=== PATIENT | female | born 1995 | race Native Hawaiian/Other Pacific Islander ===

== ENCOUNTER 2017-07-29 22:17 | Emergency (ER) | payer OTHER ==
[~2017-07-29] VITALS: Ht 157.5 cm; Wt 48.0 kg
[2017-07-29 22:18] VITALS: BP 142/86; PULSE 74; RESP 16; TEMP 98.6; O2SAT 100
--- NOTE | 2017-07-29 22:57 | PD ---
HPI Chief Complaint: Neuro Symptoms/ Deficits Time Seen by Provider: 22:32 Travel History International Travel<30 days: No Contact w/Intl Traveler<30days: No Traveled to known affect area: No History of Present Illness HPI The patient is a 22 year old female who presents to the [facility] emergency department with a history of headache on the left side of her head that reportedly began last weekend. The patient reports that the pain is an aching sensation. The patient reports that the pain waxes and wanes in severity. The pain comes and goes. The pain is improved with taking Tylenol or ibuprofen. She denies any thunderclap quality to the headache. She reports that she has over the last week had difficulty focusing and has also noticed that she's had difficulty finding words and spelling words that she normally can. The patient denies having any numbness or tingling to her extremities. She denies having any one-sided weakness, facial droop, slurred speech, dizziness. The patient's mother accompanies her to this emergency department visit. The patient's mother reports that she has been under increased stress. 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 Mom reports that she additionally a month ago broke up with her boyfriend of 2 years. She reports that she has been tearful frequently over the last month. The patient has had several episodes of passing out over the last week. She reports that she does have a history of syncope with her menstrual cycles. Mom reports that she had 2 episodes of syncope today prompted the visit to the emergency department. Each episode lasts for approximately 2 minutes. She has not hurt herself with either of these episodes. She has not bitten her tongue or lost control of her bladder or bowel. Mom denies seeing any tonic-clonic seizure activity. Review of systems otherwise, the patient denies having any known recent fevers, sore throat, cough, congestion, neck pain or stiffness, chest pain, shortness of breath, abdominal pain, diarrhea, or urinary symptoms. The patient reports that she did have one episode of vomiting earlier today. She cannot recall when she last moved her bowels, however she denies having any problems with constipation. LMP: July 20, 2017 [facility] Past Medical History Narrative Medical The patient's past medical history is significant for syncopal events with her menstrual cycle. Past Surgical History Narrative Surgical The patient's past surgical history is significant for wisdom teeth extraction Social History Alcohol Use: Yes (occasional) Tobacco Use: No Substance Use: No Allergies-Medications (Allergen,Severity, Reaction): Coded Allergies: oxycodone (Verified Adverse Reaction, Intermediate, Dizziness, 07/29/17) Reported Meds & Prescriptions Reported Meds & Active Scripts Active No Active Prescriptions or Reported Medications Narrative Medication Tylenol or ibuprofen as needed for headache. Review of Systems Except as stated in HPI: all other systems reviewed are Neg General / Constitutional: No: Fever Eyes: No: Visual changes HENT: Positive: Headaches, No: Rhinorrhea, Congestion, Neck Stiffness, Neck Pain Cardiovascular: Positive: Syncope, No: Chest Pain or Discomfort Respiratory: No: Cough, Shortness of Breath Gastrointestinal: Positive: Nausea, Vomiting, No: Diarrhea, Abdominal Pain Genitourinary: No: Dysuria Musculoskeletal: No: Pain Skin: No Rash Neurologic: Positive: Change in Mentation, No: Weakness, Focal Abnormalities, Slurred Speech, Sensory Disturbance Psychiatric: No: Depression Endocrine: No: Polydipsia Hematologic/Lymphatic: No: Easy Bruising Physical Exam Narrative General: The patient is a well-developed well-nourished female in no acute distress. Head and Neck exam: Head is normocephalic atraumatic. Eyes: EOMI, pupils are equal round and reactive to light. Nose: Midline septum with pink mucous membranes Mouth: Dentition unremarkable. Moist mucus membranes. Posterior oropharynx is not erythematous. No tonsillar hypertrophy. Uvula midline. Airway patent. Neck: No palpable lymphadenopathy. No nuchal rigidity. No thyromegaly. Negative Brudzinski, negative Kernig sign. Cardiovascular: Regular rate and rhythm without murmurs, gallops, or rubs. Lungs: Clear to auscultation bilaterally. No wheezes, rhonchi, or rales. Abdomen: Soft, without tenderness to palpation in all 4 quadrants of the abdomen. No guarding, rebound, or rigidity. Normal bowel sounds are audible. No tenderness on palpation of McBurney's point. Extremities: No clubbing, cyanosis, or edema. 2+ pulses in all 4 extremities. No calf tenderness on palpation. Back: No spinous process tenderness to palpation. No costovertebral angle tenderness to palpation. Neurologic Exam: Cranial nerves 2-12 were intact on exam. Strength is 5/5 in all 4 extremities. No sensory deficits noted. Skin Exam: No rash noted. Intact skin that is warm and dry. Data Data Last Documented VS Vital Signs Date Time Temp Pulse Resp B/P (MAP) Pulse Ox O2 Delivery O2 Flow Rate FiO2 07/29/17 23:00 94 18 97 Room Air 07/29/17 22:18 98.6 142/86 (104) Orders Orders Electrocardiogram (07/29/17 22:33) Complete Blood Count With Diff (07/29/17 22:33) Comprehensive Metabolic Panel (07/29/17 22:33) Prothrombin Time / Inr (Pt) (07/29/17:33) Act Partial Throm Time (Ptt) (07/29/17:) Lipase (07/29/17:33) Urinalysis - C+S If Indicated (07/29/17 22:33) Westergren Sedimentation Rate (07/29/17 22:33) Magnesium (Mg) (07/29/17 22:33) Thyroid Stimulating Hormone (07/29/17 22:33) Chest, Single Ap (07/29/17 22:33) Ct Brain W/O Iv Contrast(Rout) (07/29/17 22:33) Iv Access Insert/Monitor (07/29/17 22:33) Ecg Monitoring (07/29/17 22:33) Oximetry (07/29/17 22:33) Ed Urine Pregnancytest Poc (07/29/17 22:33) Drug Screen, Random Urine (07/29/17 22:33) Alcohol (Ethanol) (07/29/17 22:33) Orthostatic Vital Signs (07/29/17 23:12) Blood Glucose (07/29/17 23:12) Ondansetron Inj (Zofran Inj) (07/29/17 23:30) Ketorolac Inj (Toradol Inj) (07/29/17 23:45) Prochlorperazine Inj (Compazine Inj) (07/29/17 23:45) Sodium Chlor 0.9% 1000 Ml Inj (Ns 1000 M (07/29/17 23:45) Sodium Chlorid 0.9% 500 Ml Inj (Ns 500 M (07/30/17 00:30) Labs Laboratory Tests Test 07/29/17 22:50 07/30/17 00:45 White Blood Count 7.4 TH/MM3 Red Blood Count 4.54 MIL/MM3 Hemoglobin 13.5 GM/DL Hematocrit 40.5 % Mean Corpuscular Volume 89.2 FL Mean Corpuscular Hemoglobin 29.7 PG Mean Corpuscular Hemoglobin Concent 33.3 % Red Cell Distribution Width 13.0 % Platelet Count 331 TH/MM3 Mean Platelet Volume 9.3 FL Neutrophils (%) (Auto) 54.0 % Lymphocytes (%) (Auto) 34.9 % Monocytes (%) (Auto) 6.3 % Eosinophils (%) (Auto) 3.6 % Basophils (%) (Auto) 1.2 % Neutrophils # (Auto) 4.0 TH/MM3 Lymphocytes # (Auto) 2.6 TH/MM3 Monocytes # (Auto) 0.5 TH/MM3 Eosinophils # (Auto) 0.3 TH/MM3 Basophils # (Auto) 0.1 TH/MM3 CBC Comment DIFF FINAL Differential Comment Erythrocyte Sedimentation Rate 6 mm/hr Prothrombin Time 11.1 SEC Prothromb Time International Ratio 1.0 RATIO Activated Partial Thromboplast Time 27.7 SEC Blood Urea Nitrogen 14 MG/DL Creatinine 0.96 MG/DL Random Glucose 108 MG/DL Total Protein 7.7 GM/DL Albumin 4.1 GM/DL Calcium Level 8.7 MG/DL Magnesium Level 2.2 MG/DL Alkaline Phosphatase 70 U/L Aspartate Amino Transf (AST/SGOT) 16 U/L Alanine Aminotransferase (ALT/SGPT) 18 U/L Total Bilirubin 0.7 MG/DL Sodium Level 140 MEQ/L Potassium Level 3.8 MEQ/L Chloride Level 103 MEQ/L Carbon Dioxide Level 30.0 MEQ/L Anion Gap 7 MEQ/L Estimat Glomerular Filtration Rate 74 ML/MIN Lipase 415 U/L Thyroid Stimulating Hormone 3rd Gen 1.020 uIU/ML Ethyl Alcohol Level LESS THAN 3 MG/DL Urine Color LIGHT-YELLOW Urine Turbidity CLEAR Urine pH 6.5 Urine Specific [place] 1.009 Urine Protein NEG mg/dL Urine Glucose (UA) NEG mg/dL Urine Ketones NEG mg/dL Urine Occult Blood NEG Urine Nitrite NEG Urine Bilirubin NEG Urine Urobilinogen LESS THAN 2.0 MG/DL Urine Leukocyte Esterase NEG Urine RBC 0-3 /hpf Urine WBC 0-2 /hpf Urine Squamous Epithelial Cells 6-8 /hpf Urine Bacteria RARE /hpf Microscopic Urinalysis Comment CULT NOT INDICATED Urine Opiates Screen NEG Urine Barbiturates Screen NEG Urine Amphetamines Screen NEG Urine Benzodiazepines Screen NEG Urine Cocaine Screen NEG Urine Cannabinoids Screen NEG MDM Medical Decision Making Medical Screen Exam Complete: Yes Emergency Medical Condition: Yes Medical Record Reviewed: Yes Interpretation(s) Last Impressions Head CT 07/29/172232 Signed Impressions: Service Date/Time: Saturday, July 29, 2017 23:18 - CONCLUSION: Negative noncontrast head CT. Devin Franklin MD Chest X-Ray 07/29/172232 Signed Impressions: Service Date/Time: Saturday, July 29, 2017 22:48 - CONCLUSION: No acute cardiopulmonary disease identified. Milton Fiore MD Differential Diagnosis Tension headache, versus migraine headache, versus symptomatic anemia, versus adjustment disorder with depressed mood, versus ischemic stroke, versus intracranial hemorrhage, versus intracranial mass Narrative Course During the course of the patients emergency department visit, the patients history, examination, and differential diagnosis were reviewed with the patient. The patient was placed on a excellence coach with oximetry and frequent blood pressure monitoring. The patient had IV access obtained and blood work sent for analysis. A CT scan of the brain was ordered. The patient had an ECG done. The patient's ECG shows a sinus rhythm heart rate of 63, no acute ST segment elevation or depression, T waves are inverted in V1, QRS duration is 84 ms, QTC 398 ms. A bedside test is negative. The patient was initially provided normal saline IV fluid. After her CT scan of the brain came back showing no acute abnormality, the patient was given Toradol for headache, in combination with Compazine 5 mg IV. The patients laboratory studies were reviewed and remarkable for CBC is within normal limits, sedimentation rate is normal at 6, CMP is remarkable for glucose of 108, lipase is slightly elevated at 415 however her abdominal exam is not consistent with pancreatitis, TSH is 1.02, PT 11.1, PTT 27.7, alcohol level is less than 3, urinalysis is unremarkable. Urine drug screen is negative. Radiology studies were reviewed and remarkable for a chest x-ray that shows no acute cardiopulmonary disease, CT scan of the brain shows no acute abnormality. The patient on reexamination was reportedly feeling improved. The patient has a follow-up appointment already scheduled with her primary care physician, for tomorrow. The patient was instructed to continue to push fluids and get plenty of rest. The patient was given a school excuse for the next week. The patient is resting comfortably and feels better, is alert and in no distress. The patients results and examination findings were discussed with the patient. The repeat examination is unremarkable and benign. The history, exam, diagnostic testing, and current condition do not suggest any significant pathology to warrant further testing, continued ED treatment, admission, or surgical evaluation at this point. The vital signs have been stable. The patient does not have uncontrollable pain, intractable vomiting, or other significant symptoms. The patient's condition is stable and appropriate for discharge. The patient will pursue further outpatient evaluation with a primary care physician or other designated or consulting physician as indicated in the discharge instructions. The patient expressed understanding and was agreeable with this plan. Diagnosis Primary Impression: Headache Qualified Codes: R51 - Headache Additional Impressions: Syncopal episodes Qualified Codes: R55 - Syncope and collapse Mild dehydration Referrals: Primary Care Physician 1 day Patient Instructions: Dehydration (ED), General Headache (ED), General Instructions, Syncope (ED) Departure Forms: School Release, Return to School Date: Aug 06, 2017 Tests/Procedures, Work Release Enter return to work date: Aug 06, 2017 Med/Other Pt SpecificInfo: No Change to Meds Scripts No Active Prescriptions or Reported Meds Disposition: 01 DISCHARGE HOME Condition: Stable Abiola Salmon MD Jul 29, 2017 22:57
--- NOTE | 2017-07-29 22:57 | RADRPT ---
EXAM DATE/TIME: 07/29/2017 22:48 [facility] COMPARISON: No previous studies available for comparison. INDICATIONS : Cough. MEDICAL HISTORY : None. SURGICAL HISTORY : None. ENCOUNTER: Initial ACUITY: 1 day PAIN SCORE: 0/10 LOCATION: Bilateral chest FINDINGS: Single AP view of the chest. The lungs are clear. Cardiomediastinal silhouette within normal limits. No evidence of pleural effusion or pneumothorax. CONCLUSION: No acute cardiopulmonary disease identified. Milton Fiore MD on July 29, 2017 at 22:55 Board Certified Radiologist. This report was verified electronically.
[2017-07-29 23:01] LABS: BASOPHIL # 0.1 TH/MM3 (0-0.2); BASOPHIL % 1.2 % (0.0-2.0); EOSINOPHIL # 0.3 TH/MM3 (0-0.4); EOSINOPHIL % 3.6 % (0.0-4.0); HEMATOCRIT 40.5 % (35.0-46.0); HEMO FLAGS DIFF FINAL; LYMPH % 34.9 % (9.0-44.0); LYMPHOCYTE # 2.6 TH/MM3 (1.0-4.8); MEAN CELL VOLUME 89.2 FL (80.0-100.0); MEAN CORPUSCULAR HEMOGLOBIN 29.7 PG (27.0-34.0); MEAN CORPUSCULAR HGB CONC 33.3 % (32.0-36.0); MONO % 6.3 % (0.0-8.0); PLATELET COUNT 331 TH/MM3 (150-450); RED BLOOD COUNT 4.54 MIL/MM3 (4.00-5.30); WHITE BLOOD COUNT 7.4 TH/MM3 (4.0-11.0)
[2017-07-29 23:14] LABS: APTT (PATIENT) 27.7 SEC (24.3-30.1); PROTHROMBIN TIME - PATIENT 11.1 SEC (9.8-11.6)
[2017-07-29 23:16] LABS: ALT (GPT) 18 U/L (9-42); ANION GAP 7 MEQ/L (5-15); AST (GOT) 16 U/L (16-38); BLOOD UREA NITROGEN 14 MG/DL (7-18); CHLORIDE 103 MEQ/L (98-107); GLOMERULAR FILTRATION RATE 74 ML/MIN (>89); MAGNESIUM 2.2 MG/DL (1.5-2.5); POTASSIUM 3.8 MEQ/L (3.5-5.1); SODIUM (NA) 140 MEQ/L (136-145)
[2017-07-29 23:23] LABS: ALCOHOL LESS THAN 3 MG/DL (0-5)
[2017-07-29 23:27] LABS: ALKALINE PHOSPHATASE 70 U/L (45-117); TOTAL BILIRUBIN ADULT 0.7 MG/DL (0.2-1.0)
--- NOTE | 2017-07-29 23:29 | RADRPT ---
EXAM DATE/TIME: 07/29/2017 23:18 [facility] COMPARISON: No previous studies available for comparison. INDICATIONS : Cephalgia x1 week; vomiting and syncope today RADIATION DOSE: 31.99 CTDIvol (mGy) MEDICAL HISTORY : None SURGICAL HISTORY : None. ENCOUNTER: Initial ACUITY: 1 week PAIN SCALE: 5/10 LOCATION: cranial TECHNIQUE: Multiple contiguous axial images were obtained of the head. Using automated exposure control and adj ustment of the mA and/or kV according to patient size, radiation dose was kept as low as reasonably a chievable to obtain optimal diagnostic quality images. DICOM format image data is available electro nically for review and comparison. FINDINGS: CEREBRUM: The ventricles are normal for age. No evidence of midline shift, mass lesion, hemorrhage or acute in farction. No extra-axial fluid collections are seen. POSTERIOR FOSSA: The cerebellum and brainstem are intact. The 4th ventricle is midline. The cerebellopontine angle i s unremarkable. EXTRACRANIAL: The visualized portion of the orbits is intact. SKULL: The calvaria is intact. No evidence of skull fracture. CONCLUSION: Negative noncontrast head CT. Devin Franklin MD on July 29, 2017 at 23:27 Board Certified Radiologist. This report was verified electronically.
[2017-07-29] MEDS ORDERED: ONDANSETRON HCL 4 MG/2 ML VIAL IV ONE (23:30)
[2017-07-29] MEDS ORDERED: SODIUM CHLOR 0.9% 1000 ML INJ 1,000 ML IV ONE (23:45)
[2017-07-29] MEDS ORDERED: KETOROLAC TROMETHAMINE 30 MG/ML (IVP) VIAL IV PUSH ONE (23:45)
[2017-07-29] MEDS ORDERED: PROCHLORPERAZINE INJ 10 MG/2 ML VIAL IV PUSH ONE (23:45)
[2017-07-30] MEDS ORDERED: SODIUM CHLORID 0.9% 500 ML INJ 500 ML IV ONE (00:30)
[2017-07-30 00:57] LABS: BLOOD, URINE NEG (NEG); GLUCOSE,URINE NEG (NEG); KETONE, URINE NEG (NEG); NITRITE,URINE NEG (NEG); PH, URINE 6.5 (5.0-8.5); URINE COLOR LIGHT-YELLOW (YELLW/STRAW)
[2017-07-30 01:05] LABS: BACTERIA, URINE RARE /hpf; COMMENT (UR) CULT NOT INDICATED; CULTURE IF INDICATED CULT NOT INDICATED; RBC, URINE 0-3 /hpf (0-3); WBC, URINE 0-2 /hpf (0-5)
[2017-07-30 02:12] VITALS: BP_SYST 103; BP_SYST 109; BP_SYST 113; BP_DIAS 66; BP_DIAS 68; BP_DIAS 74; RESP 18
--- NOTE | 2017-07-30 15:18 | EKG ---
Date Performed: 07/29/2017 Time Performed: 23:54:57 PTAGE: 22 years EKG: Sinus rhythm NORMAL ECG NO PREVIOUS TRACING DOCTOR: Kirby Childs Interpretating Date/Time 07/30/2017 15:16:54
== END 2017-07-30 02:14 | disposition home or self-care (01) ==
LOC: NEPE 22:17
DX: R51 Headache (principal); R55 Syncope and collapse; E86.0 Dehydration; R11.2 Nausea with vomiting, unspecified; Z88.5 Allergy status to narcotic agent
CPT/HCPCS: 70450; 71010; 80053; 80307; 81001; 83690; 83735; 84443; 84703; 85025; 85610; 85652; 85730; 93005; 96361; 96374; 96375; 99285; J0780; J1885; J2405; J7030; J7040

== ENCOUNTER 2017-07-31 13:35 | Inpatient (IN) | payer OTHER ==
[~2017-07-31] VITALS: Ht 157.5 cm; Wt 48.3 kg
[2017-07-31 13:36] VITALS: BP 111/71; PULSE 88; RESP 18; TEMP 99.3; O2SAT 98
--- NOTE | 2017-07-31 14:09 | PD ---
Data Data Last Documented VS Vital Signs Date Time Temp Pulse Resp B/P (MAP) Pulse Ox O2 Delivery O2 Flow Rate FiO2 07/31/17 13:36 99.3 88 18 111/71 (84) 98 Room Air [facility] Supervised Visit with SATHISH: Yes Narrative Course Patient with intermittent syncopal episodes, seconds to minutes at a time, with confusion and headache. Recent workup negative labs and EKG and CT. Worsening persistent episodes. Multiple social stressors. Patient a medical Park for further evaluation. Syncope versus seizures versus stress reaction. Scripts No Active Prescriptions or Reported Meds Kenneth Amaya MD Jul 31, 2017 14:09
[2017-07-31 14:23] VITALS: BP 115/72; PULSE 84; RESP 16; O2SAT 99
[2017-07-31] MEDS ORDERED: SODIUM CHLOR 0.9% 1000 ML INJ 1,000 ML IV ONE (15:45)
--- NOTE | 2017-07-31 15:45 | PD ---
HPI Chief Complaint: Headache Time Seen by Provider: 15:21 Travel History International Travel<30 days: No Contact w/Intl Traveler<30days: No Traveled to known affect area: No History of Present Illness HPI 22-year-old female presents to the emergency department for evaluation of headache and multiple possible syncopal episodes. The patient was seen here 2 days ago in the emergency department. She had workup at that time. Patient states she has a left temporal headache. It apparently started last weekend. She states the pain is aching, currently rates at 6/10 without radiation. The pain comes and goes. She is here with her mother and father at bedside. They state that multiple times throughout the day she will have these episodes where they believe she has a syncopal episode. However, she will repeat words during the episode and then be confused after the episode. They state that she has not had any tonic-clonic seizure activity. She has not had any injuries during the episodes. These episodes will last from seconds to a minute at a time. Her father states she has had 3 episodes today with multiple episodes yesterday. The patient has no history of this in the past. 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 The patient states she has a headache. She denies any fevers or chills. She reports some difficulty with her left peripheral vision. She denies any neck pain or back pain. No chest pain or abdominal pain. No nausea, vomiting, diarrhea. She denies . Her primary care physician, Dr. Suresh, as scheduled for her to have an EEG tomorrow morning. Her parents are requesting this to be done now. She denies any chance of . She states she drinks occasionally. She denies any tobacco or illicit drug use. Severity is moderate. No exacerbating or alleviating factors. [facility] Past Medical History Medical History: Denies Significant Hx Diminished Hearing: No Tetanus Vaccination: < 5 Years ?: Not Past Surgical History Surgical History: No Previous Surgery Other Surgery: Yes (wisdom teeth removed) Social History Alcohol Use: Yes (occasional) Tobacco Use: No Substance Use: No Allergies-Medications (Allergen,Severity, Reaction): Coded Allergies: oxycodone (Verified Adverse Reaction, Intermediate, Dizziness, 11/21/17) Reported Meds & Prescriptions Reported Meds & Active Scripts Active No Active Prescriptions or Reported Medications Review of Systems Except as stated in HPI: all other systems reviewed are Neg Physical Exam Narrative GENERAL: Well-nourished, well-developed female patient, ambulatory. Afebrile. SKIN: Focused skin assessment warm/dry. HEAD: Normocephalic. Atraumatic. ENT: Mucosa pink and moist. No erythema or exudates. No uvular edema. No uvular , palatal, or tonsillar deviation. Airway patent. Nasal turbinates appear normal without nasal blood, purulent drainage or septal hematoma. Bilateral tympanic membranes are clear without erythema or perforation. EYES: No scleral icterus. No injection or drainage. PERRLA. EOM intact. NECK: Supple, trachea midline. No JVD or lymphadenopathy. CARDIOVASCULAR: Regular rate and rhythm without murmurs, gallops, or rubs. Bilateral radial and pedal pulses are 2+ RESPIRATORY: Breath sounds equal bilaterally. No accessory muscle use. Lungs sounds are clear to auscultation. GASTROINTESTINAL: Abdomen soft, non-tender, nondistended. MUSCULOSKELETAL: No cyanosis, or edema. Bilateral upper and lower extremity strength 5/5. All extremities are neurovascularly intact. BACK: Nontender without obvious deformity. No CVA tenderness. NEUROLOGICAL: Awake and alert. Cranial nerves II through XII intact. Motor and sensory grossly within normal limits. Five out of 5 muscle strength in all muscle groups. Normal speech. Finger to nose is normal bilaterally. Heel-to- hart is normal bilaterally. Data Data Last Documented VS Vital Signs Date Time Temp Pulse Resp B/P (MAP) Pulse Ox O2 Delivery O2 Flow Rate FiO2 07/31/17 16:28 71 16 117/74 (88) 100 Room Air 07/31/17 13:36 99.3 Orders Orders Magnesium (Mg) (07/31/17 15:13) Phosphorus (Po4) (07/31/17 15:13) Complete Blood Count With Diff (07/31/17 15:13) Basic Metabolic Panel (Bmp) (07/31/17 15:13) Electrocardiogram (07/31/17 ) Iv Access Insert/Monitor (07/31/17 15:13) Ecg Monitoring (07/31/17 15:13) Oximetry (07/31/17 15:13) Ed Urine Pregnancytest Poc (07/31/17 15:13) Sodium Chlor 0.9% 1000 Ml Inj (Ns 1000 M (07/31/17 15:45) Place In Observation (07/31/17 ) Code Status (07/31/17 17:18) Vital Signs (Adult) Q4H (07/31/17 17:18) Neuro Checks Q4H (07/31/17 17:18) Activity Oob With Assistance (07/31/17 17:18) Wood Room Hand / Telemetry .CONTINUOUS (07/31/17 17:18) Diet Regular Basic (07/31/17 Dinner) Sodium Chloride 0.9% Flush (Ns Flush) (07/31/17 17:30) Sodium Chloride 0.9% Flush (Ns Flush) (07/31/17 21:00) Acetaminophen (Tylenol) (07/31/17 17:30) Ondansetron Inj (Zofran Inj) (07/31/17 17:30) Temazepam (Restoril) (07/31/17 17:30) Basic Metabolic Panel (Bmp) (08/01/17 06:00) Complete Blood Count With Diff (08/01/17 06:00) Electrocardiogram (07/31/17 17:18) Pt Request For Service (07/31/17 17:18) Scd Bilateral/Knee High SHARRON.BID (07/31/17 17:18) Naloxone Inj (Narcan Inj) (07/31/17 17:30) Magnesium Hydroxide Liq (Milk Of Magnesi (07/31/17 17:30) Beta Hcg (Quant/Titer) (07/31/17 17:18) Holter Monitor Recording (07/31/17 ) Echo 2d Comp With Doppler (07/31/17 ) Thyroid Stimulating Hormone (07/31/17 17:20) Free Thyroxine (T4) (07/31/17 17:20) Rapid Plasma Regin (Rpr) W Ttr (07/31/17 17:20) Vitamin B12 (07/31/17 17:20) Folate, Serum (07/31/17 17:20) Ammonia (07/31/17 17:20) Ns + Kcl 20 Meq Inj (Ns + Kcl 20 Meq Inj (07/31/17 17:30) Consult Neurology (07/31/17 ) Eeg Study (07/31/17 ) Mri Abdomen W&W/O Contrast (07/31/17 ) Admit Order (Ed Use Only) (07/31/17 17:27) Labs Laboratory Tests Test 07/31/17 15:40 White Blood Count 8.7 TH/MM3 Red Blood Count 4.55 MIL/MM3 Hemoglobin 13.5 GM/DL Hematocrit 40.7 % Mean Corpuscular Volume 89.5 FL Mean Corpuscular Hemoglobin 29.6 PG Mean Corpuscular Hemoglobin Concent 33.1 % Red Cell Distribution Width 13.1 % Platelet Count 303 TH/MM3 Mean Platelet Volume 9.4 FL Neutrophils (%) (Auto) 77.4 % Lymphocytes (%) (Auto) 14.9 % Monocytes (%) (Auto) 6.0 % Eosinophils (%) (Auto) 1.1 % Basophils (%) (Auto) 0.6 % Neutrophils # (Auto) 6.7 TH/MM3 Lymphocytes # (Auto) 1.3 TH/MM3 Monocytes # (Auto) 0.5 TH/MM3 Eosinophils # (Auto) 0.1 TH/MM3 Basophils # (Auto) 0.1 TH/MM3 CBC Comment DIFF FINAL Differential Comment Blood Urea Nitrogen 9 MG/DL Creatinine 0.78 MG/DL Random Glucose 90 MG/DL Calcium Level 9.3 MG/DL Phosphorus Level 3.7 MG/DL Magnesium Level 2.2 MG/DL Sodium Level 137 MEQ/L Potassium Level 4.1 MEQ/L Chloride Level 102 MEQ/L Carbon Dioxide Level 29.0 MEQ/L Anion Gap 6 MEQ/L Estimat Glomerular Filtration Rate 94 ML/MIN MDM Medical Decision Making Medical Screen Exam Complete: Yes Emergency Medical Condition: Yes Medical Record Reviewed: Yes Differential Diagnosis Syncope versus seizures versus stress reaction. Narrative Course 22-year-old female presents to the emergency department for evaluation of headache with multiple episodes of syncope versus seizure. I reviewed lab work from visit 2 days ago. CBC was unremarkable. ESR was 6. CMP showed no acute abnormality. Lipase was slightly elevated at 415. TSH is 1.020. Coags are unremarkable. Urine drug screen was negative. Alcohol level is less than 3. UA showed no acute infection. EKG, CBC, BMP, magnesium, phosphorus, urine test are ordered and pending. Patient is given normal saline 1 L IV bolus. EKG shows sinus rhythm, heart rate 74, no acute ST changes. CBC shows no acute abnormality. BMP is unremarkable. Magnesium is 2.2. Phosphorus is 3.7. UPT is negative. I spoke to neurologist on-call, Dr. Real, who recommends observation admission and consult to neurology. He recommended EEG tomorrow. [facility] is paged for admission. Dr. Bronson accepted admission. Diagnosis Primary Impression: Syncopal episodes Qualified Codes: R55 - Syncope and collapse Additional Impression: Intractable headache Qualified Codes: R51 - Headache Admitting Information Admitting Physician Requests: Observation Scripts No Active Prescriptions or Reported Meds Carmen Rodriguez Jul 31, 2017 15:45
[2017-07-31 16:20] LABS: AUTOMATED NEUTROPHIL # 6.7 TH/MM3 (1.8-7.7); BASOPHIL # 0.1 TH/MM3 (0-0.2); BASOPHIL % 0.6 % (0.0-2.0); EOSINOPHIL # 0.1 TH/MM3 (0-0.4); EOSINOPHIL % 1.1 % (0.0-4.0); HEMATOCRIT 40.7 % (35.0-46.0); HEMO FLAGS DIFF FINAL; LYMPH % 14.9 % (9.0-44.0); LYMPHOCYTE # 1.3 TH/MM3 (1.0-4.8); MEAN CELL VOLUME 89.5 FL (80.0-100.0); MEAN CORPUSCULAR HEMOGLOBIN 29.6 PG (27.0-34.0); MEAN CORPUSCULAR HGB CONC 33.1 % (32.0-36.0); NEUT % 77.4 % (16.0-70.0); PLATELET COUNT 303 TH/MM3 (150-450); RED BLOOD COUNT 4.55 MIL/MM3 (4.00-5.30); RED CELL DISTRIBUTION WIDTH 13.1 % (11.6-17.2); WHITE BLOOD COUNT 8.7 TH/MM3 (4.0-11.0)
[2017-07-31 16:28] VITALS: BP 117/74; PULSE 71; RESP 16; O2SAT 100
[2017-07-31 16:34] LABS: MAGNESIUM 2.2 MG/DL (1.5-2.5); POTASSIUM 4.1 MEQ/L (3.5-5.1)
[2017-07-31] MEDS ORDERED: NALOXONE HCL 0.4 MG/ML AMP IV PUSH PRN (17:30)
[2017-07-31] MEDS ORDERED: TEMAZEPAM 15 MG CAP PO PRN (17:30)
[2017-07-31] MEDS ORDERED: MAGNESIUM HYDROXIDE SUSP 30 ML CUP PO PRN (17:30)
[2017-07-31] MEDS ORDERED: IOHEXOL 350 MG/ML 10 ML VIAL (for RAD DIAG) IVCONTRAST ONE (17:31)
[2017-07-31] MEDS: NS + KCL 20 MEQ INJ 1,000 ML IV SCH (17:56)
--- NOTE | 2017-07-31 18:08 | HHI.HP ---
HPI Service [facility] Hospitalists Primary Care Physician Oswaldo Suresh MD Admission Diagnosis intractable headache, possible neurological episodes Chief Complaint: Possible neurologic epidoses Travel History International Travel<30 Days: No Contact w/Intl Traveler <30 Da: No Traveled to Known Affected Are: No History of Present Illness Pt is a pleasant 22 y/o Female who attends [employer] where she is engaged in pre- medical studies. Pt was in her usual state of good health prior to last few weeks. Pt is accompanied to the ER by her mother and father. Most of the pt's history is given by the patient's mother. 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 Pt's mother volunteers that Ms. Rosado completed the IB program at [employer] was accepted at [employer], but decided to attend [employer] as a more economic alternative. 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 Per pt's mother, Ms. Rosado recently, approximately 1 month ago, broke up with her boyfriend of 2 years. Mother feels that Ms. Rosado puts herself under a lot of stress due to her competitive nature. Pt was seen in the ER 07/29/17 with c/o BRAND. Pt had extensive evaluation including CT brain without any acute findings. Pt was discharge to home and followed up with her Reliability Specialist Dr. St. Reliability Specialist recommended EEG which was scheduled for tomorrow. Today's visit to the ER centers on possible neurologic spells. Pt's mother explains that Ms. Rosado has been having increasingly frequent episodes since Sunday where here eyes appear glazed and she becomes unresponsive. Mother does NOT relate that the pt falls to the floor or has tonic-clonic activity. The mother rubs Ms. Rosado's face and the episodes appear to resolve after about one minute and pt is again able to answer questions appropriately. Pt will mumble a few words during these events. Afterwards she does NOT recall the episodes. Pt had one of these episodes during my visit. Pt's eyes rolled laterally to the right and pt's eyelids fluttered. Pt was unable to verbally respond during this episode. Pt's episode lasted approximately one minute. There was no tonic -clonic activity. There was NO loss of bowel or bladder control. Pt was able to answer questions soon afterwards. Mother denies any recent trauma. Pt has NO history of seizure disorder. There is NO family history of seizure disorder. Review of Systems Constitutional: DENIES: Diaphoretic episodes, Fatigue, Fever, Weight gain, Weight loss, Chills, Dizziness, Change in appetite, Night Sweats Endocrine: COMPLAINS OF: Abnorml menstrual pattern, DENIES: Heat/cold intolerance, Polydipsia, Polyuria, Polyphagia Eyes: DENIES: Blurred vision, Diplopia, Eye inflammation, Eye pain, Vision loss , Photosensitivity, Double Vision Ears, nose, mouth, throat: DENIES: Tinnitus, Hearing loss, Vertigo, Nasal discharge, Oral lesions, Throat pain, Hoarseness, Ear Pain, Running Nose, Epistaxis, Sinus Pain, Toothache, Odynophagia Respiratory: DENIES: Apneas, Cough, Snoring, Wheezing, Hemoptysis, Sputum production, Shortness of breath Cardiovascular: DENIES: Chest pain, Palpitations, Syncope, Dyspnea on Exertion , PND, Lower Extremity Edema, Orthopnea, Claudication Gastrointestinal: DENIES: Abdominal pain, Black stools, Bloody stools, BRB per rectum, Constipation, Diarrhea, GERD, Nausea, Reflux, Vomiting, Difficulty Swallowing, Anorexia Genitourinary: COMPLAINS OF: Dysmenorrhea, Dyspareunia, Sexual dysfunction, Vaginal discharge, DENIES: Urinary frequency, Urinary incontinence, Urgency, Hematuria, Dysuria, Nocturia Musculoskeletal: DENIES: Joint pain, Muscle aches, Stiffness, Joint Swelling, Back pain, Neck pain Integumentary: DENIES: Abnormal pigmentation, Pruritus, Rash, Nail changes, Breast masses, Breast skin changes, Nipple discharge Hematologic/lymphatic: DENIES: Bruising, Lymphadenopathy Immunologic/allergic: DENIES: Eczema, Urticaria Neurologic: DENIES: Abnormal gait, Headache, Localized weakness, Paresthesias, Seizures, Speech Problems, Tremor, Poor Balance Psychiatric: DENIES: Anxiety, Confusion, Mood changes, Depression, Hallucinations, Agitation, Suicidal Ideation, Homicidal Ideation, Delusions, History of Bipolar, History of Schizophrenia Past Family Social History Past Medical History - per ER history 07/29. Pt has had syncope associated with her menstrual cycle. There was NO mention of this today, but I did NOT specifically ask. 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 SKIN: No rashes, ecchymoses or lesions. Cool and dry. HEAD: Atraumatic. Normocephalic. No temporal or scalp tenderness. EYES: Pupils equal round and reactive. Extraocular motions intact. No scleral icterus. No injection or drainage. ENT: Nose without bleeding, purulent drainage or septal hematoma. Throat without erythema, tonsillar hypertrophy or exudate. Uvula midline. Airway patent. NECK: Trachea midline. No JVD or lymphadenopathy. Supple, nontender, no meningeal signs. CARDIOVASCULAR: Regular rate and rhythm without murmurs, gallops, or rubs. RESPIRATORY: Clear to auscultation. Breath sounds equal bilaterally. No wheezes , rales, or rhonchi. GASTROINTESTINAL: Abdomen soft, non-tender, nondistended. No hepato-splenomegaly , or palpable masses. No guarding. MUSCULOSKELETAL: Extremities without clubbing, cyanosis, or edema. No joint tenderness, effusion, or edema noted. No calf tenderness. Negative Homans sign bilaterally. NEUROLOGICAL: Awake and alert. Cranial nerves II through XII intact. Motor and sensory grossly within normal limits. Five out of 5 muscle strength in all muscle groups. Normal speech. Laboratory Laboratory Tests Test 07/31/17 15:40 White Blood Count 8.7 Red Blood Count 4.55 Hemoglobin 13.5 Hematocrit 40.7 Mean Corpuscular Volume 89.5 Mean Corpuscular Hemoglobin 29.6 Mean Corpuscular Hemoglobin Concent 33.1 Red Cell Distribution Width 13.1 Platelet Count 303 Mean Platelet Volume 9.4 Neutrophils (%) (Auto) 77.4 Lymphocytes (%) (Auto) 14.9 Monocytes (%) (Auto) 6.0 Eosinophils (%) (Auto) 1.1 Basophils (%) (Auto) 0.6 Neutrophils # (Auto) 6.7 Lymphocytes # (Auto) 1.3 Monocytes # (Auto) 0.5 Eosinophils # (Auto) 0.1 Basophils # (Auto) 0.1 CBC Comment DIFF FINAL Differential Comment Blood Urea Nitrogen 9 Creatinine 0.78 Random Glucose 90 Calcium Level 9.3 Phosphorus Level 3.7 Magnesium Level 2.2 Sodium Level 137 Potassium Level 4.1 Chloride Level 102 Carbon Dioxide Level 29.0 Anion Gap 6 Estimat Glomerular Filtration Rate 94 Result Diagram: 07/31/17 1540 07/31/17 1540 Imaging Last Impressions Brain MRI 07/31/17 0000 Signed Impressions: Service Date/Time: Monday, July 31, 2017 18:21 - CONCLUSION: No concerning findings on the limited quality MRI of the brain with and without contrast. Misael Samuels MD Septic Shock Reassessment Heart: Regular rate and rhythm Lungs: Clear Skin: Warm Peripheral Pulses: Bounding Right Radial Bounding Left Radial Bounding Right Popliteal Bounding Left Popliteal Bounding Right Dorsalis Pedis Bounding Left Dorsalis Pedis Bounding Right Posterior Tibial Bounding Left Posterior Tibial Capillary Refill: Brisk Caprini VTE Risk Assessment Caprini VTE Risk Assessment: No/Low Risk (score <= 1) Caprini Risk Assessment Model Point Value = 1 Point Value = 2 Point Value = 3 Point Value = 5 Age 41-60 Minor surgery BMI > 25 kg/m2 Swollen legs Varicose veins or History of unexplained or recurrent spontaneous Oral contraceptives or hormone replacement Sepsis (< 1 month) Serious lung disease, including pneumonia (< 1 month) Abnormal pulmonary function Acute myocardial infarction Congestive heart failure (< 1 month) History of inflammatory bowel disease Medical patient at bed rest Age 61-74 Arthroscopic surgery Major open surgery (> 45 min) Laparoscopic surgery (> 45 min) Malignancy Confined to bed (> 72 hours) Immobilizing plaster cast Central venous access Age >= 75 History of VTE Family history of VTE Factor V Leiden Prothrombin [id number] Lupus anticoagulant Anticardiolipin antibodies Elevated serum homocysteine Heparin-induced thrombocytopenia Other congenital or acquired thrombophilia Stroke (< 1 month) Elective arthroplasty Hip, pelvis, or leg fracture Acute spinal cord injury (< 1 month) Prophylaxis Regimen Total Risk Factor Score Risk Level Prophylaxis Regimen 0-1 Low Early ambulation 2 Moderate Order ONE of the following: *Sequential Compression Device (SCD) *Heparin 5000 units SQ BID 3-4 Higher Order ONE of the following medications: *Heparin 5000 units SQ TID *Enoxaparin/Lovenox 40 mg SQ daily (WT < 150 kg, CrCl > 30 mL/min) *Enoxaparin/Lovenox 30 mg SQ daily (WT < 150 kg, CrCl > 10-29 mL/min) *Enoxaparin/Lovenox 30 mg SQ BID (WT < 150 kg, CrCl > 30 mL/min) AND/OR *Sequential Compression Device (SCD) 5 or more Highest Order ONE of the following medications: *Heparin 5000 units SQ TID (Preferred with Epidurals) *Enoxaparin/Lovenox 40 mg SQ daily (WT < 150 kg, CrCl > 30 mL/min) *Enoxaparin/Lovenox 30 mg SQ daily (WT < 150 kg, CrCl > 10-29 mL/min) *Enoxaparin/Lovenox 30 mg SQ BID (WT < 150 kg, CrCl > 30 mL/min) AND *Sequential Compression Device (SCD) Assessment and Plan Problem List: (1) Episode of transient neurologic symptoms ICD Codes: R29.90 - Unspecified symptoms and signs involving the nervous system Status: Acute Plan: - Pt is a 22 y/o F who is highly driven and studying pre-med curriculum at [employer] - Most of history is obtain from pt's mother - pt has been under substantial social stress with school and recent break up - Pt was in the ER 07/29 with c/o severe BRAND - CT brain (07/29) --> NO acute findings - MRI brain (07/31) --> limited study d/t braces, but NO acute findings - Case d/w Neurology (07/31), Dr. Real. He will consult - Will try to avoid benzodiazepines at this time. - Will NOT start AEDs at this time. Await EEG and Neurology consultation - obtain EEG - observe on telemetry - CBC & BMP essentially WNL - await TSH, free T4, B12, folate, RPR, ammonia - toxicology panel 07/30/17 was negative - pt's lipase was minimally elevated. Probably insignificant but I will repeat her lipase level. - symptoms/presentation seem somewhat atypical for seizure disorder, but will need EEG study - Pt might have Conversion Disorder - Will request Psychiatry evaluation - DVT prophylaxis with SCDs - supportive care - anticipate discharge to home in 1-2 days. Diony Bronson DO Jul 31, 2017 18:08
[2017-07-31] MEDS ORDERED: GADODIAMIDE PF 287 MG/ML 10 ML VIAL (for RAD MRI) IV PUSH ONE (19:10)
--- NOTE | 2017-07-31 19:33 | RADRPT ---
EXAM DATE/TIME: 07/31/2017 18:21 [facility] COMPARISON: No previous studies available for comparison. INDICATIONS : Cephalgia. Possible seizure. CONTRAST: 9 cc Omniscan (gadodiamide) IV MEDICAL HISTORY : None. SURGICAL HISTORY : None. ENCOUNTER: Subsequent ACUITY: 3 day PAIN SCORE: 6/10 LOCATION: cranial TECHNIQUE: Multiplanar, multisequence MRI of the brain was performed both prior to and following the administrat ion of paramagnetic contrast. FINDINGS: Metallic braces cause field distortion artifacts and rendering the diffusion, susceptibility weighted , and echo planar sequences nondiagnostic. The other sequences are diagnostic except for the frontal orbital region. The brain is well formed. Ventricles are normal in size. There is good aldana-white matter differentiation. Posterior fossa structures are grossly unremarkable. The pituitary is norm al in appearance. On the postcontrast images, no abnormal areas of enhancement or blood brain vernon r breakdown seen. No extra-axial fluid or blood. CONCLUSION: No concerning findings on the limited quality MRI of the brain with and without contrast. Misael Samuels MD on July 31, 2017 at 19:29 Board Certified Radiologist. This report was verified electronically.
[2017-07-31 20:00] VITALS: BP 111/72; PULSE 63; RESP 18; TEMP 99.4; O2SAT 99
[2017-07-31] MEDS: ACETAMINOPHEN 325 MG TAB PO PRN (20:54)
[2017-07-31] MEDS: SODIUM CHLORIDE 0.9% FLUSH 10 ML FLUSH IV FLUSH SCH (21:00)
[2017-07-31 21:25] LABS: BETA HCG QUANT LESS THAN 1 MIU/ML (0-5); FREE T4 1.38 NG/DL (0.76-1.46)
[2017-08-01] VITALS (9 sets, daily range): BP systolic 85–151; BP diastolic 50–74; PULSE 62–99; RESP 12–22; TEMP 97.5–98.9; O2SAT 95–99
[2017-08-01] MEDS: NS + KCL 20 MEQ INJ 1,000 ML IV SCH ×2 (05:16→08:32)
[2017-08-01 07:53] LABS: BASOPHIL # 0.1 TH/MM3 (0-0.2); BASOPHIL % 0.7 % (0.0-2.0); EOSINOPHIL # 0.1 TH/MM3 (0-0.4); EOSINOPHIL % 1.3 % (0.0-4.0); HEMATOCRIT 36.6 % (35.0-46.0); HEMO FLAGS DIFF FINAL; LYMPH % 22.3 % (9.0-44.0); LYMPHOCYTE # 1.6 TH/MM3 (1.0-4.8); MEAN CELL VOLUME 90.1 FL (80.0-100.0); MEAN CORPUSCULAR HEMOGLOBIN 30.1 PG (27.0-34.0); MEAN CORPUSCULAR HGB CONC 33.4 % (32.0-36.0); MONO % 5.2 % (0.0-8.0); NEUT % 70.5 % (16.0-70.0); PLATELET COUNT 259 TH/MM3 (150-450); RED BLOOD COUNT 4.06 MIL/MM3 (4.00-5.30); WHITE BLOOD COUNT 7.1 TH/MM3 (4.0-11.0)
[2017-08-01 08:27] LABS: BICARBONATE 27.2 MEQ/L (21.0-32.0); POTASSIUM 3.8 MEQ/L (3.5-5.1)
[2017-08-01] MEDS: SODIUM CHLORIDE 0.9% FLUSH 10 ML FLUSH IV FLUSH SCH ×2 (08:32→20:01)
--- NOTE | 2017-08-01 08:32 | PD.CONS ---
History of Present Illness Service Neurology Consult Requested By medical Reason for Consult headache Primary Care Physician Oswaldo Suresh MD History of Present Illness 22 y/o Female admitted for headache and recurrent syncope. over past weekend has had sudden episodes of confusion, left sided headache. repetitive speech, lasting seconds to minutes. no limb jerking. no incontinence. pt unable to give any hx at present. parents at bedside. had mri brain which was nml. pt apparently has been under alot of stress lately but has good parental support. hx of childhood febrile seizure. no other family hx of sz. brother with hx of psychosis in early college years, and is now stabilized. Review of Systems as above and admit hp Past Family Social History Past Medical History as above Past Surgical History wisdom teeth extraction Reported Medications Reported Meds & Active Scripts Active No Active Prescriptions or Reported Medications Allergies: Coded Allergies: oxycodone (Verified Adverse Reaction, Intermediate, Dizziness, 07/31/17) Family History no h/o seizure disorder/tia/lupus/blood clots Social History no tob use. rare etoh. no illicit drugs Review of Systems All other ROS: ROS reviewed as documented in chart Past Family Social History Allergies: Coded Allergies: oxycodone (Verified Adverse Reaction, Intermediate, Dizziness, 07/31/17) Active Ordered Medications Current Medications Medications (Trade) Dose Ordered Sig/Nigel Route Start Time Stop Time Status Last Admin (NS Flush) 2 ml UNSCH PRN IV FLUSH 07/31/17 17:30 (NS Flush) 2 ml BID IV FLUSH 07/31/17 21:00 (Tylenol) 650 mg Q4H PRN PO 07/31/17 17:30 (Zofran Inj) 4 mg Q6H PRN IVP 07/31/17 17:30 (Narcan Inj) 0.4 mg UNSCH PRN IV PUSH 07/31/17 17:30 (Milk Of Magnesia Liq) 30 ml Q12H PRN PO 07/31/17 17:30 Potassium Chloride/Sodium Chloride 1,000 ml @ 85 mls/hr [id number] IV 07/31/17 17:30 07/31/17 17:56 (Tylenol) 650 mg Q6H PRN PO 07/31/17 20:45 07/31/17 20:54 Exam I&O / VS Vital Signs Date Time Temp Pulse Resp B/P (MAP) Pulse Ox O2 Delivery O2 Flow Rate FiO2 08/01/17 04:00 98.0 62 18 120/71 (87) 95 08/01/17 00:00 97.5 82 18 118/74 (89) 97 08/01/17 00:00 98.5 67 18 100/54 (69) 98 07/31/17 20:00 99.4 63 18 111/72 (85) 99 07/31/17 19:34 07/31/17 16:28 71 16 117/74 (88) 100 Room Air 07/31/17 14:23 84 16 115/72 (86) 99 Room Air 07/31/17 13:36 99.3 88 18 111/71 (84) 98 Room Air General: No acute distress Eye: EOMI Respiratory: Non-labored respirations Cardiology: Normal rate Neurologic: Alert, No focal defects Psychiatric: Non-suicidal Exam Comments sitting up in bed, parents at beside. mumbled speech poor eye contact; confused appearing, rare left gaze deviation. difficulty for her to follow. did volitionally prevent pupillary exam, but then examined on reattempt ou 4.5-4mm, valenzuela to gravity, no clonus, planterflexor Review/Management Diagnosis/Plan: (1) Seizure disorder, complex partial ICD Codes: G40.209 - Localization-related (focal) (partial) symptomatic epilepsy and epileptic syndromes with complex partial seizures, not intractable , without status epilepticus Status: Acute Plan: possible left temporal sz vs non-epileptic component hx of febrile childhood sz recs eeg tele cerebrovascular imaging no driving/swimming alone/operating any dangerous machinery (2) Tension headache ICD Codes: G44.209 - Tension-type headache, unspecified, not intractable Status: Acute (3) Vasovagal episode ICD Codes: R55 - Syncope and collapse Status: Acute Plan: tele Duong Gomez MD Aug 01, 2017 08:32
--- NOTE | 2017-08-01 09:50 | EKG ---
Date Performed: 07/31/2017 Time Performed: 16:23:00 PTAGE: 22 years EKG: Sinus rhythm WITH SINUS ARRHYTHMIA POSSIBLE RIGHT VENTRICULAR CONDUCTION DELAY BORDERLINE ECG NO PREVIOUS TRACING DOCTOR: Kenneth Scott Interpretating Date/Time 08/01/2017 09:48:33
--- NOTE | 2017-08-01 11:24 | RADRPT ---
EXAM DATE/TIME: 08/01/2017 10:03 [facility] COMPARISON: CTA CAROTID ARTERIES W 3D RECON, August 01, 2017, 10:03. INDICATIONS : Intractable headache. IV CONTRAST: 65 cc Omnipaque 350 (iohexol) IV ; Cumulative dose for multiple exams. RADIATION DOSE: 12.96 CTDIvol (mGy) ; Combined studies MEDICAL HISTORY : None SURGICAL HISTORY : None. ENCOUNTER: Initial ACUITY: 4 - 6 days PAIN SCALE: 4/10 LOCATION: Bilateral cranial TECHNIQUE: Volumetric scanning was performed using a multi-row detector CT scanner. The data was post processed with a variety of visualization algorithms including full volume maximum intensity projection, multi -planar sliding thin slab reformation, curved planar reformation, and surface rendering techniques. Using automated exposure control and adjustment of the mA and/or kV according to patient size, radiat ion dose was kept as low as reasonably achievable to obtain optimal diagnostic quality images. DICO M format image data is available electronically for review and comparison. FINDINGS: Examination of the anterior circulation demonstrates no evidence of aneurysm or vascular information. No intracranial stenosis is identified. The distal cerebral vessels fill normally. Examination of the posterior fossa demonstrates an amylase carotid vertebral anastomosis with the rig ht for cubital artery arising from the cervical internal carotid artery forming the basilar segment. The left vertebral artery is hypoplastic. No intracranial stenosis is identified. CONCLUSION: 1. No acute findings or aneurysm identified. 2. 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 This report was verified electronically.
--- NOTE | 2017-08-01 11:28 | RADRPT ---
EXAM DATE/TIME: 08/01/2017 10:03 [facility] COMPARISON: No previous studies available for comparison. INDICATIONS : Intractable headache. IV CONTRAST: 65 cc Omnipaque 350 (iohexol) IV ; Cumulative dose for multiple exams. RADIATION DOSE: 12.96 CTDIvol (mGy) ; Combined studies MEDICAL HISTORY : Non-responsive. SURGICAL HISTORY : None. ENCOUNTER: Initial ACUITY: 4 - 6 days PAIN SCALE: 0/10 LOCATION: neck Elevated flow velocities and ICA/CCA ratios have been found to correlate with increased degrees of vessel stenosis, calculated as percentage of diameter relative to a normal segment of distal ICA/CCA. TECHNIQUE: Volumetric scanning was performed using a multirow detector CT scanner. The data was post processed with a variety of visualization algorithms including full-volume maximum intensity projection, multip lanar sliding thin-slab reformation, curved-planar reformation, and surface-rendering techniques. Us ing automated exposure control and adjustment of the mA and/or kV according to patient size, radiatio n dose was kept as low as reasonably achievable to obtain optimal diagnostic quality images. DICOM f ormat image data is available electronically for review and comparison. FINDINGS: No abnormality is identified within the lung apices. There is normal origin of vessels from the arch without evidence of proximal stenosis. 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 The right vertebral artery arises from the cervical portion of the nutrition internship al carotid artery. This is a persistent probatlantal artery type one. There is a hypoplastic left mark tebral artery arising directly from the arch Examination of the right common carotid artery demonstrates the vessel to be widely patent. There is 0-10% stenosis More distally the cervical internal carotid artery is intact. Examination of the left common carotid artery demonstrates the vessel to be widely patent. There is 0 -10% stenosis More distally the cervical internal carotid artery is intact. Percent stenosis is calculated using the diameter of the stenotic region over the diameter of the nor mal distal internal carotid artery. CONCLUSION: 1. No evidence of carotid stenosis 2. 3. 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 22 Board Certified Radiologist. This report was verified electronically.
[2017-08-01] MEDS ORDERED: LORazepam 2 MG/ML VIAL IV PUSH ONE ×2 (11:30→21:30)
[2017-08-01] MEDS: ONDANSETRON HCL 4 MG/2 ML VIAL IVP PRN (11:38)
[2017-08-01] MEDS: FOSPHENYTOIN SODIUM 100 MG PE/2 ML VIAL IV SCH ×2 (11:43→19:59)
[2017-08-01] MEDS ORDERED: FOSPHENYTOIN INJ 1,000 MGPE in SODIUM CHLORIDE 0.9% INJ 50 ML IV ONE (12:00)
--- NOTE | 2017-08-01 13:12 | HHI.PR ---
Subjective Remarks Patient having recurrent seizure activity during EEG relieved with Ativan Objective Vitals Vital Signs Date Time Temp Pulse Resp B/P (MAP) Pulse Ox O2 Delivery O2 Flow Rate FiO2 08/01/17 11:21 98.3 69 17 100/68 (79) 99 08/01/17 04:00 98.0 62 18 120/71 (87) 95 08/01/17 00:00 97.5 82 18 118/74 (89) 97 08/01/17 00:00 98.5 67 18 100/54 (69) 98 07/31/17 20:00 99.4 63 18 111/72 (85) 99 07/31/17 19:34 07/31/17 16:28 71 16 117/74 (88) 100 Room Air 07/31/17 14:23 84 16 115/72 (86) 99 Room Air 07/31/17 13:36 99.3 88 18 111/71 (84) 98 Room Air Result Diagram: 08/01/17 0638 08/01/17 0638 Other Results Laboratory Tests Test 07/31/17 15:40 07/31/17 20:08 08/01/17 06:38 08/01/17 10:32 White Blood Count 8.7 TH/MM3 7.1 TH/MM3 Red Blood Count 4.55 MIL/MM3 4.06 MIL/MM3 Hemoglobin 13.5 GM/DL 12.2 GM/DL Hematocrit 40.7 % 36.6 % Mean Corpuscular Volume 89.5 FL 90.1 FL Mean Corpuscular Hemoglobin 29.6 PG 30.1 PG Mean Corpuscular Hemoglobin Concent 33.1 % 33.4 % Red Cell Distribution Width 13.1 % 13.0 % Platelet Count 303 TH/MM3 259 TH/MM3 Mean Platelet Volume 9.4 FL 11.1 FL Neutrophils (%) (Auto) 77.4 % 70.5 % Lymphocytes (%) (Auto) 14.9 % 22.3 % Monocytes (%) (Auto) 6.0 % 5.2 % Eosinophils (%) (Auto) 1.1 % 1.3 % Basophils (%) (Auto) 0.6 % 0.7 % Neutrophils # (Auto) 6.7 TH/MM3 5.0 TH/MM3 Lymphocytes # (Auto) 1.3 TH/MM3 1.6 TH/MM3 Monocytes # (Auto) 0.5 TH/MM3 0.4 TH/MM3 Eosinophils # (Auto) 0.1 TH/MM3 0.1 TH/MM3 Basophils # (Auto) 0.1 TH/MM3 0.1 TH/MM3 CBC Comment DIFF FINAL DIFF FINAL Differential Comment Blood Urea Nitrogen 9 MG/DL 11 MG/DL Creatinine 0.78 MG/DL 0.85 MG/DL Random Glucose 90 MG/DL 172 MG/DL Calcium Level 9.3 MG/DL 8.4 MG/DL Phosphorus Level 3.7 MG/DL Magnesium Level 2.2 MG/DL Sodium Level 137 MEQ/L 138 MEQ/L Potassium Level 4.1 MEQ/L 3.8 MEQ/L Chloride Level 102 MEQ/L 104 MEQ/L Carbon Dioxide Level 29.0 MEQ/L 27.2 MEQ/L Anion Gap 6 MEQ/L 7 MEQ/L Estimat Glomerular Filtration Rate 94 ML/MIN 85 ML/MIN Ammonia LESS THAN 10 MCMOL/L Vitamin B12 Level 537 PG/ML Folate 19.2 NG/ML Free Thyroxine 1.38 NG/DL Thyroid Stimulating Hormone 3rd Gen 0.674 uIU/ML Human Chorionic Gonadotropin, Quant LESS THAN 1 MIU/ML Lipase 298 U/L Imaging Last Impressions Brain MRI 07/31/17 0000 Signed Impressions: Service Date/Time: Monday, July 31, 2017 18:21 - CONCLUSION: No concerning findings on the limited quality MRI of the brain with and without contrast. Misael Samuels MD Objective Remarks GENERAL: This is a well-nourished, well-developed patient, in no apparent distress. CARDIOVASCULAR: Regular rate and rhythm RESPIRATORY: Clear to auscultation. Breath sounds equal bilaterally. GASTROINTESTINAL: Abdomen soft, non-tender, nondistended. No hepato-splenomegaly , or palpable masses. No guarding. MUSCULOSKELETAL: Extremities without clubbing, cyanosis, or edema. No joint tenderness, effusion, or edema noted. No calf tenderness. Negative Homans sign bilaterally. 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 Real. He will consult - Will try to avoid benzodiazepines at this time. - Will NOT start AEDs at this time. Await EEG and Neurology consultation - obtain EEG, during EEG study patient having recurrent seizure activity - discussed with Dr. Gomez, who ordered Ativan and Cerebyx loading - transfer patient to ICU for closer monitoring - change to inpatient status - observe on telemetry - CBC & BMP essentially WNL - await TSH 0.674, free T4 1.38, B12 537, folate 19.2, RPR pending, ammonia < 10 - toxicology panel 07/30/17 was negative - pt's lipase was minimally elevated. Probably insignificant repeat lipase level 298. - DVT prophylaxis with SCDs - supportive care (2) Episode of transient neurologic symptoms ICD Codes: R29.90 - Unspecified symptoms and signs involving the nervous system Status: Acute Assessment and Plan Patient examined. Assessment and plan formulated with Nichole Topete PA-C. I agree with the above on arrival pt getting eeg...continuous sz activity left hemisphere with only about 10sec breaks. Dr Gomez notified. ativan iv and cerebyx given. zofran as pt vomiting. moved to ICU for close monitoring. MRI brain negative and CTA brain pending. I updated mother at bedside Nichole Topete Aug 01, 2017 13:12 Omi Ventura MD Aug 01, 2017 13:33
--- NOTE | 2017-08-01 13:54 | PD.PSY.CON ---
Provisional Diagnosis Admission Date Aug 01, 2017 at 13:03 [place] I. Delirium due to an underlying medical condition, r/o Post ictal psychosis [place] II. Deferred, [place] III. History of childhood febrile seizures [place] IV. Recent breakup with boyfriend [place] V. 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 Patient was brought to the hospital due to altered mental status. Pt is accompanied to the ER by her mother and father. Most of the pt's history is given by the patient's mother. 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 Pt's mother volunteers that Ms. Rosado completed the IB program at [employer] accepted at [employer], but decided to attend [employer] as a more economic alternative. 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 Per pt's mother, Ms. Rosado recently, approximately 1 month ago, broke up with her boyfriend of 2 years. Mother feels that Ms. Rosado puts herself under a lot of stress due to her competitive nature. Pt was seen in the ER 07/29/17 with c/o BRAND. Pt had extensive evaluation including CT brain without any acute findings. Pt was discharge to home and followed up with her Gas Transfer [employer] Dr. St. EEG was performed by neurology and epileptogenic activity was found. Patient was consulted to psychiatry due to concerns of conversion disorder. On psychiatric evaluation today the patient is uncooperative, she doesn't answer any of my questions. She continues to stare to the roof. She seems to be internally preoccupied, confused. The few times that she opens her mouth to speak nonsense and illogical statements. She is able to follow one-step and two steps command, has had marked blocking thought and speech poverty. Her mother, who was present during most part of the evaluation, explains that the patient has been having increasingly frequent episodes confusion and visual hallucinations since Sunday where here eyes appear glazed and she becomes unresponsive. She has found the patient talking with people to are not present in the room. At some point she was telling her mother "these kids are friends and are very good". Her mother says that the patient has a brother who became psychotic at the age of 21, 1 hospitalization, and got better with medication, and at this moment he is at baseline continuing his studies. She also says that at the same age of the patient she had an episode of depression with psychosis, Review of Systems Psychiatric: COMPLAINS OF: Confusion Except as stated in HPI: all other systems reviewed are Neg Past Family Social History Coded Allergies: oxycodone (Verified Adverse Reaction, Intermediate, Dizziness, 07/31/17) No Active Prescriptions or Reported Meds Current Medications Medications (Trade) Dose Ordered Sig/Nigel Route Start Time Stop Time Status Last Admin (NS Flush) 2 ml UNSCH PRN IV FLUSH 07/31/17 17:30 (NS Flush) 2 ml BID IV FLUSH 07/31/17 21:00 08/01/17 08:32 (Tylenol) 650 mg Q4H PRN PO 07/31/17 17:30 (Zofran Inj) 4 mg Q6H PRN IVP 07/31/17 17:30 08/01/17 11:38 (Narcan Inj) 0.4 mg UNSCH PRN IV PUSH 07/31/17 17:30 (Milk Of Magnesia Liq) 30 ml Q12H PRN PO 07/31/17 17:30 Potassium Chloride/Sodium Chloride 1,000 ml @ 85 mls/hr [id number] IV 07/31/17 17:30 08/01/17 08:32 (Tylenol) 650 mg Q6H PRN PO 07/31/17 20:45 07/31/17 20:54 (Cerebyx Inj) 200 mgpe Q12HR IV 08/01/17 12:00 08/01/17 11:43 Family Psych History She has a brother who became psychotic at the age of 21, her mother her history of depression with psychosis Social History Patient was born and raised in [place], 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 2) Family support, good level of education Physical Exam Vital Signs Vital Signs Date Time Temp Pulse Resp B/P (MAP) Pulse Ox O2 Delivery O2 Flow Rate FiO2 08/01/17 13:00 98.5 70 12 85/50 (62) 96 07/31/17 16:28 Room Air Lab Results Test 07/31/17 15:40 07/31/17 20:08 08/01/17 06:38 08/01/17 10:32 White Blood Count 8.7 TH/MM3 7.1 TH/MM3 Red Blood Count 4.55 MIL/MM3 4.06 MIL/MM3 Hemoglobin 13.5 GM/DL 12.2 GM/DL Hematocrit 40.7 % 36.6 % Mean Corpuscular Volume 89.5 FL 90.1 FL Mean Corpuscular Hemoglobin 29.6 PG 30.1 PG Mean Corpuscular Hemoglobin Concent 33.1 % 33.4 % Red Cell Distribution Width 13.1 % 13.0 % Platelet Count 303 TH/MM3 259 TH/MM3 Mean Platelet Volume 9.4 FL 11.1 FL Neutrophils (%) (Auto) 77.4 % 70.5 % Lymphocytes (%) (Auto) 14.9 % 22.3 % Monocytes (%) (Auto) 6.0 % 5.2 % Eosinophils (%) (Auto) 1.1 % 1.3 % Basophils (%) (Auto) 0.6 % 0.7 % Neutrophils # (Auto) 6.7 TH/MM3 5.0 TH/MM3 Lymphocytes # (Auto) 1.3 TH/MM3 1.6 TH/MM3 Monocytes # (Auto) 0.5 TH/MM3 0.4 TH/MM3 Eosinophils # (Auto) 0.1 TH/MM3 0.1 TH/MM3 Basophils # (Auto) 0.1 TH/MM3 0.1 TH/MM3 CBC Comment DIFF FINAL DIFF FINAL Differential Comment Blood Urea Nitrogen 9 MG/DL 11 MG/DL Creatinine 0.78 MG/DL 0.85 MG/DL Random Glucose 90 MG/DL 172 MG/DL Calcium Level 9.3 MG/DL 8.4 MG/DL Phosphorus Level 3.7 MG/DL Magnesium Level 2.2 MG/DL Sodium Level 137 MEQ/L 138 MEQ/L Potassium Level 4.1 MEQ/L 3.8 MEQ/L Chloride Level 102 MEQ/L 104 MEQ/L Carbon Dioxide Level 29.0 MEQ/L 27.2 MEQ/L Anion Gap 6 MEQ/L 7 MEQ/L Estimat Glomerular Filtration Rate 94 ML/MIN 85 ML/MIN Ammonia LESS THAN 10 MCMOL/L Vitamin B12 Level 537 PG/ML Folate 19.2 NG/ML Free Thyroxine 1.38 NG/DL Thyroid Stimulating Hormone 3rd Gen 0.674 uIU/ML Human Chorionic Gonadotropin, Quant LESS THAN 1 MIU/ML Lipase 298 U/L Mental Status Examination Appearance: Appropriate Consciousness: Clouded Orientation: Person Motor Activity: Abnormal gait Language: Other (mostly mute) Mental Status Exam Remarks Unresponsive, non-cooperative Assessment & Plan Problem List: (1) Post-ictal confusion ICD Codes: F05 - Delirium due to known physiological condition Assessment & Plan: On psychiatric evaluation patient presents poorly cooperative, with severe poverty of speech, marked blocking thought, confusion, disorientation, making illogical statements. As per mother patient has been also having episodes of visual hallucinations. Presentation was was sudden and progressive since Sunday. As per mother patient has been under stress and kind of depressed after breaking up with her boyfriend about month ago, also with her studies, but until Sunday patient was at baseline. Even though the patient has was seen to be an strong genetic component of early psychosis, her brother became psychotic at the age of 21, her mother became psychotic in her adolescence, this current episode does not seem to appear a psychotic episode related with a major psychiatric condition. This level of confusion, cognitive impairment and visual hallucination are no usually related with major psychiatric conditions, rather they're usually secondary to neurological illnesses. Follow-up EEG, consider LP if EEG is normal. No psychotropics recommended at this moment. We'll follow-up. Assessment & Plan Estimated LOS: Raoul Sheth MD Aug 01, 2017 13:54
[2017-08-01] MEDS ORDERED: SODIUM CHLOR 0.9% 1000 ML INJ 1,000 ML IV ONE (14:15)
[2017-08-01] MEDS: ACETAMINOPHEN 325 MG TAB PO PRN (20:40)
[2017-08-01] MEDS ORDERED: NS + KCL 20 MEQ INJ 1,000 ML IV SCH (21:30)
[2017-08-01] MEDS ORDERED: LACOSAMIDE INJ 100 MG in SODIUM CHLORIDE 0.9% INJ 100 ML IV SCH (22:00)
[2017-08-01 22:29] LABS: HEMOGLOBIN A1a 1.2 %; HEMOGLOBIN A1b 1.6 %; HEMOGLOBIN Ao 85.8 %; HEMOGLOBIN P3 3.5 %
[2017-08-01] MEDS: NS IV SCH ×2 (22:29)
[2017-08-01] MEDS: VALPROATE IV SCH ×2 (22:29)
--- NOTE | 2017-08-01 23:22 | MG ---
cc: SUKHI TRAN MD Lab No: [id number] Date: 08/01/17 Age: 22 Sex: F Race: DATE OF 1995 HISTORY A 22-year-old female with history of recurrent syncopal episodes. DESCRIPTION Sharp waves focal left temporal slowing, rhythmic activity occurring, 3-4 Hz the right frontotemporal region, epoch 30, epoch 32. Sharp activity epoch 60, temporal episode occurring. High amplitude theta left frontotemporal region with radiation to right side with blink artifact occurring at that time as well. Phase reversal discharges seen on epoch 92 in that area. limited driving with photic stimulation. Single lead EKG shows sinus rhythm. INTERPRETATION Recurrent focal epileptic seizure activity left frontotemporal region. Clinical correlation. Sukhi Tran MD MG/EO /9:45 PM /11:16 PM MTD
[2017-08-02] VITALS (17 sets, daily range): BP systolic 92–117; BP diastolic 61–78; PULSE 74–99; RESP 14–23; TEMP 96.9–98.3; O2SAT 100
[2017-08-02] MEDS: ACYCLOVIR IV SCH ×4 (01:14→23:00)
[2017-08-02] MEDS: SODIUM CHLORIDE 0.9% IV SCH ×4 (01:14→23:00)
[2017-08-02 04:35] LABS: BACTERIA, URINE RARE /hpf; BLOOD, URINE NEG (NEG); COMMENT (UR) CULT NOT INDICATED; CULTURE IF INDICATED CULT NOT INDICATED; GLUCOSE,URINE NEG (NEG); KETONE, URINE NEG (NEG); MUCUS URINE FEW /lpf (OCC); NITRITE,URINE NEG (NEG); PH, URINE 6.5 (5.0-8.5); SQUAMOUS EPITHELIAL CELL URINE 1 /hpf (0-5); URINE COLOR LIGHT-YELLOW (YELLW/STRAW)
[2017-08-02 05:27] LABS: PROTHROMBIN TIME - PATIENT 11.6 SEC (9.8-11.6)
[2017-08-02 05:47] LABS: ANION GAP 8 MEQ/L (5-15); BICARBONATE 26.2 MEQ/L (21.0-32.0); BLOOD UREA NITROGEN 6 MG/DL (7-18); CHLORIDE 107 MEQ/L (98-107); GLOMERULAR FILTRATION RATE 93 ML/MIN (>89); POTASSIUM 3.8 MEQ/L (3.5-5.1); SODIUM (NA) 141 MEQ/L (136-145)
[2017-08-02 05:58] LABS: MAGNESIUM 1.9 MG/DL (1.5-2.5)
[2017-08-02] MEDS: VALPROATE IV SCH ×2 (06:19)
[2017-08-02] MEDS: NS IV SCH ×2 (06:19)
[2017-08-02] MEDS: LORazepam 2 MG/ML VIAL IV PUSH PRN ×3 (07:41→22:18)
[2017-08-02] MEDS ORDERED: ETOMIDATE 40 MG/20 ML VIAL ONE (08:24)
[2017-08-02] MEDS ORDERED: MIDAZOLAM HCL 5 MG/ML VIAL (1 ML) ONE (08:25)
[2017-08-02] MEDS ORDERED: MAGNESIUM SULFATE INJ 4 GM in SODIUM CHLORIDE 0.9% INJ 92 ML IV PRN (09:00)
[2017-08-02] MEDS ORDERED: GLUCAGON 1 MG/ML VIAL OTHER PRN (09:00)
[2017-08-02] MEDS ORDERED: SODIUM PHOSPHATE INJ 30 MMOL in SODIUM CHLOR 0.9% 250 ML INJ 240 ML IV PRN (09:00)
[2017-08-02] MEDS: INSULIN NovoLIN REGULAR SUPPLEMENTAL SCALE SQ SCH ×3 (09:00→17:57)
[2017-08-02] MEDS ORDERED: POTASSIUM CHLOR 40 MEQ PREMIX 100 ML IV PRN ×2 (09:00)
[2017-08-02] MEDS ORDERED: POTASSIUM CHLOR 20 MEQ PREMIX 100 ML IV PRN ×2 (09:00)
[2017-08-02] MEDS ORDERED: DEXTROSE 50% IN WATER 50 ML VIAL(D50) IV PUSH PRN (09:00)
[2017-08-02] MEDS ORDERED: POTASSIUM PHOSPHATE INJ 30 MMOL in SODIUM CHLOR 0.9% 250 ML INJ 250 ML IV PRN (09:00)
[2017-08-02] MEDS ORDERED: MAGNESIUM SULFATE INJ 2 GM in SODIUM CHLORIDE 0.9% INJ 96 ML IV PRN (09:00)
[2017-08-02] MEDS ORDERED: MAGNESIUM OXIDE 400 MG TAB PO PRN (09:00)
[2017-08-02] MEDS ORDERED: POTASSIUM PHOSPHATE MONOBASIC 500 MG TAB PO PRN (09:00)
[2017-08-02] MEDS ORDERED: POTASSIUM PHOSPHATE MONOBASIC 500 MG TAB PO/TUBE PRN (09:00)
--- NOTE | 2017-08-02 09:13 | HHI.PR ---
Review/Management Diagnosis/Plan: (1) Seizure disorder, complex partial ICD Codes: G40.209 - Localization-related (focal) (partial) symptomatic epilepsy and epileptic syndromes with complex partial seizures, not intractable , without status epilepticus Status: Acute Plan: intractable left temporal lobe seizures etiology; ? idiopathic vs inflammatory/infectious vs autoimmune (nmda, lg1 abs ) eeg with frequent left f-t sz activity recs will increase dose of depakote, vimpat f/u dilantin levels as she is refractory to 3 sz meds and multiple doses of ativan I think it would be prudent to intubate and start versed/propofol gtt's to achieve seizure suppression for 24-48 hrs will check csf when feasible. iv acyclovir for now will order additional labs and consider course of iv steroids if persisent sz activity despite anesthetic gtt's d/w ccm, medical, rn, pt's father Subjective Subjective Comments repeated sz; stared on vimpat, depakote, given repeated doses of ativan yesterday and this am father at bedside states she is having less rapid blinking but still periods of confusion and versive head movement to the rt Active Medications Current Medications Medications (Trade) Dose Ordered Sig/Nigel Route Start Time Stop Time Status Last Admin (NS Flush) 2 ml UNSCH PRN IV FLUSH 07/31/17 17:30 (NS Flush) 2 ml BID IV FLUSH 07/31/17 21:00 08/01/17 20:01 (Tylenol) 650 mg Q4H PRN PO 07/31/17 17:30 (Zofran Inj) 4 mg Q6H PRN IVP 07/31/17 17:30 08/01/17 11:38 (Narcan Inj) 0.4 mg UNSCH PRN IV PUSH 07/31/17 17:30 (Milk Of Magnesia Liq) 30 ml Q12H PRN PO 07/31/17 17:30 (Tylenol) 650 mg Q6H PRN PO 07/31/17 20:45 08/01/17 20:40 (Cerebyx Inj) 200 mgpe Q12HR IV 08/01/17 12:00 08/01/17 19:59 (Ativan Inj) 1 mg Q2H PRN IV PUSH 08/01/17 21:30 08/02/17 07:41 Potassium Chloride/Sodium Chloride 1,000 ml @ 100 mls/hr Q10H IV 08/01/17 21:30 08/01/17 21:49 Valproate Sodium 500 mg/Sodium Chloride 105 ml @ 105 mls/hr Q8H IV 08/01/17 22:00 08/02/17 06:19 Lacosamide 100 mg/ Sodium Chloride 110 ml @ 110 mls/hr Q12HR IV 08/01/17 22:00 08/01/17 23:58 Acyclovir Sodium 470 mg/Sodium Chloride 100 ml @ 100 mls/hr Q8H IV 08/01/17 23:00 08/02/17 07:41 (Duoneb Neb) 1 ampule Q6HR NEB NEB 08/02/17 10:00 UNV Midazolam HCl 100 ml @ 2 mls/hr TITRATE PRN IV 08/02/17 09:00 UNV Propofol 100 ml @ 1.419 mls/ hr TITRATE PRN IV 08/02/17 09:00 UNV (D50w (Vial) Inj) 50 ml UNSCH PRN IV PUSH 08/02/17 09:00 UNV (Glucagon Inj) 1 mg UNSCH PRN OTHER 08/02/17 09:00 UNV (NovoLIN R SUPPLEMENTAL SCALE) 1 Q6H SQ 08/02/17 09:00 UNV Dextrose/Sodium Chloride 1,000 ml @ 75 mls/hr [id number] IV 08/02/17 09:00 Potassium Chloride 100 ml @ 50 mls/hr Q2H PRN IV 08/02/17 09:00 Potassium Chloride 100 ml @ 50 mls/hr Q2H PRN IV 08/02/17 09:00 (K-Lyte Cl Eff) 50 meq UNSCH PRN PO 08/02/17 09:00 Potassium Chloride 100 ml @ 25 mls/hr UNSCH PRN IV 08/02/17 09:00 Potassium Chloride 100 ml @ 50 mls/hr Q2H PRN IV 08/02/17 09:00 Magnesium Sulfate 4 gm/Sodium Chloride 100 ml @ 50 mls/hr UNSCH PRN IV 08/02/17 09:00 (Mag-Ox) 800 mg UNSCH PRN PO 08/02/17 09:00 Magnesium Sulfate 2 gm/Sodium Chloride 100 ml @ 50 mls/hr UNSCH PRN IV 08/02/17 09:00 (K-Phos) 2,000 mg Q4H PRN PO 08/02/17 09:00 Sodium Phosphate 30 mmol/Sodium Chloride 250 ml @ 42 mls/hr UNSCH PRN IV 08/02/17 09:00 (K-Phos) 2,000 mg UNSCH PRN PO/TUBE 08/02/17 09:00 Potassium Phosphate 30 mmol/ Sodium Chloride 260 ml @ 42 mls/hr UNSCH PRN IV 08/02/17 09:00 Allergies Allergies Coded Allergies oxycodone (Verified Adverse Reaction, Intermediate, Dizziness, 07/31/17) Review of Systems All other ROS: ROS reviewed as documented in chart Exam I&O / VS 08/02/17 08/02/17 08/03/17 15:00 23:00 07:00 Intake Total 105 ml Balance 105 ml Intake IV Total 105 ml Vital Signs Date Time Temp Pulse Resp B/P (MAP) Pulse Ox O2 Delivery O2 Flow Rate FiO2 08/02/17 06:00 80 08/02/17 04:00 98.3 89 17 114/77 (89) 100 08/02/17 04:00 89 08/02/17 02:00 76 08/02/17 00:00 80 08/02/17 00:00 98.2 80 19 106/77 (87) 100 08/01/17 22:00 80 08/01/17 21:40 20 08/01/17 20:00 99 08/01/17 20:00 98.9 99 22 151/66 (94) 98 08/01/17 18:00 87 08/01/17 16:00 98.9 69 15 91/53 (66) 99 08/01/17 16:00 69 08/01/17 14:00 71 08/01/17 13:00 69 08/01/17 13:00 98.5 70 12 85/50 (62) 96 08/01/17 11:21 98.3 69 17 100/68 (79) 99 General: No acute distress Eye: EOMI Respiratory: Non-labored respirations Cardiology: Normal rate Neurologic: Alert, No focal defects Psychiatric: Non-suicidal Exam Comments lying in bed, confused, slightly lethargic, able to state her name and followed briefly, then had 2 episode of versive head movement to the rt with rt gaze deviation lasting 10-20 secs, then confused. eeg showing rapid left temporal activity. no limb jerking. eeg shown to father and rn Objective Micro and Labs Laboratory Tests Test 08/01/17 10:32 08/01/17 21:04 08/02/17 03:56 08/02/17 04:06 Prolactin 8.8 Hemoglobin A1c 5.2 Urine Color LIGHT-YELLOW Urine Turbidity CLEAR Urine pH 6.5 Urine Specific [place] 1.010 Urine Protein NEG Urine Glucose (UA) NEG Urine Ketones NEG Urine Occult Blood NEG Urine Nitrite NEG Urine Bilirubin NEG Urine Urobilinogen LESS THAN 2.0 Urine Leukocyte Esterase NEG Urine RBC LESS THAN 1 Urine WBC LESS THAN 1 Urine Squamous Epithelial Cells 1 Urine Bacteria RARE Urine Mucus FEW Microscopic Urinalysis Comment CULT NOT INDICATED Urine Opiates Screen NEG Urine Barbiturates Screen NEG Urine Amphetamines Screen NEG Urine Benzodiazepines Screen NEG Urine Cocaine Screen NEG Urine Cannabinoids Screen NEG Erythrocyte Sedimentation Rate 5 Prothrombin Time 11.6 Prothromb Time International Ratio 1.0 Blood Urea Nitrogen 6 Creatinine 0.79 Random Glucose 80 Calcium Level 8.7 Phosphorus Level 3.8 Magnesium Level 1.9 Sodium Level 141 Potassium Level 3.8 Chloride Level 107 Carbon Dioxide Level 26.2 Anion Gap 8 Estimat Glomerular Filtration Rate 93 C-Reactive Protein LESS THAN 0.29 Valproic Acid (Depakene) Level 54 Problem Qualifiers (1) Seizure disorder, complex partial: Duong Gomez MD Aug 02, 2017 09:13
[2017-08-02] MEDS: PROPOFOL 1000 MG/100 ML INJ 100 ML IV PRN ×2 (09:15→16:23)
[2017-08-02] MEDS: DEXT 5%-NACL 0.9% 1000 ML INJ 1,000 ML IV SCH (09:31)
[2017-08-02] MEDS: SODIUM CHLORIDE 0.9% FLUSH 10 ML FLUSH IV FLUSH SCH ×2 (09:31→22:17)
[2017-08-02] MEDS: MIDAZOLAM 100 MG/100 ML INJ 100 ML IV PRN ×2 (09:33→17:57)
--- NOTE | 2017-08-02 09:40 | MB ---
cc: SUSAN GARDINER M.D. DATE OF CONSULTATION 08/02/2017 DATE OF 1995 REASON FOR CONSULTATION The patient is a 22-year-old female who attends [employer] [facility] [employer] and presented to [facility] ED with her parents noted to have altered mental status. According to the records, the patient was under a lot of stress and she had a recent breakup with her boyfriend one month ago. The patient was admitted under Dr. Ventura's service. She had an EEG done which showed seizure activity. The patient was subsequently placed on Depakote, Vimpat, and Ativan. In addition, she received a loading dose of Cerebyx yesterday. Despite being on multiple antiseizure meds, continuous EEG showed a seizure pattern. After discussion with Dr. Gomez from neurology, he recommended to intubate the patient and place her on Versed drip to control her seizures. After discussion with the patient's father, the patient was intubated and placed on full mechanical ventilation. She had an MRI of the brain the night of July 31 which showed no acute findings. A CTA of the head and neck were unremarkable as well. Urine drug screen was negative for opiates, amphetamines, benzodiazepines. There is no evidence of any fever or leukocytosis. PAST MEDICAL HISTORY She had a childhood febrile seizure, history of syncope associated with her menstrual cycle. PAST SURGICAL HISTORY Previous wisdom teeth extraction. ALLERGIES OXYCODONE REPORTED MEDICATIONS None FAMILY HISTORY Noncontributory. The patient's brother was treated for psychosis at one point per her father. SOCIAL HISTORY Nonsmoker, occasional drinker. No illicit drug use. REVIEW OF SYSTEMS As per HPI. REVIEW OF SYSTEMS Unremarkable. PHYSICAL EXAM This is a 22-year-old female intubated for airway protection and seizure control. VITAL SIGNS: Temperature 98.3, pulse of 80, respiratory rate of 17, blood pressure 114/77, saturation 100%, vent setting assist control, rate of 14, tidal volume 350, PEEP of 5, FIO2 50%. HEENT: Atraumatic, normocephalic. Pupil equal, round and reactive to light and accommodation. Extraocular muscles intact. Conjunctivae pink. Nonicteric sclerae. Oral mucosa within normal. NECK: Supple. No JVD, adenopathy, or thyromegaly. Trachea midline. Orally intubated. CARDIOVASCULAR: Regular rate and rhythm. Normal S1-S2. No murmurs, rubs or gallop. PULMONARY: Bilateral equal entry. No rales or wheezing. ABDOMEN: Soft, nontender, no distention. Positive bowel sounds. EXTREMITIES: No cyanosis, clubbing or edema. NEUROLOGIC: Intubated. LABORATORY DATA Sodium 141, potassium 3.8, chloride 107, CO2 26, BUN of 6, creatinine 0.79, glucose 80. WBCs from yesterday is 7.1, hemoglobin 12.2, hematocrit 36, platelet count 259, INR 1.0, PT 11.6. Urine drug screen is negative. WARREN is pending. Urinalysis, rare bacteria, less than 1 WBC, negative leukocyte esterase, negative nitrite. RADIOGRAPHIC STUDIES MRI of the brain, CTA of the head and neck unremarkable. EEG showed ongoing seizure pattern. IMPRESSION 1. Complex partial seizure 2. Altered mental status 3. Vent dependent respiratory failure. 4. History of the childhood febrile seizure. RECOMMENDATIONS We will place the patient on Versed drip per neurology's recommendations and we will add a Diprivan infusion for sedation if needed. Monitor neuro status closely. Continue with antiseizure meds per neurology. She is currently on Depakote, Cerebyx 250 mg IV q12, Vimpat and Ativan 1 mg IV q2 as needed for seizures. The patient was also placed on Acyclovir. LP was ordered by neurology. Continue with vent support. A neuro workup which includes MRI of the brain, CTA of the head and neck unremarkable. Pulmonary: Continue vent support and maintain sats above 92%. Bronchodilators in the form of DuoNeb q6. We will initiate ICU vent bundle. Check chest x-ray and ABG post-intubation. Monitor heart rate and blood pressure closely and maintain MAP greater than 65 mmHg. Monitor renal function I's and O's, and electrolyte replacement per protocol. We will place on IV fluids D5 NS at [address] on Pepcid 10 mg IV q. 12 for GI prophylaxis and will start tube feeds with Glucerna 1.5 with a goal rate of 45 mL an hour. Monitor for signs of infections which include fever and WBC. Panculture if spikes a fever. Place on sliding scale insulin with Accu-Chek q.6 h to maintain euglycemia. Monitor CBC. GI prophylaxis with Protonix 40 mg daily and DVT prophylaxis with SCD's. The case discussed with Dr. Gomez from neurology and ICU nursing staff. Further recommendations will be based on hospital course. MD LANDON Sandhu/FARZAD /9:08 AM /9:29 AM
[2017-08-02] MEDS: FOSPHENYTOIN SODIUM 500 MG PE/10 ML VIAL IV SCH ×2 (09:42→22:17)
[2017-08-02] MEDS: FAMOTIDINE 20 MG/2 ML VIAL IV PUSH SCH ×2 (09:43→22:17)
--- NOTE | 2017-08-02 09:45 | RADRPT ---
EXAM DATE/TIME: 08/02/2017 09:10 [facility] COMPARISON: CHEST SINGLE AP, July 29, 2017, 22:48. INDICATIONS : Intubation. MEDICAL HISTORY : None. SURGICAL HISTORY : None. ENCOUNTER: Subsequent ACUITY: 4 - 6 days PAIN SCORE: Non-responsive. LOCATION: Bilateral chest FINDINGS: Endotracheal tube tip 2.5 cm above the rolf. Multiple cardiac leads and wires are superimposed upo n the chest. The lungs are clear. The heart is normal size. Both hemidiaphragms locally. CONCLUSION: No focal infiltrates seen. ET tube in good position. Misael Samuels MD on August 02, 2017 at 9:42 Board Certified Radiologist. This report was verified electronically.
[2017-08-02 10:38] LABS: BASOPHIL # 0.1 TH/MM3 (0-0.2); EOSINOPHIL # 0.1 TH/MM3 (0-0.4); EOSINOPHIL % 2.1 % (0.0-4.0); HEMATOCRIT 35.4 % (35.0-46.0); HEMO FLAGS DIFF FINAL; LYMPH % 20.2 % (9.0-44.0); LYMPHOCYTE # 1.4 TH/MM3 (1.0-4.8); MEAN CELL VOLUME 88.9 FL (80.0-100.0); MEAN CORPUSCULAR HEMOGLOBIN 29.4 PG (27.0-34.0); MEAN CORPUSCULAR HGB CONC 33.1 % (32.0-36.0); MONO % 5.5 % (0.0-8.0); NEUT % 71.2 % (16.0-70.0); PLATELET COUNT 276 TH/MM3 (150-450); RED BLOOD COUNT 3.98 MIL/MM3 (4.00-5.30)
[2017-08-02 10:45] LABS: BLOOD GAS BASE EXCESS 2.3 mmol/L (-2-2); BLOOD GAS CARBOXYHEMOGLOBIN 0.6 % (0-4); BLOOD GAS HCO3 27 mmol/L (22-26); BLOOD GAS METHEMOGLOBIN 1.1 % (0-2); BLOOD GAS O2 HGB SATURATION 98 % (90-100); BLOOD GAS OXYGEN CONTENT 16.7 Vol % (12.0-20.0); BLOOD GAS PCO2 44 mmHg (38-42); BLOOD GAS PO2 281 mmHg (61-120); BLOOD GAS TOTAL HGB 11.7 G/DL (12.0-16.0); TEMP CORR TO 98.6
[2017-08-02 10:46] LABS: CRITICAL VALUE NO; OXYGEN DEVICE VENTILATOR
[2017-08-02 10:47] LABS: DRAW SITE RT RADIAL; FIO2 50 %; NUMBER OF ARTERIAL PUNCTURES 1; STAT NO; ULNAR PULSE PRESENT
[2017-08-02 11:00] LABS: ANION GAP 8 MEQ/L (5-15); AST (GOT) 11 U/L (16-38); BICARBONATE 23.9 MEQ/L (21.0-32.0); BLOOD UREA NITROGEN 6 MG/DL (7-18); CHLORIDE 107 MEQ/L (98-107); GLOMERULAR FILTRATION RATE 89 ML/MIN (>89); MAGNESIUM 1.7 MG/DL (1.5-2.5); POTASSIUM 3.6 MEQ/L (3.5-5.1); SODIUM (NA) 139 MEQ/L (136-145)
[2017-08-02 11:01] LABS: ALT (GPT) 14 U/L (9-42)
[2017-08-02 11:03] LABS: ALKALINE PHOSPHATASE 55 U/L (45-117)
[2017-08-02] MEDS: LACOSAMIDE INJ 150 MG in SODIUM CHLORIDE 0.9% INJ 100 ML IV SCH ×2 (11:43→22:17)
[2017-08-02] MEDS: VALPROATE INJ 750 MG in SODIUM CHLORIDE 0.9% INJ 100 ML IV SCH ×2 (14:23→22:17)
[2017-08-02] MEDS: RESP: ALBUTEROL 2.5 MG/IPRATROPIUM 0.5 MG NEB (SCH) NEB ×2 (16:49→21:46)
[2017-08-03] VITALS (20 sets, daily range): BP systolic 88–109; BP diastolic 49–69; PULSE 84–113; RESP 14–29; TEMP 97.4–101.1; O2SAT 98–100
[2017-08-03] MEDS: DEXT 5%-NACL 0.9% 1000 ML INJ 1,000 ML IV SCH ×2 (03:01→23:07)
[2017-08-03] MEDS: PROPOFOL 1000 MG/100 ML INJ 100 ML IV PRN ×3 (03:01→23:08)
[2017-08-03] MEDS: RESP: ALBUTEROL 2.5 MG/IPRATROPIUM 0.5 MG NEB (SCH) NEB ×4 (03:27→20:45)
--- NOTE | 2017-08-03 04:50 | RADRPT ---
EXAM DATE/TIME: 08/03/2017 03:52 [facility] COMPARISON: CHEST SINGLE AP, August 02, 2017, 9:10. INDICATIONS : Evaluate OG placement MEDICAL HISTORY : None. SURGICAL HISTORY : None. ENCOUNTER: Subsequent ACUITY: 1 week PAIN SCORE: Non-responsive. LOCATION: Bilateral chest FINDINGS: A single view of the chest demonstrates the lungs to be symmetrically aerated without evidence of mas s, infiltrate or effusion. The cardiomediastinal contours are unremarkable. Osseous structures are intact. There is been interval placement of nasogastric tube with the tip in the proximal stomach. Th e side-port is projected over the distal esophagus and the tube could be advanced approximately 5 cm. The endotracheal tube remains in place with the tip 1 cm above the rolf. CONCLUSION: 1. Interval placement of nasogastric tube which could be advanced 5 cm further. The distal side port is projected over the distal esophagus. 2. The patient remains intubated. Orion Gaitan MD on August 03, 2017 at 4:48 Board Certified Radiologist. This report was verified electronically.
[2017-08-03] MEDS: VALPROATE INJ 750 MG in SODIUM CHLORIDE 0.9% INJ 100 ML IV SCH ×3 (05:51→22:01)
[2017-08-03] MEDS: INSULIN NovoLIN REGULAR SUPPLEMENTAL SCALE SQ SCH ×4 (05:51→18:00)
[2017-08-03] MEDS: ACYCLOVIR IV SCH ×2 (05:51→23:00)
[2017-08-03] MEDS: SODIUM CHLORIDE 0.9% IV SCH ×2 (05:51→23:00)
--- NOTE | 2017-08-03 07:06 | HHI.CCPN ---
Subjective Remarks/Hospital Course The patient is a 22-year-old female who attends [employer] [facility] [employer] and presented to [facility] ED with her parents noted to have altered mental status. According to the records, the patient was under a lot of stress and she had a recent breakup with her boyfriend one month ago. The patient was admitted under Dr. Ventura's service. She had an EEG done which showed seizure activity. The patient was subsequently placed on Depakote, Vimpat, and Ativan. In addition, she received a loading dose of Cerebyx yesterday. Despite being on multiple antiseizure meds, continuous EEG showed a seizure pattern. After discussion with Dr. Gomez from neurology, he recommended to intubate the patient and place her on Versed drip to control her seizures. After discussion with the patient's father, the patient was intubated and placed on full mechanical ventilation. She had an MRI of the brain the night of July 31 which showed no acute findings. A CTA of the head and neck were unremarkable as well. Urine drug screen was negative for opiates, amphetamines, benzodiazepines. There is no evidence of any fever or leukocytosis. 08/03 No events overnight. Sedated with Versed, Diprivan and intubated. Afebrile. Objective Vital Signs Date Time Temp Pulse Resp B/P (MAP) Pulse Ox O2 Delivery O2 Flow Rate FiO2 08/03/17 04:02 100 35 08/03/17 02:00 85 08/03/17 00:00 98.3 14 95/65 (75) 08/02/17 08:45 Ventilator Result Diagram: 08/02/17 1015 08/02/17 1015 Other Results Laboratory Tests Test 08/02/17 10:15 08/02/17 10:36 08/02/17 15:04 White Blood Count 7.0 TH/MM3 Red Blood Count 3.98 MIL/MM3 Hemoglobin 11.7 GM/DL Hematocrit 35.4 % Mean Corpuscular Volume 88.9 FL Mean Corpuscular Hemoglobin 29.4 PG Mean Corpuscular Hemoglobin Concent 33.1 % Red Cell Distribution Width 13.0 % Platelet Count 276 TH/MM3 Mean Platelet Volume 9.9 FL Neutrophils (%) (Auto) 71.2 % Lymphocytes (%) (Auto) 20.2 % Monocytes (%) (Auto) 5.5 % Eosinophils (%) (Auto) 2.1 % Basophils (%) (Auto) 1.0 % Neutrophils # (Auto) 5.0 TH/MM3 Lymphocytes # (Auto) 1.4 TH/MM3 Monocytes # (Auto) 0.4 TH/MM3 Eosinophils # (Auto) 0.1 TH/MM3 Basophils # (Auto) 0.1 TH/MM3 CBC Comment DIFF FINAL Differential Comment Blood Urea Nitrogen 6 MG/DL Creatinine 0.82 MG/DL Random Glucose 100 MG/DL Total Protein 6.4 GM/DL Albumin 3.3 GM/DL Calcium Level 8.2 MG/DL Phosphorus Level 2.8 MG/DL Magnesium Level 1.7 MG/DL Alkaline Phosphatase 55 U/L Aspartate Amino Transf (AST/SGOT) 11 U/L Alanine Aminotransferase (ALT/SGPT) 14 U/L Total Bilirubin 1.0 MG/DL Sodium Level 139 MEQ/L Potassium Level 3.6 MEQ/L Chloride Level 107 MEQ/L Carbon Dioxide Level 23.9 MEQ/L Anion Gap 8 MEQ/L Estimat Glomerular Filtration Rate 89 ML/MIN Blood Gas Puncture Site RT RADIAL Blood Gas Patient Temperature 98.6 Blood Gas HCO3 27 mmol/L Blood Gas Base Excess 2.3 mmol/L Blood Gas Oxygen Saturation 98 % Arterial Blood pH 7.40 Arterial Blood Partial Pressure CO2 44 mmHg Arterial Blood Partial Pressure O2 281 mmHg Arterial Blood Oxygen Content 16.7 Vol % Arterial Blood Carboxyhemoglobin 0.6 % Arterial Blood Methemoglobin 1.1 % Blood Gas Hemoglobin 11.7 G/DL Oxygen Delivery Device VENTILATOR Blood Gas Ventilator Setting Blood Gas Inspired Oxygen 50 % Imaging Last Impressions Chest X-Ray 08/03/17 0000 Signed Impressions: Service Date/Time: Thursday, August 03, 2017 03:52 - CONCLUSION: 1. Interval placement of nasogastric tube which could be advanced 5 cm further. The distal side port is projected over the distal esophagus. 2. The patient remains intubated. Orion Gaitan MD Neck CTA 08/01/17 0000 Signed Impressions: Service Date/Time: Tuesday, August 01, 2017 10:03 - CONCLUSION: 1. No evidence of carotid stenosis 2. 3. 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 No acute findings or aneurysm identified. 2. 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 Misael Samuels MD Objective Remarks GENERAL: Patient is 22 yo intubated and sedated SKIN: Warm and dry. HEAD: Normocephalic. EYES: No scleral icterus. No injection or drainage. NECK: Supple, trachea midline. No JVD or lymphadenopathy. CARDIOVASCULAR: Regular rate and rhythm without murmurs, gallops, or rubs. RESPIRATORY: Breath sounds equal bilaterally. No accessory muscle use. GASTROINTESTINAL: Abdomen soft, non-tender, nondistended. MUSCULOSKELETAL: No cyanosis, or edema. Neuro: Sedated A/P Assessment and Plan IMPRESSION 1. Complex partial seizure 2. Altered mental status 3. Vent dependent respiratory failure. 4. History of the childhood febrile seizure. Plan Neuro: Continue with Versed and Diprivan drips for sedation and seizure control Monitor neuro status. Neuro Dr. Gomez. A neuro workup which includes MRI of the brain, CTA of the head and neck are unremarkable. On Continuous EEG monitoring. Continue with antiseizure meds per neuro. On Depakote, Cerebyx 250 mg IV q12, Vimpat, Phenobarb 30mg Q8 and Ativan 1 mg IV q2 PRN seizures. On Empiric Acyclovir, for LP today. Pulm: Continue with vent support. and maintain sats above 92%. Bronchodilators, ICU vent bundle. Not a candidate for SBP trials yet CV: Monitor HR and BP and maintain MAP>65 mmHg. : Monitor renal function I's and O's, and electrolyte replacement per protocol. On D5 NS at 75 mL an hour. GI: Pepcid 10 mg IV q. 12 for GI prophylaxis Tube feeds with Glucerna 1.5 with a goal rate of 45 mL an hour. ID: Monitor for signs of infections which include fever and WBC. Panculture if spikes a fever. Endo: SSI with Accu-Chek q.6 h to maintain euglycemia. Heme: Monitor CBC. GI prophylaxis with Protonix 40 mg daily and DVT prophylaxis with SCD's. Level 3 Jaja Resendiz MD Aug 03, 2017 07:06
[2017-08-03 08:12] LABS: POTASSIUM 4.3 MEQ/L (3.5-5.1)
[2017-08-03 08:26] LABS: AUTOMATED NEUTROPHIL # 8.8 TH/MM3 (1.8-7.7); BASOPHIL # 0.1 TH/MM3 (0-0.2); BASOPHIL % 0.4 % (0.0-2.0); EOSINOPHIL # 0.2 TH/MM3 (0-0.4); EOSINOPHIL % 2.1 % (0.0-4.0); HEMATOCRIT 39.1 % (35.0-46.0); HEMO FLAGS DIFF FINAL; LYMPH % 11.7 % (9.0-44.0); LYMPHOCYTE # 1.3 TH/MM3 (1.0-4.8); MEAN CORPUSCULAR HEMOGLOBIN 29.6 PG (27.0-34.0); MEAN CORPUSCULAR HGB CONC 32.8 % (32.0-36.0); MONO % 7.7 % (0.0-8.0); NEUT % 78.1 % (16.0-70.0); PLATELET COUNT 210 TH/MM3 (150-450); RED BLOOD COUNT 4.34 MIL/MM3 (4.00-5.30); RED CELL DISTRIBUTION WIDTH 13.2 % (11.6-17.2); WHITE BLOOD COUNT 11.2 TH/MM3 (4.0-11.0)
--- NOTE | 2017-08-03 08:45 | MG ---
cc: WHITNEY ABRAHAM M.D. Lab No: [id number] Date: 08/02/2017 Age: ___ Sex: F Race: __ TECHNIQUE 17 channel EEG. DESCRIPTION The background rhythm reveals a theta rhythm with a frequency of about 5-6 Hz. There is sharp activity identified over the left parietotemporal area which occurs at times continuously throughout the tracing mainly in the left temporal area with phase reversal. Later in the tracing this does subside and becomes a generalized theta rhythm with no epileptiform discharges. However, towards the end of the EEG, there is recurrence of continuous sharp activity over the left hemisphere. INTERPRETATION Abnormal study consistent with nearly continuous epileptiform discharges over the left parietotemporal area, primarily over the temporal area. MD MARII Cleaning/FARZAD /7:38 AM /8:39 AM
[2017-08-03] MEDS: FAMOTIDINE 20 MG/2 ML VIAL IV PUSH SCH ×2 (09:09→20:23)
[2017-08-03] MEDS: FOSPHENYTOIN SODIUM 500 MG PE/10 ML VIAL IV SCH ×2 (09:10→20:20)
[2017-08-03] MEDS: SODIUM CHLORIDE 0.9% FLUSH 10 ML FLUSH IV FLUSH SCH ×2 (09:11→20:23)
--- NOTE | 2017-08-03 11:58 | PD.RAD ---
Post Procedure Progress Note Pre Procedure Diagnosis: (1) Episode of transient neurologic symptoms (2) Seizure disorder, complex partial Post Procedure Diagnosis: (1) Episode of transient neurologic symptoms (2) Seizure disorder, complex partial Procedure Date: Aug 03, 2017 Supervising Radiologist: Misael Batres JR Proceduralist/Assist: Sarthak Chappell, RT(R), Stuart Croft RT(R) Anesthesia: Local Plan of Activity Patient to Unit: Critical Care Patient Condition: Fair See PACS Report for procedural detail/treatment Spinal Procedure Lumbar Puncture L4-L5 Fluid Removal (CCs): 13 Fluid Description: Clear Puncture Time: 11:50 Findings: Clear CSF. Samples to lab as requested. Jr. Medardo,Misael Vaughn MD Aug 03, 2017 11:58
--- NOTE | 2017-08-03 12:46 | RADRPT ---
EXAM DATE/TIME: 08/03/2017 12:44 [facility] COMPARISON: No previous studies available for comparison. INDICATIONS : Patient presents with altered mental status in need of lumbar puncture for further evaluation. MEDICAL HISTORY : Pt has had syncope associated with her menstrual cycle. SURGICAL HISTORY : [place] teeth extraction ENCOUNTER: Initial ACUITY: 2 days PAIN SCORE: Nonresponsive. LOCATION: 0 LUMBAR PUNCTURE TIME: 11:50 hours FLUORO TIME: 0.9 minutes IMAGE SERIES: 0 ACCESS LEVEL: L4-5 FLUID: 13 cc of clear CSF was collected and sent to the laboratory for analysis. PROCEDURE : 1. Fluoroscopic guided lumbar puncture. The risks, benefits and alternatives to the procedure were explained and verbal and written consent w as obtained. The site was prepped in sterile fashion. Full sterile technique was used, including ca p, mask, sterile gloves and gown and a large sterile sheet. Hand hygiene and 2% chlorhexidine and/or betadine/alcohol prep was utilized per protocol for cutaneous antisepsis. The skin and subcutaneous tissues were infiltrated with local anesthetic solution. With fluoroscopic guidance the lumbar thecal sac was punctured at the level above. The fluid describ ed above was removed without difficulty. The patient tolerated the procedure well and there were no complications. CONCLUSION: Uncomplicated fluoroscopically guided lumbar puncture. Misael Batres Jr., MD on August 03, 2017 at 12:43 Board Certified Radiologist. This report was verified electronically.
[2017-08-03] MEDS: LACOSAMIDE INJ 150 MG in SODIUM CHLORIDE 0.9% INJ 100 ML IV SCH ×2 (13:03→23:07)
--- NOTE | 2017-08-03 13:17 | HHI.PR ---
Review/Management Diagnosis status complex partial sz with left temporal lobe focus--resolved on this am eeg Plan repeat EEG later today and in am increase valproic acid continue other anticonvulsants follow up CSF results Diagnosis/Plan: (1) Seizure disorder, complex partial ICD Codes: G40.209 - Localization-related (focal) (partial) symptomatic epilepsy and epileptic syndromes with complex partial seizures, not intractable , without status epilepticus Status: Acute Plan: intractable left temporal lobe seizures etiology; ? idiopathic vs inflammatory/infectious vs autoimmune (nmda, lg1 abs ) eeg with frequent left f-t sz activity recs will increase dose of depakote, vimpat f/u dilantin levels as she is refractory to 3 sz meds and multiple doses of ativan I think it would be prudent to intubate and start versed/propofol gtt's to achieve seizure suppression for 24-48 hrs will check csf when feasible. iv acyclovir for now will order additional labs and consider course of iv steroids if persisent sz activity despite anesthetic gtt's d/w ccm, medical, rn, pt's father Subjective Subjective Comments No acute events reported No clinical Sz--on valproic acid, vimpat, phenobarbital, cerebyx, versed gtt Active Medications Current Medications Medications (Trade) Dose Ordered Sig/Nigel Route Start Time Stop Time Status Last Admin (NS Flush) 2 ml UNSCH PRN IV FLUSH 07/31/17 17:30 (NS Flush) 2 ml BID IV FLUSH 07/31/17 21:00 08/03/17 09:11 (Tylenol) 650 mg Q4H PRN PO 07/31/17 17:30 (Zofran Inj) 4 mg Q6H PRN IVP 07/31/17 17:30 08/01/17 11:38 (Narcan Inj) 0.4 mg UNSCH PRN IV PUSH 07/31/17 17:30 (Milk Of Magnesia Liq) 30 ml Q12H PRN PO 07/31/17 17:30 (Tylenol) 650 mg Q6H PRN PO 07/31/17 20:45 08/01/17 20:40 (Ativan Inj) 1 mg Q2H PRN IV PUSH 08/01/17 21:30 08/02/17 22:18 Acyclovir Sodium 470 mg/Sodium Chloride 100 ml @ 100 mls/hr Q8H IV 08/01/17 23:00 08/03/17 05:51 (Duoneb Neb) 1 ampule Q6HR NEB NEB 08/02/17 10:00 08/03/17 09:26 Midazolam HCl 100 ml @ 2 mls/hr TITRATE PRN IV 08/02/17 09:00 08/02/17 17:57 Propofol 100 ml @ 1.419 mls/ hr TITRATE PRN IV 08/02/17 09:00 08/03/17 13:07 (D50w (Vial) Inj) 50 ml UNSCH PRN IV PUSH 08/02/17 09:00 (Glucagon Inj) 1 mg UNSCH PRN OTHER 08/02/17 09:00 (NovoLIN R SUPPLEMENTAL SCALE) 1 Q6HR SQ 08/02/17 09:00 Dextrose/Sodium Chloride 1,000 ml @ 75 mls/hr [id number] IV 08/02/17 09:00 08/03/17 03:01 Potassium Chloride 100 ml @ 50 mls/hr Q2H PRN IV 08/02/17 09:00 Potassium Chloride 100 ml @ 50 mls/hr Q2H PRN IV 08/02/17 09:00 (K-Lyte Cl Eff) 50 meq UNSCH PRN PO 08/02/17 09:00 Potassium Chloride 100 ml @ 25 mls/hr UNSCH PRN IV 08/02/17 09:00 Potassium Chloride 100 ml @ 50 mls/hr Q2H PRN IV 08/02/17 09:00 Magnesium Sulfate 4 gm/Sodium Chloride 100 ml @ 50 mls/hr UNSCH PRN IV 08/02/17 09:00 (Mag-Ox) 800 mg UNSCH PRN PO 08/02/17 09:00 Magnesium Sulfate 2 gm/Sodium Chloride 100 ml @ 50 mls/hr UNSCH PRN IV 08/02/17 09:00 (K-Phos) 2,000 mg Q4H PRN PO 08/02/17 09:00 Sodium Phosphate 30 mmol/Sodium Chloride 250 ml @ 42 mls/hr UNSCH PRN IV 08/02/17 09:00 (K-Phos) 2,000 mg UNSCH PRN PO/TUBE 08/02/17 09:00 Potassium Phosphate 30 mmol/ Sodium Chloride 260 ml @ 42 mls/hr UNSCH PRN IV 08/02/17 09:00 Lacosamide 150 mg/ Sodium Chloride 115 ml @ 110 mls/hr Q12H IV 08/02/17 11:00 08/03/17 13:03 Valproate Sodium 750 mg/Sodium Chloride 107.5 ml @ 105 mls/hr Q8H IV 08/02/17 14:00 08/03/17 05:51 (Cerebyx Inj) 250 mgpe Q12HR IV 08/02/17 09:00 08/03/17 09:10 (Pepcid Inj) 10 mg Q12HR IV PUSH 08/02/17 09:15 08/03/17 09:09 (Luminal Inj) 30 mg Q8H IV 08/03/17 02:00 08/03/17 09:07 Allergies Allergies Coded Allergies oxycodone (Verified Adverse Reaction, Intermediate, Dizziness, 07/31/17) Review of Systems All other ROS: ROS reviewed as documented in chart Exam I&O / VS 08/03/17 08/03/17 08/04/17 14:59 22:59 06:59 Intake Total 100 ml Balance 100 ml Intake IV Total 100 ml Vital Signs Date Time Temp Pulse Resp B/P (MAP) Pulse Ox O2 Delivery O2 Flow Rate FiO2 08/03/17 11:20 100 100 08/03/17 09:30 100 35 08/03/17 08:00 35 08/03/17 08:00 97.7 103 23 103/66 (78) 100 08/03/17 06:00 95 08/03/17 04:02 100 35 08/03/17 04:00 35 08/03/17 04:00 97.4 96 14 90/57 (68) 100 08/03/17 04:00 96 08/03/17 02:00 85 08/03/17 01:04 100 35 08/03/17 00:00 98.3 84 14 95/65 (75) 100 08/03/17 00:00 84 08/03/17 00:00 35 08/02/17 22:00 89 08/02/17 21:45 100 35 08/02/17 20:01 100 35 08/02/17 20:00 96.9 74 14 92/61 (71) 100 08/02/17 20:00 35 08/02/17 20:00 74 08/02/17 18:00 75 08/02/17 16:49 100 35 08/02/17 16:00 35 08/02/17 16:00 84 08/02/17 16:00 97.8 84 14 98/65 (76) 100 08/02/17 14:00 85 General: No acute distress Eye: EOMI Respiratory: Non-labored respirations Cardiology: Normal rate Neurologic: Alert, No focal defects Psychiatric: Non-suicidal Exam Comments sedated, nonresponsive.PERRL. NO spontaneous limb movement No tonic clonic activity Objective Micro and Labs Laboratory Tests Test 08/02/17 15:04 08/03/17 05:56 08/03/17 11:50 White Blood Count 11.2 Red Blood Count 4.34 Hemoglobin 12.8 Hematocrit 39.1 Mean Corpuscular Volume 90.0 Mean Corpuscular Hemoglobin 29.6 Mean Corpuscular Hemoglobin Concent 32.8 Red Cell Distribution Width 13.2 Platelet Count 210 Mean Platelet Volume 12.6 Neutrophils (%) (Auto) 78.1 Lymphocytes (%) (Auto) 11.7 Monocytes (%) (Auto) 7.7 Eosinophils (%) (Auto) 2.1 Basophils (%) (Auto) 0.4 Neutrophils # (Auto) 8.8 Lymphocytes # (Auto) 1.3 Monocytes # (Auto) 0.9 Eosinophils # (Auto) 0.2 Basophils # (Auto) 0.1 CBC Comment DIFF FINAL Differential Comment Hematology Comments Blood Urea Nitrogen 7 Creatinine 0.67 Random Glucose 81 Calcium Level 8.3 Sodium Level 143 Potassium Level 4.3 Chloride Level 107 Carbon Dioxide Level 26.0 Anion Gap 10 Estimat Glomerular Filtration Rate 112 Phenytoin (Dilantin) Level 16.8 CSF Glucose 62 CSF Total Protein 56.2 Date/Time Source Procedure Growth Status 08/03/17 11:50 Cerebral Spinal Fluid Lumbar Puncture Gram Stain Pending Received 08/03/17 11:50 Cerebral Spinal Fluid Lumbar Puncture CSF Culture Pending Received Problem Qualifiers (1) Seizure disorder, complex partial: Azar Partida PhD Aug 03, 2017 13:17
[2017-08-03 13:27] LABS: CSF EOSINOPHILS 1 %; CSF LYMPHOCYTES 96 %; CSF MONOCYTES 2 %; CSF NEUTROPHILS 1 %
[2017-08-03] MEDS: ACETAMINOPHEN 325 MG TAB PO PRN (13:28)
[2017-08-03 13:31] LABS: CSF EOSINOPHILS 1 %; CSF LYMPHOCYTES 96 %; CSF MONOCYTES 2 %; CSF NEUTROPHILS 1 %
[2017-08-03 13:32] LABS: GROSS BLOOD TUBE #1 0 (0); SUPERNATE COLOR TUBE #1 CLEAR (CLEAR); VOLUME TUBE # 1 2.9 ML; VOLUME TUBE # 2 2.8 ML; WBC TUBE #1 77 /MM3 (0-10)
[2017-08-03 13:33] LABS: GROSS BLOOD TUBE #2 0 (0); GROSS BLOOD TUBE #3 0 (0); GROSS BLOOD TUBE #4 0 (0); SUPERNATE COLOR TUBE #2 CLEAR (CLEAR); SUPERNATE COLOR TUBE #3 CLEAR (CLEAR); SUPERNATE COLOR TUBE #4 CLEAR (CLEAR); VOLUME TUBE # 3 2.4 ML; VOLUME TUBE # 4 4.1 ML
[2017-08-03 13:34] LABS: GROSS BLOOD TUBE #4 0 (0); WBC TUBE #4 57 /MM3 (0-10)
[2017-08-03] MEDS ORDERED: VANCOMYCIN INJ 1,000 MG in SODIUM CHLOR 0.9% 250 ML INJ 250 ML IV ONE ×2 (13:45→18:00)
[2017-08-03] MEDS ORDERED: PIPERACIL-TAZO 3.375 GM PREMIX 50 ML IV SCH (14:00)
[2017-08-03] MEDS: MIDAZOLAM 100 MG/100 ML INJ 100 ML IV PRN (14:39)
--- NOTE | 2017-08-03 14:45 | MG ---
cc: WHITNEY ABRAHAM Lab No: [id number] Date: 08/03/2017 Age: Sex: F Race: TECHNIQUE 17 channel EEG. DESCRIPTION Background rhythm reveals generalized slowing in the delta frequency at 3-4 Hz amplitude is on the range of 20-30 microvolts. He has a no epileptiform discharges are seen. Previously noted continuous epileptiform discharges are dissipated. There are no current epileptiform discharges. No lateralizing features identified. INTERPRETATION Abnormal study consistent with a significant encephalopathy. However, there is no evidence for any ongoing seizure activity. MD MARII Cleaning/brenna /1:36 PM /2:36 PM
--- NOTE | 2017-08-03 17:08 | PD.ID.CON ---
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 She was intubated yday and placed on mech vent for airway protection CSF was obtained and showed moderate lymphocytic pleocytosis, Gstain neg for org 's SHe developped fever of 101 first time today Pt's mother denies any other prior pt's c/o except for feeling "stressed out " from her college responsibilities Review of Systems ROS Limitations: Clinical Condition, Intubated, Altered Mental Status, Unresponsive Past Family Social History Allergies: Coded Allergies: oxycodone (Verified Adverse Reaction, Intermediate, Dizziness, 07/31/17) Past Medical History none Past Surgical History none Active Ordered Medications Medications where reviewed in EMR Antibiotics Include: acyclovir isabelle lewis Family History reviewed non contributory Social History She is a student in [employer] and is in a very demanding programme, and 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 No travel No reported animal bites No ETOH/tobacco/substance Physical Exam Vital Signs Vital Signs Date Time Temp Pulse Resp B/P (MAP) Pulse Ox O2 Delivery O2 Flow Rate FiO2 08/03/17 15:33 98 35 08/03/17 13:11 100 35 08/03/17 11:20 100 100 08/03/17 09:30 100 35 08/03/17 08:00 35 08/03/17 08:00 97.7 103 23 103/66 (78) 100 08/03/17 06:00 95 08/03/17 04:02 100 35 08/03/17 04:00 35 08/03/17 04:00 97.4 96 14 90/57 (68) 100 08/03/17 04:00 96 08/03/17 02:00 85 08/03/17 01:04 100 35 08/03/17 00:00 98.3 84 14 95/65 (75) 100 08/03/17 00:00 84 08/03/17 00:00 35 08/02/17 22:00 89 08/02/17 21:45 100 35 08/02/17 20:01 100 35 08/02/17 20:00 96.9 74 14 92/61 (71) 100 08/02/17 20:00 35 08/02/17 20:00 74 08/02/17 18:00 75 08/02/17 16:49 100 35 Physical Exam CONSTITUTIONAL/GENERAL: This is an adequately nourished patient, in no apparent distress. Sedated heavily sedated Sedated int'd on mech vent'n TUBES/LINES/DRAINS: SKIN: No jaundice, rashes, or lesions. Skin temperature appropriate. Not diaphoretic. HEAD: Atraumatic. Normocephalic. EYES: Pupils are small equal and round and reactive. Extraocular motions intact. No scleral icterus. No injection or drainage. Fundi not examined. ENT: Hearing note tested Nose without bleeding or purulent drainage. Visualised mucosae without visible erythema, exudates, masses, or lesions. NECK: Trachea midline. Supple, nontender. CARDIOVASCULAR: Regular rate and rhythm without murmurs, gallops, or rubs. No JVD. Peripheral pulses symmetric. RESPIRATORY/CHEST: Symmetric, unlabored respirations. Clear to auscultation. Breath sounds equal bilaterally. No wheezes, rales, or rhonchi. GASTROINTESTINAL: Abdomen soft, non-tender, nondistended. No hepato-splenomegaly , or palpable masses. No guarding. Bowel sounds present. GENITOURINARY: bladder with marked palpable distension. B/s scan 900 cc of urine MUSCULOSKELETAL: Extremities without clubbing, cyanosis, or edema. No joint tenderness or effusion noted. No calf tenderness. No mottling or clubbing. LYMPHATICS: No palpable cervical or supraclavicular adenopathy. NEUROLOGICAL: Heavily sedated. Unresponsive PSYCHIATRIC: unable rtom assess Laboratory Laboratory Tests Test 08/03/17 05:56 08/03/17 11:50 08/03/17 14:29 White Blood Count 11.2 Red Blood Count 4.34 Hemoglobin 12.8 Hematocrit 39.1 Mean Corpuscular Volume 90.0 Mean Corpuscular Hemoglobin 29.6 Mean Corpuscular Hemoglobin Concent 32.8 Red Cell Distribution Width 13.2 Platelet Count 210 Mean Platelet Volume 12.6 Neutrophils (%) (Auto) 78.1 Lymphocytes (%) (Auto) 11.7 Monocytes (%) (Auto) 7.7 Eosinophils (%) (Auto) 2.1 Basophils (%) (Auto) 0.4 Neutrophils # (Auto) 8.8 Lymphocytes # (Auto) 1.3 Monocytes # (Auto) 0.9 Eosinophils # (Auto) 0.2 Basophils # (Auto) 0.1 CBC Comment DIFF FINAL Differential Comment Hematology Comments Blood Urea Nitrogen 7 Creatinine 0.67 Random Glucose 81 Calcium Level 8.3 Sodium Level 143 Potassium Level 4.3 Chloride Level 107 Carbon Dioxide Level 26.0 Anion Gap 10 Estimat Glomerular Filtration Rate 112 Phenytoin (Dilantin) Level 16.8 CSF Volume (Tube 1) 2.9 CSF Supernatant Color (tube 1) CLEAR CSF Gross Blood (Tube 1) 0 CSF WBC (Tube 1) 77 CSF RBC (Tube 1) 35 CSF Volume (Tube 2) 2.8 CSF Supernatant Color (tube 2) CLEAR CSF Gross Blood (Tube 2) 0 CSF Volume (Tube 3) 2.4 CSF Supernatant Color (tube 3) CLEAR CSF Gross Blood (Tube 3) 0 CSF Volume (Tube 4) 4.1 CSF Supernatant Color (tube 4) CLEAR CSF Gross Blood (Tube 4) 0 CSF WBC (Tube 4) 57 CSF RBC (Tube 4) 2 CSF Neutrophils 1 CSF Lymphocytes 96 CSF Monocytes 2 CSF Eosinophils 1 CSF Glucose 62 CSF Total Protein 56.2 Date/Time Source Procedure Growth Status 08/03/17 14:29 Blood Peripheral Aerobic Blood Culture Pending Received 08/03/17 14:29 Blood Peripheral Anaerobic Blood Culture Pending Received 08/03/17 11:50 Cerebral Spinal Fluid Lumbar Puncture Gram Stain - Final Resulted 08/03/17 11:50 Cerebral Spinal Fluid Lumbar Puncture CSF Culture Pending Resulted Result Diagram: 08/03/17 0556 08/03/17 0556 Imaging Last Impressions Lumbar Puncture Fluoroscopy 08/03/17 0000 Signed Impressions: Service Date/Time: Thursday, August 03, 2017 12:44 - CONCLUSION: Uncomplicated fluoroscopically guided lumbar puncture. Misael Batres Jr., MD Chest X-Ray 08/03/17 0000 Signed Impressions: Service Date/Time: Thursday, August 03, 2017 03:52 - CONCLUSION: 1. Interval placement of nasogastric tube which could be advanced 5 cm further. The distal side port is projected over the distal esophagus. 2. The patient remains intubated. Orion Gaitan MD Neck CTA 08/01/17 0000 Signed Impressions: Service Date/Time: Tuesday, August 01, 2017 10:03 - CONCLUSION: 1. No evidence of carotid stenosis 2. 3. 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 No acute findings or aneurysm identified. 2. 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
[2017-08-03] MEDS: AMPICILLIN INJ 2,000 MG in SODIUM CHLORIDE 0.9% INJ 100 ML IV SCH ×2 (17:34→20:17)
[2017-08-03] MEDS: cefTRIAXone INJ 2,000 MG in SODIUM CHLORIDE 0.9% INJ 100 ML IV SCH (17:34)
[2017-08-04] VITALS (23 sets, daily range): BP systolic 87–109; BP diastolic 47–68; PULSE 100–117; RESP 14–24; TEMP 98.1–101.4; O2SAT 98–100
[2017-08-04] MEDS: SODIUM CHLORIDE 0.9% IV SCH ×3 (00:22→14:48)
[2017-08-04] MEDS: ACYCLOVIR IV SCH ×3 (00:22→14:48)
[2017-08-04] MEDS: MIDAZOLAM 100 MG/100 ML INJ 100 ML IV PRN ×3 (00:41→22:17)
[2017-08-04] MEDS: DEXT 5%-NACL 0.9% 1000 ML INJ 1,000 ML IV SCH ×2 (01:00→13:28)
[2017-08-04] MEDS: AMPICILLIN INJ 2,000 MG in SODIUM CHLORIDE 0.9% INJ 100 ML IV SCH ×6 (01:40→20:29)
[2017-08-04] MEDS: VALPROATE INJ 750 MG in SODIUM CHLORIDE 0.9% INJ 100 ML IV SCH ×4 (03:03→22:27)
[2017-08-04] MEDS: ACETAMINOPHEN 325 MG TAB PO PRN (03:47)
[2017-08-04] MEDS: cefTRIAXone INJ 2,000 MG in SODIUM CHLORIDE 0.9% INJ 100 ML IV SCH ×2 (03:48→18:13)
[2017-08-04] MEDS: RESP: ALBUTEROL 2.5 MG/IPRATROPIUM 0.5 MG NEB (SCH) NEB ×4 (04:11→21:27)
[2017-08-04] MEDS: INSULIN NovoLIN REGULAR SUPPLEMENTAL SCALE SQ SCH ×4 (06:00→18:00)
[2017-08-04 06:46] LABS: AUTOMATED NEUTROPHIL # 9.4 TH/MM3 (1.8-7.7); BASOPHIL % 0.2 % (0.0-2.0); EOSINOPHIL # 0.3 TH/MM3 (0-0.4); EOSINOPHIL % 2.6 % (0.0-4.0); HEMO FLAGS DIFF FINAL; LYMPH % 4.1 % (9.0-44.0); LYMPHOCYTE # 0.4 TH/MM3 (1.0-4.8); MEAN CELL VOLUME 90.7 FL (80.0-100.0); MEAN CORPUSCULAR HEMOGLOBIN 30.2 PG (27.0-34.0); MEAN CORPUSCULAR HGB CONC 33.3 % (32.0-36.0); MONO % 3.6 % (0.0-8.0); NEUT % 89.5 % (16.0-70.0); PLATELET COUNT 232 TH/MM3 (150-450); RED BLOOD COUNT 3.75 MIL/MM3 (4.00-5.30); RED CELL DISTRIBUTION WIDTH 13.3 % (11.6-17.2); WHITE BLOOD COUNT 10.6 TH/MM3 (4.0-11.0)
[2017-08-04 07:39] LABS: BICARBONATE 28.9 MEQ/L (21.0-32.0); PHENOBARBITAL 6.2 MCG/ML (15.0-40.0); POTASSIUM 3.3 MEQ/L (3.5-5.1)
[2017-08-04] MEDS: SODIUM CHLORIDE 0.9% FLUSH 10 ML FLUSH IV FLUSH SCH ×2 (08:31→20:31)
[2017-08-04] MEDS: POTASSIUM CHLORIDE 25 MEQ EFFERVESCENT TAB PO PRN (08:31)
[2017-08-04] MEDS: FAMOTIDINE 20 MG/2 ML VIAL IV PUSH SCH ×2 (08:35→20:30)
[2017-08-04] MEDS: FOSPHENYTOIN SODIUM 500 MG PE/10 ML VIAL IV SCH (09:00)
--- NOTE | 2017-08-04 10:18 | HHI.IDPN ---
Subjective Subjective Remarks pt is having fever up to 101.4 ax + ETT secretions clx + for Staph, coag + CSF neg Antibiotics acyclovir amp vanco CFTX Allergies: Coded Allergies: oxycodone (Verified Adverse Reaction, Intermediate, Dizziness, 07/31/17) Objective . Vital Signs Date Time Temp Pulse Resp B/P (MAP) Pulse Ox O2 Delivery O2 Flow Rate FiO2 08/04/17 09:00 108 08/04/17 08:20 100 35 08/04/17 08:00 105 08/04/17 06:00 107 08/04/17 04:12 98 35 08/04/17 04:00 101.4 109 14 97/59 (72) 100 08/04/17 04:00 35 08/04/17 04:00 109 08/04/17 02:00 111 08/04/17 01:45 100 35 08/04/17 00:00 35 08/04/17 00:00 99.6 104 14 91/54 (66) 99 08/04/17 00:00 104 08/03/17 23:00 100 35 08/03/17 22:00 102 08/03/17 20:45 100 35 08/03/17 20:00 99.0 98 20 101/60 (74) 100 08/03/17 20:00 98 08/03/17 20:00 35 08/03/17 18:00 99 08/03/17 16:00 35 08/03/17 16:00 99.3 101 14 88/49 (62) 98 08/03/17 16:00 101 08/03/17 15:33 98 35 08/03/17 14:00 107 08/03/17 13:11 100 35 08/03/17 12:00 35 08/03/17 12:00 101.1 107 29 109/69 (82) 100 08/03/17 12:00 107 08/03/17 11:20 100 100 08/04/17 08/04/17 08/05/17 15:00 23:00 07:00 Intake Total 95 ml Balance 95 ml Intake IV Total 95 ml . Laboratory Tests Test 08/02/17 10:15 08/03/17 05:56 08/04/17 04:25 White Blood Count 7.0 TH/MM3 11.2 TH/MM3 10.6 TH/MM3 Red Blood Count 3.98 MIL/MM3 4.34 MIL/MM3 3.75 MIL/MM3 Hemoglobin 11.7 GM/DL 12.8 GM/DL 11.3 GM/DL Hematocrit 35.4 % 39.1 % 34.0 % Mean Corpuscular Volume 88.9 FL 90.0 FL 90.7 FL Mean Corpuscular Hemoglobin 29.4 PG 29.6 PG 30.2 PG Mean Corpuscular Hemoglobin Concent 33.1 % 32.8 % 33.3 % Red Cell Distribution Width 13.0 % 13.2 % 13.3 % Platelet Count 276 TH/MM3 210 TH/MM3 232 TH/MM3 Mean Platelet Volume 9.9 FL 12.6 FL 11.9 FL Neutrophils (%) (Auto) 71.2 % 78.1 % 89.5 % Lymphocytes (%) (Auto) 20.2 % 11.7 % 4.1 % Monocytes (%) (Auto) 5.5 % 7.7 % 3.6 % Eosinophils (%) (Auto) 2.1 % 2.1 % 2.6 % Basophils (%) (Auto) 1.0 % 0.4 % 0.2 % Neutrophils # (Auto) 5.0 TH/MM3 8.8 TH/MM3 9.4 TH/MM3 Lymphocytes # (Auto) 1.4 TH/MM3 1.3 TH/MM3 0.4 TH/MM3 Monocytes # (Auto) 0.4 TH/MM3 0.9 TH/MM3 0.4 TH/MM3 Eosinophils # (Auto) 0.1 TH/MM3 0.2 TH/MM3 0.3 TH/MM3 Basophils # (Auto) 0.1 TH/MM3 0.1 TH/MM3 0.0 TH/MM3 CBC Comment DIFF FINAL DIFF FINAL DIFF FINAL Differential Comment Hematology Comments Laboratory Tests Test 08/02/17 10:15 08/02/17 15:04 08/03/17 05:56 08/03/17 14:29 Blood Urea Nitrogen 6 MG/DL 7 MG/DL Creatinine 0.82 MG/DL 0.67 MG/DL Random Glucose 100 MG/DL 81 MG/DL Total Protein 6.4 GM/DL Albumin 3.3 GM/DL Calcium Level 8.2 MG/DL 8.3 MG/DL Phosphorus Level 2.8 MG/DL Magnesium Level 1.7 MG/DL Alkaline Phosphatase 55 U/L Aspartate Amino Transf (AST/SGOT) 11 U/L Alanine Aminotransferase (ALT/SGPT) 14 U/L Total Bilirubin 1.0 MG/DL Sodium Level 139 MEQ/L 143 MEQ/L Potassium Level 3.6 MEQ/L 4.3 MEQ/L Chloride Level 107 MEQ/L 107 MEQ/L Carbon Dioxide Level 23.9 MEQ/L 26.0 MEQ/L Anion Gap 8 MEQ/L 10 MEQ/L Estimat Glomerular Filtration Rate 89 ML/MIN 112 ML/MIN Prolactin 39 ng/mL 14.5 ng/mL Test 08/04/17 04:25 Blood Urea Nitrogen 9 MG/DL Creatinine 0.78 MG/DL Random Glucose 123 MG/DL Calcium Level 7.7 MG/DL Sodium Level 145 MEQ/L Potassium Level 3.3 MEQ/L Chloride Level 109 MEQ/L Carbon Dioxide Level 28.9 MEQ/L Anion Gap 7 MEQ/L Estimat Glomerular Filtration Rate 94 ML/MIN Microbiology Date/Time Source Procedure Growth Status 08/03/17 14:29 Blood Peripheral Aerobic Blood Culture Pending Received 08/03/17 14:29 Blood Peripheral Anaerobic Blood Culture Pending Received 08/03/17 14:24 Blood Peripheral Aerobic Blood Culture Pending Received 08/03/17 14:24 Blood Peripheral Anaerobic Blood Culture Pending Received 08/03/17 11:50 Cerebral Spinal Fluid Lumbar Puncture Gram Stain - Final Resulted 08/03/17 11:50 Cerebral Spinal Fluid Lumbar Puncture CSF Culture - Preliminary NO GROWTH IN 24 HOURS. Resulted 08/03/17 16:00 Sputum Endotracheal Gram Stain - Final Resulted 08/03/17 16:00 Sputum Endotracheal Sputum Culture Pending Resulted Imaging Last Impressions Lumbar Puncture Fluoroscopy 08/03/17 0000 Signed Impressions: Service Date/Time: Thursday, August 03, 2017 12:44 - CONCLUSION: Uncomplicated fluoroscopically guided lumbar puncture. Misael Batres Jr., MD Chest X-Ray 08/03/17 0000 Signed Impressions: Service Date/Time: Thursday, August 03, 2017 03:52 - CONCLUSION: 1. Interval placement of nasogastric tube which could be advanced 5 cm further. The distal side port is projected over the distal esophagus. 2. The patient remains intubated. Orion Gaitan MD Neck CTA 08/01/17 0000 Signed Impressions: Service Date/Time: Tuesday, August 01, 2017 10:03 - CONCLUSION: 1. No evidence of carotid stenosis 2. 3. 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 No acute findings or aneurysm identified. 2. 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 Misael Samuels MD Physical Exam CONSTITUTIONAL/GENERAL: This is an adequately nourished patient, in no apparent distress. Sedated heavily sedated Sedated int'd on mech vent'n TUBES/LINES/DRAINS: SKIN: No jaundice, rashes, or lesions. Skin temperature appropriate. Not diaphoretic. HEAD: Atraumatic. Normocephalic. EYES: Pupils are small equal and round and reactive. Extraocular motions intact. No scleral icterus. No injection or drainage. Fundi not examined. ENT: Hearing note tested Nose without bleeding or purulent drainage. Visualised mucosae without visible erythema, exudates, masses, or lesions. NECK: Trachea midline. Supple, nontender. CARDIOVASCULAR: Regular rate and rhythm without murmurs, gallops, or rubs. No JVD. Peripheral pulses symmetric. RESPIRATORY/CHEST: Symmetric, unlabored respirations. Clear to auscultation. Breath sounds equal bilaterally. No wheezes, rales, or rhonchi. GASTROINTESTINAL: Abdomen soft, non-tender, nondistended. No hepato-splenomegaly , or palpable masses. No guarding. Bowel sounds present. GENITOURINARY: bladder with no palpable distension. fay in w clear yellow urine MUSCULOSKELETAL: Extremities without clubbing, cyanosis, or edema. No joint tenderness or effusion noted. No calf tenderness. No mottling or clubbing. LYMPHATICS: No palpable cervical or supraclavicular adenopathy. NEUROLOGICAL: Heavily sedated. 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 Bacterial meningitis less likely Other considerations non infectious causes Acute urinary retention - relieved with fay 2000 cc of urine - most likely med induced - not reported back pain or LE weakness Pt is critically ill , stable Fever Staph in sputum, MSSA repeat blood clx fu sputum fu CSF studies including HSV, ashley clx cont vancomycin repeat MRI today cont acyclovir 10 mg/kg q 8 hrs untill HSV CSF studies back change abx for meningitis coverage (ampicillin, CFTX, vanco) P further studies - dc ampicillin, CFTX, vanco once CSF clx finalized negative dw Loiusa Bryson RN, MD Aug 04, 2017 10:18
[2017-08-04] MEDS ORDERED: Vancomycin Consult Pharmacy 1 EA OTHER SCH (10:45)
[2017-08-04 10:52] LABS: HSV 1,PCR Negative (Negative)
--- NOTE | 2017-08-04 11:39 | HHI.PR ---
Review/Management Diagnosis status complex partial sz with left temporal lobe focus--resolved on EEG. Episode last PM was probably a short left hemisphere SZ CSF pleocytosis--possible encephalitis. Pleocytosis from SZ possible as well but would not expect it to be this pronounced and predominately lymphocytic Plan follow up CSF. Will add fungal stain and culture and afb. follow up lyme serology repeat brain MRI to see if any changes have occurred that would indicate an encephalitis MRI spine due to urinary retention to r/o spinal cord etiology. If this is negative, urinary retention probably secondary to sz. or medications. After MRI , will start continuous EEG monitoring. Once on continuous monitoring will attempt to wean diprivan and versed as tolerated as long as no increase in SZ activity demonstrated. Diagnosis/Plan: (1) Seizure disorder, complex partial ICD Codes: G40.209 - Localization-related (focal) (partial) symptomatic epilepsy and epileptic syndromes with complex partial seizures, not intractable , without status epilepticus Status: Acute Plan: intractable left temporal lobe seizures etiology; ? idiopathic vs inflammatory/infectious vs autoimmune (nmda, lg1 abs ) eeg with frequent left f-t sz activity recs will increase dose of depakote, vimpat f/u dilantin levels as she is refractory to 3 sz meds and multiple doses of ativan I think it would be prudent to intubate and start versed/propofol gtt's to achieve seizure suppression for 24-48 hrs will check csf when feasible. iv acyclovir for now will order additional labs and consider course of iv steroids if persisent sz activity despite anesthetic gtt's d/w ccm, medical, rn, pt's father Subjective Subjective Comments Patient had one episode of head and eye deviation to the right last night. I ordered extra phenobarbital 30 mg iv. She had had no recurrent posturing or head /eye deviation. Noted to have urinary retention >1000cc and now with fay. Active Medications Current Medications Medications (Trade) Dose Ordered Sig/Nigel Route Start Time Stop Time Status Last Admin (NS Flush) 2 ml UNSCH PRN IV FLUSH 07/31/17 17:30 (NS Flush) 2 ml BID IV FLUSH 07/31/17 21:00 08/04/17 08:31 (Tylenol) 650 mg Q4H PRN PO 07/31/17 17:30 08/04/17 03:47 (Zofran Inj) 4 mg Q6H PRN IVP 07/31/17 17:30 08/01/17 11:38 (Narcan Inj) 0.4 mg UNSCH PRN IV PUSH 07/31/17 17:30 (Milk Of Magnesia Liq) 30 ml Q12H PRN PO 07/31/17 17:30 (Tylenol) 650 mg Q6H PRN PO 07/31/17 20:45 08/01/17 20:40 (Ativan Inj) 1 mg Q2H PRN IV PUSH 08/01/17 21:30 08/02/17 22:18 (Duoneb Neb) 1 ampule Q6HR NEB NEB 08/02/17 10:00 08/04/17 08:19 Midazolam HCl 100 ml @ 2 mls/hr TITRATE PRN IV 08/02/17 09:00 08/04/17 00:41 Propofol 100 ml @ 1.419 mls/ hr TITRATE PRN IV 08/02/17 09:00 08/03/17 23:08 (D50w (Vial) Inj) 50 ml UNSCH PRN IV PUSH 08/02/17 09:00 (Glucagon Inj) 1 mg UNSCH PRN OTHER 08/02/17 09:00 (NovoLIN R SUPPLEMENTAL SCALE) 1 Q6HR SQ 08/02/17 09:00 Dextrose/Sodium Chloride 1,000 ml @ 75 mls/hr [id number] IV 08/02/17 09:00 08/03/17 23:07 Potassium Chloride 100 ml @ 50 mls/hr Q2H PRN IV 08/02/17 09:00 Potassium Chloride 100 ml @ 50 mls/hr Q2H PRN IV 08/02/17 09:00 (K-Lyte Cl Eff) 50 meq UNSCH PRN PO 08/02/17 09:00 08/04/17 08:31 Potassium Chloride 100 ml @ 25 mls/hr UNSCH PRN IV 08/02/17 09:00 Potassium Chloride 100 ml @ 50 mls/hr Q2H PRN IV 08/02/17 09:00 Magnesium Sulfate 4 gm/Sodium Chloride 100 ml @ 50 mls/hr UNSCH PRN IV 08/02/17 09:00 (Mag-Ox) 800 mg UNSCH PRN PO 08/02/17 09:00 Magnesium Sulfate 2 gm/Sodium Chloride 100 ml @ 50 mls/hr UNSCH PRN IV 08/02/17 09:00 (K-Phos) 2,000 mg Q4H PRN PO 08/02/17 09:00 Sodium Phosphate 30 mmol/Sodium Chloride 250 ml @ 42 mls/hr UNSCH PRN IV 08/02/17 09:00 (K-Phos) 2,000 mg UNSCH PRN PO/TUBE 08/02/17 09:00 Potassium Phosphate 30 mmol/ Sodium Chloride 260 ml @ 42 mls/hr UNSCH PRN IV 08/02/17 09:00 Lacosamide 150 mg/ Sodium Chloride 115 ml @ 110 mls/hr Q12H IV 08/02/17 11:00 08/03/17 23:07 (Cerebyx Inj) 250 mgpe Q12HR IV 08/02/17 09:00 08/04/17 09:00 (Pepcid Inj) 10 mg Q12HR IV PUSH 08/02/17 09:15 08/04/17 08:35 (Luminal Inj) 30 mg Q8H IV 08/03/17 02:00 08/04/17 09:16 Valproate Sodium 750 mg/Sodium Chloride 107.5 ml @ 105 mls/hr Q6H IV 08/03/17 16:00 08/04/17 09:18 Acyclovir Sodium 530 mg/Sodium Chloride 100 ml @ 100 mls/hr Q8H IV 08/03/17 23:00 08/04/17 06:02 Ceftriaxone Sodium 2000 mg/ Sodium Chloride 100 ml @ 200 mls/hr Q12H IV 08/03/17 17:00 08/04/17 03:48 Ampicillin Sodium 2000 mg/Sodium Chloride 100 ml @ 400 mls/hr Q4H IV 08/03/17 17:00 08/04/17 08:33 Pharmacy Profile Note 0 ml @ 0 mls/hr UNSCH OTHER 08/04/17 10:45 Miscellaneous Information SPECIFIC LAB TO BE DRAWN:VANCO DATE TO... ONCE ONCE .XX 08/05/17 12:45 08/05/17 12:46 Vancomycin HCl 750 mg/Sodium Chloride 257.5 ml @ 250 mls/hr Q12H IV 08/04/17 13:00 Allergies Allergies Coded Allergies oxycodone (Verified Adverse Reaction, Intermediate, Dizziness, 07/31/17) Review of Systems All other ROS: ROS reviewed as documented in chart Exam I&O / VS 08/04/17 08/04/17 08/05/17 15:00 23:00 07:00 Intake Total 305 ml Balance 305 ml Intake IV Total 305 ml Vital Signs Date Time Temp Pulse Resp B/P (MAP) Pulse Ox O2 Delivery O2 Flow Rate FiO2 08/04/17 10:00 104 17 100/62 (75) 99 08/04/17 10:00 104 08/04/17 09:00 108 19 109/68 (82) 100 08/04/17 09:00 108 08/04/17 08:20 100 35 08/04/17 08:00 99.4 105 18 87/47 (60) 99 08/04/17 08:00 105 08/04/17 08:00 35 08/04/17 06:00 107 08/04/17 04:12 98 35 08/04/17 04:00 101.4 109 14 97/59 (72) 100 08/04/17 04:00 35 08/04/17 04:00 109 08/04/17 02:00 111 08/04/17 01:45 100 35 08/04/17 00:00 35 08/04/17 00:00 99.6 104 14 91/54 (66) 99 08/04/17 00:00 104 08/03/17 23:00 100 35 08/03/17 22:00 102 08/03/17 20:45 100 35 08/03/17 20:00 99.0 98 20 101/60 (74) 100 08/03/17 20:00 98 08/03/17 20:00 35 08/03/17 18:00 99 08/03/17 16:00 35 08/03/17 16:00 99.3 101 14 88/49 (62) 98 08/03/17 16:00 101 08/03/17 15:33 98 35 08/03/17 14:00 107 08/03/17 13:11 100 35 08/03/17 12:00 35 08/03/17 12:00 101.1 107 29 109/69 (82) 100 08/03/17 12:00 107 General: No acute distress Eye: EOMI Respiratory: Non-labored respirations Cardiology: Normal rate Neurologic: Alert, No focal defects Psychiatric: Non-suicidal Exam Comments sedated, nonresponsive.PERRL. . No head or eye deviation NO spontaneous limb movement No tonic clonic activity Objective Micro and Labs Laboratory Tests Test 08/03/17 11:50 08/03/17 14:29 08/03/17 16:45 08/03/17 22:43 CSF Volume (Tube 1) 2.9 CSF Supernatant Color (tube 1) CLEAR CSF Gross Blood (Tube 1) 0 CSF WBC (Tube 1) 77 CSF RBC (Tube 1) 35 CSF Volume (Tube 2) 2.8 CSF Supernatant Color (tube 2) CLEAR CSF Gross Blood (Tube 2) 0 CSF Volume (Tube 3) 2.4 CSF Supernatant Color (tube 3) CLEAR CSF Gross Blood (Tube 3) 0 CSF Volume (Tube 4) 4.1 CSF Supernatant Color (tube 4) CLEAR CSF Gross Blood (Tube 4) 0 CSF WBC (Tube 4) 57 CSF RBC (Tube 4) 2 CSF Neutrophils 1 CSF Lymphocytes 96 CSF Monocytes 2 CSF Eosinophils 1 CSF Glucose 62 CSF Total Protein 56.2 Herpes Simplex Virus I DNA (PCR) Negative Herpes Simplex Virus II DNA (PCR) Negative Prolactin 14.5 Urine Occult Blood SMALL Valproic Acid (Depakene) Level 118 Test 08/04/17 04:25 White Blood Count 10.6 Red Blood Count 3.75 Hemoglobin 11.3 Hematocrit 34.0 Mean Corpuscular Volume 90.7 Mean Corpuscular Hemoglobin 30.2 Mean Corpuscular Hemoglobin Concent 33.3 Red Cell Distribution Width 13.3 Platelet Count 232 Mean Platelet Volume 11.9 Neutrophils (%) (Auto) 89.5 Lymphocytes (%) (Auto) 4.1 Monocytes (%) (Auto) 3.6 Eosinophils (%) (Auto) 2.6 Basophils (%) (Auto) 0.2 Neutrophils # (Auto) 9.4 Lymphocytes # (Auto) 0.4 Monocytes # (Auto) 0.4 Eosinophils # (Auto) 0.3 Basophils # (Auto) 0.0 CBC Comment DIFF FINAL Differential Comment Blood Urea Nitrogen 9 Creatinine 0.78 Random Glucose 123 Calcium Level 7.7 Sodium Level 145 Potassium Level 3.3 Chloride Level 109 Carbon Dioxide Level 28.9 Anion Gap 7 Estimat Glomerular Filtration Rate 94 Phenytoin (Dilantin) Level 14.1 Valproic Acid (Depakene) Level 105 Phenobarbital Level 6.2 Date/Time Source Procedure Growth Status 08/03/17 14:29 Blood Peripheral Aerobic Blood Culture - Preliminary NO GROWTH IN 1 DAY Resulted 08/03/17 14:29 Blood Peripheral Anaerobic Blood Culture - Preliminary NO GROWTH IN 1 DAY Resulted 08/03/17 11:50 Cerebral Spinal Fluid Lumbar Puncture Gram Stain - Final Resulted 08/03/17 11:50 Cerebral Spinal Fluid Lumbar Puncture CSF Culture - Preliminary NO GROWTH IN 24 HOURS. Resulted 08/03/17 16:00 Sputum Endotracheal Gram Stain - Final Resulted 08/03/17 16:00 Sputum Endotracheal Sputum Culture Pending Resulted Diagnostic Tests EEG this am shows generalized delta slowing with rare small sharp transients left parieto-temporal but improved form prior EEG with no continuous epileptiform activity. Problem Qualifiers (1) Seizure disorder, complex partial: Azar Partida PhD Aug 04, 2017 11:39
--- NOTE | 2017-08-04 11:43 | MG ---
cc: WHITNEY ABRAHAM M.D. Lab No: [id number] Date: 08/04/17 Age: Sex: F Race: TECHNIQUE 17-channel EEG. DESCRIPTION The patient's Diprivan was held during the EEG recording. The background rhythm reveals generalized slowing in the delta frequency at 3-4 Hz, amplitude about 20-30 microvolts. There is rare very low amplitude sharp activity identified over the left parietal area and temporal area with phase reversal but it is very rare and intermittent. Certainly much improved from previous studies. There is no evidence for frequent epileptiform discharges. INTERPRETATION Abnormal study consistent with a diffuse encephalopathy. Occasional sharp activity is identified over the left hemisphere suggesting an ictal focus in that area, however, there is no sign of subclinical status seizures. Tracing overall is improved from previous tracings. MD MARII Cleaning/EMI /11:15 AM /11:44 AM
[2017-08-04] MEDS: LACOSAMIDE INJ 150 MG in SODIUM CHLORIDE 0.9% INJ 100 ML IV SCH ×2 (11:54→23:09)
[2017-08-04] MEDS: VANCOMYCIN INJ 750 MG in SODIUM CHLOR 0.9% 250 ML INJ 250 ML IV SCH (13:27)
--- NOTE | 2017-08-04 13:43 | HHI.CCPN ---
Subjective Remarks/Hospital Course The patient is a 22-year-old female who attends [employer] and presented to [facility] ED with her parents noted to have altered mental status. According to the records, the patient was under a lot of stress and she had a recent breakup with her boyfriend one month ago. The patient was admitted under Dr. Ventura's service. She had an EEG done which showed seizure activity. The patient was subsequently placed on Depakote, Vimpat, and Ativan. In addition, she received a loading dose of Cerebyx yesterday. Despite being on multiple antiseizure meds, continuous EEG showed a seizure pattern. After discussion with Dr. Gomez from neurology, he recommended to intubate the patient and place her on Versed drip to control her seizures. After discussion with the patient's father, the patient was intubated and placed on full mechanical ventilation. She had an MRI of the brain the night of July 31 which showed no acute findings. A CTA of the head and neck were unremarkable as well. Urine drug screen was negative for opiates, amphetamines, benzodiazepines. There is no evidence of any fever or leukocytosis. 08/03 No events overnight. Sedated with Versed, Diprivan and intubated. Afebrile. 08/04 No events overnight. Sedated with Diprivan and Versed. s/p LP yesterday showed clear CSF, elevated protein 56, WBC: 57 (Lymphocytic predominant). For repeat MRI brain today. Spoked fever with T: 101.4 at 4am. Objective Vital Signs Date Time Temp Pulse Resp B/P (MAP) Pulse Ox O2 Delivery O2 Flow Rate FiO2 08/04/17 13:00 100 20 102/64 (77) 100 08/04/17 12:48 35 08/04/17 12:00 98.4 08/02/17 08:45 Ventilator Intake and Output 08/04/17 08/04/17 08/05/17 08:00 16:00 00:00 Intake Total 959 ml 1693 ml Output Total 1200 ml Balance -241 ml 1693 ml Result Diagram: 08/04/17 0425 08/04/17 0425 Imaging Last Impressions Chest X-Ray 08/03/17 0000 Signed Impressions: Service Date/Time: Thursday, August 03, 2017 03:52 - CONCLUSION: 1. Interval placement of nasogastric tube which could be advanced 5 cm further. The distal side port is projected over the distal esophagus. 2. The patient remains intubated. Orion Gaitan MD Neck CTA 08/01/17 0000 Signed Impressions: Service Date/Time: Tuesday, August 01, 2017 10:03 - CONCLUSION: 1. No evidence of carotid stenosis 2. 3. 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 No acute findings or aneurysm identified. 2. 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 Misael Samuels MD Objective Remarks GENERAL: Patient is 22 yo intubated and sedated SKIN: Warm and dry. HEAD: Normocephalic. EYES: No scleral icterus. No injection or drainage. NECK: Supple, trachea midline. No JVD or lymphadenopathy. CARDIOVASCULAR: Regular rate and rhythm without murmurs, gallops, or rubs. RESPIRATORY: Breath sounds equal bilaterally. No accessory muscle use. GASTROINTESTINAL: Abdomen soft, non-tender, nondistended. MUSCULOSKELETAL: No cyanosis, or edema. Neuro: Sedated A/P Assessment and Plan IMPRESSION 1. Complex partial seizure 2. Altered mental status 3. Vent dependent respiratory failure. 4. History of the childhood febrile seizure. Plan Neuro: Continue with Versed and Diprivan drips for sedation and seizure control Monitor neuro status. Neuro Dr. Gomez. A neuro workup which includes MRI of the brain, CTA of the head and neck are unremarkable. EEG this morning: diffuse encephalopathy. Occasional sharp activity is identified over the left hemisphere suggesting an ictal focus in that area For repeat MRI brain abnd MRI spine today per neuro. Continue with antiseizure meds per neuro. On Depakote held monitor level (105 today from 118 last night), on Cerebyx 250 mg IV q12, Vimpat, Phenobarb 30mg Q8 and Ativan 1 mg IV q2 PRN seizures. On Empiric Acyclovir, s/p LP 08/03: Clear CSF, elevated protein 56, WBC 57 ( Lymphocytic predominant), glc 62 Pulm: Continue with vent support. and maintain sats above 92%. Bronchodilators, ICU vent bundle. Not a candidate for SBP trials yet CV: Monitor HR and BP and maintain MAP>65 mmHg. : Monitor renal function I's and O's, and electrolyte replacement per protocol. d/c IVF, Will need K replacement today GI: Pepcid 10 mg IV q. 12 for GI prophylaxis Tube feeds with Glucerna 1.5 with a goal rate of 45 mL an hour. ID: Continue with abx per ID ( Ampicillin, Rocephin, Vanco) On Acyclovir as well. Monitor for signs of infections( fever and WBC). Follow up on cxs, HSV DNA PCR negative. Endo: SSI with Accu-Chek q.6 h to maintain euglycemia. Heme: Monitor CBC. GI prophylaxis with Protonix 40 mg daily and DVT prophylaxis with SCD's. Level 3 Jaja Resendiz MD Aug 04, 2017 13:43
[2017-08-04] MEDS ORDERED: GADODIAMIDE PF 287 MG/ML 10 ML VIAL (for RAD MRI) IVCONTRAST ONE (17:18)
[2017-08-04] MEDS: PROPOFOL 1000 MG/100 ML INJ 100 ML IV PRN (17:54)
--- NOTE | 2017-08-04 19:44 | RADRPT ---
EXAM DATE/TIME: 08/04/2017 16:14 [facility] COMPARISON: CT BRAIN W/O CONTRAST, July 29, 2017, 23:18. MRI BRAIN W & W/O CONTRAST, July 31, 2017, 18: 21. INDICATIONS : Seizures/cephalgia. CONTRAST: 9 cc Omniscan (gadodiamide) IV MEDICAL HISTORY : None. SURGICAL HISTORY : None. ENCOUNTER: Initial ACUITY: 4-6 days PAIN SCORE: 5/10 LOCATION: cranial TECHNIQUE: Multiplanar, multisequence MRI of the brain was performed both prior to and following the administrat ion of paramagnetic contrast. FINDINGS: Metallic braces cause field distortion artifacts and rendering the diffusion, susceptibility weighted , and echo planar sequences nondiagnostic. The other sequences are diagnostic except for the frontal orbital region. The brain is well formed. Ventricles are normal in size. There is good aldana-white matter differentiation. Posterior fossa structures are grossly unremarkable. The pituitary is norm al in appearance. Low lying cerebellar tonsils. On the postcontrast images, no abnormal areas of en hancement or blood brain barrier breakdown seen. No extra-axial fluid or blood. The overall appeara nce of the brain is very similar to prior MRI on 07/31/17. CONCLUSION: 1. No abnormal areas of enhancement or cerebral edema seen. 2. Field distortion artifact from patient's braces limits evaluation of inferior frontal lobes and pr ecludes obtaining diffusion weighted images. Misael Samuels MD on August 04, 2017 at 19:37 Board Certified Radiologist. This report was verified electronically.
--- NOTE | 2017-08-04 19:49 | RADRPT ---
EXAM DATE/TIME: 08/04/2017 16:14 [facility] COMPARISON: No previous studies available for comparison. INDICATIONS : Seizures/cephalgia. CONTRAST: 9 cc Omniscan (gadodiamide) IV MEDICAL HISTORY : None. SURGICAL HISTORY : None. ENCOUNTER: Initial ACUITY: 4-6 days PAIN SCORE: 0/10 LOCATION: Paraspinal TECHNIQUE: Multiplanar, multisequence MRI examination of the cervical spine was performed. FINDINGS: There is significant field distortion artifact from patient's braces which completely obscures the C2 -C4 vertebral bodies despite using metal suppression acquisition sequences. The cervical cord has normal signal characteristics and normal size. No signal abnormality seen with in the substance of the cervical cord. The visualized posterior fossa structures are grossly unremar kable with low-lying cerebellar tonsils. There is a focal round enhancing lesion in the superior right T1 vertebral body which measures 7 mm. This lesion also demonstrates T2 prolongation. Margins are smooth and the enhancement pattern is ho mogeneous. No expansion of the vertebral bodies. No evidence of disc bulge or protrusion from C5-T1. CONCLUSION: 1. Round enhancing lesion in the superior right T1 vertebral body. 2. Nondiagnostic evaluation from C1-C4 due to metallic field distortion artifact (braces). Misael Samuels MD on August 04, 2017 at 19:43 Board Certified Radiologist. This report was verified electronically.
--- NOTE | 2017-08-04 19:50 | RADRPT ---
EXAM DATE/TIME: 08/04/2017 16:14 [facility] COMPARISON: No previous studies available for comparison. INDICATIONS : Seizures/cephalgia. CONTRAST: 9 cc Omniscan (gadodiamide) IV MEDICAL HISTORY : None. SURGICAL HISTORY : None. ENCOUNTER: Initial ACUITY: 4-6 days PAIN SCORE: 0/10 LOCATION: Paraspinal TECHNIQUE: Multiplanar multisequence MRI of the lumbar spine was performed with and without contrast. FINDINGS: The most caudal appearing lumbar vertebra is numbered as L5. VERTEBRAE: Homogeneous signal. Normal alignment. Normal hydration and height of the intervertebral discs. CONUS: Located at L1. Normal configuration. POST CONTRAST: No abnormal areas of contrast enhancement are seen. T12-L1: The thecal sac has a normal diameter. No evidence of disc bulge or protrusion. The neural foramina are patent bilaterally. L1-L2: The thecal sac has a normal diameter. No evidence of disc bulge or protrusion. The neural foramina are patent bilaterally. L2-L3: The thecal sac has a normal diameter. No evidence of disc bulge or protrusion. The neural foramina are patent bilaterally. L3-L4: The thecal sac has a normal diameter. No evidence of disc bulge or protrusion. The neural foramina are patent bilaterally. L4-L5: The thecal sac has a normal diameter. No evidence of disc bulge or protrusion. The neural foramina are patent bilaterally. L5-S1: The thecal sac has a normal diameter. No evidence of disc bulge or protrusion. The neural foramina are patent bilaterally. CONCLUSION: Normal MRI of the lumbar spine with and without contrast. Misael Samuels MD on August 04, 2017 at 19:47 Board Certified Radiologist. This report was verified electronically.
--- NOTE | 2017-08-04 19:56 | RADRPT ---
EXAM DATE/TIME: 08/04/2017 16:14 [facility] COMPARISON: No previous studies available for comparison. INDICATIONS : Seizures/cephalgia. CONTRAST: 9 cc Omniscan (gadodiamide) IV MEDICAL HISTORY : None. SURGICAL HISTORY : None. ENCOUNTER: Initial ACUITY: 4-6 days PAIN SCORE: 0/10 LOCATION: Paraspinal TECHNIQUE: Multiplanar multisequence MRI of the thoracic spine was performed. FINDINGS: There is normal alignment of the vertebral bodies of the thoracic spine and preservation of vertebral body height. There is a focal area of signal abnormality in the right T1 vertebral body characteriz ed by T1 and T2 prolongation and homogeneous enhancement. No signal abnormality seen in the remainde r of the thoracic vertebral bodies. There is normal hydration and height of the intrathoracic discs. The thoracic cord has a normal configuration and signal characteristics. No abnormal areas of enha ncement seen within the cord or dural space. There is an abnormal appearance to the posterior right mid and lower lung with multifocal areas of si gnal abnormality near the posterior pleural surface which demonstrate contrast enhancement. At least 3 focal areas are seen and they measure up to 9 mm in size. There is also evidence of a small right pleural effusion. T1-T2: Normal. T2-T3: The thecal sac has a normal diameter. No evidence of disc bulge or protrusion. T3-T4: The thecal sac has a normal diameter. No evidence of disc bulge or protrusion. T4-T5: The thecal sac has a normal diameter. No evidence of disc bulge or protrusion. T5-T6: The thecal sac has a normal diameter. No evidence of disc bulge or protrusion. T6-T7: The thecal sac has a normal diameter. No evidence of disc bulge or protrusion. T7-T8: The thecal sac has a normal diameter. No evidence of disc bulge or protrusion. T8-T9: The thecal sac has a normal diameter. No evidence of disc bulge or protrusion. T9-T10: The thecal sac has a normal diameter. No evidence of disc bulge or protrusion. T10-T11: The thecal sac has a normal diameter. No evidence of disc bulge or protrusion. T11-T12: The thecal sac has a normal diameter. No evidence of disc bulge or protrusion. T12-L1: The thecal sac has a normal diameter. No evidence of disc bulge or protrusion. CONCLUSION: 1. Focal signal abnormality in the right T1 vertebral body demonstrating uniform contrast-enhancement . Consider performing thin section CT to evaluate integrity or abnormalities within the trabecular p attern and cortex. 2. Multifocal areas of enhancement in the posterior right lung. Recommend further characterization w ith CT thorax. Misael Samuels MD on August 04, 2017 at 19:49 Board Certified Radiologist. This report was verified electronically.
[2017-08-04] MEDS: FOSPHENYTOIN SODIUM 100 MG PE/2 ML VIAL IV SCH (21:21)
[2017-08-04 21:30] LABS: ENTEROVIRUS PCR RESULT Negative (Negative); ENTEROVIRUS PCR SPEC SOURCE CSF
[2017-08-05] VITALS (22 sets, daily range): BP systolic 87–105; BP diastolic 51–62; PULSE 101–107; RESP 16–21; TEMP 98.1–101.5; O2SAT 96–100
[2017-08-05] MEDS: ACYCLOVIR IV SCH ×4 (00:04→22:55)
[2017-08-05] MEDS: SODIUM CHLORIDE 0.9% IV SCH ×4 (00:04→22:55)
[2017-08-05] MEDS: AMPICILLIN INJ 2,000 MG in SODIUM CHLORIDE 0.9% INJ 100 ML IV SCH ×2 (00:42→04:13)
[2017-08-05] MEDS: VANCOMYCIN INJ 750 MG in SODIUM CHLOR 0.9% 250 ML INJ 250 ML IV SCH ×3 (01:16→21:06)
[2017-08-05] MEDS: VALPROATE INJ 750 MG in SODIUM CHLORIDE 0.9% INJ 100 ML IV SCH ×2 (03:00→07:32)
[2017-08-05] MEDS: RESP: ALBUTEROL 2.5 MG/IPRATROPIUM 0.5 MG NEB (SCH) NEB ×4 (04:03→21:51)
[2017-08-05] MEDS: cefTRIAXone INJ 2,000 MG in SODIUM CHLORIDE 0.9% INJ 100 ML IV SCH ×2 (05:02→16:19)
[2017-08-05] MEDS: INSULIN NovoLIN REGULAR SUPPLEMENTAL SCALE SQ SCH ×5 (05:42→23:57)
[2017-08-05 06:57] LABS: AUTOMATED NEUTROPHIL # 10.2 TH/MM3 (1.8-7.7); BASOPHIL % 0.3 % (0.0-2.0); EOSINOPHIL # 0.4 TH/MM3 (0-0.4); EOSINOPHIL % 3.6 % (0.0-4.0); HEMATOCRIT 34.6 % (35.0-46.0); HEMO FLAGS DIFF FINAL; LYMPH % 4.7 % (9.0-44.0); LYMPHOCYTE # 0.6 TH/MM3 (1.0-4.8); MEAN CELL VOLUME 90.6 FL (80.0-100.0); MEAN CORPUSCULAR HEMOGLOBIN 29.9 PG (27.0-34.0); MONO % 4.5 % (0.0-8.0); NEUT % 86.9 % (16.0-70.0); PLATELET COUNT 217 TH/MM3 (150-450); RED BLOOD COUNT 3.83 MIL/MM3 (4.00-5.30); RED CELL DISTRIBUTION WIDTH 13.6 % (11.6-17.2); WHITE BLOOD COUNT 11.8 TH/MM3 (4.0-11.0)
[2017-08-05 07:02] LABS: BICARBONATE 24.8 MEQ/L (21.0-32.0); MAGNESIUM 2.3 MG/DL (1.5-2.5); POTASSIUM 3.9 MEQ/L (3.5-5.1)
[2017-08-05 07:05] LABS: PHENOBARBITAL 6.8 MCG/ML (15.0-40.0)
--- NOTE | 2017-08-05 08:32 | HHI.CCPN ---
Subjective Remarks/Hospital Course The patient is a 22-year-old female who attends [employer] [employer] [place] and presented to [facility] ED with her parents noted to have altered mental status. According to the records, the patient was under a lot of stress and she had a recent breakup with her boyfriend one month ago. The patient was admitted under Dr. Ventura's service. She had an EEG done which showed seizure activity. The patient was subsequently placed on Depakote, Vimpat, and Ativan. In addition, she received a loading dose of Cerebyx yesterday. Despite being on multiple antiseizure meds, continuous EEG showed a seizure pattern. After discussion with Dr. Gomez from neurology, he recommended to intubate the patient and place her on Versed drip to control her seizures. After discussion with the patient's father, the patient was intubated and placed on full mechanical ventilation. She had an MRI of the brain the night of July 31 which showed no acute findings. A CTA of the head and neck were unremarkable as well. Urine drug screen was negative for opiates, amphetamines, benzodiazepines. There is no evidence of any fever or leukocytosis. 08/03 No events overnight. Sedated with Versed, Diprivan and intubated. Afebrile. 08/04 No events overnight. Sedated with Diprivan and Versed. s/p LP yesterday showed clear CSF, elevated protein 56, WBC: 57 (Lymphocytic predominant). For repeat MRI brain today. Spoked fever with T: 101.4 at 4am. 08/05 No events overnight. On Continuous EEG monitoring. Afebrile. Sedated with Versed and Diprivan. Objective Vital Signs Date Time Temp Pulse Resp B/P (MAP) Pulse Ox O2 Delivery O2 Flow Rate FiO2 08/05/17 07:29 100 35 08/05/17 06:00 101 08/05/17 04:00 98.6 19 88/53 (65) 08/02/17 08:45 Ventilator Intake and Output 08/05/17 08/05/17 08/05/17 07:59 15:59 23:59 Intake Total 1835.2 ml Output Total 850 ml Balance 985.2 ml Result Diagram: 08/05/17 0446 08/05/17 0446 Other Results Laboratory Tests Test 08/05/17 04:46 White Blood Count 11.8 TH/MM3 Red Blood Count 3.83 MIL/MM3 Hemoglobin 11.4 GM/DL Hematocrit 34.6 % Mean Corpuscular Volume 90.6 FL Mean Corpuscular Hemoglobin 29.9 PG Mean Corpuscular Hemoglobin Concent 33.0 % Red Cell Distribution Width 13.6 % Platelet Count 217 TH/MM3 Mean Platelet Volume 12.0 FL Neutrophils (%) (Auto) 86.9 % Lymphocytes (%) (Auto) 4.7 % Monocytes (%) (Auto) 4.5 % Eosinophils (%) (Auto) 3.6 % Basophils (%) (Auto) 0.3 % Neutrophils # (Auto) 10.2 TH/MM3 Lymphocytes # (Auto) 0.6 TH/MM3 Monocytes # (Auto) 0.5 TH/MM3 Eosinophils # (Auto) 0.4 TH/MM3 Basophils # (Auto) 0.0 TH/MM3 CBC Comment DIFF FINAL Differential Comment Blood Urea Nitrogen 12 MG/DL Creatinine 0.64 MG/DL Random Glucose 100 MG/DL Calcium Level 8.0 MG/DL Phosphorus Level 2.6 MG/DL Magnesium Level 2.3 MG/DL Sodium Level 143 MEQ/L Potassium Level 3.9 MEQ/L Chloride Level 109 MEQ/L Carbon Dioxide Level 24.8 MEQ/L Anion Gap 9 MEQ/L Estimat Glomerular Filtration Rate 118 ML/MIN Phenytoin (Dilantin) Level 14.9 MCG/ML Valproic Acid (Depakene) Level 136 MCG/ML Phenobarbital Level 6.8 MCG/ML Imaging Last Impressions Thoracic Spine MRI 08/04/17 0000 Signed Impressions: Service Date/Time: Friday, August 04, 2017 16:14 - CONCLUSION: 1. Focal signal abnormality in the right T1 vertebral body demonstrating uniform contrast-enhancement. Consider performing thin section CT to evaluate integrity or abnormalities within the trabecular pattern and cortex. 2. Multifocal areas of enhancement in the posterior right lung. Recommend further characterization with CT thorax. Misael Samuels MD Lumbar Spine MRI 08/04/17 0000 Signed Impressions: Service Date/Time: Friday, August 04, 2017 16:14 - CONCLUSION: Normal MRI of the lumbar spine with and without contrast. Misael Samuels MD Cervical Spine MRI 08/04/17 0000 Signed Impressions: Service Date/Time: Friday, August 04, 2017 16:14 - CONCLUSION: 1. Round enhancing lesion in the superior right T1 vertebral body. 2. Nondiagnostic evaluation from C1-C4 due to metallic field distortion artifact (braces). Misael Samuels MD Brain MRI 08/04/17 0000 Signed Impressions: Service Date/Time: Friday, August 04, 2017 16:14 - CONCLUSION: 1. No abnormal areas of enhancement or cerebral edema seen. 2. Field distortion artifact from patient's braces limits evaluation of inferior frontal lobes and precludes obtaining diffusion weighted images. Misael Samuels MD Lumbar Puncture Fluoroscopy 08/03/17 0000 Signed Impressions: Service Date/Time: Thursday, August 03, 2017 12:44 - CONCLUSION: Uncomplicated fluoroscopically guided lumbar puncture. Misael Batres Jr., MD Chest X-Ray 08/03/17 0000 Signed Impressions: Service Date/Time: Thursday, August 03, 2017 03:52 - CONCLUSION: 1. Interval placement of nasogastric tube which could be advanced 5 cm further. The distal side port is projected over the distal esophagus. 2. The patient remains intubated. Orion Gaitan MD Neck CTA 08/01/17 0000 Signed Impressions: Service Date/Time: Tuesday, August 01, 2017 10:03 - CONCLUSION: 1. No evidence of carotid stenosis 2. 3. 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 No acute findings or aneurysm identified. 2. 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 HEAD: Normocephalic. EYES: No scleral icterus. No injection or drainage. NECK: Supple, trachea midline. No JVD or lymphadenopathy. CARDIOVASCULAR: Regular rate and rhythm without murmurs, gallops, or rubs. RESPIRATORY: Breath sounds equal bilaterally. No accessory muscle use. GASTROINTESTINAL: Abdomen soft, non-tender, nondistended. MUSCULOSKELETAL: No cyanosis, or edema. Neuro: Sedated A/P Assessment and Plan IMPRESSION 1. Complex partial seizure 2. Altered mental status 3. Vent dependent respiratory failure. 4. History of the childhood febrile seizure. Plan Neuro: Continue with Versed and Diprivan drips for sedation and seizure control Monitor neuro status. Neuro Dr. Gomez. A neuro workup which includes MRI of the brain, CTA of the head and neck are unremarkable. On continuous EEG monitoring EEG: : diffuse encephalopathy. Occasional sharp activity is identified over the left hemisphere suggesting an ictal focus in that area Repeat MRI brain 08/04 : No acute findings MRI spine: Round enhancing lesion T1 vertebral body. Continue with antiseizure meds per neuro. Depakote held monitor level ( 136 this morning), on Cerebyx 250 mg IV q12, Vimpat, Phenobarb 30mg Q8 and Ativan 1 mg IV q2 PRN seizures. On Empiric Acyclovir, s/p LP 08/03: Clear CSF, elevated protein 56, WBC 57 ( Lymphocytic predominant), glc 62 Pulm: Continue with vent support. and maintain sats above 92%. Bronchodilators, ICU vent bundle. Start SBT trials when cleared by neuro. Will check CT thorax and CT abd/pelvis discussed with Dr. Partida. CV: Monitor HR and BP and maintain MAP>65 mmHg. : Monitor renal function I's and O's, and electrolyte replacement per protocol. GI: Pepcid 10 mg IV q. 12 for GI prophylaxis Tube feeds with Glucerna 1.5 @f 45 mL an hour. ID: Continue with abx per ID ( Ampicillin, Rocephin, Vanco) On Acyclovir as well. Monitor for signs of infections( fever and WBC). Follow up on cxs, HSV DNA PCR negative. 08/03 Sputum: Staph Aureus Endo: SSI with Accu-Chek q.6 h to maintain euglycemia. Heme: Monitor CBC. GI prophylaxis with Protonix 40 mg daily and DVT prophylaxis with SCD's. Level 3 Jaja Resendiz MD Aug 05, 2017 08:32
[2017-08-05] MEDS: SODIUM CHLORIDE 0.9% FLUSH 10 ML FLUSH IV FLUSH SCH ×2 (08:38→20:34)
[2017-08-05] MEDS: FAMOTIDINE 20 MG/2 ML VIAL IV PUSH SCH ×2 (08:38→20:33)
[2017-08-05] MEDS: FOSPHENYTOIN SODIUM 100 MG PE/2 ML VIAL IV SCH ×2 (08:43→20:34)
[2017-08-05] MEDS: MIDAZOLAM 100 MG/100 ML INJ 100 ML IV PRN (09:28)
[2017-08-05] MEDS: LACOSAMIDE INJ 150 MG in SODIUM CHLORIDE 0.9% INJ 100 ML IV SCH ×2 (10:43→22:55)
--- NOTE | 2017-08-05 10:54 | HHI.PR ---
Review/Management Diagnosis status complex partial sz with left temporal lobe focus--resolved on EEG. CSF pleocytosis--possible encephalitis. Pleocytosis from SZ possible as well but would not expect it to be this pronounced and predominately lymphocytic Questional abnormality in T1 vertebral body and right posterior lung on MRI Plan Stop diprivan If EEG stable without epileptiform discharges, start to slowly wean versed by approximately 1 mg/hr each hr as long as EEG is stable I spoke with radiologist regarding MRI T spine findings and he recommends CT thorax with and without contrast which will evaluate both the lung findings and T1 vertebral body. Would also include CT abdomen/Pelvis to r/o remote chance of tumor. Will hold valproic acid today due to high level and recheck level tomorrow-- resume valproic acid if level is therapeutic Increase phenobarbital Diagnosis/Plan: (1) Seizure disorder, complex partial ICD Codes: G40.209 - Localization-related (focal) (partial) symptomatic epilepsy and epileptic syndromes with complex partial seizures, not intractable , without status epilepticus Status: Acute Plan: intractable left temporal lobe seizures etiology; ? idiopathic vs inflammatory/infectious vs autoimmune (nmda, lg1 abs ) eeg with frequent left f-t sz activity recs will increase dose of depakote, vimpat f/u dilantin levels as she is refractory to 3 sz meds and multiple doses of ativan I think it would be prudent to intubate and start versed/propofol gtt's to achieve seizure suppression for 24-48 hrs will check csf when feasible. iv acyclovir for now will order additional labs and consider course of iv steroids if persisent sz activity despite anesthetic gtt's d/w ccm, medical, rn, pt's father Subjective Subjective Comments No acute events reported No clinical sz. She has been on continuous EEG monitoring with no epileptic activity except occasional phase reversing sharp waves over left hemisphere last PM Active Medications Current Medications Medications (Trade) Dose Ordered Sig/Nigel Route Start Time Stop Time Status Last Admin (NS Flush) 2 ml UNSCH PRN IV FLUSH 07/31/17 17:30 (NS Flush) 2 ml BID IV FLUSH 07/31/17 21:00 08/05/17 08:38 (Tylenol) 650 mg Q4H PRN PO 07/31/17 17:30 08/05/17 00:00 (Zofran Inj) 4 mg Q6H PRN IVP 07/31/17 17:30 08/01/17 11:38 (Narcan Inj) 0.4 mg UNSCH PRN IV PUSH 07/31/17 17:30 (Milk Of Magnesia Liq) 30 ml Q12H PRN PO 07/31/17 17:30 (Tylenol) 650 mg Q6H PRN PO 07/31/17 20:45 08/01/17 20:40 (Ativan Inj) 1 mg Q2H PRN IV PUSH 08/01/17 21:30 08/02/17 22:18 (Duoneb Neb) 1 ampule Q6HR NEB NEB 08/02/17 10:00 08/05/17 09:57 Midazolam HCl 100 ml @ 2 mls/hr TITRATE PRN IV 08/02/17 09:00 08/05/17 09:28 Propofol 100 ml @ 1.419 mls/ hr TITRATE PRN IV 08/02/17 09:00 08/04/17 17:54 (D50w (Vial) Inj) 50 ml UNSCH PRN IV PUSH 08/02/17 09:00 (Glucagon Inj) 1 mg UNSCH PRN OTHER 08/02/17 09:00 (NovoLIN R SUPPLEMENTAL SCALE) 1 Q6HR SQ 08/02/17 09:00 08/04/17 12:56 Potassium Chloride 100 ml @ 50 mls/hr Q2H PRN IV 08/02/17 09:00 Potassium Chloride 100 ml @ 50 mls/hr Q2H PRN IV 08/02/17 09:00 (K-Lyte Cl Eff) 50 meq UNSCH PRN PO 08/02/17 09:00 08/04/17 08:31 Potassium Chloride 100 ml @ 25 mls/hr UNSCH PRN IV 08/02/17 09:00 Potassium Chloride 100 ml @ 50 mls/hr Q2H PRN IV 08/02/17 09:00 Magnesium Sulfate 4 gm/Sodium Chloride 100 ml @ 50 mls/hr UNSCH PRN IV 08/02/17 09:00 (Mag-Ox) 800 mg UNSCH PRN PO 08/02/17 09:00 Magnesium Sulfate 2 gm/Sodium Chloride 100 ml @ 50 mls/hr UNSCH PRN IV 08/02/17 09:00 (K-Phos) 2,000 mg Q4H PRN PO 08/02/17 09:00 Sodium Phosphate 30 mmol/Sodium Chloride 250 ml @ 42 mls/hr UNSCH PRN IV 08/02/17 09:00 (K-Phos) 2,000 mg UNSCH PRN PO/TUBE 08/02/17 09:00 Potassium Phosphate 30 mmol/ Sodium Chloride 260 ml @ 42 mls/hr UNSCH PRN IV 08/02/17 09:00 Lacosamide 150 mg/ Sodium Chloride 115 ml @ 110 mls/hr Q12H IV 08/02/17 11:00 08/05/17 10:43 (Pepcid Inj) 10 mg Q12HR IV PUSH 08/02/17 09:15 08/05/17 08:38 (Luminal Inj) 30 mg Q8H IV 08/03/17 02:00 08/05/17 08:42 Acyclovir Sodium 530 mg/Sodium Chloride 100 ml @ 100 mls/hr Q8H IV 08/03/17 23:00 08/05/17 06:06 Ceftriaxone Sodium 2000 mg/ Sodium Chloride 100 ml @ 200 mls/hr Q12H IV 08/03/17 17:00 08/05/17 05:02 Pharmacy Profile Note 0 ml @ 0 mls/hr UNSCH OTHER 08/04/17 10:45 Miscellaneous Information SPECIFIC LAB TO BE DRAWN:VANCO DATE TO... ONCE ONCE .XX 08/05/17 12:45 08/05/17 12:46 Vancomycin HCl 750 mg/Sodium Chloride 257.5 ml @ 250 mls/hr Q12H IV 08/04/17 13:00 08/05/17 01:16 (Cerebyx Inj) 250 mgpe Q12HR IV 08/04/17 21:00 08/05/17 08:43 Allergies Allergies Coded Allergies oxycodone (Verified Adverse Reaction, Intermediate, Dizziness, 07/31/17) Review of Systems All other ROS: ROS reviewed as documented in chart Exam I&O / VS 08/05/17 08/05/17 08/06/17 15:00 23:00 07:00 Intake Total 132 ml Balance 132 ml Intake IV Total 132 ml Vital Signs Date Time Temp Pulse Resp B/P (MAP) Pulse Ox O2 Delivery O2 Flow Rate FiO2 08/05/17 10:00 103 08/05/17 09:30 99.6 104 20 92/54 (67) 99 08/05/17 09:00 99.2 104 19 87/51 (63) 99 08/05/17 08:00 98.1 103 18 100/59 (73) 100 08/05/17 08:00 35 08/05/17 08:00 103 08/05/17 07:29 100 35 08/05/17 06:00 101 08/05/17 04:03 99 35 08/05/17 04:00 35 08/05/17 04:00 98.6 104 19 88/53 (65) 98 08/05/17 04:00 104 08/05/17 02:00 105 08/05/17 01:00 14 08/05/17 00:00 105 08/05/17 00:00 35 08/05/17 00:00 99.4 105 18 104/62 (76) 100 08/05/17 00:00 105 08/04/17 23:48 100 35 08/04/17 22:00 107 08/04/17 20:46 100 35 08/04/17 20:00 109 08/04/17 20:00 99.3 109 24 109/62 (78) 100 08/04/17 20:00 35 08/04/17 20:00 109 08/04/17 18:00 112 08/04/17 17:55 100 60 08/04/17 17:55 99 35 08/04/17 16:00 98.1 117 18 101/58 (72) 100 08/04/17 16:00 35 08/04/17 16:00 117 08/04/17 15:00 107 17 108/65 (79) 100 08/04/17 14:00 104 19 103/62 (76) 100 08/04/17 14:00 104 08/04/17 13:00 100 20 102/64 (77) 100 08/04/17 12:48 100 35 08/04/17 12:00 102 08/04/17 12:00 98.4 102 16 95/54 (68) 100 08/04/17 12:00 35 08/04/17 11:00 100 16 93/58 (70) 99 General: No acute distress Eye: EOMI Respiratory: Non-labored respirations Cardiology: Normal rate Neurologic: Alert, No focal defects Psychiatric: Non-suicidal Exam Comments sedated, nonresponsive.PERRL. . No head or eye deviation NO spontaneous limb movement No tonic clonic activity Objective Radiology Results MRI brain--normal( artifact in frontal lobe due to braces) MRI cervical and thoracic spines show a round enhancing lesion in T1 vertebral body of unkown significance. Some enhancing in posterior right lung near pleura MRI lumbar spine normal Micro and Labs Laboratory Tests Test 08/05/17 04:46 White Blood Count 11.8 Red Blood Count 3.83 Hemoglobin 11.4 Hematocrit 34.6 Mean Corpuscular Volume 90.6 Mean Corpuscular Hemoglobin 29.9 Mean Corpuscular Hemoglobin Concent 33.0 Red Cell Distribution Width 13.6 Platelet Count 217 Mean Platelet Volume 12.0 Neutrophils (%) (Auto) 86.9 Lymphocytes (%) (Auto) 4.7 Monocytes (%) (Auto) 4.5 Eosinophils (%) (Auto) 3.6 Basophils (%) (Auto) 0.3 Neutrophils # (Auto) 10.2 Lymphocytes # (Auto) 0.6 Monocytes # (Auto) 0.5 Eosinophils # (Auto) 0.4 Basophils # (Auto) 0.0 CBC Comment DIFF FINAL Differential Comment Blood Urea Nitrogen 12 Creatinine 0.64 Random Glucose 100 Calcium Level 8.0 Phosphorus Level 2.6 Magnesium Level 2.3 Sodium Level 143 Potassium Level 3.9 Chloride Level 109 Carbon Dioxide Level 24.8 Anion Gap 9 Estimat Glomerular Filtration Rate 118 Phenytoin (Dilantin) Level 14.9 Valproic Acid (Depakene) Level 136 Phenobarbital Level 6.8 Date/Time Source Procedure Growth Status 08/03/17 14:29 Blood Peripheral Aerobic Blood Culture - Preliminary NO GROWTH IN 1 DAY Resulted 08/03/17 14:29 Blood Peripheral Anaerobic Blood Culture - Preliminary NO GROWTH IN 1 DAY Resulted 08/03/17 11:50 Cerebral Spinal Fluid Lumbar Puncture Fungal Smear Pending Received 08/03/17 11:50 Cerebral Spinal Fluid Lumbar Puncture Fungal Culture Pending Received 08/03/17 16:00 Sputum Endotracheal Gram Stain - Final Resulted 08/03/17 16:00 Sputum Culture - Preliminary Staphylococcus Aureus Resulted Diagnostic Tests Continuous EEG monitor this am is showing generalized slowing in delta frequency with no epileptiform discharges. Problem Qualifiers (1) Seizure disorder, complex partial: Azar Partida PhD Aug 05, 2017 10:54
--- NOTE | 2017-08-05 10:57 | HHI.IDPN ---
Note Infectious Disease Note ID COVERAGE. Notes reviewed. Temp lower. EEG monitoring in progress. Not having seizure. + ETT secretion clx + for Staph, coag + CSF neg Antibiotics acyclovir amp vanco CFTX Allergies: Coded Allergies: oxycodone (Verified Adverse Reaction, Intermediate, Dizziness, 07/31/17) Objective . Vital Signs Date Time Temp Pulse Resp B/P (MAP) Pulse Ox O2 Delivery O2 Flow Rate FiO2 08/05/17 10:00 103 08/05/17 09:30 99.6 104 20 92/54 (67) 99 08/05/17 09:00 99.2 104 19 87/51 (63) 99 08/05/17 08:00 98.1 103 18 100/59 (73) 100 08/05/17 08:00 35 08/05/17 08:00 103 08/05/17 07:29 100 35 08/05/17 06:00 101 08/05/17 04:03 99 35 08/05/17 04:00 35 08/05/17 04:00 98.6 104 19 88/53 (65) 98 08/05/17 04:00 104 08/05/17 02:00 105 08/05/17 01:00 14 08/05/17 00:00 105 08/05/17 00:00 35 08/05/17 00:00 99.4 105 18 104/62 (76) 100 08/05/17 00:00 105 08/04/17 23:48 100 35 08/04/17 22:00 107 08/04/17 20:46 100 35 08/04/17 20:00 109 08/04/17 20:00 99.3 109 24 109/62 (78) 100 08/04/17 20:00 35 08/04/17 20:00 109 08/04/17 18:00 112 08/04/17 17:55 100 60 08/04/17 17:55 99 35 08/04/17 16:00 98.1 117 18 101/58 (72) 100 08/04/17 16:00 35 08/04/17 16:00 117 08/04/17 15:00 107 17 108/65 (79) 100 08/04/17 14:00 104 19 103/62 (76) 100 08/04/17 14:00 104 08/04/17 13:00 100 20 102/64 (77) 100 08/04/17 12:48 100 35 08/04/17 12:00 102 08/04/17 12:00 98.4 102 16 95/54 (68) 100 08/04/17 12:00 35 08/04/17 11:00 100 16 93/58 (70) 99 08/05/17 08/05/17 08/06/17 15:00 23:00 07:00 Intake Total 132 ml Balance 132 ml Intake IV Total 132 ml Laboratory Tests Test 08/04/17 04:25 08/05/17 04:46 White Blood Count 10.6 TH/MM3 11.8 TH/MM3 Red Blood Count 3.75 MIL/MM3 3.83 MIL/MM3 Hemoglobin 11.3 GM/DL 11.4 GM/DL Hematocrit 34.0 % 34.6 % Mean Corpuscular Volume 90.7 FL 90.6 FL Mean Corpuscular Hemoglobin 30.2 PG 29.9 PG Mean Corpuscular Hemoglobin Concent 33.3 % 33.0 % Red Cell Distribution Width 13.3 % 13.6 % Platelet Count 232 TH/MM3 217 TH/MM3 Mean Platelet Volume 11.9 FL 12.0 FL Neutrophils (%) (Auto) 89.5 % 86.9 % Lymphocytes (%) (Auto) 4.1 % 4.7 % Monocytes (%) (Auto) 3.6 % 4.5 % Eosinophils (%) (Auto) 2.6 % 3.6 % Basophils (%) (Auto) 0.2 % 0.3 % Neutrophils # (Auto) 9.4 TH/MM3 10.2 TH/MM3 Lymphocytes # (Auto) 0.4 TH/MM3 0.6 TH/MM3 Monocytes # (Auto) 0.4 TH/MM3 0.5 TH/MM3 Eosinophils # (Auto) 0.3 TH/MM3 0.4 TH/MM3 Basophils # (Auto) 0.0 TH/MM3 0.0 TH/MM3 CBC Comment DIFF FINAL DIFF FINAL Differential Comment Laboratory Tests Test 08/03/17 14:29 08/04/17 04:25 08/05/17 04:46 Prolactin 14.5 ng/mL Blood Urea Nitrogen 9 MG/DL 12 MG/DL Creatinine 0.78 MG/DL 0.64 MG/DL Random Glucose 123 MG/DL 100 MG/DL Calcium Level 7.7 MG/DL 8.0 MG/DL Sodium Level 145 MEQ/L 143 MEQ/L Potassium Level 3.3 MEQ/L 3.9 MEQ/L Chloride Level 109 MEQ/L 109 MEQ/L Carbon Dioxide Level 28.9 MEQ/L 24.8 MEQ/L Anion Gap 7 MEQ/L 9 MEQ/L Estimat Glomerular Filtration Rate 94 ML/MIN 118 ML/MIN Phosphorus Level 2.6 MG/DL Magnesium Level 2.3 MG/DL Microbiology Date/Time Source Procedure Growth Status 08/03/17 14:29 Blood Peripheral Aerobic Blood Culture - Preliminary NO GROWTH IN 1 DAY Resulted 08/03/17 14:29 Blood Peripheral Anaerobic Blood Culture - Preliminary NO GROWTH IN 1 DAY Resulted 08/03/17 14:24 Blood Peripheral Aerobic Blood Culture - Preliminary NO GROWTH IN 1 DAY Resulted 08/03/17 14:24 Blood Peripheral Anaerobic Blood Culture - Preliminary NO GROWTH IN 1 DAY Resulted 08/03/17 11:50 Cerebral Spinal Fluid Lumbar Puncture Fungal Smear Pending Received 08/03/17 11:50 Cerebral Spinal Fluid Lumbar Puncture Fungal Culture Pending Received 08/03/17 11:50 Cerebral Spinal Fluid Lumbar Puncture Acid Fast Stain Pending Received 08/03/17 11:50 Cerebral Spinal Fluid Lumbar Puncture Mycobacterial Culture Pending Received 08/03/17 11:50 Cerebral Spinal Fluid Lumbar Puncture Gram Stain - Final Resulted 08/03/17 11:50 Cerebral Spinal Fluid Lumbar Puncture CSF Culture - Preliminary NO GROWTH IN 48 HOURS. Resulted 08/03/17 16:00 Sputum Endotracheal Gram Stain - Final Resulted 08/03/17 16:00 Sputum Culture - Preliminary Staphylococcus Aureus Resulted Imaging Thoracic Spine MRI 08/04/17 0000 Signed Impressions: Service Date/Time: Friday, August 04, 2017 16:14 - CONCLUSION: 1. Focal signal abnormality in the right T1 vertebral body demonstrating uniform contrast-enhancement. Consider performing thin section CT to evaluate integrity or abnormalities within the trabecular pattern and cortex. 2. Multifocal areas of enhancement in the posterior right lung. Recommend further characterization with CT thorax. Misael Samuels MD Lumbar Spine MRI 08/04/17 0000 Signed Impressions: Service Date/Time: Friday, August 04, 2017 16:14 - CONCLUSION: Normal MRI of the lumbar spine with and without contrast. Misael Samuels MD Cervical Spine MRI 08/04/17 0000 Signed Impressions: Service Date/Time: Friday, August 04, 2017 16:14 - CONCLUSION: 1. Round enhancing lesion in the superior right T1 vertebral body. 2. Nondiagnostic evaluation from C1-C4 due to metallic field distortion artifact (braces). Misael Samuels MD Brain MRI 08/04/17 0000 Signed Impressions: Service Date/Time: Friday, August 04, 2017 16:14 - CONCLUSION: 1. No abnormal areas of enhancement or cerebral edema seen. 2. Field distortion artifact from patient's braces limits evaluation of inferior frontal lobes and precludes obtaining diffusion weighted images. Misael Samuels MD Lumbar Puncture Fluoroscopy 08/03/17 0000 Signed Impressions: Service Date/Time: Thursday, August 03, 2017 12:44 - CONCLUSION: Uncomplicated fluoroscopically guided lumbar puncture. Misael Batres Jr., MD Chest X-Ray 08/03/17 0000 Signed Impressions: Service Date/Time: Thursday, August 03, 2017 03:52 - CONCLUSION: 1. Interval placement of nasogastric tube which could be advanced 5 cm further. The distal side port is projected over the distal esophagus. 2. The patient remains intubated. Orion Gaitan MD Neck CTA 08/01/17 0000 Signed Impressions: Service Date/Time: Tuesday, August 01, 2017 10:03 - CONCLUSION: 1. No evidence of carotid stenosis 2. 3. 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 No acute findings or aneurysm identified. 2. 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 Misael Samuels MD Physical Exam GENERAL: Patient is in no acute distress. On the ventilator. HEENT: No icterus. NECK: Supple. LUNGS: Clear breath sounds bilateral. CARDIAC: Regular rate and rhythm. no murmurs rubs or gallops. ABDOMEN: Soft, non tender. EXTREMITIES: No CCE. SKIN: No rash. NEURO: Sedated. 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 cont acyclovir 10 mg/kg q 8 hrs untill HSV CSF studies back change abx for meningitis coverage (ampicillin, CFTX, vanco) P further studies - dc ampicillin, CFTX, vanco once CSF clx finalized negative dw Dr. Resendiz and patient's mom. Vazquez Santacruz MD Aug 05, 2017 10:56
[2017-08-05] MEDS ORDERED: PHARMACY ORDERED LAB ONE (12:45)
--- NOTE | 2017-08-05 15:17 | MG ---
cc: WHITNEY ABRAHAM M.D. Lab No: [id number] Date: 08/03/2017 Age: Sex: F Race: TECHNIQUE: 17 channel EEG. DESCRIPTION: The background activity is generally slow in delta and theta frequencies ranging from 4 Hz to 6 Hz. There appears a more rapid activity at 7 Hz. There are no lateralizing features. There are no epileptiform discharges on today's tracing. INTERPRETATION: Abnormal study consistent with a severe encephalopathy. MD MARII Cleaning/[place] /2:54 PM /3:19 PM
[2017-08-05] MEDS: ACETAMINOPHEN 325 MG TAB PO PRN ×3 (17:09→22:57)
[2017-08-05 17:50] LABS: HAEMOPHILUS FLU AG TYPE B Not Detected (Not Detected); N MENINGITIDIS GRP B/ECOLI K1 Not Detected (Not Detected); N MENINGITIDIS GRP C/W135 Not Detected (Not Detected); N.MENINGITIDIS GRP A/Y Not Detected (Not Detected); STREPTOCOCCUS PNEUMONIAE Not Detected (Not Detected)
[2017-08-05 23:51] LABS: B. BURGDORFERI DNA PCR CSF NOT DETECTED (NOT DETECTE)
[2017-08-06] VITALS (20 sets, daily range): BP systolic 99–128; BP diastolic 58–83; PULSE 90–125; RESP 20; TEMP 98.4–101.5; O2SAT 10–100
[2017-08-06] MEDS: RESP: ALBUTEROL 2.5 MG/IPRATROPIUM 0.5 MG NEB (SCH) NEB ×2 (04:20→08:07)
[2017-08-06] MEDS: cefTRIAXone INJ 2,000 MG in SODIUM CHLORIDE 0.9% INJ 100 ML IV SCH (05:25)
[2017-08-06] MEDS: ACETAMINOPHEN 325 MG TAB PO PRN ×2 (05:25→15:46)
[2017-08-06 05:26] LABS: AUTOMATED NEUTROPHIL # 9.7 TH/MM3 (1.8-7.7); BASOPHIL # 0.1 TH/MM3 (0-0.2); BASOPHIL % 0.4 % (0.0-2.0); EOSINOPHIL # 0.5 TH/MM3 (0-0.4); EOSINOPHIL % 3.9 % (0.0-4.0); HEMATOCRIT 38.4 % (35.0-46.0); LYMPH % 4.6 % (9.0-44.0); LYMPHOCYTE # 0.5 TH/MM3 (1.0-4.8); MEAN CELL VOLUME 90.1 FL (80.0-100.0); MEAN CORPUSCULAR HEMOGLOBIN 29.2 PG (27.0-34.0); MEAN CORPUSCULAR HGB CONC 32.4 % (32.0-36.0); MONO % 8.4 % (0.0-8.0); NEUT % 82.7 % (16.0-70.0); PLATELET COUNT 197 TH/MM3 (150-450); RED BLOOD COUNT 4.26 MIL/MM3 (4.00-5.30); RED CELL DISTRIBUTION WIDTH 13.6 % (11.6-17.2); WHITE BLOOD COUNT 11.8 TH/MM3 (4.0-11.0)
[2017-08-06 05:41] LABS: HEMO FLAGS AUTO DIFF
[2017-08-06 05:44] LABS: BICARBONATE 26.4 MEQ/L (21.0-32.0); POTASSIUM 4.7 MEQ/L (3.5-5.1)
[2017-08-06] MEDS: INSULIN NovoLIN REGULAR SUPPLEMENTAL SCALE SQ SCH ×3 (06:00→18:00)
[2017-08-06] MEDS: ACYCLOVIR IV SCH (06:13)
[2017-08-06] MEDS: SODIUM CHLORIDE 0.9% IV SCH (06:13)
[2017-08-06] MEDS: VANCOMYCIN INJ 750 MG in SODIUM CHLOR 0.9% 250 ML INJ 250 ML IV SCH ×2 (06:13→17:12)
[2017-08-06 06:53] LABS: BANDS 13 % (0-6); EOSINOPHILS 2 % (0-4); NEUTROPHIL # MANUAL DIFF 9.8 TH/MM3 (1.8-7.7); PLATELET ESTIMATE SMEAR NORMAL (NORMAL); POLYS (SEG NEUTROPHILS) 70 % (16-70); SCAN/DIFF FINAL DIFF MANUAL; WBC DIFF SAMPLE 100
[2017-08-06 06:56] LABS: PLATELET MORPHOLOGY HYPOGRAN (NORMAL)
--- NOTE | 2017-08-06 07:59 | HHI.PR ---
Review/Management Diagnosis/Plan: (1) Seizure disorder, complex partial ICD Codes: G40.209 - Localization-related (focal) (partial) symptomatic epilepsy and epileptic syndromes with complex partial seizures, not intractable , without status epilepticus Status: Acute Plan: intractable left temporal lobe seizures etiology; ? 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 Pleocytosis from SZ possible as well but would not expect it to be this pronounced and predominately lymphocytic 08/06 eeg- no sz activity x 24 hrs recs f/u ct chest/abd. ? lesions in lung restart iv depakote stop vimpat reduce dilantin to 200mg bid follow levels and eeg wean off versed d/w pt's father Subjective Subjective Comments No acute events reported Active Medications Current Medications Medications (Trade) Dose Ordered Sig/Nigel Route Start Time Stop Time Status Last Admin (NS Flush) 2 ml UNSCH PRN IV FLUSH 07/31/17 17:30 (NS Flush) 2 ml BID IV FLUSH 07/31/17 21:00 08/05/17 20:34 (Tylenol) 650 mg Q4H PRN PO 07/31/17 17:30 08/06/17 05:25 (Zofran Inj) 4 mg Q6H PRN IVP 07/31/17 17:30 08/01/17 11:38 (Narcan Inj) 0.4 mg UNSCH PRN IV PUSH 07/31/17 17:30 (Milk Of Magnesia Liq) 30 ml Q12H PRN PO 07/31/17 17:30 08/05/17 17:09 (Tylenol) 650 mg Q6H PRN PO 07/31/17 20:45 08/01/17 20:40 (Ativan Inj) 1 mg Q2H PRN IV PUSH 08/01/17 21:30 08/02/17 22:18 (Duoneb Neb) 1 ampule Q6HR NEB NEB 08/02/17 10:00 08/06/17 04:20 Midazolam HCl 100 ml @ 2 mls/hr TITRATE PRN IV 08/02/17 09:00 08/05/17 09:28 Propofol 100 ml @ 1.419 mls/ hr TITRATE PRN IV 08/02/17 09:00 08/04/17 17:54 (D50w (Vial) Inj) 50 ml UNSCH PRN IV PUSH 08/02/17 09:00 (Glucagon Inj) 1 mg UNSCH PRN OTHER 08/02/17 09:00 (NovoLIN R SUPPLEMENTAL SCALE) 1 Q6HR SQ 08/02/17 09:00 08/04/17 12:56 Potassium Chloride 100 ml @ 50 mls/hr Q2H PRN IV 08/02/17 09:00 Potassium Chloride 100 ml @ 50 mls/hr Q2H PRN IV 08/02/17 09:00 (K-Lyte Cl Eff) 50 meq UNSCH PRN PO 08/02/17 09:00 08/04/17 08:31 Potassium Chloride 100 ml @ 25 mls/hr UNSCH PRN IV 08/02/17 09:00 Potassium Chloride 100 ml @ 50 mls/hr Q2H PRN IV 08/02/17 09:00 Magnesium Sulfate 4 gm/Sodium Chloride 100 ml @ 50 mls/hr UNSCH PRN IV 08/02/17 09:00 (Mag-Ox) 800 mg UNSCH PRN PO 08/02/17 09:00 Magnesium Sulfate 2 gm/Sodium Chloride 100 ml @ 50 mls/hr UNSCH PRN IV 08/02/17 09:00 (K-Phos) 2,000 mg Q4H PRN PO 08/02/17 09:00 Sodium Phosphate 30 mmol/Sodium Chloride 250 ml @ 42 mls/hr UNSCH PRN IV 08/02/17 09:00 (K-Phos) 2,000 mg UNSCH PRN PO/TUBE 08/02/17 09:00 Potassium Phosphate 30 mmol/ Sodium Chloride 260 ml @ 42 mls/hr UNSCH PRN IV 08/02/17 09:00 Lacosamide 150 mg/ Sodium Chloride 115 ml @ 110 mls/hr Q12H IV 08/02/17 11:00 08/05/17 22:55 (Pepcid Inj) 10 mg Q12HR IV PUSH 08/02/17 09:15 08/05/17 20:33 Acyclovir Sodium 530 mg/Sodium Chloride 100 ml @ 100 mls/hr Q8H IV 08/03/17 23:00 08/06/17 06:13 Ceftriaxone Sodium 2000 mg/ Sodium Chloride 100 ml @ 200 mls/hr Q12H IV 08/03/17 17:00 08/06/17 05:25 Pharmacy Profile Note 0 ml @ 0 mls/hr UNSCH OTHER 08/04/17 10:45 (Cerebyx Inj) 250 mgpe Q12HR IV 08/04/17 21:00 08/05/17 20:34 (Luminal Inj) 30 mg Q6H IV 08/05/17 16:00 08/06/17 03:21 Vancomycin HCl 750 mg/Sodium Chloride 257.5 ml @ 250 mls/hr Q8H IV 08/05/17 22:00 08/06/17 06:13 Miscellaneous Information SPECIFIC LAB TO BE DRAWN:VANCO DATE TO... ONCE ONCE .XX 08/06/17 13:45 08/06/17 13:46 Allergies Allergies Coded Allergies oxycodone (Verified Adverse Reaction, Intermediate, Dizziness, 07/31/17) Review of Systems All other ROS: Unable to obtain Exam I&O / VS Vital Signs Date Time Temp Pulse Resp B/P (MAP) Pulse Ox O2 Delivery O2 Flow Rate FiO2 08/06/17 06:00 110 08/06/17 04:20 100 35 08/06/17 04:00 35 08/06/17 04:00 100.4 97 20 113/76 (88) 100 08/06/17 04:00 97 08/06/17 02:00 95 08/06/17 00:20 100 35 08/06/17 00:00 100 08/06/17 00:00 35 08/06/17 00:00 101.5 100 20 108/64 (79) 100 08/05/17 22:00 102 08/05/17 21:51 96 35 08/05/17 20:00 105 08/05/17 20:00 35 08/05/17 20:00 101.5 105 21 104/56 (72) 100 08/05/17 18:00 104 08/05/17 18:00 35 08/05/17 16:00 107 08/05/17 16:00 100.0 107 17 100/55 (70) 100 08/05/17 16:00 35 08/05/17 15:56 100 40 08/05/17 15:30 35 08/05/17 15:00 40 08/05/17 15:00 107 21 105/58 (74) 100 08/05/17 14:00 102 08/05/17 14:00 102 20 98/57 (71) 100 08/05/17 13:00 105 19 101/55 (70) 100 08/05/17 12:50 100 35 08/05/17 12:00 35 08/05/17 12:00 99.4 105 21 99/57 (71) 100 08/05/17 12:00 105 08/05/17 11:00 103 16 97/56 (70) 100 08/05/17 10:00 103 17 98/53 (68) 100 08/05/17 10:00 103 08/05/17 09:30 99.6 104 20 92/54 (67) 99 08/05/17 09:00 99.2 104 19 87/51 (63) 99 08/05/17 08:00 98.1 103 18 100/59 (73) 100 08/05/17 08:00 35 08/05/17 08:00 103 General: No acute distress Respiratory: Non-labored respirations Cardiology: Normal rate Exam Comments coma state. intubated, on heavy sedation. no involuntary movements Objective Micro and Labs Laboratory Tests Test 08/05/17 12:45 08/06/17 04:46 Vancomycin Level Trough 5.1 White Blood Count 11.8 Red Blood Count 4.26 Hemoglobin 12.4 Hematocrit 38.4 Mean Corpuscular Volume 90.1 Mean Corpuscular Hemoglobin 29.2 Mean Corpuscular Hemoglobin Concent 32.4 Red Cell Distribution Width 13.6 Platelet Count 197 Mean Platelet Volume 11.8 Neutrophils (%) (Auto) 82.7 Lymphocytes (%) (Auto) 4.6 Monocytes (%) (Auto) 8.4 Eosinophils (%) (Auto) 3.9 Basophils (%) (Auto) 0.4 Neutrophils # (Auto) 9.7 Lymphocytes # (Auto) 0.5 Monocytes # (Auto) 1.0 Eosinophils # (Auto) 0.5 Basophils # (Auto) 0.1 CBC Comment AUTO DIFF Differential Total Cells Counted 100 Neutrophils % (Manual) 70 Band Neutrophils % 13 Lymphocytes % 6 Monocytes % 9 Eosinophils % 2 Neutrophils # (Manual) 9.8 Differential Comment FINAL DIFF MANUAL Platelet Estimate NORMAL Platelet Morphology Comment HYPOGRAN Red Cell Morphology Comment NORMAL Blood Urea Nitrogen 13 Creatinine 0.61 Random Glucose 113 Calcium Level 8.4 Sodium Level 139 Potassium Level 4.7 Chloride Level 104 Carbon Dioxide Level 26.4 Anion Gap 9 Estimat Glomerular Filtration Rate 125 Phenytoin (Dilantin) Level 19.9 Valproic Acid (Depakene) Level 61 Phenobarbital Level 9.0 Date/Time Source Procedure Growth Status 08/03/17 14:29 Blood Peripheral Aerobic Blood Culture - Preliminary NO GROWTH IN 2 DAYS Resulted 08/03/17 14:29 Blood Peripheral Anaerobic Blood Culture - Preliminary NO GROWTH IN 2 DAYS Resulted 08/03/17 11:50 Cerebral Spinal Fluid Lumbar Puncture Fungal Smear - Final NO FUNGAL ELEMENTS SEEN. Resulted 08/03/17 11:50 Cerebral Spinal Fluid Lumbar Puncture Fungal Culture Pending Resulted 08/03/17 16:00 Sputum Endotracheal Gram Stain - Final Complete 08/03/17 16:00 Sputum Culture - Final Staphylococcus Aureus Complete Problem Qualifiers (1) Seizure disorder, complex partial: Duong Gomez MD Aug 06, 2017 07:59
--- NOTE | 2017-08-06 08:14 | HHI.CCPN ---
Subjective Remarks/Hospital Course The patient is a 22-year-old female who attends [employer] [facility] [employer] and presented to [facility] ED with her parents noted to have altered mental status. According to the records, the patient was under a lot of stress and she had a recent breakup with her boyfriend one month ago. The patient was admitted under Dr. Ventura's service. She had an EEG done which showed seizure activity. The patient was subsequently placed on Depakote, Vimpat, and Ativan. In addition, she received a loading dose of Cerebyx yesterday. Despite being on multiple antiseizure meds, continuous EEG showed a seizure pattern. After discussion with Dr. Gomez from neurology, he recommended to intubate the patient and place her on Versed drip to control her seizures. After discussion with the patient's father, the patient was intubated and placed on full mechanical ventilation. She had an MRI of the brain the night of July 31 which showed no acute findings. A CTA of the head and neck were unremarkable as well. Urine drug screen was negative for opiates, amphetamines, benzodiazepines. There is no evidence of any fever or leukocytosis. 08/03 No events overnight. Sedated with Versed, Diprivan and intubated. Afebrile. 08/04 No events overnight. Sedated with Diprivan and Versed. s/p LP yesterday showed clear CSF, elevated protein 56, WBC: 57 (Lymphocytic predominant). For repeat MRI brain today. Spoked fever with T: 101.4 at 4am. 08/05 No events overnight. On Continuous EEG monitoring. Afebrile. Sedated with Versed and Diprivan. 08/06 No events overnight. Versed is down 3mg/hr, off Diprivan. For CT thorax/ abd today. T:101.5 Objective Vital Signs Date Time Temp Pulse Resp B/P (MAP) Pulse Ox O2 Delivery O2 Flow Rate FiO2 08/06/17 06:00 110 08/06/17 04:20 100 35 08/06/17 04:00 100.4 20 113/76 (88) 08/02/17 08:45 Ventilator Intake and Output 08/06/17 08/06/17 08/07/17 08:00 16:00 00:00 Intake Total 981.4 ml Output Total 1325 ml Balance -343.6 ml Result Diagram: 08/06/17 0446 08/06/17 0446 Other Results Laboratory Tests Test 08/05/17 12:45 08/06/17 04:46 Vancomycin Level Trough 5.1 MCG/ML White Blood Count 11.8 TH/MM3 Red Blood Count 4.26 MIL/MM3 Hemoglobin 12.4 GM/DL Hematocrit 38.4 % Mean Corpuscular Volume 90.1 FL Mean Corpuscular Hemoglobin 29.2 PG Mean Corpuscular Hemoglobin Concent 32.4 % Red Cell Distribution Width 13.6 % Platelet Count 197 TH/MM3 Mean Platelet Volume 11.8 FL Neutrophils (%) (Auto) 82.7 % Lymphocytes (%) (Auto) 4.6 % Monocytes (%) (Auto) 8.4 % Eosinophils (%) (Auto) 3.9 % Basophils (%) (Auto) 0.4 % Neutrophils # (Auto) 9.7 TH/MM3 Lymphocytes # (Auto) 0.5 TH/MM3 Monocytes # (Auto) 1.0 TH/MM3 Eosinophils # (Auto) 0.5 TH/MM3 Basophils # (Auto) 0.1 TH/MM3 CBC Comment AUTO DIFF Differential Total Cells Counted 100 Neutrophils % (Manual) 70 % Band Neutrophils % 13 % Lymphocytes % 6 % Monocytes % 9 % Eosinophils % 2 % Neutrophils # (Manual) 9.8 TH/MM3 Differential Comment FINAL DIFF MANUAL Platelet Estimate NORMAL Platelet Morphology Comment HYPOGRAN Red Cell Morphology Comment NORMAL Blood Urea Nitrogen 13 MG/DL Creatinine 0.61 MG/DL Random Glucose 113 MG/DL Calcium Level 8.4 MG/DL Sodium Level 139 MEQ/L Potassium Level 4.7 MEQ/L Chloride Level 104 MEQ/L Carbon Dioxide Level 26.4 MEQ/L Anion Gap 9 MEQ/L Estimat Glomerular Filtration Rate 125 ML/MIN Phenytoin (Dilantin) Level 19.9 MCG/ML Valproic Acid (Depakene) Level 61 MCG/ML Phenobarbital Level 9.0 MCG/ML Imaging Last Impressions Thoracic Spine MRI 08/04/17 0000 Signed Impressions: Service Date/Time: Friday, August 04, 2017 16:14 - CONCLUSION: 1. Focal signal abnormality in the right T1 vertebral body demonstrating uniform contrast-enhancement. Consider performing thin section CT to evaluate integrity or abnormalities within the trabecular pattern and cortex. 2. Multifocal areas of enhancement in the posterior right lung. Recommend further characterization with CT thorax. Misael Samuels MD Lumbar Spine MRI 08/04/17 Signed Impressions: Service Date/Time: Friday, August 04, 2017 16:14 - CONCLUSION: Normal MRI of the lumbar spine with and without contrast. Misael Samuels MD Cervical Spine MRI 08/04/17 Signed Impressions: Service Date/Time: Friday, August 04, 2017 16:14 - CONCLUSION: 1. Round enhancing lesion in the superior right T1 vertebral body. 2. Nondiagnostic evaluation from C1-C4 due to metallic field distortion artifact (braces). Misael Samuels MD Brain MRI 08/04/17 Signed Impressions: Service Date/Time: Friday, August 04, 2017 16:14 - CONCLUSION: 1. No abnormal areas of enhancement or cerebral edema seen. 2. Field distortion artifact from patient's braces limits evaluation of inferior frontal lobes and precludes obtaining diffusion weighted images. Misael Samuels MD Lumbar Puncture Fluoroscopy 08/03/17 Signed Impressions: Service Date/Time: Thursday, August 03, 2017 12:44 - CONCLUSION: Uncomplicated fluoroscopically guided lumbar puncture. Misael Batres Jr., MD Chest X-Ray 08/03/17 Signed Impressions: Service Date/Time: Thursday, August 03, 2017 03:52 - CONCLUSION: 1. Interval placement of nasogastric tube which could be advanced 5 cm further. The distal side port is projected over the distal esophagus. 2. The patient remains intubated. Orion Gaitan MD Neck CTA 08/01/17 Signed Impressions: Service Date/Time: Tuesday, August 01, 2017 10:03 - CONCLUSION: 1. No evidence of carotid stenosis 2. 3. 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 No acute findings or aneurysm identified. 2. 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 HEAD: Normocephalic. EYES: No scleral icterus. No injection or drainage. NECK: Supple, trachea midline. No JVD or lymphadenopathy. CARDIOVASCULAR: Regular rate and rhythm without murmurs, gallops, or rubs. RESPIRATORY: Breath sounds equal bilaterally. No accessory muscle use. GASTROINTESTINAL: Abdomen soft, non-tender, nondistended. MUSCULOSKELETAL: No cyanosis, or edema. Neuro: Sedated A/P Assessment and Plan IMPRESSION 1. Complex partial seizure 2. Altered mental status 3. Vent dependent respiratory failure. 4. History of the childhood febrile seizure. 5. Febrile Illness Plan Neuro: Continue with Versed drip for sedation and seizure control Monitor neuro status. Neuro Dr. Gomez. A neuro workup which includes MRI of the brain, CTA of the head and neck are unremarkable. On continuous EEG monitoring 08/05 EEG: Diffuse encephalopathy EEG: : diffuse encephalopathy. Occasional sharp activity is identified over the left hemisphere suggesting an ictal focus in that area Repeat MRI brain 08/04 : No acute findings MRI spine: Round enhancing lesion T1 vertebral body. Continue with antiseizure meds per neuro. Depakote held monitor level ( 61 this morning), on Cerebyx 250 mg IV q12, Vimpat, Phenobarb 30mg Q6 and Ativan 1 mg IV q2 PRN seizures. On Empiric Acyclovir, s/p LP 08/03: Clear CSF, elevated protein 56, WBC 57 ( Lymphocytic predominant), glc 62 Pulm: Continue with vent support. and maintain sats above 92%. Bronchodilators, ICU vent bundle. Start SBT trials when cleared by neuro. For CT thorax and CT abd/pelvis discussed with Dr. Partida. CV: Monitor HR and BP and maintain MAP>65 mmHg. : Monitor renal function I's and O's, and electrolyte replacement per protocol. GI: Pepcid 10 mg IV q. 12 for GI prophylaxis Tube feeds with Glucerna 1.5 @f 45 mL an hour. For CT abd/pelvis today. ID: Continue with abx per ID ( Ampicillin, Rocephin, Vanco) On Acyclovir as well. Monitor for signs of infections( fever and WBC). Follow up on cxs, HSV DNA PCR negative. 08/03 Sputum: Staph Aureus. Check BC x 2 sets today, repeat sputum cx Endo: SSI with Accu-Chek q.6 h to maintain euglycemia. Heme: Monitor CBC. GI prophylaxis with Protonix 40 mg daily and DVT prophylaxis with SCD's. Level 3 Jaja Resendiz MD Aug 06, 2017 08:14
[2017-08-06] MEDS ORDERED: IOHEXOL 350 MG/ML 10 ML VIAL (for RAD DIAG) IVCONTRAST ONE (09:57)
--- NOTE | 2017-08-06 10:07 | RADRPT ---
EXAM DATE/TIME: 08/06/2017 09:31 [facility] COMPARISON: MRI THORACIC SPINE W & W/O CONTRAST, August 04, 2017, 16:14. INDICATIONS : Abnormal MRI, evaluate for metastatic disease. IV CONTRAST: 85 cc Omnipaque 350 (iohexol) IV ; Cumulative dose for multiple exams. ORAL CONTRAST: No oral contrast ingested. RADIATION DOSE: 5.1 CTDIvol (mGy) ; Combined studies MEDICAL HISTORY : None SURGICAL HISTORY : None. ENCOUNTER: Initial ACUITY: 1 day PAIN SCALE: Non-responsive LOCATION: Bilateral abdomen TECHNIQUE: Volumetric scanning of the abdomen and pelvis was performed. Using automated exposure control and ad justment of the mA and/or kV according to patient size, radiation dose was kept as low as reasonably achievable to obtain optimal diagnostic quality images. DICOM format image data is available electro nically for review and comparison. FINDINGS: Bibasilar consolidation changes are evident worse on the left. The liver, spleen, pancreas, adrenals and kidneys are unremarkable There is no adenopathy. There is no free fluid Mildly prominent uterus, pelvis otherwise unremarkable. CONCLUSION: Bibasilar consolidative changes worse on the left. No other significant is appreciated. I do not see evidence of metastatic disease. Kev Santana MD FACR on August 06, 2017 at 10:02 Board Certified Radiologist. This report was verified electronically.
[2017-08-06] MEDS: FOSPHENYTOIN SODIUM 100 MG PE/2 ML VIAL IV SCH ×2 (10:09→20:52)
[2017-08-06] MEDS: FAMOTIDINE 20 MG/2 ML VIAL IV PUSH SCH ×2 (10:10→22:31)
[2017-08-06] MEDS: SODIUM CHLORIDE 0.9% FLUSH 10 ML FLUSH IV FLUSH SCH ×2 (10:11→20:56)
[2017-08-06] MEDS: VALPROATE INJ 500 MG in SODIUM CHLORIDE 0.9% INJ 100 ML IV SCH ×2 (10:11→20:56)
--- NOTE | 2017-08-06 10:15 | RADRPT ---
EXAM DATE/TIME: 08/06/2017 09:35 [facility] COMPARISON: MRI THORACIC SPINE W & W/O CONTRAST, August 04, 2017, 16:14. INDICATIONS : Abnormal MRI, evaluate for metastatic disease. IV CONTRAST: 85 cc Omnipaque 350 (iohexol) IV ; Cumulative dose for multiple exams. RADIATION DOSE: 5.1 CTDIvol (mGy) ; Combined studies MEDICAL HISTORY : None SURGICAL HISTORY : None. ENCOUNTER: Initial ACUITY: 1 day PAIN SCALE: Non-responsive LOCATION: Bilateral chest TECHNIQUE: Volumetric scanning of the chest was performed. Using automated exposure control and adjustment of t he mA and/or kV according to patient size, radiation dose was kept as low as reasonably achievable to obtain optimal diagnostic quality images. DICOM format image data is available electronically for review and comparison. Follow-up recommendations for detected pulmonary nodules are based at a minimum on nodule size and pa tient risk factors according to Fleischner Society Guidelines. FINDINGS: LUNGS: There is consolidation involving the entire left lower lobe. There is volume loss and air bronchogram s observed. Within the right basilar segments of the lower lobe there are scattered areas of subpleur al consolidation. Both upper lobes are clear. No mass observed. PLEURA: Tiny bilateral pleural effusions. MEDIASTINUM: The heart and great vessels demonstrate no acute abnormality. There is no mediastinal or hilar lymph adenopathy. AXILLAE: Within normal limits. No lymphadenopathy. SKELETAL: Within normal limits for patient age. No discernible lesion seen involving T1. This is better seen on the prior MRI. MISCELLANEOUS: The visualized upper abdominal organs demonstrate no acute abnormality. CONCLUSION: 1. Bilateral basilar consolidation more pronounced on the left. Infectious etiology most likely. 2. Tiny bilateral pleural effusions. 3. No perceivable lesion involving T1 on this standard protocol CT of the thorax. Misael Batres Jr., MD on August 06, 2017 at 9:59 Board Certified Radiologist. This report was verified electronically.
[2017-08-06 12:21] LABS: CSF CRYPTOCOCCUS AG CONF ND (NOT DETECTD)
[2017-08-06] MEDS ORDERED: PHARMACY ORDERED LAB ONE (13:45)
--- NOTE | 2017-08-06 15:40 | HHI.PR ---
Addendum to Inpatient Note Additional Information pt seen around 3p 'dw Dr Ivey full note to follow Louisa Childs MD Aug 06, 2017 15:40
[2017-08-06] MEDS: ONDANSETRON HCL 4 MG/2 ML VIAL IVP PRN (16:04)
[2017-08-06 17:53] LABS: PHENOBARBITAL 8.6 MCG/ML (15.0-40.0); VANCOMYCIN TROUGH 5.1 MCG/ML (5.0-10.0)
[2017-08-06 19:51] LABS: VDRL CSF NON-REACTIVE (NON-REACTVE)
[2017-08-06] MEDS: VANCOMYCIN 1,000 MG/NS 250 ML IV SCH ×2 (20:55)
[2017-08-06] MEDS: LORazepam 2 MG/ML VIAL IV PUSH PRN (21:54)
--- NOTE | 2017-08-06 23:01 | HHI.IDPN ---
Subjective Subjective Remarks pt seen around 3p this is delayed entry pt cont to have fever up to 100.9 HSV, ashley clx - all negative meningitis Rx was stopped EEG neg pt is more responsive Antibiotics CFTX Allergies: Coded Allergies: oxycodone (Verified Adverse Reaction, Intermediate, Dizziness, 07/31/17) Objective . Vital Signs Date Time Temp Pulse Resp B/P (MAP) Pulse Ox O2 Delivery O2 Flow Rate FiO2 08/06/17 21:30 100 35 08/06/17 18:00 106 08/06/17 16:00 35 08/06/17 16:00 100.9 124 20 128/73 (91) 100 08/06/17 16:00 125 08/06/17 15:30 98 35 08/06/17 15:20 100 35 08/06/17 14:00 105 08/06/17 12:45 35 08/06/17 12:39 35 08/06/17 12:37 100 35 08/06/17 12:00 110 20 122/83 (96) 100 08/06/17 12:00 35 08/06/17 12:00 110 08/06/17 11:27 100 35 08/06/17 10:00 122 08/06/17 08:08 100 35 08/06/17 08:00 35 08/06/17 08:00 98.4 90 20 99/58 (72) 100 08/06/17 08:00 90 08/06/17 06:00 110 08/06/17 04:20 100 35 08/06/17 04:00 35 08/06/17 04:00 100.4 97 20 113/76 (88) 100 08/06/17 04:00 97 08/06/17 02:00 95 08/06/17 00:20 100 35 08/06/17 00:00 100 08/06/17 00:00 35 08/06/17 00:00 101.5 100 20 108/64 (79) 100 08/06/17 08/06/17 08/07/17 15:00 23:00 07:00 Intake Total 205 ml 982 ml Output Total 1475 ml Balance 205 ml -493 ml Intake IV Total 205 ml Tube Feeding 782 ml Tube Irrigant 200 ml Output Urine Total 1475 ml # Bowel Movements 0 # Sanitary Pads 0 Pads 0 Pads 0 Pads 0 Pads 0 Pads 0 Pads . Laboratory Tests Test 08/05/17 04:46 08/06/17 04:46 White Blood Count 11.8 TH/MM3 11.8 TH/MM3 Red Blood Count 3.83 MIL/MM3 4.26 MIL/MM3 Hemoglobin 11.4 GM/DL 12.4 GM/DL Hematocrit 34.6 % 38.4 % Mean Corpuscular Volume 90.6 FL 90.1 FL Mean Corpuscular Hemoglobin 29.9 PG 29.2 PG Mean Corpuscular Hemoglobin Concent 33.0 % 32.4 % Red Cell Distribution Width 13.6 % 13.6 % Platelet Count 217 TH/MM3 197 TH/MM3 Mean Platelet Volume 12.0 FL 11.8 FL Neutrophils (%) (Auto) 86.9 % 82.7 % Lymphocytes (%) (Auto) 4.7 % 4.6 % Monocytes (%) (Auto) 4.5 % 8.4 % Eosinophils (%) (Auto) 3.6 % 3.9 % Basophils (%) (Auto) 0.3 % 0.4 % Neutrophils # (Auto) 10.2 TH/MM3 9.7 TH/MM3 Lymphocytes # (Auto) 0.6 TH/MM3 0.5 TH/MM3 Monocytes # (Auto) 0.5 TH/MM3 1.0 TH/MM3 Eosinophils # (Auto) 0.4 TH/MM3 0.5 TH/MM3 Basophils # (Auto) 0.0 TH/MM3 0.1 TH/MM3 CBC Comment DIFF FINAL AUTO DIFF Differential Comment FINAL DIFF MANUAL Differential Total Cells Counted 100 Neutrophils % (Manual) 70 % Band Neutrophils % 13 % Lymphocytes % 6 % Monocytes % 9 % Eosinophils % 2 % Neutrophils # (Manual) 9.8 TH/MM3 Platelet Estimate NORMAL Platelet Morphology Comment HYPOGRAN Red Cell Morphology Comment NORMAL Laboratory Tests Test 08/05/17 04:46 08/06/17 04:46 Blood Urea Nitrogen 12 MG/DL 13 MG/DL Creatinine 0.64 MG/DL 0.61 MG/DL Random Glucose 100 MG/DL 113 MG/DL Calcium Level 8.0 MG/DL 8.4 MG/DL Phosphorus Level 2.6 MG/DL Magnesium Level 2.3 MG/DL Sodium Level 143 MEQ/L 139 MEQ/L Potassium Level 3.9 MEQ/L 4.7 MEQ/L Chloride Level 109 MEQ/L 104 MEQ/L Carbon Dioxide Level 24.8 MEQ/L 26.4 MEQ/L Anion Gap 9 MEQ/L 9 MEQ/L Estimat Glomerular Filtration Rate 118 ML/MIN 125 ML/MIN Microbiology Date/Time Source Procedure Growth Status 08/06/17 10:45 Blood Peripheral Aerobic Blood Culture Pending Received 08/06/17 10:45 Blood Peripheral Anaerobic Blood Culture Pending Received 08/06/17 10:20 Blood Peripheral Aerobic Blood Culture Pending Received 08/06/17 10:20 Blood Peripheral Anaerobic Blood Culture Pending Received Imaging Last Impressions Chest CT 08/06/17 06 Signed Impressions: Service Date/Time: Sunday, August 06, 2017 09:35 - CONCLUSION: 1. Bilateral basilar consolidation more pronounced on the left. Infectious etiology most likely. 2. Tiny bilateral pleural effusions. 3. No perceivable lesion involving T1 on this standard protocol CT of the thorax. Misael Batres Jr., MD Abdomen/Pelvis CT [id number] Signed Impressions: Service Date/Time: Sunday, August 06, 2017 09:31 - CONCLUSION: Bibasilar consolidative changes worse on the left. No other significant is appreciated. I do not see evidence of metastatic disease. Kev Santana MD FACR Thoracic Spine MRI 08/04/17 0000 Signed Impressions: Service Date/Time: Friday, August 04, 2017 16:14 - CONCLUSION: 1. Focal signal abnormality in the right T1 vertebral body demonstrating uniform contrast-enhancement. Consider performing thin section CT to evaluate integrity or abnormalities within the trabecular pattern and cortex. 2. Multifocal areas of enhancement in the posterior right lung. Recommend further characterization with CT thorax. Misael Samuels MD Lumbar Spine MRI 08/04/17 0000 Signed Impressions: Service Date/Time: Friday, August 04, 2017 16:14 - CONCLUSION: Normal MRI of the lumbar spine with and without contrast. Misael Samuels MD Cervical Spine MRI 08/04/17 0000 Signed Impressions: Service Date/Time: Friday, August 04, 2017 16:14 - CONCLUSION: 1. Round enhancing lesion in the superior right T1 vertebral body. 2. Nondiagnostic evaluation from C1-C4 due to metallic field distortion artifact (braces). Misael Samuels MD Brain MRI 08/04/17 0000 Signed Impressions: Service Date/Time: Friday, August 04, 2017 16:14 - CONCLUSION: 1. No abnormal areas of enhancement or cerebral edema seen. 2. Field distortion artifact from patient's braces limits evaluation of inferior frontal lobes and precludes obtaining diffusion weighted images. Misael Samuels MD Lumbar Puncture Fluoroscopy 08/03/17 0000 Signed Impressions: Service Date/Time: Thursday, August 03, 2017 12:44 - CONCLUSION: Uncomplicated fluoroscopically guided lumbar puncture. Misael Batres Jr., MD Chest X-Ray 08/03/17 0000 Signed Impressions: Service Date/Time: Thursday, August 03, 2017 03:52 - CONCLUSION: 1. Interval placement of nasogastric tube which could be advanced 5 cm further. The distal side port is projected over the distal esophagus. 2. The patient remains intubated. Orion Gaitan MD Neck CTA 08/01/17 0000 Signed Impressions: Service Date/Time: Tuesday, August 01, 2017 10:03 - CONCLUSION: 1. No evidence of carotid stenosis 2. 3. 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 No acute findings or aneurysm identified. 2. 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 Sedated heavily sedated Sedated int'd on mech vent'n TUBES/LINES/DRAINS: SKIN: No jaundice, rashes, or lesions. Skin temperature appropriate. Not diaphoretic. EYES: Pupils are small equal and round and reactive. Extraocular motions intact. No scleral icterus. No injection or drainage. Fundi not examined. ENT: Hearing note tested Nose without bleeding or purulent drainage. Visualised mucosae without visible erythema, exudates, masses, or lesions. Orally intubated NECK: Trachea midline. Supple, nontender. CARDIOVASCULAR: Regular rate and rhythm without murmurs, gallops, or rubs. No JVD. Peripheral pulses symmetric. RESPIRATORY/CHEST: Symmetric, unlabored respirations. Clear to auscultation. Breath sounds equal bilaterally. No wheezes, rales, or rhonchi. GASTROINTESTINAL: Abdomen soft, non-tender, nondistended. No hepato-splenomegaly , or palpable masses. No guarding. Bowel sounds present. GENITOURINARY: bladder with no palpable distension. fay in w clear yellow urine MUSCULOSKELETAL: Extremities without clubbing, cyanosis, or edema. No joint tenderness or effusion noted. No calf tenderness. No mottling or clubbing. NEUROLOGICAL: Heavily sedated. 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
--- NOTE | 2017-08-06 23:07 | HHI.FPPN ---
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 cardiac etiologies (echo?) Karli Romero MD R2 Aug 06, 2017 23:07
[2017-08-07] VITALS (22 sets, daily range): BP systolic 93–120; BP diastolic 48–78; PULSE 99–137; RESP 22; TEMP 99.8–103.1; O2SAT 95–100
[2017-08-07] MEDS ORDERED: PROPRANOLOL INJ 1 MG/ML AMP IV PUSH ONE (00:15)
[2017-08-07] MEDS: ACETAMINOPHEN 325 MG TAB PO PRN ×3 (00:21→19:43)
[2017-08-07] MEDS: MIDAZOLAM 100 MG/100 ML INJ 100 ML IV PRN (01:24)
[2017-08-07 04:32] LABS: AUTOMATED NEUTROPHIL # 6.5 TH/MM3 (1.8-7.7); BASOPHIL % 0.5 % (0.0-2.0); EOSINOPHIL # 0.3 TH/MM3 (0-0.4); EOSINOPHIL % 3.8 % (0.0-4.0); HEMO FLAGS DIFF FINAL; LYMPH % 7.3 % (9.0-44.0); LYMPHOCYTE # 0.6 TH/MM3 (1.0-4.8); MEAN CELL VOLUME 89.9 FL (80.0-100.0); MEAN CORPUSCULAR HEMOGLOBIN 29.5 PG (27.0-34.0); MEAN CORPUSCULAR HGB CONC 32.8 % (32.0-36.0); MONO % 12.1 % (0.0-8.0); NEUT % 76.3 % (16.0-70.0); PLATELET COUNT 233 TH/MM3 (150-450); RED BLOOD COUNT 4.12 MIL/MM3 (4.00-5.30); RED CELL DISTRIBUTION WIDTH 13.6 % (11.6-17.2); WHITE BLOOD COUNT 8.5 TH/MM3 (4.0-11.0)
[2017-08-07 04:58] LABS: BICARBONATE 29.2 MEQ/L (21.0-32.0)
[2017-08-07] MEDS ORDERED: cefTRIAXone INJ 2,000 MG in SODIUM CHLORIDE 0.9% INJ 100 ML IV SCH (05:00)
[2017-08-07 05:01] LABS: PHENOBARBITAL 10.5 MCG/ML (15.0-40.0)
[2017-08-07] MEDS: INSULIN NovoLIN REGULAR SUPPLEMENTAL SCALE SQ SCH ×4 (06:00→18:00)
[2017-08-07] MEDS: VANCOMYCIN 1,000 MG/NS 250 ML IV SCH ×4 (06:06→15:43)
--- NOTE | 2017-08-07 06:57 | HHI.PR ---
Review/Management Diagnosis/Plan: (1) Seizure disorder, complex partial ICD Codes: G40.209 - Localization-related (focal) (partial) symptomatic epilepsy and epileptic syndromes with complex partial seizures, not intractable , without status epilepticus Status: Acute Plan: intractable left temporal lobe seizures etiology; ? 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 Pleocytosis from SZ possible as well but would not expect it to be this pronounced and predominately lymphocytic cx ngtd; hsv pcr negative 08/06 eeg- no sz activity x 24 hrs recs eeg- stable >48hrs dil reduce to 150mg bid check [place], paraneoplastic panel wean off versed d/w pt's father/ccm Subjective Subjective Comments No acute events reported Active Medications Current Medications Medications (Trade) Dose Ordered Sig/Nigel Route Start Time Stop Time Status Last Admin (NS Flush) 2 ml UNSCH PRN IV FLUSH 07/31/17 17:30 (NS Flush) 2 ml BID IV FLUSH 07/31/17 21:00 08/06/17 20:56 (Tylenol) 650 mg Q4H PRN PO 07/31/17 17:30 08/07/17 00:21 (Zofran Inj) 4 mg Q6H PRN IVP 07/31/17 17:30 08/06/17 16:04 (Narcan Inj) 0.4 mg UNSCH PRN IV PUSH 07/31/17 17:30 (Milk Of Magnesia Liq) 30 ml Q12H PRN PO 07/31/17 17:30 08/05/17 17:09 (Tylenol) 650 mg Q6H PRN PO 07/31/17 20:45 08/01/17 20:40 (Ativan Inj) 1 mg Q2H PRN IV PUSH 08/01/17 21:30 08/06/17 21:54 Midazolam HCl 100 ml @ 2 mls/hr TITRATE PRN IV 08/02/17 09:00 08/05/17 09:28 Propofol 100 ml @ 1.419 mls/ hr TITRATE PRN IV 08/02/17 09:00 08/04/17 17:54 (D50w (Vial) Inj) 50 ml UNSCH PRN IV PUSH 08/02/17 09:00 (Glucagon Inj) 1 mg UNSCH PRN OTHER 08/02/17 09:00 (NovoLIN R SUPPLEMENTAL SCALE) 1 Q6HR SQ 08/02/17 09:00 08/04/17 12:56 Potassium Chloride 100 ml @ 50 mls/hr Q2H PRN IV 08/02/17 09:00 Potassium Chloride 100 ml @ 50 mls/hr Q2H PRN IV 08/02/17 09:00 (K-Lyte Cl Eff) 50 meq UNSCH PRN PO 08/02/17 09:00 08/04/17 08:31 Potassium Chloride 100 ml @ 25 mls/hr UNSCH PRN IV 08/02/17 09:00 Potassium Chloride 100 ml @ 50 mls/hr Q2H PRN IV 08/02/17 09:00 Magnesium Sulfate 4 gm/Sodium Chloride 100 ml @ 50 mls/hr UNSCH PRN IV 08/02/17 09:00 (Mag-Ox) 800 mg UNSCH PRN PO 08/02/17 09:00 Magnesium Sulfate 2 gm/Sodium Chloride 100 ml @ 50 mls/hr UNSCH PRN IV 08/02/17 09:00 (K-Phos) 2,000 mg Q4H PRN PO 08/02/17 09:00 Sodium Phosphate 30 mmol/Sodium Chloride 250 ml @ 42 mls/hr UNSCH PRN IV 08/02/17 09:00 (K-Phos) 2,000 mg UNSCH PRN PO/TUBE 08/02/17 09:00 Potassium Phosphate 30 mmol/ Sodium Chloride 260 ml @ 42 mls/hr UNSCH PRN IV 08/02/17 09:00 (Pepcid Inj) 10 mg Q12HR IV PUSH 08/02/17 09:15 08/06/17 22:31 Pharmacy Profile Note 0 ml @ 0 mls/hr UNSCH OTHER 08/04/17 10:45 (Luminal Inj) 30 mg Q6H IV 08/05/17 16:00 08/07/17 04:19 (Cerebyx Inj) 200 mgpe Q12HR IV 08/06/17 09:00 08/06/17 20:52 Valproate Sodium 500 mg/Sodium Chloride 105 ml @ 105 mls/hr BID IV 08/06/17 09:00 08/06/17 20:56 Ceftriaxone Sodium 2000 mg/ Sodium Chloride 100 ml @ 200 mls/hr Q24H IV 08/07/17 05:00 08/07/17 04:18 Miscellaneous Information SPECIFIC LAB TO BE DRAWN:[facility]... ONCE ONCE .XX 08/07/17 13:45 08/07/17 13:46 Vancomycin HCl 1000 mg/Sodium Chloride 250 ml @ 250 mls/hr Q8H IV 08/06/17 22:00 08/07/17 06:06 Allergies Allergies Coded Allergies oxycodone (Verified Adverse Reaction, Intermediate, Dizziness, 07/31/17) Review of Systems All other ROS: Unable to obtain Exam I&O / VS Vital Signs Date Time Temp Pulse Resp B/P (MAP) Pulse Ox O2 Delivery O2 Flow Rate FiO2 08/07/17 05:26 100 35 08/07/17 04:55 99 35 08/07/17 02:00 99 08/07/17 00:09 100 35 08/07/17 00:00 101.8 137 120/77 (91) 100 08/07/17 00:00 35 08/07/17 00:00 137 08/06/17 22:00 119 08/06/17 21:30 100 35 08/06/17 20:00 99.4 112 124/83 (97) 100 08/06/17 20:00 35 08/06/17 20:00 112 08/06/17 18:00 106 08/06/17 16:00 35 08/06/17 16:00 100.9 124 20 128/73 (91) 100 08/06/17 16:00 125 08/06/17 15:30 98 35 08/06/17 15:20 100 35 08/06/17 14:00 105 08/06/17 12:45 35 08/06/17 12:39 35 08/06/17 12:37 100 35 08/06/17 12:00 110 20 122/83 (96) 100 08/06/17 12:00 35 08/06/17 12:00 110 08/06/17 11:27 100 35 08/06/17 10:00 122 08/06/17 08:08 100 35 08/06/17 08:00 35 08/06/17 08:00 98.4 90 20 99/58 (72) 100 08/06/17 08:00 90 General: No acute distress Respiratory: Non-labored respirations Cardiology: Normal rate Exam Comments coma state. intubated, on versed gtt, ou 4-3mm, non-verbal not following, no involuntary movements Objective Micro and Labs Laboratory Tests Test 08/06/17 16:11 08/06/17 23:02 08/07/17 03:35 Vancomycin Level Trough 5.1 Phenobarbital Level 8.6 10.5 Valproic Acid (Depakene) Level 78 White Blood Count 8.5 Red Blood Count 4.12 Hemoglobin 12.1 Hematocrit 37.0 Mean Corpuscular Volume 89.9 Mean Corpuscular Hemoglobin 29.5 Mean Corpuscular Hemoglobin Concent 32.8 Red Cell Distribution Width 13.6 Platelet Count 233 Mean Platelet Volume 11.8 Neutrophils (%) (Auto) 76.3 Lymphocytes (%) (Auto) 7.3 Monocytes (%) (Auto) 12.1 Eosinophils (%) (Auto) 3.8 Basophils (%) (Auto) 0.5 Neutrophils # (Auto) 6.5 Lymphocytes # (Auto) 0.6 Monocytes # (Auto) 1.0 Eosinophils # (Auto) 0.3 Basophils # (Auto) 0.0 CBC Comment DIFF FINAL Differential Comment Blood Urea Nitrogen 14 Creatinine 0.55 Random Glucose 92 Calcium Level 9.0 Sodium Level 138 Potassium Level 4.0 Chloride Level 101 Carbon Dioxide Level 29.2 Anion Gap 8 Estimat Glomerular Filtration Rate 141 Phenytoin (Dilantin) Level 23.0 Date/Time Source Procedure Growth Status 08/06/17 10:45 Blood Peripheral Aerobic Blood Culture Pending Received 08/06/17 10:45 Blood Peripheral Anaerobic Blood Culture Pending Received 08/03/17 11:50 Cerebral Spinal Fluid Lumbar Puncture Fungal Smear - Final NO FUNGAL ELEMENTS SEEN. Resulted 08/03/17 11:50 Cerebral Spinal Fluid Lumbar Puncture Fungal Culture Pending Resulted 08/07/17 01:35 Sputum Endotracheal Gram Stain Pending Received 08/07/17 01:35 Sputum Endotracheal Sputum Culture Pending Received 08/07/17 01:35 Urine Catheterized Urine Legionella Antigen Pending Received 08/07/17 01:35 Urine Catheterized Urine Streptococcus pneumoniae Antigen (M Pending Received Problem Qualifiers (1) Seizure disorder, complex partial: Duong Gomez MD Aug 07, 2017 06:57
--- NOTE | 2017-08-07 08:01 | HHI.CCPN ---
Subjective Remarks/Hospital Course The patient is a 22-year-old female who attends [employer] [facility] [employer] and presented to [facility] ED with her parents noted to have altered mental status. According to the records, the patient was under a lot of stress and she had a recent breakup with her boyfriend one month ago. The patient was admitted under Dr. Ventura's service. She had an EEG done which showed seizure activity. The patient was subsequently placed on Depakote, Vimpat, and Ativan. In addition, she received a loading dose of Cerebyx yesterday. Despite being on multiple antiseizure meds, continuous EEG showed a seizure pattern. After discussion with Dr. Gomez from neurology, he recommended to intubate the patient and place her on Versed drip to control her seizures. After discussion with the patient's father, the patient was intubated and placed on full mechanical ventilation. She had an MRI of the brain the night of July 31 which showed no acute findings. A CTA of the head and neck were unremarkable as well. Urine drug screen was negative for opiates, amphetamines, benzodiazepines. There is no evidence of any fever or leukocytosis. 08/03 No events overnight. Sedated with Versed, Diprivan and intubated. Afebrile. 08/04 No events overnight. Sedated with Diprivan and Versed. s/p LP yesterday showed clear CSF, elevated protein 56, WBC: 57 (Lymphocytic predominant). For repeat MRI brain today. Spoked fever with T: 101.4 at 4am. 08/05 No events overnight. On Continuous EEG monitoring. Afebrile. Sedated with Versed and Diprivan. 08/06 No events overnight. Versed is down 3mg/hr, off Diprivan. For CT thorax/ abd today. T:101.5 08/07 No events overnight. On Versed drip 4mg/hr, T:101.8 at midnight. Objective Vital Signs Date Time Temp Pulse Resp B/P (MAP) Pulse Ox O2 Delivery O2 Flow Rate FiO2 08/07/17 06:00 128 08/07/17 05:26 100 35 08/07/17 04:00 99.9 102/60 (74) 08/06/17 16:00 20 Intake and Output 08/07/17 08/07/1708/08/17 08:00 16:00 00:00 Intake Total 1160 ml Output Total 1225 ml Balance -65 ml Result Diagram: 08/07/17 0335 08/07/17 0335 Other Results Laboratory Tests Test 08/06/17 16:11 08/06/17 23:02 08/07/17 03:35 Vancomycin Level Trough 5.1 MCG/ML Phenobarbital Level 8.6 MCG/ML 10.5 MCG/ML Valproic Acid (Depakene) Level 78 MCG/ML White Blood Count 8.5 TH/MM3 Red Blood Count 4.12 MIL/MM3 Hemoglobin 12.1 GM/DL Hematocrit 37.0 % Mean Corpuscular Volume 89.9 FL Mean Corpuscular Hemoglobin 29.5 PG Mean Corpuscular Hemoglobin Concent 32.8 % Red Cell Distribution Width 13.6 % Platelet Count 233 TH/MM3 Mean Platelet Volume 11.8 FL Neutrophils (%) (Auto) 76.3 % Lymphocytes (%) (Auto) 7.3 % Monocytes (%) (Auto) 12.1 % Eosinophils (%) (Auto) 3.8 % Basophils (%) (Auto) 0.5 % Neutrophils # (Auto) 6.5 TH/MM3 Lymphocytes # (Auto) 0.6 TH/MM3 Monocytes # (Auto) 1.0 TH/MM3 Eosinophils # (Auto) 0.3 TH/MM3 Basophils # (Auto) 0.0 TH/MM3 CBC Comment DIFF FINAL Differential Comment Blood Urea Nitrogen 14 MG/DL Creatinine 0.55 MG/DL Random Glucose 92 MG/DL Calcium Level 9.0 MG/DL Sodium Level 138 MEQ/L Potassium Level 4.0 MEQ/L Chloride Level 101 MEQ/L Carbon Dioxide Level 29.2 MEQ/L Anion Gap 8 MEQ/L Estimat Glomerular Filtration Rate 141 ML/MIN Phenytoin (Dilantin) Level 23.0 MCG/ML Imaging Last Impressions Chest CT 08/06/17599 Signed Impressions: Service Date/Time: Sunday, August 06, 2017 09:35 - CONCLUSION: 1. Bilateral basilar consolidation more pronounced on the left. Infectious etiology most likely. 2. Tiny bilateral pleural effusions. 3. No perceivable lesion involving T1 on this standard protocol CT of the thorax. Misael Batres Jr., MD Abdomen/Pelvis CT 08/06/17599 Signed Impressions: Service Date/Time: Sunday, August 06, 2017 09:31 - CONCLUSION: Bibasilar consolidative changes worse on the left. No other significant is appreciated. I do not see evidence of metastatic disease. Kev Santana MD FACR Thoracic Spine MRI 08/04/17 Signed Impressions: Service Date/Time: Friday, August 04, 2017 16:14 - CONCLUSION: 1. Focal signal abnormality in the right T1 vertebral body demonstrating uniform contrast-enhancement. Consider performing thin section CT to evaluate integrity or abnormalities within the trabecular pattern and cortex. 2. Multifocal areas of enhancement in the posterior right lung. Recommend further characterization with CT thorax. Misael Samuels MD Lumbar Spine MRI 08/04/17 Signed Impressions: Service Date/Time: Friday, August 04, 2017 16:14 - CONCLUSION: Normal MRI of the lumbar spine with and without contrast. Misael Samuels MD Cervical Spine MRI 08/04/17 Signed Impressions: Service Date/Time: Friday, August 04, 2017 16:14 - CONCLUSION: 1. Round enhancing lesion in the superior right T1 vertebral body. 2. Nondiagnostic evaluation from C1-C4 due to metallic field distortion artifact (braces). Misael Samuels MD Brain MRI 08/04/17 Signed Impressions: Service Date/Time: Friday, August 04, 2017 16:14 - CONCLUSION: 1. No abnormal areas of enhancement or cerebral edema seen. 2. Field distortion artifact from patient's braces limits evaluation of inferior frontal lobes and precludes obtaining diffusion weighted images. Misael Samuels MD Lumbar Puncture Fluoroscopy 08/03/17 Signed Impressions: Service Date/Time: Thursday, August 03, 2017 12:44 - CONCLUSION: Uncomplicated fluoroscopically guided lumbar puncture. Misael Batres Jr., MD Chest X-Ray 08/03/17 Signed Impressions: Service Date/Time: Thursday, August 03, 2017 03:52 - CONCLUSION: 1. Interval placement of nasogastric tube which could be advanced 5 cm further. The distal side port is projected over the distal esophagus. 2. The patient remains intubated. Orion Gaitan MD Neck CTA 08/01/17 0000 Signed Impressions: Service Date/Time: Tuesday, August 01, 2017 10:03 - CONCLUSION: 1. No evidence of carotid stenosis 2. 3. 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 No acute findings or aneurysm identified. 2. 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 HEAD: Normocephalic. EYES: No scleral icterus. No injection or drainage. NECK: Supple, trachea midline. No JVD or lymphadenopathy. CARDIOVASCULAR: Regular rate and rhythm without murmurs, gallops, or rubs. RESPIRATORY: Breath sounds equal bilaterally. No accessory muscle use. GASTROINTESTINAL: Abdomen soft, non-tender, nondistended. MUSCULOSKELETAL: No cyanosis, or edema. Neuro: Sedated A/P Assessment and Plan IMPRESSION 1. Complex partial seizure 2. Altered mental status 3. Vent dependent respiratory failure. 4. History of the childhood febrile seizure. 5. Febrile Illness 6 MSSA Pneumonia Plan Neuro: Continue with Versed drip for sedation Daily sedation vacation. Will place on Precedex drip fto facilitate with weaning trials. Monitor neuro status. Neuro Dr. Gomez. A neuro workup which includes MRI of the brain, CTA of the head and neck are unremarkable. On continuous EEG monitoring 08/05 EEG: Diffuse encephalopathy EEG: : diffuse encephalopathy. Occasional sharp activity is identified over the left hemisphere suggesting an ictal focus in that area Repeat MRI brain 08/04 : No acute findings MRI spine: Round enhancing lesion T1 vertebral body. Continue with antiseizure meds per neuro. On Depakote( level 78 on ), Cerebyx 250 mg IV q12, Vimpat, Phenobarb 30mg Q6 and Ativan 1 mg IV q2 PRN s/p LP 08/03: Clear CSF, elevated protein 56, WBC 57 ( Lymphocytic predominant), glc 62 Pulm: Continue with vent support. and maintain sats above 92%. Bronchodilators, ICU vent bundle. Precedex drip to facilitate with weaning trials. SBT trials and possible extubation today. Discuused with Neuro- Dr. Dillon CT thorax: Bibasilar consolidation. CV: Monitor HR and BP and maintain MAP>65 mmHg. Check echo( Family hx ? VSD) : Monitor renal function I's and O's, and electrolyte replacement per protocol. GI: Pepcid 10 mg IV q. 12 for GI prophylaxis Tube feeds with Glucerna 1.5 @f [address] abd/pelvis: no acute findings ID: Continue with abx per ID (Rocephin,) Acyclovir, Ampicillin, Vanco d/c by ID Monitor for signs of infections( fever and WBC). HSV DNA PCR negative. 08/03 Sputum: Staph Aureus. Pancultured 08/06 ( Blood, Sputum) NGTD Strep pneumonia, Legionella urinary Ag negative Endo: SSI with Accu-Chek q.6 h to maintain euglycemia. Heme: Monitor CBC. GI prophylaxis with Protonix 40 mg daily and DVT prophylaxis with SCD's. Level 3 Jaja Resendiz MD Aug 07, 2017 08:01
[2017-08-07] MEDS: FOSPHENYTOIN SODIUM 100 MG PE/2 ML VIAL IV SCH ×2 (10:08→21:11)
[2017-08-07] MEDS: FAMOTIDINE 20 MG/2 ML VIAL IV PUSH SCH ×2 (10:09→21:09)
[2017-08-07] MEDS: VALPROATE INJ 500 MG in SODIUM CHLORIDE 0.9% INJ 100 ML IV SCH ×2 (10:09→21:08)
[2017-08-07] MEDS: SODIUM CHLORIDE 0.9% FLUSH 10 ML FLUSH IV FLUSH SCH ×2 (10:12→21:12)
[2017-08-07] MEDS: PIPERACIL-TAZO 3.375 GM PREMIX 50 ML IV SCH ×2 (13:04→18:55)
--- NOTE | 2017-08-07 13:34 | HHI.IDPN ---
Subjective Subjective Remarks pt developped high fevers up to 103 this am pt is on vent of sedation pt moves spontaneously her extremeties but nothing to command Antibiotics CFTX Allergies: Coded Allergies: oxycodone (Verified Adverse Reaction, Intermediate, Dizziness, 07/31/17) Objective . Vital Signs Date Time Temp Pulse Resp B/P (MAP) Pulse Ox O2 Delivery O2 Flow Rate FiO2 08/07/17 12:00 100.5 119 95/52 (66) 99 08/07/17 12:00 104 08/07/17 12:00 35 08/07/17 11:55 100 40 08/07/17 11:42 99 35 08/07/17 11:15 35 08/07/17 10:15 35 08/07/17 10:01 96 35 08/07/17 10:01 35 08/07/17 10:00 124 08/07/17 10:00 35 08/07/17 08:00 122 08/07/17 08:00 103.1 122 93/48 (63) 95 08/07/17 08:00 35 08/07/17 06:00 128 08/07/17 05:26 100 35 08/07/17 04:55 99 35 08/07/17 04:00 35 08/07/17 04:00 104 08/07/17 04:00 99.9 104 102/60 (74) 97 08/07/17 02:00 99 08/07/17 00:09 100 35 08/07/17 00:00 101.8 137 120/77 (91) 100 08/07/17 00:00 35 08/07/17 00:00 137 08/06/17 22:00 119 08/06/17 21:30 100 35 08/06/17 20:00 99.4 112 124/83 (97) 100 08/06/17 20:00 35 08/06/17 20:00 112 08/06/17 18:00 106 08/06/17 16:00 35 08/06/17 16:00 100.9 124 20 128/73 (91) 100 08/06/17 16:00 125 08/06/17 15:30 98 35 08/06/17 15:20 100 35 08/06/17 14:00 105 08/07/17 08/07/17 08/08/17 15:00 23:00 07:00 Intake Total 455 ml Balance 455 ml Intake IV Total 455 ml . Laboratory Tests Test 08/06/17 04:46 08/07/17 03:35 White Blood Count 11.8 TH/MM3 8.5 TH/MM3 Red Blood Count 4.26 MIL/MM3 4.12 MIL/MM3 Hemoglobin 12.4 GM/DL 12.1 GM/DL Hematocrit 38.4 % 37.0 % Mean Corpuscular Volume 90.1 FL 89.9 FL Mean Corpuscular Hemoglobin 29.2 PG 29.5 PG Mean Corpuscular Hemoglobin Concent 32.4 % 32.8 % Red Cell Distribution Width 13.6 % 13.6 % Platelet Count 197 TH/MM3 233 TH/MM3 Mean Platelet Volume 11.8 FL 11.8 FL Neutrophils (%) (Auto) 82.7 % 76.3 % Lymphocytes (%) (Auto) 4.6 % 7.3 % Monocytes (%) (Auto) 8.4 % 12.1 % Eosinophils (%) (Auto) 3.9 % 3.8 % Basophils (%) (Auto) 0.4 % 0.5 % Neutrophils # (Auto) 9.7 TH/MM3 6.5 TH/MM3 Lymphocytes # (Auto) 0.5 TH/MM3 0.6 TH/MM3 Monocytes # (Auto) 1.0 TH/MM3 1.0 TH/MM3 Eosinophils # (Auto) 0.5 TH/MM3 0.3 TH/MM3 Basophils # (Auto) 0.1 TH/MM3 0.0 TH/MM3 CBC Comment AUTO DIFF DIFF FINAL Differential Total Cells Counted 100 Neutrophils % (Manual) 70 % Band Neutrophils % 13 % Lymphocytes % 6 % Monocytes % 9 % Eosinophils % 2 % Neutrophils # (Manual) 9.8 TH/MM3 Differential Comment FINAL DIFF MANUAL Platelet Estimate NORMAL Platelet Morphology Comment HYPOGRAN Red Cell Morphology Comment NORMAL Laboratory Tests Test 08/06/17 04:46 08/07/17 03:35 Blood Urea Nitrogen 13 MG/DL 14 MG/DL Creatinine 0.61 MG/DL 0.55 MG/DL Random Glucose 113 MG/DL 92 MG/DL Calcium Level 8.4 MG/DL 9.0 MG/DL Sodium Level 139 MEQ/L 138 MEQ/L Potassium Level 4.7 MEQ/L 4.0 MEQ/L Chloride Level 104 MEQ/L 101 MEQ/L Carbon Dioxide Level 26.4 MEQ/L 29.2 MEQ/L Anion Gap 9 MEQ/L 8 MEQ/L Estimat Glomerular Filtration Rate 125 ML/MIN 141 ML/MIN Microbiology Date/Time Source Procedure Growth Status 08/06/17 10:45 Blood Peripheral Aerobic Blood Culture - Preliminary NO GROWTH IN 1 DAY Resulted 08/06/17 10:45 Blood Peripheral Anaerobic Blood Culture - Preliminary NO GROWTH IN 1 DAY Resulted 08/06/17 10:20 Blood Peripheral Aerobic Blood Culture - Preliminary NO GROWTH IN 1 DAY Resulted 08/06/17 10:20 Blood Peripheral Anaerobic Blood Culture - Preliminary NO GROWTH IN 1 DAY Resulted 08/07/17 01:35 Sputum Endotracheal Gram Stain - Final Resulted 08/07/17 01:35 Sputum Endotracheal Sputum Culture Pending Resulted 08/07/17 01:35 Urine Catheterized Urine Legionella Antigen - Final PRESUMPTIVE NEGATIVE FOR LEGIONELLA P... Complete 08/07/17 01:35 Urine Catheterized Urine Streptococcus pneumoniae Antigen (M - Final PRESUMPTIVE NEGATIVE FOR STREPTOCOCCU... Complete Imaging Last Impressions Chest CT 08/06/17 06 Signed Impressions: Service Date/Time: Sunday, August 06, 2017 09:35 - CONCLUSION: 1. Bilateral basilar consolidation more pronounced on the left. Infectious etiology most likely. 2. Tiny bilateral pleural effusions. 3. No perceivable lesion involving T1 on this standard protocol CT of the thorax. Misael Batres Jr., MD Abdomen/Pelvis CT 08/06/17 0600 Signed Impressions: Service Date/Time: Sunday, August 06, 2017 09:31 - CONCLUSION: Bibasilar consolidative changes worse on the left. No other significant is appreciated. I do not see evidence of metastatic disease. Kev Santana MD FACR Thoracic Spine MRI 08/04/17 0000 Signed Impressions: Service Date/Time: Friday, August 04, 2017 16:14 - CONCLUSION: 1. Focal signal abnormality in the right T1 vertebral body demonstrating uniform contrast-enhancement. Consider performing thin section CT to evaluate integrity or abnormalities within the trabecular pattern and cortex. 2. Multifocal areas of enhancement in the posterior right lung. Recommend further characterization with CT thorax. Misael Samuels MD Lumbar Spine MRI 08/04/17 0000 Signed Impressions: Service Date/Time: Friday, August 04, 2017 16:14 - CONCLUSION: Normal MRI of the lumbar spine with and without contrast. Misael Samuels MD Cervical Spine MRI 08/04/17 0000 Signed Impressions: Service Date/Time: Friday, August 04, 2017 16:14 - CONCLUSION: 1. Round enhancing lesion in the superior right T1 vertebral body. 2. Nondiagnostic evaluation from C1-C4 due to metallic field distortion artifact (braces). Misael Samuels MD Brain MRI 08/04/17 0000 Signed Impressions: Service Date/Time: Friday, August 04, 2017 16:14 - CONCLUSION: 1. No abnormal areas of enhancement or cerebral edema seen. 2. Field distortion artifact from patient's braces limits evaluation of inferior frontal lobes and precludes obtaining diffusion weighted images. Misael Samuels MD Lumbar Puncture Fluoroscopy 08/03/17 0000 Signed Impressions: Service Date/Time: Thursday, August 03, 2017 12:44 - CONCLUSION: Uncomplicated fluoroscopically guided lumbar puncture. Misael Batres Jr., MD Chest X-Ray 08/03/17 0000 Signed Impressions: Service Date/Time: Thursday, August 03, 2017 03:52 - CONCLUSION: 1. Interval placement of nasogastric tube which could be advanced 5 cm further. The distal side port is projected over the distal esophagus. 2. The patient remains intubated. Orion Gaitan MD Neck CTA 08/01/17 0000 Signed Impressions: Service Date/Time: Tuesday, August 01, 2017 10:03 - CONCLUSION: 1. No evidence of carotid stenosis 2. 3. 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 No acute findings or aneurysm identified. 2. 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 Sedated heavily sedated Sedated int'd on [facility] vent'n TUBES/LINES/DRAINS: SKIN: No jaundice, rashes, or lesions. Skin temperature appropriate. Not diaphoretic. EYES: Pupils are small equal and round and reactive. Extraocular motions intact. No scleral icterus. No injection or drainage. Fundi not examined. ENT: Hearing note tested Nose without bleeding or purulent drainage. Visualised mucosae without visible erythema, exudates, masses, or lesions. Orally intubated NECK: Trachea midline. Supple, nontender. CARDIOVASCULAR: Regular rate and rhythm without murmurs, gallops, or rubs. No JVD. Peripheral pulses symmetric. RESPIRATORY/CHEST: Symmetric, unlabored respirations. Clear to auscultation. Breath sounds equal bilaterally. No wheezes, rales, or rhonchi. GASTROINTESTINAL: Abdomen soft, non-tender, nondistended. No hepato-splenomegaly , or palpable masses. No guarding. Bowel sounds present. GENITOURINARY: bladder with no palpable distension. fay in w clear yellow urine MUSCULOSKELETAL: Extremities without clubbing, cyanosis, or edema. No joint tenderness or effusion noted. No calf tenderness. No mottling or clubbing. NEUROLOGICAL: Sedated. 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
[2017-08-07 13:43] LABS: BACTERIA, URINE RARE /hpf; BLOOD, URINE SMALL (NEG); GLUCOSE,URINE NEG (NEG); KETONE, URINE NEG (NEG); NITRITE,URINE NEG (NEG); PH, URINE 6.5 (5.0-8.5); SQUAMOUS EPITHELIAL CELL URINE <1 /hpf (0-5); TRANSITIONAL EPI CELLS, URINE <1 /hpf; URINE COLOR LIGHT-YELLOW (YELLW/STRAW)
[2017-08-07] MEDS ORDERED: PHARMACY ORDERED LAB ONE (13:45)
[2017-08-07 13:46] LABS: COMMENT (UR) CATH-CULTURE IND; CULTURE IF INDICATED CATH CULTURE IND
[2017-08-07 14:09] LABS: MAGNESIUM 2.3 MG/DL (1.5-2.5)
[2017-08-07] MEDS: MICAFUNGIN INJ 150 MG in SODIUM CHLORIDE 0.9% INJ 100 ML IV SCH (14:48)
[2017-08-07] MEDS: DEXMEDETOMIDINE INJ 200 MCG in SODIUM CHLORIDE 0.9% INJ 50 ML IV PRN (15:03)
[2017-08-07] MEDS: VANCOMYCIN INJ 1,250 MG in SODIUM CHLOR 0.9% 250 ML INJ 250 ML IV SCH (21:08)
[2017-08-08] VITALS (18 sets, daily range): BP systolic 93–125; BP diastolic 61–78; PULSE 81–128; RESP 12–28; TEMP 98.8–100.4; O2SAT 98–100
[2017-08-08] MEDS: PIPERACIL-TAZO 3.375 GM PREMIX 50 ML IV SCH ×4 (00:15→18:18)
[2017-08-08] MEDS: DEXMEDETOMIDINE INJ 200 MCG in SODIUM CHLORIDE 0.9% INJ 50 ML IV PRN ×2 (04:25→13:52)
[2017-08-08] MEDS: VANCOMYCIN INJ 1,250 MG in SODIUM CHLOR 0.9% 250 ML INJ 250 ML IV SCH ×3 (05:14→22:24)
[2017-08-08] MEDS: INSULIN NovoLIN REGULAR SUPPLEMENTAL SCALE SQ SCH ×2 (05:17)
[2017-08-08 06:51] LABS: AUTOMATED NEUTROPHIL # 7.9 TH/MM3 (1.8-7.7); BASOPHIL % 0.4 % (0.0-2.0); EOSINOPHIL # 0.4 TH/MM3 (0-0.4); EOSINOPHIL % 3.5 % (0.0-4.0); HEMATOCRIT 34.7 % (35.0-46.0); LYMPHOCYTE # 1.2 TH/MM3 (1.0-4.8); MEAN CELL VOLUME 89.1 FL (80.0-100.0); MEAN CORPUSCULAR HEMOGLOBIN 30.2 PG (27.0-34.0); MEAN CORPUSCULAR HGB CONC 33.9 % (32.0-36.0); MONO % 13.1 % (0.0-8.0); PLATELET COUNT 253 TH/MM3 (150-450); RED CELL DISTRIBUTION WIDTH 13.4 % (11.6-17.2)
[2017-08-08 06:59] LABS: HEMO FLAGS AUTO DIFF
--- NOTE | 2017-08-08 07:00 | HHI.CCPN ---
Subjective Remarks/Hospital Course The patient is a 22-year-old female who attends [employer] [facility] [place] and presented to [facility] ED with her parents noted to have altered mental status. According to the records, the patient was under a lot of stress and she had a recent breakup with her boyfriend one month ago. The patient was admitted under Dr. Ventura's service. She had an EEG done which showed seizure activity. The patient was subsequently placed on Depakote, Vimpat, and Ativan. In addition, she received a loading dose of Cerebyx yesterday. Despite being on multiple antiseizure meds, continuous EEG showed a seizure pattern. After discussion with Dr. Gomez from neurology, he recommended to intubate the patient and place her on Versed drip to control her seizures. After discussion with the patient's father, the patient was intubated and placed on full mechanical ventilation. She had an MRI of the brain the night of July 31 which showed no acute findings. A CTA of the head and neck were unremarkable as well. Urine drug screen was negative for opiates, amphetamines, benzodiazepines. There is no evidence of any fever or leukocytosis. 08/03 No events overnight. Sedated with Versed, Diprivan and intubated. Afebrile. 08/04 No events overnight. Sedated with Diprivan and Versed. s/p LP yesterday showed clear CSF, elevated protein 56, WBC: 57 (Lymphocytic predominant). For repeat MRI brain today. Spoked fever with T: 101.4 at 4am. 08/05 No events overnight. On Continuous EEG monitoring. Afebrile. Sedated with Versed and Diprivan. 08/06 No events overnight. Versed is down 3mg/hr, off Diprivan. For CT thorax/ abd today. T:101.5 08/07 No events overnight. On Versed drip 4mg/hr, T:101.8 at midnight. 08/08: At 8 pm yesterday had 101.7 fever , now afebrile. Eyes are open, weakly followed commands bilaterally, moved feet to command for RN and her father. CXR pending. Ortiz secretions from ETT. CT chest, Bibasilar infiltrates L>R Objective Vital Signs Date Time Temp Pulse Resp B/P (MAP) Pulse Ox O2 Delivery O2 Flow Rate FiO2 08/08/17 04:00 35 08/08/17 04:00 108 08/08/17 04:00 98.8 20 117/78 (91) 100 Intake and Output 08/08/17 08/08/17 08/09/17 08:00 16:00 00:00 Intake Total 94 ml Balance 94 ml Result Diagram: 08/07/17 0335 08/07/17 0335 Other Results Microbiology Date/Time Source Procedure Growth Status 08/07/17 19:15 Nasal Washing Influenza Types A,B Antigen (ARTHUR) - Final NEGATIVE FOR FLU A AND B ANTIGEN.... Complete 08/07/17 01:35 Urine Catheterized Urine Legionella Antigen - Final PRESUMPTIVE NEGATIVE FOR LEGIONELLA P... Complete 08/07/17 01:35 Urine Catheterized Urine Streptococcus pneumoniae Antigen (M - Final PRESUMPTIVE NEGATIVE FOR STREPTOCOCCU... Complete Imaging Last Impressions Chest CT 08/06/17 0600 Signed Impressions: Service Date/Time: Sunday, August 06, 2017 09:35 - CONCLUSION: 1. Bilateral basilar consolidation more pronounced on the left. Infectious etiology most likely. 2. Tiny bilateral pleural effusions. 3. No perceivable lesion involving T1 on this standard protocol CT of the thorax. Misael Batres Jr., MD Abdomen/Pelvis CT 08/06/17 0600 Signed Impressions: Service Date/Time: Sunday, August 06, 2017 09:31 - CONCLUSION: Bibasilar consolidative changes worse on the left. No other significant is appreciated. I do not see evidence of metastatic disease. Kev Santana MD FACR Thoracic Spine MRI 08/04/17 0000 Signed Impressions: Service Date/Time: Friday, August 04, 2017 16:14 - CONCLUSION: 1. Focal signal abnormality in the right T1 vertebral body demonstrating uniform contrast-enhancement. Consider performing thin section CT to evaluate integrity or abnormalities within the trabecular pattern and cortex. 2. Multifocal areas of enhancement in the posterior right lung. Recommend further characterization with CT thorax. Misael Samuels MD Lumbar Spine MRI 08/04/17 0000 Signed Impressions: Service Date/Time: Friday, August 04, 2017 16:14 - CONCLUSION: Normal MRI of the lumbar spine with and without contrast. Misael Samuels MD Cervical Spine MRI 08/04/17 0000 Signed Impressions: Service Date/Time: Friday, August 04, 2017 16:14 - CONCLUSION: 1. Round enhancing lesion in the superior right T1 vertebral body. 2. Nondiagnostic evaluation from C1-C4 due to metallic field distortion artifact (braces). Misael Samuels MD Brain MRI 08/04/17 0000 Signed Impressions: Service Date/Time: Friday, August 04, 2017 16:14 - CONCLUSION: 1. No abnormal areas of enhancement or cerebral edema seen. 2. Field distortion artifact from patient's braces limits evaluation of inferior frontal lobes and precludes obtaining diffusion weighted images. Misael Samuels MD Lumbar Puncture Fluoroscopy 08/03/17 0000 Signed Impressions: Service Date/Time: Thursday, August 03, 2017 12:44 - CONCLUSION: Uncomplicated fluoroscopically guided lumbar puncture. Misael Batres Jr., MD Chest X-Ray 08/03/17 0000 Signed Impressions: Service Date/Time: Thursday, August 03, 2017 03:52 - CONCLUSION: 1. Interval placement of nasogastric tube which could be advanced 5 cm further. The distal side port is projected over the distal esophagus. 2. The patient remains intubated. Orion Gaitan MD Neck CTA 08/01/17 0000 Signed Impressions: Service Date/Time: Tuesday, August 01, 2017 10:03 - CONCLUSION: 1. No evidence of carotid stenosis 2. 3. 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 No acute findings or aneurysm identified. 2. 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 HEAD: Normocephalic. EYES: No scleral icterus. No injection or drainage. NECK: Supple, trachea midline. No JVD or lymphadenopathy. CARDIOVASCULAR: Regular rate and rhythm without murmurs, gallops, or rubs. RESPIRATORY: Breath sounds equal bilaterally, diminished at bases. No accessory muscle use. GASTROINTESTINAL: Abdomen soft, non-tender, nondistended. MUSCULOSKELETAL: No cyanosis, or edema. Neuro: On Precedex. MARCIA. Eyes are open , weakly followed commands bilaterally, moved feet to command for RN and her father. 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 Febrile Illness MSSA Pneumonia Plan Neuro: Continue with Precedex drip fto facilitate with weaning trials. Monitor neuro status. Neuro Dr. Gomez. A neuro workup which includes MRI of the brain, CTA of the head and neck are unremarkable. 08/05 EEG: Diffuse encephalopathy EEG: : diffuse encephalopathy. Occasional sharp activity is identified over the left hemisphere suggesting an ictal focus in that area Repeat MRI brain 08/04 : No acute findings MRI spine: Round enhancing lesion T1 vertebral body. Continue with antiseizure meds per neuro. On Depakote( level 78 on ), Cerebyx 250 mg IV q12, Vimpat, Phenobarb 30mg Q6 and Ativan 1 mg IV q2 PRN s/p LP 08/03: Clear CSF, elevated protein 56, WBC 57 ( Lymphocytic predominant), glc 62 Most likely viral encephalitis Pulm: Continue with vent support. and maintain sats above 92%. Bronchodilators, ICU vent bundle. Precedex drip to facilitate with weaning trials. SBT trials. Discussed with Neuro- Dr. Dillon CT thorax: Bibasilar consolidation. CV: Monitor HR and BP and maintain MAP>65 mmHg. Echo pending( Family hx ? VSD) : Monitor renal function I's and O's, and electrolyte replacement per protocol. GI: Pepcid 10 mg IV q. 12 for GI prophylaxis Tube feeds with Glucerna 1.5 @f [address] abd/pelvis: no acute findings Bowel regimen added with lactulose, Docusate and senna ID: Continue with abx per ID -vanc Zosyn and Micafungin. Dilantin induced fever also should be considered Prev ABX DCd -(Rocephin, Acyclovir, Ampicillin) Monitor for signs of infections( fever and WBC). HSV DNA PCR negative. 08/03 Sputum: Staph Aureus. Pancultured 08/06 ( Blood, Sputum) NGTD Strep pneumonia, Legionella urinary Ag negative Endo: SSI with Accu-Chek q.6 h to maintain euglycemia. Heme: Monitor CBC. GI prophylaxis with Protonix 40 mg daily and DVT prophylaxis with SCD's. Consider Lovenox if cleared by neurology Level 3 Gianni Beltran MD Aug 08, 2017 07:00
[2017-08-08] MEDS: SODIUM CHLORIDE 0.9% FLUSH 10 ML FLUSH IV FLUSH SCH ×2 (07:43→20:17)
[2017-08-08 07:44] LABS: BICARBONATE 27.4 MEQ/L (21.0-32.0); MAGNESIUM 2.1 MG/DL (1.5-2.5); POTASSIUM 3.4 MEQ/L (3.5-5.1)
[2017-08-08 07:47] LABS: PHENOBARBITAL 13.7 MCG/ML (15.0-40.0)
--- NOTE | 2017-08-08 08:05 | HHI.PR ---
Review/Management Diagnosis/Plan: (1) Seizure disorder, complex partial ICD Codes: G40.209 - Localization-related (focal) (partial) symptomatic epilepsy and epileptic syndromes with complex partial seizures, not intractable , without status epilepticus Status: Acute Plan: intractable left temporal lobe seizures etiology; ? 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 Pleocytosis from SZ possible as well but would not expect it to be this pronounced and predominately lymphocytic cx ngtd; hsv pcr negative 08/06 eeg- no sz activity x 24 hrs recs repeat eeg f/u levels plan for extubation per ccm check [place], paraneoplastic panel d/w pt's father/ccm Subjective Subjective Comments No acute events reported no sz Active Medications Current Medications Medications (Trade) Dose Ordered Sig/Nigel Route Start Time Stop Time Status Last Admin (NS Flush) 2 ml UNSCH PRN IV FLUSH 07/31/17 17:30 (NS Flush) 2 ml BID IV FLUSH 07/31/17 21:00 08/08/17 07:43 (Tylenol) 650 mg Q4H PRN PO 07/31/17 17:30 08/07/17 19:43 (Zofran Inj) 4 mg Q6H PRN IVP 07/31/17 17:30 08/06/17 16:04 (Narcan Inj) 0.4 mg UNSCH PRN IV PUSH 07/31/17 17:30 (Milk Of Magnesia Liq) 30 ml Q12H PRN PO 07/31/17 17:30 08/05/17 17:09 (Tylenol) 650 mg Q6H PRN PO 07/31/17 20:45 08/01/17 20:40 (Ativan Inj) 1 mg Q2H PRN IV PUSH 08/01/17 21:30 08/06/17 21:54 Potassium Chloride 100 ml @ 50 mls/hr Q2H PRN IV 08/02/17 09:00 Potassium Chloride 100 ml @ 50 mls/hr Q2H PRN IV 08/02/17 09:00 (K-Lyte Cl Eff) 50 meq UNSCH PRN PO 08/02/17 09:00 08/04/17 08:31 Potassium Chloride 100 ml @ 25 mls/hr UNSCH PRN IV 08/02/17 09:00 Potassium Chloride 100 ml @ 50 mls/hr Q2H PRN IV 08/02/17 09:00 Magnesium Sulfate 4 gm/Sodium Chloride 100 ml @ 50 mls/hr UNSCH PRN IV 08/02/17 09:00 (Mag-Ox) 800 mg UNSCH PRN PO 08/02/17 09:00 Magnesium Sulfate 2 gm/Sodium Chloride 100 ml @ 50 mls/hr UNSCH PRN IV 08/02/17 09:00 (K-Phos) 2,000 mg Q4H PRN PO 08/02/17 09:00 Sodium Phosphate 30 mmol/Sodium Chloride 250 ml @ 42 mls/hr UNSCH PRN IV 08/02/17 09:00 (K-Phos) 2,000 mg UNSCH PRN PO/TUBE 08/02/17 09:00 Potassium Phosphate 30 mmol/ Sodium Chloride 260 ml @ 42 mls/hr UNSCH PRN IV 08/02/17 09:00 (Pepcid Inj) 10 mg Q12HR IV PUSH 08/02/17 09:15 08/07/17 21:09 Pharmacy Profile Note 0 ml @ 0 mls/hr UNSCH OTHER 08/04/17 10:45 (Luminal Inj) 30 mg Q6H IV 08/05/17 16:00 08/08/17 05:15 Valproate Sodium 500 mg/Sodium Chloride 105 ml @ 105 mls/hr BID IV 08/06/17 09:00 08/07/17 21:08 (Cerebyx Inj) 150 mgpe Q12HR IV 08/07/17 09:00 08/07/17 21:11 Dexmedetomidine HCl 200 mcg/ Sodium Chloride 52 ml @ 2.89 mls/hr TITRATE PRN IV 08/07/17 08:00 08/08/17 04:25 Piperacillin Sod/ Tazobactam Sod 50 ml @ 100 mls/hr Q6H IV 08/07/17 13:00 08/08/17 06:21 Micafungin Sodium 150 mg/Sodium Chloride 100 ml @ 100 mls/hr Q24H IV 08/07/17 14:00 08/07/17 14:48 Vancomycin HCl 1250 mg/Sodium Chloride 262.5 ml @ 250 mls/hr Q8H IV 08/07/17 22:00 08/08/17 05:14 Miscellaneous Information SPECIFIC LAB TO BE DRAWN:VANCOMYCIN TROUGH DATE TO... ONCE ONCE .XX 08/09/17 05:45 08/09/17 05:46 (Lactulose Liq) 30 ml QID PO 08/08/17 09:00 (Lazara-Colace) 1 tab BID PO 08/08/17 09:00 Allergies Allergies Coded Allergies oxycodone (Verified Adverse Reaction, Intermediate, Dizziness, 07/31/17) Review of Systems All other ROS: Unable to obtain Exam I&O / VS Vital Signs Date Time Temp Pulse Resp B/P (MAP) Pulse Ox O2 Delivery O2 Flow Rate FiO2 08/08/17 06:00 128 08/08/17 04:00 35 08/08/17 04:00 108 08/08/17 04:00 98.8 108 20 117/78 (91) 100 08/08/17 03:55 100 35 08/08/17 02:00 123 08/08/17 00:00 99.9 109 115/72 (86) 100 08/08/17 00:00 35 08/08/17 00:00 109 08/07/17 23:51 100 35 08/07/17 22:00 104 08/07/17 20:14 100 35 08/07/17 20:00 119 08/07/17 20:00 35 08/07/17 20:00 101.7 119 119/78 (92) 100 08/07/17 18:00 110 08/07/17 16:00 109 08/07/17 16:00 99.8 109 22 119/74 (89) 98 08/07/17 16:00 35 08/07/17 15:21 100 35 08/07/17 14:07 100 35 08/07/17 14:05 35 08/07/17 14:00 112 08/07/17 12:00 100.5 119 95/52 (66) 99 08/07/17 12:00 104 08/07/17 12:00 35 08/07/17 11:55 100 40 08/07/17 11:42 99 35 08/07/17 11:15 35 08/07/17 10:15 35 08/07/17 10:01 96 35 08/07/17 10:01 35 08/07/17 10:00 124 08/07/17 10:00 35 08/07/17 08:00 122 08/07/17 08:00 103.1 122 93/48 (63) 95 08/07/17 08:00 35 General: No acute distress Respiratory: Non-labored respirations Cardiology: Normal rate Exam Comments more alert, intubated, on precedex gtt, not consistently following, ou 4-3mm, localizing with all 4 ext, Objective Micro and Labs Laboratory Tests Test 08/07/17 11:10 08/07/17 11:21 08/07/17 13:00 08/08/17 04:58 Phosphorus Level 2.8 2.5 Magnesium Level 2.3 2.1 Total Creatine Kinase 1691 Creatine Kinase MB 1.0 Creatine Kinase MB % 0.1 Random Vancomycin Level 13.0 Urine Color LIGHT-YELLOW Urine Turbidity CLEAR Urine pH 6.5 Urine Specific [place] 1.008 Urine Protein NEG Urine Glucose (UA) NEG Urine Ketones NEG Urine Occult Blood SMALL Urine Nitrite NEG Urine Bilirubin NEG Urine Urobilinogen LESS THAN 2.0 Urine Leukocyte Esterase NEG Urine RBC 12 Urine WBC 1 Urine Squamous Epithelial Cells <1 Urine Transitional Epithelial Cells <1 Urine Bacteria RARE Microscopic Urinalysis Comment CATH-CULTURE IND White Blood Count 11.0 Red Blood Count 3.90 Hemoglobin 11.8 Hematocrit 34.7 Mean Corpuscular Volume 89.1 Mean Corpuscular Hemoglobin 30.2 Mean Corpuscular Hemoglobin Concent 33.9 Red Cell Distribution Width 13.4 Platelet Count 253 Mean Platelet Volume 11.8 Neutrophils (%) (Auto) 72.0 Lymphocytes (%) (Auto) 11.0 Monocytes (%) (Auto) 13.1 Eosinophils (%) (Auto) 3.5 Basophils (%) (Auto) 0.4 Neutrophils # (Auto) 7.9 Lymphocytes # (Auto) 1.2 Monocytes # (Auto) 1.4 Eosinophils # (Auto) 0.4 Basophils # (Auto) 0.0 CBC Comment AUTO DIFF Blood Urea Nitrogen 15 Creatinine 0.57 Random Glucose 99 Calcium Level 8.3 Sodium Level 139 Potassium Level 3.4 Chloride Level 102 Carbon Dioxide Level 27.4 Anion Gap 10 Estimat Glomerular Filtration Rate 135 Phenytoin (Dilantin) Level 17.9 Phenobarbital Level 13.7 Date/Time Source Procedure Growth Status 08/07/17 13:21 Blood Peripheral Aerobic Blood Culture Pending Received 08/07/17 13:21 Blood Peripheral Anaerobic Blood Culture Pending Received 08/03/17 11:50 Cerebral Spinal Fluid Lumbar Puncture Fungal Smear - Final NO FUNGAL ELEMENTS SEEN. Resulted 08/03/17 11:50 Cerebral Spinal Fluid Lumbar Puncture Fungal Culture Pending Resulted 08/07/17 19:15 Nasal Washing Influenza Types A,B Antigen (ARTHUR) - Final NEGATIVE FOR FLU A AND B ANTIGEN.... Complete 08/07/17 13:00 Urine Catheterized Urine Urine Culture Pending Received Problem Qualifiers (1) Seizure disorder, complex partial: Duong Gomez MD Aug 08, 2017 08:05
[2017-08-08] MEDS: LACTULOSE SYRUP 20 GM/30 ML CUP PO SCH ×4 (08:14→20:19)
[2017-08-08] MEDS: FOSPHENYTOIN SODIUM 100 MG PE/2 ML VIAL IV SCH ×2 (08:14→20:14)
[2017-08-08] MEDS: VALPROATE INJ 500 MG in SODIUM CHLORIDE 0.9% INJ 100 ML IV SCH ×2 (08:15→20:19)
[2017-08-08] MEDS: DOCUSATE SODIUM 50 MG/SENNA 8.6 MG TAB PO SCH ×2 (08:15→20:19)
[2017-08-08 08:20] LABS: BANDS 22 % (0-6); EOSINOPHILS 5 % (0-4); METAMYELOCYTES 2 % (0-1); MYELOCYTES 1 % (0-0); NEUTROPHIL # MANUAL DIFF 8.5 TH/MM3 (1.8-7.7); PLATELET ESTIMATE SMEAR NORMAL (NORMAL); PLATELET MORPHOLOGY NORMAL (NORMAL); POLYS (SEG NEUTROPHILS) 51 % (16-70); PROMYELOCYTES 1 % (0-0); SCAN/DIFF FINAL DIFF MANUAL; WBC DIFF SAMPLE 100
[2017-08-08] MEDS: FAMOTIDINE 20 MG/2 ML VIAL IV PUSH SCH ×2 (09:10→20:18)
[2017-08-08] MEDS: POTASSIUM CHLORIDE 25 MEQ EFFERVESCENT TAB PO PRN (09:10)
[2017-08-08 09:17] LABS: CKMB 1.4 NG/ML (0.5-3.6)
--- NOTE | 2017-08-08 10:19 | RADRPT ---
EXAM DATE/TIME: 08/08/2017 09:07 [place] COMPARISON: CHEST SINGLE AP, August 03, 2017, 3:52. INDICATIONS : Respiratory disease. MEDICAL HISTORY : None. SURGICAL HISTORY : None. ENCOUNTER: Subsequent ACUITY: 1 week PAIN SCORE: Non-responsive. LOCATION: Bilateral chest FINDINGS: 2 portable frontal views of the chest show an endotracheal tube with the tip 4 cm cephalad to rolf. Tip of the nasogastric tube just proximal to the GE junction. A retrocardiac density is now seen whi ch is a new finding. Right lung is clear. No effusions. Heart is normal in size. CONCLUSION: 1. New left lower lobe infiltrate. 2. Tip of the NG tube proximal to the GE junction. Misael Batres Jr., MD on August 08, 2017 at 10:15 Board Certified Radiologist. This report was verified electronically.
--- NOTE | 2017-08-08 11:27 | HHI.IDPN ---
Subjective Subjective Remarks better more awake, eyes opned no fever Flu test is negative Antibiotics zosyn mercedeso Allergies: Coded Allergies: oxycodone (Verified Adverse Reaction, Intermediate, Dizziness, 07/31/17) Objective . Vital Signs Date Time Temp Pulse Resp B/P (MAP) Pulse Ox O2 Delivery O2 Flow Rate FiO2 08/08/17 08:20 35 08/08/17 08:15 100 35 08/08/17 08:00 106 08/08/17 08:00 99.2 106 12 107/64 (78) 100 08/08/17 07:00 35 08/08/17 07:00 35 08/08/17 06:00 128 08/08/17 04:00 35 08/08/17 04:00 108 08/08/17 04:00 98.8 108 20 117/78 (91) 100 08/08/17 03:55 100 35 08/08/17 02:00 123 08/08/17 00:00 99.9 109 115/72 (86) 100 08/08/17 00:00 35 08/08/17 00:00 109 08/07/17 23:51 100 35 08/07/17 22:00 104 08/07/17 20:14 100 35 08/07/17 20:00 119 08/07/17 20:00 35 08/07/17 20:00 101.7 119 119/78 (92) 100 08/07/17 18:00 110 08/07/17 16:00 109 08/07/17 16:00 99.8 109 22 119/74 (89) 98 08/07/17 16:00 35 08/07/17 15:21 100 35 08/07/17 14:07 100 35 08/07/17 14:05 35 08/07/17 14:00 112 08/07/17 12:00 100.5 119 95/52 (66) 99 08/07/17 12:00 104 08/07/17 12:00 35 08/07/17 11:55 100 40 08/07/17 11:42 99 35 08/08/17 08/08/17 08/09/17 15:00 23:00 07:00 Intake Total 105 ml Balance 105 ml Intake IV Total 105 ml . Laboratory Tests Test 08/07/17 03:35 08/08/17 04:58 White Blood Count 8.5 TH/MM3 11.0 TH/MM3 Red Blood Count 4.12 MIL/MM3 3.90 MIL/MM3 Hemoglobin 12.1 GM/DL 11.8 GM/DL Hematocrit 37.0 % 34.7 % Mean Corpuscular Volume 89.9 FL 89.1 FL Mean Corpuscular Hemoglobin 29.5 PG 30.2 PG Mean Corpuscular Hemoglobin Concent 32.8 % 33.9 % Red Cell Distribution Width 13.6 % 13.4 % Platelet Count 233 TH/MM3 253 TH/MM3 Mean Platelet Volume 11.8 FL 11.8 FL Neutrophils (%) (Auto) 76.3 % 72.0 % Lymphocytes (%) (Auto) 7.3 % 11.0 % Monocytes (%) (Auto) 12.1 % 13.1 % Eosinophils (%) (Auto) 3.8 % 3.5 % Basophils (%) (Auto) 0.5 % 0.4 % Neutrophils # (Auto) 6.5 TH/MM3 7.9 TH/MM3 Lymphocytes # (Auto) 0.6 TH/MM3 1.2 TH/MM3 Monocytes # (Auto) 1.0 TH/MM3 1.4 TH/MM3 Eosinophils # (Auto) 0.3 TH/MM3 0.4 TH/MM3 Basophils # (Auto) 0.0 TH/MM3 0.0 TH/MM3 CBC Comment DIFF FINAL AUTO DIFF Differential Comment FINAL DIFF MANUAL Differential Total Cells Counted 100 Neutrophils % (Manual) 51 % Band Neutrophils % 22 % Lymphocytes % 9 % Monocytes % 9 % Eosinophils % 5 % Neutrophils # (Manual) 8.5 TH/MM3 Metamyelocytes 2 % Myelocytes 1 % Promyelocytes 1 % Platelet Estimate NORMAL Platelet Morphology Comment NORMAL Red Cell Morphology Comment NORMAL Laboratory Tests Test 08/07/17 03:35 08/07/17 11:21 08/08/17 04:58 Blood Urea Nitrogen 14 MG/DL 15 MG/DL Creatinine 0.55 MG/DL 0.57 MG/DL Random Glucose 92 MG/DL 99 MG/DL Calcium Level 9.0 MG/DL 8.3 MG/DL Sodium Level 138 MEQ/L 139 MEQ/L Potassium Level 4.0 MEQ/L 3.4 MEQ/L Chloride Level 101 MEQ/L 102 MEQ/L Carbon Dioxide Level 29.2 MEQ/L 27.4 MEQ/L Anion Gap 8 MEQ/L 10 MEQ/L Estimat Glomerular Filtration Rate 141 ML/MIN 135 ML/MIN Phosphorus Level 2.8 MG/DL 2.5 MG/DL Magnesium Level 2.3 MG/DL 2.1 MG/DL Total Creatine Kinase 1691 U/L 1195 U/L Creatine Kinase MB 1.0 NG/ML 1.4 NG/ML Creatine Kinase MB % 0.1 % 0.1 % Microbiology Date/Time Source Procedure Growth Status 08/07/17 13:21 Blood Peripheral Aerobic Blood Culture - Preliminary NO GROWTH IN 1 DAY Resulted 08/07/17 13:21 Blood Peripheral Anaerobic Blood Culture - Preliminary NO GROWTH IN 1 DAY Resulted 08/07/17 13:15 Blood Peripheral Aerobic Blood Culture - Preliminary NO GROWTH IN 1 DAY Resulted 08/07/17 13:15 Blood Peripheral Anaerobic Blood Culture - Preliminary NO GROWTH IN 1 DAY Resulted 08/06/17 10:45 Blood Peripheral Aerobic Blood Culture - Preliminary NO GROWTH IN 2 DAYS Resulted 08/06/17 10:45 Blood Peripheral Anaerobic Blood Culture - Preliminary NO GROWTH IN 2 DAYS Resulted 08/06/17 10:20 Blood Peripheral Aerobic Blood Culture - Preliminary NO GROWTH IN 2 DAYS Resulted 08/06/17 10:20 Blood Peripheral Anaerobic Blood Culture - Preliminary NO GROWTH IN 2 DAYS Resulted 08/07/17 19:15 Nasal Washing Influenza Types A,B Antigen (ARTHUR) - Final NEGATIVE FOR FLU A AND B ANTIGEN.... Complete 08/07/17 01:35 Sputum Endotracheal Gram Stain - Final Resulted 08/07/17 01:35 Sputum Endotracheal Sputum Culture Pending Resulted 08/07/17 13:00 Urine Catheterized Urine Urine Culture Pending Received 08/07/17 01:35 Urine Catheterized Urine Legionella Antigen - Final PRESUMPTIVE NEGATIVE FOR LEGIONELLA P... Complete 08/07/17 01:35 Urine Catheterized Urine Streptococcus pneumoniae Antigen (M - Final PRESUMPTIVE NEGATIVE FOR STREPTOCOCCU... Complete Imaging Last Impressions Chest X-Ray 08/08/17 0000 Signed Impressions: Service Date/Time: Tuesday, August 08, 2017 09:07 - CONCLUSION: 1. New left lower lobe infiltrate. 2. Tip of the NG tube proximal to the GE junction. Misael Batres Jr., MD Chest CT 08/06/17 0600 Signed Impressions: Service Date/Time: Sunday, August 06, 2017 09:35 - CONCLUSION: 1. Bilateral basilar consolidation more pronounced on the left. Infectious etiology most likely. 2. Tiny bilateral pleural effusions. 3. No perceivable lesion involving T1 on this standard protocol CT of the thorax. Misael Batres Jr., MD Abdomen/Pelvis CT 08/06/17 0600 Signed Impressions: Service Date/Time: Sunday, August 06, 2017 09:31 - CONCLUSION: Bibasilar consolidative changes worse on the left. No other significant is appreciated. I do not see evidence of metastatic disease. Kev Santana MD FACR Thoracic Spine MRI 08/04/17 0000 Signed Impressions: Service Date/Time: Friday, August 04, 2017 16:14 - CONCLUSION: 1. Focal signal abnormality in the right T1 vertebral body demonstrating uniform contrast-enhancement. Consider performing thin section CT to evaluate integrity or abnormalities within the trabecular pattern and cortex. 2. Multifocal areas of enhancement in the posterior right lung. Recommend further characterization with CT thorax. Misael Samuels MD Lumbar Spine MRI 08/04/17 0000 Signed Impressions: Service Date/Time: Friday, August 04, 2017 16:14 - CONCLUSION: Normal MRI of the lumbar spine with and without contrast. Misael Samuels MD Cervical Spine MRI 08/04/17 0000 Signed Impressions: Service Date/Time: Friday, August 04, 2017 16:14 - CONCLUSION: 1. Round enhancing lesion in the superior right T1 vertebral body. 2. Nondiagnostic evaluation from C1-C4 due to metallic field distortion artifact (braces). Misael Samuels MD Brain MRI 08/04/17 0000 Signed Impressions: Service Date/Time: Friday, August 04, 2017 16:14 - CONCLUSION: 1. No abnormal areas of enhancement or cerebral edema seen. 2. Field distortion artifact from patient's braces limits evaluation of inferior frontal lobes and precludes obtaining diffusion weighted images. Misael Samuels MD Lumbar Puncture Fluoroscopy 08/03/17 0000 Signed Impressions: Service Date/Time: Thursday, August 03, 2017 12:44 - CONCLUSION: Uncomplicated fluoroscopically guided lumbar puncture. Misael Batres Jr., MD Neck CTA 08/01/17 0000 Signed Impressions: Service Date/Time: Tuesday, August 01, 2017 10:03 - CONCLUSION: 1. No evidence of carotid stenosis 2. 3. 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 No acute findings or aneurysm identified. 2. 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 Sedated heavily sedated Sedated int'd on mech vent'n TUBES/LINES/DRAINS: SKIN: No jaundice, rashes, or lesions. Skin temperature appropriate. Not diaphoretic. EYES: Pupils are small equal and round and reactive. Extraocular motions intact. No scleral icterus. No injection or drainage. Fundi not examined. ENT: Hearing note tested Nose without bleeding or purulent drainage. Visualised mucosae without visible erythema, exudates, masses, or lesions. Orally intubated NECK: Trachea midline. Supple, nontender. CARDIOVASCULAR: Regular rate and rhythm without murmurs, gallops, or rubs. No JVD. Peripheral pulses symmetric. RESPIRATORY/CHEST: Symmetric, unlabored respirations. Clear to auscultation. Breath sounds equal bilaterally. No wheezes, rales, or rhonchi. GASTROINTESTINAL: Abdomen soft, non-tender, nondistended. No hepato-splenomegaly , or palpable masses. No guarding. Bowel sounds present. GENITOURINARY: bladder with no palpable distension. fay in w clear yellow urine MUSCULOSKELETAL: Extremities without clubbing, cyanosis, or edema. No joint tenderness or effusion noted. No calf tenderness. No mottling or clubbing. 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
[2017-08-08 11:54] LABS: BLOOD GAS BASE EXCESS 1.1 mmol/L (-2-2); BLOOD GAS CARBOXYHEMOGLOBIN 0.8 % (0-4); BLOOD GAS HCO3 25 mmol/L (22-26); BLOOD GAS METHEMOGLOBIN 0.9 % (0-2); BLOOD GAS O2 HGB SATURATION 97 % (90-100); BLOOD GAS OXYGEN CONTENT 14.4 Vol % (12.0-20.0); BLOOD GAS PCO2 39 mmHg (38-42); BLOOD GAS PO2 130 mmHg (61-120); BLOOD GAS TOTAL HGB 10.4 G/DL (12.0-16.0); TEMP CORR TO 98.6
[2017-08-08 11:55] LABS: CRITICAL VALUE NO; DRAW SITE LT BRACHIAL; FIO2 35 %; NUMBER OF ARTERIAL PUNCTURES 1; OXYGEN DEVICE VENTILATOR; STAT NO; ULNAR PULSE Y; VENT SETTINGS CPAP 5 PS 5
[2017-08-08] MEDS ORDERED: MIDAZOLAM HCL 5 MG/ML VIAL (1 ML) ONE (12:45)
[2017-08-08] MEDS: MICAFUNGIN INJ 150 MG in SODIUM CHLORIDE 0.9% INJ 100 ML IV SCH (13:52)
[2017-08-08] MEDS ORDERED: LORazepam 2 MG/ML VIAL IV PUSH ONE (15:45)
[2017-08-08] MEDS ORDERED: MIDAZOLAM HCL 2 MG/2 ML VIAL IV PUSH ONE (15:45)
[2017-08-08] MEDS ORDERED: MIDAZOLAM 100 MG/100 ML INJ 100 ML IV PRN (15:45)
[2017-08-08] MEDS ORDERED: TOPIRAMATE 100 MG TAB OG-TUBE ONE (16:15)
--- NOTE | 2017-08-08 18:14 | MG ---
cc: SUKHI TRAN MD Sex F DATE OF STUDY: 08/08/2017 [id number] DATE OF : 1995 DESCRIPTION: A 22 year-old female with history of seizure activity. Delta activity with occasional spindles, theta frequencies. Limited driving, photic stimulation. Phase reversal T5, epoch 104, good EEG variability reactivity. INTERPRETATION Mild to moderate encephalopathy with sleep state. Clinical correlation. Sukhi Tran MD MG/JORY /4:38 PM /5:59 PM MTDD
--- NOTE | 2017-08-08 19:42 | ECHRPT ---
Indication: LV FXN CONCLUSIONS Normal left ventricular size. Wall thickness is normal. The left ventricular systolic function is normal with an estimated ejection fraction in the range of 55-60%. Trace aortic valve regurgitation. There is a small pericardial effusion present. No hemodynamically significant echocardiographic features were observed (no pre-tamponade physiology). BP: 93 / 48 HR: 124 Rhythm: MEASUREMENTS (Male / Female) Normal Values Technical Quality: 2D ECHO LV Diastolic Diameter PLAX 3.7 cm 4.2 - 5.9 / 3.9 - 5.3 cm LV Systolic Diameter PLAX 2.9 cm IVS Diastolic Thickness 0.9 cm 0.6 - 1.0 / 0.6 - 0.9 cm LVPW Diastolic Thickness 0.6 cm 0.6 - 1.0 / 0.6 - 0.9 cm LV Relative Wall Thickness 0.4 RV Internal Dim ED PLAX 1.9 cm LA Systolic Diameter LX 2.9 cm 3.0 - 4.0 / 2.7 - 3.8 cm DOPPLER Mitral E Point Velocity 94.3 cm/s Mitral A Point Velocity 71.1 cm/s Mitral E to A Ratio 1.3 TR Peak Velocity 214.0 cm/s TR Peak Gradient 18.3 mmHg Right Atrial Pressure 5.0 mmHg Pulmonary Artery Systolic Pressu 23.3 mmHg Right Ventricular Systolic Press 23.3 mmHg FINDINGS LEFT VENTRICLE Normal left ventricular size. Wall thickness is normal. The left ventricular systolic function is normal with an estimated ejection fraction in the range of 55-60%. RIGHT VENTRICLE Normal right ventricular size and systolic function. LEFT ATRIUM The left atrial size is normal. RIGHT ATRIUM The right atrial size is normal. ATRIAL SEPTUM Normal atrial septal thickness without atrial level shunting by limited color doppler interrogation. AORTA The aortic root and proximal ascending aorta are normal in size on limited imaging. MITRAL VALVE Structurally normal mitral valve. No mitral valve stenosis or regurgitation. AORTIC VALVE Trace aortic valve regurgitation. TRICUSPID VALVE Structurally normal tricuspid valve. No tricuspid valve stenosis or regurgitation. PULMONARY VALVE No pulmonary valve regurgitation or stenosis. VESSELS The inferior vena cava is normal in size. PERICARDIUM There is a small pericardial effusion present. No hemodynamically significant echocardiographic features were observed (no pre-tamponade physiology). Kirby Childs MD, FACC, [facility] [place] (Electronically Signed) Final Date:08 August 2017 19:41
[2017-08-08 19:52] LABS: CALIFORNIA ENCEPH AB IGG <1:4 (<1:4); CALIFORNIA ENCEPH AB IGM <1:4 (<1:4); EAST EQUINE ENCEPH AB IGG <1:4 (<1:4); EAST EQUINE ENCEPH AB IGM <1:4 (<1:4); ST LOUIS ENCEPH AB IGG <1:4 (<1:4); ST LOUIS ENCEPH AB IGM <1:4 (<1:4)
[2017-08-08] MEDS: ACETAMINOPHEN 325 MG TAB PO PRN (20:18)
[2017-08-08] MEDS: TOPIRAMATE 25 MG TAB OG-TUBE SCH (20:19)
[2017-08-09] VITALS (24 sets, daily range): BP systolic 80–111; BP diastolic 48–77; PULSE 74–120; RESP 18; TEMP 99–100.7; O2SAT 98–100
[2017-08-09] MEDS: PIPERACIL-TAZO 3.375 GM PREMIX 50 ML IV SCH ×3 (01:12→12:22)
[2017-08-09] MEDS ORDERED: PHARMACY ORDERED LAB ONE (05:45)
[2017-08-09] MEDS: VANCOMYCIN INJ 1,250 MG in SODIUM CHLOR 0.9% 250 ML INJ 250 ML IV SCH ×2 (06:25→13:41)
[2017-08-09 07:11] LABS: PHENOBARBITAL 18.6 MCG/ML (15.0-40.0); VANCOMYCIN TROUGH 17.1 MCG/ML (5.0-10.0)
[2017-08-09] MEDS: FAMOTIDINE 20 MG/2 ML VIAL IV PUSH SCH ×2 (09:00→19:40)
[2017-08-09] MEDS: FOSPHENYTOIN SODIUM 100 MG PE/2 ML VIAL IV SCH ×2 (09:08→19:41)
[2017-08-09] MEDS: TOPIRAMATE 25 MG TAB OG-TUBE SCH ×2 (09:09→19:39)
[2017-08-09] MEDS: VALPROATE INJ 500 MG in SODIUM CHLORIDE 0.9% INJ 100 ML IV SCH ×2 (09:09→21:02)
[2017-08-09] MEDS: DOCUSATE SODIUM 50 MG/SENNA 8.6 MG TAB PO SCH ×2 (09:09→19:42)
[2017-08-09] MEDS: LACTULOSE SYRUP 20 GM/30 ML CUP PO SCH ×4 (09:09→19:42)
[2017-08-09] MEDS: SODIUM CHLORIDE 0.9% FLUSH 10 ML FLUSH IV FLUSH PRN (09:10)
[2017-08-09] MEDS: SODIUM CHLORIDE 0.9% FLUSH 10 ML FLUSH IV FLUSH SCH ×2 (09:10→19:41)
--- NOTE | 2017-08-09 09:11 | HHI.PR ---
Review/Management Diagnosis/Plan: (1) Seizure disorder, complex partial ICD Codes: G40.209 - Localization-related (focal) (partial) symptomatic epilepsy and epileptic syndromes with complex partial seizures, not intractable , without status epilepticus Status: Acute Plan: intractable left temporal lobe seizures etiology; ? 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 Pleocytosis from SZ possible as well but would not expect it to be this pronounced and predominately lymphocytic cx ngtd; hsv pcr negative recs eeg- no sz this am topamax added check [place], paraneoplastic panel-pending d/w pt's father/mother/ccm Subjective Subjective Comments ? sz yesterday; restarted on versed gtt Active Medications Current Medications Medications (Trade) Dose Ordered Sig/Nigel Route Start Time Stop Time Status Last Admin (NS Flush) 2 ml UNSCH PRN IV FLUSH 07/31/17 17:30 (NS Flush) 2 ml BID IV FLUSH 07/31/17 21:00 08/08/17 20:17 (Tylenol) 650 mg Q4H PRN PO 07/31/17 17:30 08/08/17 20:18 (Zofran Inj) 4 mg Q6H PRN IVP 07/31/17 17:30 08/06/17 16:04 (Narcan Inj) 0.4 mg UNSCH PRN IV PUSH 07/31/17 17:30 (Milk Of Magnesia Liq) 30 ml Q12H PRN PO 07/31/17 17:30 08/05/17 17:09 (Tylenol) 650 mg Q6H PRN PO 07/31/17 20:45 08/01/17 20:40 (Ativan Inj) 1 mg Q2H PRN IV PUSH 08/01/17 21:30 08/06/17 21:54 Potassium Chloride 100 ml @ 50 mls/hr Q2H PRN IV 08/02/17 09:00 Potassium Chloride 100 ml @ 50 mls/hr Q2H PRN IV 08/02/17 09:00 (K-Lyte Cl Eff) 50 meq UNSCH PRN PO 08/02/17 09:00 08/08/17 09:10 Potassium Chloride 100 ml @ 25 mls/hr UNSCH PRN IV 08/02/17 09:00 Potassium Chloride 100 ml @ 50 mls/hr Q2H PRN IV 08/02/17 09:00 Magnesium Sulfate 4 gm/Sodium Chloride 100 ml @ 50 mls/hr UNSCH PRN IV 08/02/17 09:00 (Mag-Ox) 800 mg UNSCH PRN PO 08/02/17 09:00 Magnesium Sulfate 2 gm/Sodium Chloride 100 ml @ 50 mls/hr UNSCH PRN IV 08/02/17 09:00 (K-Phos) 2,000 mg Q4H PRN PO 08/02/17 09:00 Sodium Phosphate 30 mmol/Sodium Chloride 250 ml @ 42 mls/hr UNSCH PRN IV 08/02/17 09:00 (K-Phos) 2,000 mg UNSCH PRN PO/TUBE 08/02/17 09:00 Potassium Phosphate 30 mmol/ Sodium Chloride 260 ml @ 42 mls/hr UNSCH PRN IV 08/02/17 09:00 (Pepcid Inj) 10 mg Q12HR IV PUSH 08/02/17 09:15 08/08/17 20:18 Pharmacy Profile Note 0 ml @ 0 mls/hr UNSCH OTHER 08/04/17 10:45 (Luminal Inj) 30 mg Q6H IV 08/05/17 16:00 08/09/17 02:45 Valproate Sodium 500 mg/Sodium Chloride 105 ml @ 105 mls/hr BID IV 08/06/17 09:00 08/08/17 20:19 (Cerebyx Inj) 150 mgpe Q12HR IV 08/07/17 09:00 08/08/17 20:14 Dexmedetomidine HCl 200 mcg/ Sodium Chloride 52 ml @ 2.89 mls/hr TITRATE PRN IV 08/07/17 08:00 08/08/17 13:52 Piperacillin Sod/ Tazobactam Sod 50 ml @ 100 mls/hr Q6H IV 08/07/17 13:00 08/09/17 01:12 Micafungin Sodium 150 mg/Sodium Chloride 100 ml @ 100 mls/hr Q24H IV 08/07/17 14:00 08/08/17 13:52 Vancomycin HCl 1250 mg/Sodium Chloride 262.5 ml @ 250 mls/hr Q8H IV 08/07/17 22:00 08/09/17 06:25 (Lactulose Liq) 30 ml QID PO 08/08/17 09:00 08/08/17 20:19 (Lazara-Colace) 1 tab BID PO 08/08/17 09:00 08/08/17 20:19 (Versed Inj) 2 mg Q2H PRN IV PUSH 08/08/17 13:15 Midazolam HCl 100 ml @ 2 mls/hr TITRATE PRN IV 08/08/17 15:45 08/08/17 16:08 (Topamax) 50 mg BID OG-TUBE 08/08/17 21:00 08/08/17 20:19 Miscellaneous Information SPECIFIC LAB TO BE DRAWN:VANCOMYCIN TROUGH DATE TO... ONCE ONCE .XX 08/11/17 05:45 08/11/17 05:46 Allergies Allergies Coded Allergies oxycodone (Verified Adverse Reaction, Intermediate, Dizziness, 07/31/17) Review of Systems All other ROS: Unable to obtain Exam I&O / VS Vital Signs Date Time Temp Pulse Resp B/P (MAP) Pulse Ox O2 Delivery O2 Flow Rate FiO2 08/09/17 08:15 100 35 08/09/17 08:00 35 08/09/17 06:00 117 08/09/17 04:05 99 35 08/09/17 04:00 35 08/09/17 04:00 103 08/09/17 04:00 99.2 103 97/55 (69) 99 08/09/17 02:00 104 08/09/17 00:00 35 08/09/17 00:00 99.9 96 88/51 (63) 100 08/09/17 00:00 96 08/08/17 23:50 100 35 08/08/17 22:00 93 08/08/17 20:14 98 35 08/08/17 20:00 123 08/08/17 20:00 100.4 123 125/73 (90) 98 08/08/17 20:00 35 08/08/17 18:00 100 08/08/17 16:17 100 35 08/08/17 16:00 35 08/08/17 16:00 99.6 91 20 93/61 (72) 100 08/08/17 16:00 91 08/08/17 14:00 81 08/08/17 12:37 35 08/08/17 12:00 99.9 113 28 112/71 (85) 100 08/08/17 12:00 113 08/08/17 11:40 100 35 08/08/17 10:00 104 General: No acute distress Respiratory: Non-labored respirations Cardiology: Normal rate Exam Comments stuporous state, intubated, on versed gtt, not consistently following, ou 4-3mm , localizing with all 4 ext, Objective Micro and Labs Laboratory Tests Test 08/08/17 11:39 08/08/17 11:55 08/09/17 05:37 Blood Gas Puncture Site LT BRACHIAL Blood Gas Patient Temperature 98.6 Blood Gas HCO3 25 Blood Gas Base Excess 1.1 Blood Gas Oxygen Saturation 97 Arterial Blood pH 7.42 Arterial Blood Partial Pressure CO2 39 Arterial Blood Partial Pressure O2 130 Arterial Blood Oxygen Content 14.4 Arterial Blood Carboxyhemoglobin 0.8 Arterial Blood Methemoglobin 0.9 Blood Gas Hemoglobin 10.4 Oxygen Delivery Device VENTILATOR Blood Gas Ventilator Setting CPAP 5 PS 5 Blood Gas Inspired Oxygen 35 Vancomycin Level Trough 17.1 Phenytoin (Dilantin) Level 14.4 Valproic Acid (Depakene) Level 48 Phenobarbital Level 18.6 Date/Time Source Procedure Growth Status 08/07/17 13:21 Blood Peripheral Aerobic Blood Culture - Preliminary NO GROWTH IN 1 DAY Resulted 08/07/17 13:21 Blood Peripheral Anaerobic Blood Culture - Preliminary NO GROWTH IN 1 DAY Resulted 08/03/17 11:50 Cerebral Spinal Fluid Lumbar Puncture Fungal Smear - Final NO FUNGAL ELEMENTS SEEN. Resulted 08/03/17 11:50 Cerebral Spinal Fluid Lumbar Puncture Fungal Culture Pending Resulted 08/07/17 19:15 Nasal Washing Influenza Types A,B Antigen (ARTHUR) - Final NEGATIVE FOR FLU A AND B ANTIGEN.... Complete 08/07/17 13:00 Urine Catheterized Urine Urine Culture - Final NO GROWTH IN 48 HOURS. Complete Problem Qualifiers (1) Seizure disorder, complex partial: Duong Gomez MD Aug 09, 2017 09:11
[2017-08-09] MEDS: DEXMEDETOMIDINE INJ 200 MCG in SODIUM CHLORIDE 0.9% INJ 50 ML IV PRN ×4 (09:52→23:33)
--- NOTE | 2017-08-09 10:21 | RADRPT ---
EXAM DATE/TIME: 08/09/2017 09:11 [place] COMPARISON: CT THORAX W CONTRAST, August 06, 2017, 9:35. CHEST SINGLE AP, August 08, 2017, 9:07. INDICATIONS : Shortness of breath. Altered mental status MEDICAL HISTORY : None. SURGICAL HISTORY : None. ENCOUNTER: Subsequent ACUITY: 1 day PAIN SCORE: Non-responsive. LOCATION: Bilateral chest FINDINGS: A single AP erect view of the chest was obtained and again demonstrates the endotracheal tube in plac e with the tip approximately 4 cm above the rolf. Right lung is clear there is consolidation in the left lung base with obscuration of left hemidiaphragm. The heart size is at the upper limits of norm al. There is no perihilar edema. The bony thorax is intact with multiple overlying electrocardiogram leads. The previously noted nasogastric tube has been removed. CONCLUSION: 1. Interval removal of nasogastric tube. 2. Consolidation remains in the left lung base. Orion Gaitan MD on August 09, 2017 at 10:15 Board Certified Radiologist. This report was verified electronically.
[2017-08-09 10:34] LABS: AUTOMATED NEUTROPHIL # 9.4 TH/MM3 (1.8-7.7); BASOPHIL % 0.4 % (0.0-2.0); EOSINOPHIL # 0.4 TH/MM3 (0-0.4); EOSINOPHIL % 3.5 % (0.0-4.0); HEMATOCRIT 34.1 % (35.0-46.0); LYMPH % 11.2 % (9.0-44.0); LYMPHOCYTE # 1.4 TH/MM3 (1.0-4.8); MEAN CELL VOLUME 89.1 FL (80.0-100.0); MEAN CORPUSCULAR HEMOGLOBIN 29.5 PG (27.0-34.0); MEAN CORPUSCULAR HGB CONC 33.1 % (32.0-36.0); MONO % 11.7 % (0.0-8.0); NEUT % 73.2 % (16.0-70.0); PLATELET COUNT 265 TH/MM3 (150-450); RED BLOOD COUNT 3.83 MIL/MM3 (4.00-5.30); RED CELL DISTRIBUTION WIDTH 13.6 % (11.6-17.2); WHITE BLOOD COUNT 12.9 TH/MM3 (4.0-11.0)
[2017-08-09 10:41] LABS: HEMO FLAGS AUTO DIFF
--- NOTE | 2017-08-09 10:47 | HHI.CCPN ---
Subjective Remarks/Hospital Course The patient is a 22-year-old female who attends [employer] [facility] and presented to [facility] ED with her parents noted to have altered mental status. According to the records, the patient was under a lot of stress and she had a recent breakup with her boyfriend one month ago. The patient was admitted under Dr. Ventura's service. She had an EEG done which showed seizure activity. The patient was subsequently placed on Depakote, Vimpat, and Ativan. In addition, she received a loading dose of Cerebyx yesterday. Despite being on multiple antiseizure meds, continuous EEG showed a seizure pattern. After discussion with Dr. Gomez from neurology, he recommended to intubate the patient and place her on Versed drip to control her seizures. After discussion with the patient's father, the patient was intubated and placed on full mechanical ventilation. She had an MRI of the brain the night of July 31 which showed no acute findings. A CTA of the head and neck were unremarkable as well. Urine drug screen was negative for opiates, amphetamines, benzodiazepines. There is no evidence of any fever or leukocytosis. 08/03 No events overnight. Sedated with Versed, Diprivan and intubated. Afebrile. 08/04 No events overnight. Sedated with Diprivan and Versed. s/p LP yesterday showed clear CSF, elevated protein 56, WBC: 57 (Lymphocytic predominant). For repeat MRI brain today. Spoked fever with T: 101.4 at 4am. 08/05 No events overnight. On Continuous EEG monitoring. Afebrile. Sedated with Versed and Diprivan. 08/06 No events overnight. Versed is down 3mg/hr, off Diprivan. For CT thorax/ abd today. T:101.5 08/07 No events overnight. On Versed drip 4mg/hr, T:101.8 at midnight. 08/08: At 8 pm yesterday had 101.7 fever , now afebrile. Eyes are open, weakly followed commands bilaterally, moved feet to command for RN and her father. CXR pending. Ortiz secretions from ETT. CT chest, Bibasilar infiltrates L>R 08/09: Patient had one episode of tonic-clonic seizure in the afternoon. Placed back on sedation. Topamax added. Dr. Gomez has ordered West Nile, paraneoplastic panel. Updated parents at bedside Objective Vital Signs Date Time Temp Pulse Resp B/P (MAP) Pulse Ox O2 Delivery O2 Flow Rate FiO2 08/09/17 08:15 100 35 08/09/17 06:00 117 08/09/17 04:00 99.2 97/55 (69) 08/08/17 16:00 20 Intake and Output 08/09/17 08/09/17 08/10/17 08:00 16:00 00:00 Intake Total 710 ml Output Total 1425 ml Balance -715 ml Result Diagram: 08/08/17 0458 08/08/17 0458 Other Results Microbiology Date/Time Source Procedure Growth Status 08/07/17 19:15 Nasal Washing Influenza Types A,B Antigen (ARTHUR) - Final NEGATIVE FOR FLU A AND B ANTIGEN.... Complete 08/07/17 13:00 Urine Catheterized Urine Urine Culture - Final NO GROWTH IN 48 HOURS. Complete 08/07/17 01:35 Urine Catheterized Urine Legionella Antigen - Final PRESUMPTIVE NEGATIVE FOR LEGIONELLA P... Complete 08/07/17 01:35 Urine Catheterized Urine Streptococcus pneumoniae Antigen (M - Final PRESUMPTIVE NEGATIVE FOR STREPTOCOCCU... Complete Laboratory Tests Test 08/08/17 11:39 Blood Gas Puncture Site LT BRACHIAL Blood Gas Patient Temperature 98.6 Blood Gas HCO3 25 mmol/L (22-26) Blood Gas Base Excess 1.1 mmol/L (-2-2) Blood Gas Oxygen Saturation 97 % (90-100) Arterial Blood pH 7.42 (7.380-7.420) Arterial Blood Partial Pressure CO2 39 mmHg (38-42) Arterial Blood Partial Pressure O2 130 mmHg (61-120) Arterial Blood Oxygen Content 14.4 Vol % (12.0-20.0) Arterial Blood Carboxyhemoglobin 0.8 % (0-4) Arterial Blood Methemoglobin 0.9 % (0-2) Blood Gas Hemoglobin 10.4 G/DL (12.0-16.0) Oxygen Delivery Device VENTILATOR Blood Gas Ventilator Setting CPAP 5 PS 5 Blood Gas Inspired Oxygen 35 % Imaging Last Impressions Chest CT 08/06/17 0600 Signed Impressions: Service Date/Time: Sunday, August 06, 2017 09:35 - CONCLUSION: 1. Bilateral basilar consolidation more pronounced on the left. Infectious etiology most likely. 2. Tiny bilateral pleural effusions. 3. No perceivable lesion involving T1 on this standard protocol CT of the thorax. Misael Batres Jr., MD Abdomen/Pelvis CT 08/06/17 0600 Signed Impressions: Service Date/Time: Sunday, August 06, 2017 09:31 - CONCLUSION: Bibasilar consolidative changes worse on the left. No other significant is appreciated. I do not see evidence of metastatic disease. Kev Santana MD FACR Thoracic Spine MRI 08/04/17 0000 Signed Impressions: Service Date/Time: Friday, August 04, 2017 16:14 - CONCLUSION: 1. Focal signal abnormality in the right T1 vertebral body demonstrating uniform contrast-enhancement. Consider performing thin section CT to evaluate integrity or abnormalities within the trabecular pattern and cortex. 2. Multifocal areas of enhancement in the posterior right lung. Recommend further characterization with CT thorax. Misael Samuels MD Lumbar Spine MRI 08/04/17 0000 Signed Impressions: Service Date/Time: Friday, August 04, 2017 16:14 - CONCLUSION: Normal MRI of the lumbar spine with and without contrast. Misael Samuels MD Cervical Spine MRI 08/04/17 0000 Signed Impressions: Service Date/Time: Friday, August 04, 2017 16:14 - CONCLUSION: 1. Round enhancing lesion in the superior right T1 vertebral body. 2. Nondiagnostic evaluation from C1-C4 due to metallic field distortion artifact (braces). Misael Smauels MD Brain MRI 08/04/17 0000 Signed Impressions: Service Date/Time: Friday, August 04, 2017 16:14 - CONCLUSION: 1. No abnormal areas of enhancement or cerebral edema seen. 2. Field distortion artifact from patient's braces limits evaluation of inferior frontal lobes and precludes obtaining diffusion weighted images. Misael Samuels MD Lumbar Puncture Fluoroscopy 08/03/17 0000 Signed Impressions: Service Date/Time: Thursday, August 03, 2017 12:44 - CONCLUSION: Uncomplicated fluoroscopically guided lumbar puncture. Misael Batres Jr., MD Chest X-Ray 08/03/17 0000 Signed Impressions: Service Date/Time: Thursday, August 03, 2017 03:52 - CONCLUSION: 1. Interval placement of nasogastric tube which could be advanced 5 cm further. The distal side port is projected over the distal esophagus. 2. The patient remains intubated. Orion Gaitan MD Neck CTA 08/01/17 0000 Signed Impressions: Service Date/Time: Tuesday, August 01, 2017 10:03 - CONCLUSION: 1. No evidence of carotid stenosis 2. 3. 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 No acute findings or aneurysm identified. 2. 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 SKIN: Warm and dry. HEAD: Normocephalic. EYES: No scleral icterus. No injection or drainage. NECK: Supple, trachea midline. No JVD or lymphadenopathy. CARDIOVASCULAR: Regular rate and rhythm without murmurs, gallops, or rubs. RESPIRATORY: Breath sounds equal bilaterally, diminished at bases. No accessory muscle use. GASTROINTESTINAL: Abdomen soft, non-tender, nondistended. MUSCULOSKELETAL: No cyanosis, or edema. Neuro: On Precedex, Versed. MARCIA. 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 Febrile Illness MSSA Pneumonia Plan Neuro: Topamax added 08/08 for breakthrough seizures. EEG today did not show any seizure activity Continue with antiseizure meds per neuro. On Depakote( level 78 on ), Cerebyx 250 mg IV q12, Vimpat, Phenobarb 30mg Q6 and Ativan 1 mg IV q2 PRN Continue with Precedex, Versed drip. No sedation vacation until seizures are well controlled for 24 hours Monitor neuro status. Neuro Dr. Gomez. A neuro workup which includes MRI of the brain, CTA of the head and neck are unremarkable. 08/05 EEG: Diffuse encephalopathy, 08/09 No seizure EEG: : diffuse encephalopathy. Occasional sharp activity is identified over the left hemisphere suggesting an ictal focus in that area Repeat MRI brain 08/04 : No acute findings MRI spine: Round enhancing lesion T1 vertebral body. ? significance s/p LP 08/03: Clear CSF, elevated protein 56, WBC 57 ( Lymphocytic predominant), glc 62 Most likely viral encephalitis. West Nile and paraneoplastic panel pending at this time Pulm: Continue with vent support. and maintain sats above 92%. Bronchodilators, ICU vent bundle. No vent weaning trials for 24 hour seizure-free Discussed with Neuro- Dr. Dillon CT thorax: Bibasilar consolidation L>R CV: Monitor HR and BP and maintain MAP>65 mmHg. Echo small pericardial effusion ( Family hx ? VSD) : Monitor renal function I's and O's, and electrolyte replacement per protocol. GI: Pepcid 10 mg IV q. 12 for GI prophylaxis Tube feeds with Glucerna 1.5 @f [address] abd/pelvis: no acute findings Bowel regimen added with lactulose, Docusate and senna ID: Continue with abx per ID -vanc Zosyn and Micafungin. Fever downtrending Prev ABX DCd -(Rocephin, Acyclovir, Ampicillin) Monitor for signs of infections( fever and WBC). HSV DNA PCR negative. 08/03 Sputum: Staph Aureus. Pancultured 08/06 ( Blood, Sputum) NGTD Strep pneumonia, Legionella urinary Ag negative Endo: SSI with Accu-Chek q.6 h to maintain euglycemia. Heme: Monitor CBC. GI prophylaxis with Protonix 40 mg daily and DVT prophylaxis with SCD's. Start Lovenox 40 mg sq daily Level 3 Gianni Beltran MD Aug 09, 2017 10:47
[2017-08-09 10:50] LABS: ALT (GPT) 72 U/L (9-42); ANION GAP 7 MEQ/L (5-15); AST (GOT) 45 U/L (16-38); BICARBONATE 26.4 MEQ/L (21.0-32.0); BLOOD UREA NITROGEN 14 MG/DL (7-18); CHLORIDE 104 MEQ/L (98-107); GLOMERULAR FILTRATION RATE 141 ML/MIN (>89); MAGNESIUM 2.2 MG/DL (1.5-2.5); POTASSIUM 3.8 MEQ/L (3.5-5.1); SODIUM (NA) 137 MEQ/L (136-145)
[2017-08-09 10:52] LABS: ALKALINE PHOSPHATASE 69 U/L (45-117); TOTAL BILIRUBIN ADULT 0.3 MG/DL (0.2-1.0)
[2017-08-09] MEDS: ENOXAPARIN SODIUM 40 MG/0.4 ML SYRINGE SQ SCH (10:59)
[2017-08-09 11:13] LABS: CKMB 0.7 NG/ML (0.5-3.6)
[2017-08-09 11:33] LABS: BANDS 6 % (0-6); BASOPHILS 3 % (0-2); EOSINOPHILS 4 % (0-4); METAMYELOCYTES 2 % (0-1); MYELOCYTES 5 % (0-0); NEUTROPHIL # MANUAL DIFF 10.1 TH/MM3 (1.8-7.7); POLYS (SEG NEUTROPHILS) 65 % (16-70); WBC DIFF SAMPLE 100
[2017-08-09 11:34] LABS: PLATELET ESTIMATE SMEAR NORMAL (NORMAL); PLATELET MORPHOLOGY NORMAL (NORMAL); SCAN/DIFF FINAL DIFF MANUAL
[2017-08-09] MEDS: MICAFUNGIN INJ 150 MG in SODIUM CHLORIDE 0.9% INJ 100 ML IV SCH (13:41)
--- NOTE | 2017-08-09 14:39 | HHI.IDPN ---
Subjective Subjective Remarks better more awake, eyes opned no fever Flu test is negative pt apparently has a seizure yday blood clx negative sputum with MSSA CSF virology negative Antibiotics zosyn vanco Allergies: Coded Allergies: oxycodone (Verified Adverse Reaction, Intermediate, Dizziness, 07/31/17) Objective . Vital Signs Date Time Temp Pulse Resp B/P (MAP) Pulse Ox O2 Delivery O2 Flow Rate FiO2 08/09/17 12:00 89 08/09/17 12:00 35 08/09/17 12:00 99.1 89 96/64 (75) 100 08/09/17 11:40 100 35 08/09/17 11:00 74 80/48 (59) 100 08/09/17 11:00 74 08/09/17 10:00 103 102/77 (85) 100 08/09/17 10:00 103 08/09/17 09:00 106 08/09/17 09:00 106 104/67 (79) 100 08/09/17 08:15 100 35 08/09/17 08:00 35 08/09/17 08:00 120 08/09/17 08:00 100.3 120 18 108/75 (86) 100 08/09/17 07:00 104 102/58 (73) 100 08/09/17 07:00 104 08/09/17 06:00 117 08/09/17 04:05 99 35 08/09/17 04:00 35 08/09/17 04:00 103 08/09/17 04:00 99.2 103 97/55 (69) 99 08/09/17 02:00 104 08/09/17 00:00 35 08/09/17 00:00 99.9 96 88/51 (63) 100 08/09/17 00:00 96 08/08/17 23:50 100 35 08/08/17 22:00 93 08/08/17 20:14 98 35 08/08/17 20:00 123 08/08/17 20:00 100.4 123 125/73 (90) 98 08/08/17 20:00 35 08/08/17 18:00 100 08/08/17 16:17 100 35 08/08/17 16:00 35 08/08/17 16:00 99.6 91 20 93/61 (72) 100 08/08/17 16:00 91 . Laboratory Tests Test 08/08/17 04:58 08/09/17 10:10 White Blood Count 11.0 TH/MM3 12.9 TH/MM3 Red Blood Count 3.90 MIL/MM3 3.83 MIL/MM3 Hemoglobin 11.8 GM/DL 11.3 GM/DL Hematocrit 34.7 % 34.1 % Mean Corpuscular Volume 89.1 FL 89.1 FL Mean Corpuscular Hemoglobin 30.2 PG 29.5 PG Mean Corpuscular Hemoglobin Concent 33.9 % 33.1 % Red Cell Distribution Width 13.4 % 13.6 % Platelet Count 253 TH/MM3 265 TH/MM3 Mean Platelet Volume 11.8 FL 9.3 FL Neutrophils (%) (Auto) 72.0 % 73.2 % Lymphocytes (%) (Auto) 11.0 % 11.2 % Monocytes (%) (Auto) 13.1 % 11.7 % Eosinophils (%) (Auto) 3.5 % 3.5 % Basophils (%) (Auto) 0.4 % 0.4 % Neutrophils # (Auto) 7.9 TH/MM3 9.4 TH/MM3 Lymphocytes # (Auto) 1.2 TH/MM3 1.4 TH/MM3 Monocytes # (Auto) 1.4 TH/MM3 1.5 TH/MM3 Eosinophils # (Auto) 0.4 TH/MM3 0.4 TH/MM3 Basophils # (Auto) 0.0 TH/MM3 0.0 TH/MM3 CBC Comment AUTO DIFF AUTO DIFF Differential Total Cells Counted 100 100 Neutrophils % (Manual) 51 % 65 % Band Neutrophils % 22 % 6 % Lymphocytes % 9 % 11 % Monocytes % 9 % 4 % Eosinophils % 5 % 4 % Neutrophils # (Manual) 8.5 TH/MM3 10.1 TH/MM3 Metamyelocytes 2 % 2 % Myelocytes 1 % 5 % Promyelocytes 1 % Differential Comment FINAL DIFF MANUAL FINAL DIFF MANUAL Platelet Estimate NORMAL NORMAL Platelet Morphology Comment NORMAL NORMAL Red Cell Morphology Comment NORMAL NORMAL Basophils % 3 % Laboratory Tests Test 08/08/17 04:58 08/09/17 10:10 Blood Urea Nitrogen 15 MG/DL 14 MG/DL Creatinine 0.57 MG/DL 0.55 MG/DL Random Glucose 99 MG/DL 102 MG/DL Calcium Level 8.3 MG/DL 8.8 MG/DL Phosphorus Level 2.5 MG/DL Magnesium Level 2.1 MG/DL 2.2 MG/DL Sodium Level 139 MEQ/L 137 MEQ/L Potassium Level 3.4 MEQ/L 3.8 MEQ/L Chloride Level 102 MEQ/L 104 MEQ/L Carbon Dioxide Level 27.4 MEQ/L 26.4 MEQ/L Anion Gap 10 MEQ/L 7 MEQ/L Estimat Glomerular Filtration Rate 135 ML/MIN 141 ML/MIN Total Creatine Kinase 1195 U/L 349 U/L Creatine Kinase MB 1.4 NG/ML 0.7 NG/ML Creatine Kinase MB % 0.1 % 0.2 % Total Protein 7.2 GM/DL Albumin 2.5 GM/DL Alkaline Phosphatase 69 U/L Aspartate Amino Transf (AST/SGOT) 45 U/L Alanine Aminotransferase (ALT/SGPT) 72 U/L Total Bilirubin 0.3 MG/DL Microbiology Date/Time Source Procedure Growth Status 08/07/17 13:21 Blood Peripheral Aerobic Blood Culture - Preliminary NO GROWTH IN 2 DAYS Resulted 08/07/17 13:21 Blood Peripheral Anaerobic Blood Culture - Preliminary NO GROWTH IN 2 DAYS Resulted 08/07/17 13:15 Blood Peripheral Aerobic Blood Culture - Preliminary NO GROWTH IN 2 DAYS Resulted 08/07/17 13:15 Blood Peripheral Anaerobic Blood Culture - Preliminary NO GROWTH IN 2 DAYS Resulted 08/07/17 19:15 Nasal Washing Influenza Types A,B Antigen (ARTHUR) - Final NEGATIVE FOR FLU A AND B ANTIGEN.... Complete 08/07/17 01:35 Sputum Endotracheal Gram Stain - Final Complete 08/07/17 01:35 Sputum Culture - Final Staphylococcus Aureus Complete 08/07/17 13:00 Urine Catheterized Urine Urine Culture - Final NO GROWTH IN 48 HOURS. Complete 08/07/17 01:35 Urine Catheterized Urine Legionella Antigen - Final PRESUMPTIVE NEGATIVE FOR LEGIONELLA P... Complete 08/07/17 01:35 Urine Catheterized Urine Streptococcus pneumoniae Antigen (M - Final PRESUMPTIVE NEGATIVE FOR STREPTOCOCCU... Complete Imaging Last Impressions Chest X-Ray 08/09/17 0000 Signed Impressions: Service Date/Time: July 09:11 - CONCLUSION: 1. Interval removal of nasogastric tube. 2. Consolidation remains in the left lung base. Orion Gaitan MD Chest CT 08/06/17 0600 Signed Impressions: Service Date/Time: Sunday, August 06, 2017 09:35 - CONCLUSION: 1. Bilateral basilar consolidation more pronounced on the left. Infectious etiology most likely. 2. Tiny bilateral pleural effusions. 3. No perceivable lesion involving T1 on this standard protocol CT of the thorax. Misael Batres Jr., MD Abdomen/Pelvis CT 08/06/17 0600 Signed Impressions: Service Date/Time: Sunday, August 06, 2017 09:31 - CONCLUSION: Bibasilar consolidative changes worse on the left. No other significant is appreciated. I do not see evidence of metastatic disease. Kev Santana MD FACR Thoracic Spine MRI 08/04/17 0000 Signed Impressions: Service Date/Time: Friday, August 04, 2017 16:14 - CONCLUSION: 1. Focal signal abnormality in the right T1 vertebral body demonstrating uniform contrast-enhancement. Consider performing thin section CT to evaluate integrity or abnormalities within the trabecular pattern and cortex. 2. Multifocal areas of enhancement in the posterior right lung. Recommend further characterization with CT thorax. Misael Samuels MD Lumbar Spine MRI 08/04/17 0000 Signed Impressions: Service Date/Time: Friday, August 04, 2017 16:14 - CONCLUSION: Normal MRI of the lumbar spine with and without contrast. Misael Samuels MD Cervical Spine MRI 08/04/17 0000 Signed Impressions: Service Date/Time: Friday, August 04, 2017 16:14 - CONCLUSION: 1. Round enhancing lesion in the superior right T1 vertebral body. 2. Nondiagnostic evaluation from C1-C4 due to metallic field distortion artifact (braces). Misael Samuels MD Brain MRI 08/04/17 0000 Signed Impressions: Service Date/Time: Friday, August 04, 2017 16:14 - CONCLUSION: 1. No abnormal areas of enhancement or cerebral edema seen. 2. Field distortion artifact from patient's braces limits evaluation of inferior frontal lobes and precludes obtaining diffusion weighted images. Misael Samuels MD Lumbar Puncture Fluoroscopy 08/03/17 0000 Signed Impressions: Service Date/Time: Thursday, August 03, 2017 12:44 - CONCLUSION: Uncomplicated fluoroscopically guided lumbar puncture. Misael Batres Jr., MD Neck CTA 08/01/17 0000 Signed Impressions: Service Date/Time: Tuesday, August 01, 2017 10:03 - CONCLUSION: 1. No evidence of carotid stenosis 2. 3. 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 No acute findings or aneurysm identified. 2. 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 Sedated heavily sedated [facility] TUBES/LINES/DRAINS: SKIN: No jaundice, rashes, or lesions. Skin temperature appropriate. Not diaphoretic. EYES: Pupils are small equal and round and reactive. Extraocular motions intact. No scleral icterus. No injection or drainage. Fundi not examined. ENT: Hearing note tested Nose without bleeding or purulent drainage. Visualised mucosae without visible erythema, exudates, masses, or lesions. Orally intubated NECK: Trachea midline. CARDIOVASCULAR: Regular rate and rhythm without murmurs, gallops, or rubs. No JVD. Peripheral pulses symmetric. RESPIRATORY/CHEST: Symmetric, unlabored respirations. Clear to auscultation. Breath sounds equal bilaterally. No wheezes, rales, or rhonchi. GASTROINTESTINAL: Abdomen soft, non-tender, nondistended. No hepato-splenomegaly , or palpable masses. No guarding. Bowel sounds present. GENITOURINARY: bladder with no palpable distension. fay in w clear yellow urine MUSCULOSKELETAL: Extremities without clubbing, cyanosis, or edema. No joint tenderness or effusion noted. No calf tenderness. No mottling or clubbing. 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
[2017-08-09] MEDS: ceFAZolin 2 GM PREMIX 50 ML IV SCH ×2 (15:06→22:17)
[2017-08-09] MEDS: ACETAMINOPHEN 325 MG TAB PO PRN (19:50)
--- NOTE | 2017-08-09 22:08 | MG ---
cc: SUKHI TRAN MD Lab No: [id number] Date: Age: 12 Sex: F Race: 1995 Seizures. Delta theta frequencies with superimposed beta frequencies occurring, paroxysmal generalized 1-2 Hz delta bursts. Some rhythmic delta activity occurring epoch 102. EEG variability reactivity noted. Again, some mild asymmetric left hemispheric slowing. INTERPRETATION Moderate encephalopathy with slight asymmetric slowing. Clinical correlation. MD KENYA Ceja/ /9:52 PM /10:03 PM MTDD
[2017-08-10] VITALS (22 sets, daily range): BP systolic 84–116; BP diastolic 54–73; PULSE 66–122; TEMP 98.6–103; O2SAT 87–100
[2017-08-10] MEDS: DEXMEDETOMIDINE INJ 200 MCG in SODIUM CHLORIDE 0.9% INJ 50 ML IV PRN ×7 (03:09→22:02)
[2017-08-10] MEDS: ACETAMINOPHEN 325 MG TAB PO PRN (04:35)
[2017-08-10] MEDS: ceFAZolin 2 GM PREMIX 50 ML IV SCH ×3 (06:16→23:52)
--- NOTE | 2017-08-10 08:36 | HHI.PR ---
Review/Management Diagnosis/Plan: (1) Seizure disorder, complex partial ICD Codes: G40.209 - Localization-related (focal) (partial) symptomatic epilepsy and epileptic syndromes with complex partial seizures, not intractable , without status epilepticus Status: Acute Plan: intractable left temporal lobe seizures etiology; ? 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 Pleocytosis from SZ possible as well but would not expect it to be this pronounced and predominately lymphocytic cx ngtd; hsv pcr negative on 4 sz meds; levels in range recs neuro stable; much more alert eeg- no sz this am extubation per ccm this am check [place], paraneoplastic panel-pending d/w pt's father/mother/ccm Subjective Subjective Comments No acute events reported Active Medications Current Medications Medications (Trade) Dose Ordered Sig/Nigel Route Start Time Stop Time Status Last Admin (NS Flush) 2 ml UNSCH PRN IV FLUSH 07/31/17 17:30 08/09/17 09:10 (NS Flush) 2 ml BID IV FLUSH 07/31/17 21:00 08/09/17 19:41 (Tylenol) 650 mg Q4H PRN PO 07/31/17 17:30 08/10/17 04:35 (Zofran Inj) 4 mg Q6H PRN IVP 07/31/17 17:30 08/06/17 16:04 (Narcan Inj) 0.4 mg UNSCH PRN IV PUSH 07/31/17 17:30 (Milk Of Magnesia Liq) 30 ml Q12H PRN PO 07/31/17 17:30 08/05/17 17:09 (Tylenol) 650 mg Q6H PRN PO 07/31/17 20:45 08/01/17 20:40 (Ativan Inj) 1 mg Q2H PRN IV PUSH 08/01/17 21:30 08/06/17 21:54 Potassium Chloride 100 ml @ 50 mls/hr Q2H PRN IV 08/02/17 09:00 Potassium Chloride 100 ml @ 50 mls/hr Q2H PRN IV 08/02/17 09:00 (K-Lyte Cl Eff) 50 meq UNSCH PRN PO 08/02/17 09:00 08/08/17 09:10 Potassium Chloride 100 ml @ 25 mls/hr UNSCH PRN IV 08/02/17 09:00 Potassium Chloride 100 ml @ 50 mls/hr Q2H PRN IV 08/02/17 09:00 Magnesium Sulfate 4 gm/Sodium Chloride 100 ml @ 50 mls/hr UNSCH PRN IV 08/02/17 09:00 (Mag-Ox) 800 mg UNSCH PRN PO 08/02/17 09:00 Magnesium Sulfate 2 gm/Sodium Chloride 100 ml @ 50 mls/hr UNSCH PRN IV 08/02/17 09:00 (K-Phos) 2,000 mg Q4H PRN PO 08/02/17 09:00 Sodium Phosphate 30 mmol/Sodium Chloride 250 ml @ 42 mls/hr UNSCH PRN IV 08/02/17 09:00 (K-Phos) 2,000 mg UNSCH PRN PO/TUBE 08/02/17 09:00 Potassium Phosphate 30 mmol/ Sodium Chloride 260 ml @ 42 mls/hr UNSCH PRN IV 08/02/17 09:00 (Pepcid Inj) 10 mg Q12HR IV PUSH 08/02/17 09:15 08/09/17 19:40 (Luminal Inj) 30 mg Q6H IV 08/05/17 16:00 08/10/17 04:00 Valproate Sodium 500 mg/Sodium Chloride 105 ml @ 105 mls/hr BID IV 08/06/17 09:00 08/09/17 21:02 (Cerebyx Inj) 150 mgpe Q12HR IV 08/07/17 09:00 08/09/17 19:41 Dexmedetomidine HCl 200 mcg/ Sodium Chloride 52 ml @ 2.89 mls/hr TITRATE PRN IV 08/07/17 08:00 08/10/17 06:18 (Lactulose Liq) 30 ml QID PO 08/08/17 09:00 08/09/17 12:22 (Lazara-Colace) 1 tab BID PO 08/08/17 09:00 08/09/17 09:09 (Versed Inj) 2 mg Q2H PRN IV PUSH 08/08/17 13:15 Midazolam HCl 100 ml @ 2 mls/hr TITRATE PRN IV 08/08/17 15:45 08/08/17 16:08 (Topamax) 50 mg BID OG-TUBE 08/08/17 21:00 08/09/17 19:39 (Lovenox Inj) 40 mg Q24H SQ 08/09/17 11:00 08/09/17 10:59 Cefazolin Sodium/ Dextrose 50 ml @ 150 mls/hr Q8H IV 08/09/17 15:00 08/10/17 06:16 Allergies Allergies Coded Allergies oxycodone (Verified Adverse Reaction, Intermediate, Dizziness, 07/31/17) Review of Systems All other ROS: Unable to obtain Exam I&O / VS Vital Signs Date Time Temp Pulse Resp B/P (MAP) Pulse Ox O2 Delivery O2 Flow Rate FiO2 08/10/17 08:12 96 35 08/10/17 08:12 35 08/10/17 08:00 99.8 95 104/63 (77) 96 08/10/17 06:00 79 08/10/17 05:35 24 08/10/17 04:00 103.0 87 99/54 (69) 99 08/10/17 04:00 105 08/10/17 04:00 35 08/10/17 03:55 96 35 08/10/17 02:00 106 08/10/17 01:06 98 35 08/10/17 00:00 85 08/10/17 00:00 35 08/10/17 00:00 98.6 85 105/60 (75) 98 08/09/17 22:10 98 35 08/09/17 22:00 82 08/09/17 20:05 100 35 08/09/17 20:00 35 08/09/17 20:00 95 08/09/17 20:00 100.7 95 111/73 (86) 100 08/09/17 18:00 90 08/09/17 17:00 88 08/09/17 16:00 35 08/09/17 16:00 99.0 91 111/65 (80) 100 08/09/17 16:00 91 08/09/17 15:43 100 35 08/09/17 15:00 81 08/09/17 15:00 81 109/76 (87) 100 08/09/17 14:00 76 08/09/17 14:00 76 89/56 (67) 100 08/09/17 13:00 93 92/63 (73) 100 08/09/17 13:00 93 08/09/17 12:00 89 08/09/17 12:00 35 08/09/17 12:00 99.1 89 96/64 (75) 100 08/09/17 11:40 100 35 08/09/17 11:00 74 80/48 (59) 100 08/09/17 11:00 74 08/09/17 10:00 103 102/77 (85) 100 08/09/17 10:00 103 08/09/17 09:00 106 08/09/17 09:00 106 104/67 (79) 100 General: No acute distress Respiratory: Non-labored respirations Cardiology: Normal rate Exam Comments alert, intubated, on precedex gtt, not consistently following + blink to threat , tracks well, ou 4-3mm, localizing with all 4 ext, Objective Micro and Labs Laboratory Tests Test 08/09/17 10:10 08/10/17 03:15 White Blood Count 12.9 Red Blood Count 3.83 Hemoglobin 11.3 Hematocrit 34.1 Mean Corpuscular Volume 89.1 Mean Corpuscular Hemoglobin 29.5 Mean Corpuscular Hemoglobin Concent 33.1 Red Cell Distribution Width 13.6 Platelet Count 265 Mean Platelet Volume 9.3 Neutrophils (%) (Auto) 73.2 Lymphocytes (%) (Auto) 11.2 Monocytes (%) (Auto) 11.7 Eosinophils (%) (Auto) 3.5 Basophils (%) (Auto) 0.4 Neutrophils # (Auto) 9.4 Lymphocytes # (Auto) 1.4 Monocytes # (Auto) 1.5 Eosinophils # (Auto) 0.4 Basophils # (Auto) 0.0 CBC Comment AUTO DIFF Differential Total Cells Counted 100 Neutrophils % (Manual) 65 Band Neutrophils % 6 Lymphocytes % 11 Monocytes % 4 Eosinophils % 4 Basophils % 3 Neutrophils # (Manual) 10.1 Metamyelocytes 2 Myelocytes 5 Differential Comment FINAL DIFF MANUAL Platelet Estimate NORMAL Platelet Morphology Comment NORMAL Red Cell Morphology Comment NORMAL Blood Urea Nitrogen 14 Creatinine 0.55 Random Glucose 102 Total Protein 7.2 Albumin 2.5 Calcium Level 8.8 Magnesium Level 2.2 Alkaline Phosphatase 69 Aspartate Amino Transf (AST/SGOT) 45 Alanine Aminotransferase (ALT/SGPT) 72 Total Bilirubin 0.3 Sodium Level 137 Potassium Level 3.8 Chloride Level 104 Carbon Dioxide Level 26.4 Anion Gap 7 Estimat Glomerular Filtration Rate 141 Total Creatine Kinase 349 Creatine Kinase MB 0.7 Creatine Kinase MB % 0.2 Phenytoin (Dilantin) Level 12.2 Valproic Acid (Depakene) Level 56 Phenobarbital Level 18.0 Date/Time Source Procedure Growth Status 08/10/17 04:13 Blood Peripheral Aerobic Blood Culture Pending Received 08/10/17 04:13 Blood Peripheral Anaerobic Blood Culture Pending Received 08/03/17 11:50 Cerebral Spinal Fluid Lumbar Puncture Fungal Smear - Final NO FUNGAL ELEMENTS SEEN. Resulted 08/03/17 11:50 Cerebral Spinal Fluid Lumbar Puncture Fungal Culture Pending Resulted 08/10/17 07:45 Sputum Endotracheal Gram Stain Pending Received 08/10/17 07:45 Sputum Endotracheal Sputum Culture Pending Received 08/10/17 06:13 Urine Catheterized Urine Urine Culture Pending Received Problem Qualifiers (1) Seizure disorder, complex partial: Duong Gomez MD Aug 10, 2017 08:36
[2017-08-10] MEDS: LACTULOSE SYRUP 20 GM/30 ML CUP PO SCH ×4 (08:41→16:23)
[2017-08-10] MEDS: DOCUSATE SODIUM 50 MG/SENNA 8.6 MG TAB PO SCH ×2 (08:44→19:26)
[2017-08-10] MEDS: FAMOTIDINE 20 MG/2 ML VIAL IV PUSH SCH ×2 (08:44→19:43)
[2017-08-10] MEDS: TOPIRAMATE 25 MG TAB OG-TUBE SCH ×2 (08:45→19:43)
[2017-08-10] MEDS: VALPROATE INJ 500 MG in SODIUM CHLORIDE 0.9% INJ 100 ML IV SCH ×2 (08:45→22:14)
[2017-08-10] MEDS: SODIUM CHLORIDE 0.9% FLUSH 10 ML FLUSH IV FLUSH SCH ×2 (08:45→19:43)
[2017-08-10] MEDS: FOSPHENYTOIN SODIUM 100 MG PE/2 ML VIAL IV SCH ×2 (08:45→19:42)
[2017-08-10] MEDS: ENOXAPARIN SODIUM 40 MG/0.4 ML SYRINGE SQ SCH (10:00)
--- NOTE | 2017-08-10 14:42 | HHI.IDPN ---
Subjective Subjective Remarks better more awake, eyes opned + fever low grade, but spiked to 103 earlier this am Flu test is negative sputum with MSSA CSF virology negative new blood, urine, sputum clx were obtained Antibiotics pingn joshua Allergies: Coded Allergies: oxycodone (Verified Adverse Reaction, Intermediate, Dizziness, 07/31/17) Objective . Vital Signs Date Time Temp Pulse Resp B/P (MAP) Pulse Ox O2 Delivery O2 Flow Rate FiO2 08/10/17 14:00 70 08/10/17 12:00 98.8 66 93/59 (70) 100 08/10/17 12:00 35 08/10/17 12:00 66 08/10/17 11:20 100 35 08/10/17 11:00 70 96/55 (69) 99 08/10/17 11:00 35 08/10/17 10:00 81 107/69 (82) 100 08/10/17 10:00 81 08/10/17 09:00 121 116/73 (87) 87 08/10/17 08:12 96 35 08/10/17 08:12 35 08/10/17 08:00 99.8 95 104/63 (77) 96 08/10/17 08:00 35 08/10/17 08:00 95 08/10/17 06:00 79 08/10/17 05:35 24 08/10/17 04:00 103.0 87 99/54 (69) 99 08/10/17 04:00 105 08/10/17 04:00 35 08/10/17 03:55 96 35 08/10/17 02:00 106 08/10/17 01:06 98 35 08/10/17 00:00 85 08/10/17 00:00 35 08/10/17 00:00 98.6 85 105/60 (75) 98 08/09/17 22:10 98 35 08/09/17 22:00 82 08/09/17 20:05 100 35 08/09/17 20:00 35 08/09/17 20:00 95 08/09/17 20:00 100.7 95 111/73 (86) 100 08/09/17 18:00 90 08/09/17 17:00 88 08/09/17 16:00 35 08/09/17 16:00 99.0 91 111/65 (80) 100 08/09/17 16:00 91 08/09/17 15:43 100 35 08/09/17 15:00 81 08/09/17 15:00 81 109/76 (87) 100 08/10/17 08/10/17 08/11/17 15:00 23:00 07:00 Intake Total 259 ml Output Total 0 ml Balance 259 ml Intake IV Total 259 ml Tube Feeding Residual Discard 0 ml . Laboratory Tests Test 08/09/17 10:10 White Blood Count 12.9 TH/MM3 Red Blood Count 3.83 MIL/MM3 Hemoglobin 11.3 GM/DL Hematocrit 34.1 % Mean Corpuscular Volume 89.1 FL Mean Corpuscular Hemoglobin 29.5 PG Mean Corpuscular Hemoglobin Concent 33.1 % Red Cell Distribution Width 13.6 % Platelet Count 265 TH/MM3 Mean Platelet Volume 9.3 FL Neutrophils (%) (Auto) 73.2 % Lymphocytes (%) (Auto) 11.2 % Monocytes (%) (Auto) 11.7 % Eosinophils (%) (Auto) 3.5 % Basophils (%) (Auto) 0.4 % Neutrophils # (Auto) 9.4 TH/MM3 Lymphocytes # (Auto) 1.4 TH/MM3 Monocytes # (Auto) 1.5 TH/MM3 Eosinophils # (Auto) 0.4 TH/MM3 Basophils # (Auto) 0.0 TH/MM3 CBC Comment AUTO DIFF Differential Total Cells Counted 100 Neutrophils % (Manual) 65 % Band Neutrophils % 6 % Lymphocytes % 11 % Monocytes % 4 % Eosinophils % 4 % Basophils % 3 % Neutrophils # (Manual) 10.1 TH/MM3 Metamyelocytes 2 % Myelocytes 5 % Differential Comment FINAL DIFF MANUAL Platelet Estimate NORMAL Platelet Morphology Comment NORMAL Red Cell Morphology Comment NORMAL Laboratory Tests Test 08/09/17 10:10 Blood Urea Nitrogen 14 MG/DL Creatinine 0.55 MG/DL Random Glucose 102 MG/DL Total Protein 7.2 GM/DL Albumin 2.5 GM/DL Calcium Level 8.8 MG/DL Magnesium Level 2.2 MG/DL Alkaline Phosphatase 69 U/L Aspartate Amino Transf (AST/SGOT) 45 U/L Alanine Aminotransferase (ALT/SGPT) 72 U/L Total Bilirubin 0.3 MG/DL Sodium Level 137 MEQ/L Potassium Level 3.8 MEQ/L Chloride Level 104 MEQ/L Carbon Dioxide Level 26.4 MEQ/L Anion Gap 7 MEQ/L Estimat Glomerular Filtration Rate 141 ML/MIN Total Creatine Kinase 349 U/L Creatine Kinase MB 0.7 NG/ML Creatine Kinase MB % 0.2 % Microbiology Date/Time Source Procedure Growth Status 08/10/17 04:13 Blood Peripheral Aerobic Blood Culture Pending Received 08/10/17 04:13 Blood Peripheral Anaerobic Blood Culture Pending Received 08/10/17 04:05 Blood Peripheral Aerobic Blood Culture Pending Received 08/10/17 04:05 Blood Peripheral Anaerobic Blood Culture Pending Received 08/10/17 07:45 Sputum Endotracheal Gram Stain Pending Received 08/10/17 07:45 Sputum Endotracheal Sputum Culture Pending Received 08/07/17 19:15 Nasal Washing Influenza Types A,B Antigen (ARTHUR) - Final NEGATIVE FOR FLU A AND B ANTIGEN.... Complete 08/10/17 06:13 Urine Catheterized Urine Urine Culture Pending Received Imaging Last Impressions Chest X-Ray 08/09/17 0000 Signed Impressions: Service Date/Time: July 09:11 - CONCLUSION: 1. Interval removal of nasogastric tube. 2. Consolidation remains in the left lung base. Orion Gaitan MD Chest CT 08/06/17 0600 Signed Impressions: Service Date/Time: Sunday, August 06, 2017 09:35 - CONCLUSION: 1. Bilateral basilar consolidation more pronounced on the left. Infectious etiology most likely. 2. Tiny bilateral pleural effusions. 3. No perceivable lesion involving T1 on this standard protocol CT of the thorax. Misael Batres Jr., MD Abdomen/Pelvis CT 08/06/17 0600 Signed Impressions: Service Date/Time: Sunday, August 06, 2017 09:31 - CONCLUSION: Bibasilar consolidative changes worse on the left. No other significant is appreciated. I do not see evidence of metastatic disease. Kev Santana MD FACR Thoracic Spine MRI 08/04/17 0000 Signed Impressions: Service Date/Time: Friday, August 04, 2017 16:14 - CONCLUSION: 1. Focal signal abnormality in the right T1 vertebral body demonstrating uniform contrast-enhancement. Consider performing thin section CT to evaluate integrity or abnormalities within the trabecular pattern and cortex. 2. Multifocal areas of enhancement in the posterior right lung. Recommend further characterization with CT thorax. Misael Samuels MD Lumbar Spine MRI 08/04/17 0000 Signed Impressions: Service Date/Time: Friday, August 04, 2017 16:14 - CONCLUSION: Normal MRI of the lumbar spine with and without contrast. Misael Samuels MD Cervical Spine MRI 08/04/17 0000 Signed Impressions: Service Date/Time: Friday, August 04, 2017 16:14 - CONCLUSION: 1. Round enhancing lesion in the superior right T1 vertebral body. 2. Nondiagnostic evaluation from C1-C4 due to metallic field distortion artifact (braces). Misael Samuels MD Brain MRI 08/04/17 0000 Signed Impressions: Service Date/Time: Friday, August 04, 2017 16:14 - CONCLUSION: 1. No abnormal areas of enhancement or cerebral edema seen. 2. Field distortion artifact from patient's braces limits evaluation of inferior frontal lobes and precludes obtaining diffusion weighted images. Misael Samuels MD Lumbar Puncture Fluoroscopy 08/03/17 0000 Signed Impressions: Service Date/Time: Thursday, August 03, 2017 12:44 - CONCLUSION: Uncomplicated fluoroscopically guided lumbar puncture. Misael Batres Jr., MD Neck CTA 08/01/17 0000 Signed Impressions: Service Date/Time: Tuesday, August 01, 2017 10:03 - CONCLUSION: 1. No evidence of carotid stenosis 2. 3. 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 No acute findings or aneurysm identified. 2. 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 Sedated heavily sedated Sedated int'd on [facility] TUBES/LINES/DRAINS: SKIN: No jaundice, rashes, or lesions. Skin temperature appropriate. Not diaphoretic. EYES: Pupils are small equal and round and reactive. Extraocular motions intact. No scleral icterus. No injection or drainage. Fundi not examined. ENT: Hearing note tested Nose without bleeding or purulent drainage. Visualised mucosae without visible erythema, exudates, masses, or lesions. Orally intubated CARDIOVASCULAR: Regular rate and rhythm without murmurs, gallops, or rubs. No JVD. Peripheral pulses symmetric. RESPIRATORY/CHEST: Symmetric, unlabored respirations. Clear to auscultation. Breath sounds equal bilaterally. No wheezes, rales, or rhonchi. GASTROINTESTINAL: Abdomen soft, non-tender, nondistended. No hepato-splenomegaly , or palpable masses. No guarding. Bowel sounds present. GENITOURINARY: bladder with no palpable distension. fay in w clear yellow urine MUSCULOSKELETAL: Extremities without clubbing, cyanosis, or edema. 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
--- NOTE | 2017-08-10 17:40 | HHI.CCPN ---
Subjective Remarks/Hospital Course The patient is a 22-year-old female who attends [facility] [place] and presented to [facility] ED with her parents noted to have altered mental status. According to the records, the patient was under a lot of stress and she had a recent breakup with her boyfriend one month ago. The patient was admitted under Dr. Ventura's service. She had an EEG done which showed seizure activity. The patient was subsequently placed on Depakote, Vimpat, and Ativan. In addition, she received a loading dose of Cerebyx yesterday. Despite being on multiple antiseizure meds, continuous EEG showed a seizure pattern. After discussion with Dr. Gomez from neurology, he recommended to intubate the patient and place her on Versed drip to control her seizures. After discussion with the patient's father, the patient was intubated and placed on full mechanical ventilation. She had an MRI of the brain the night of July 31 which showed no acute findings. A CTA of the head and neck were unremarkable as well. Urine drug screen was negative for opiates, amphetamines, benzodiazepines. There is no evidence of any fever or leukocytosis. 08/03 No events overnight. Sedated with Versed, Diprivan and intubated. Afebrile. 08/04 No events overnight. Sedated with Diprivan and Versed. s/p LP yesterday showed clear CSF, elevated protein 56, WBC: 57 (Lymphocytic predominant). For repeat MRI brain today. Spoked fever with T: 101.4 at 4am. 08/05 No events overnight. On Continuous EEG monitoring. Afebrile. Sedated with Versed and Diprivan. 08/06 No events overnight. Versed is down 3mg/hr, off Diprivan. For CT thorax/ abd today. T:101.5 08/07 No events overnight. On Versed drip 4mg/hr, T:101.8 at midnight. 08/08: At 8 pm yesterday had 101.7 fever , now afebrile. Eyes are open, weakly followed commands bilaterally, moved feet to command for RN and her father. CXR pending. Ortiz secretions from ETT. CT chest, Bibasilar infiltrates L>R 08/09: Patient had one episode of tonic-clonic seizure in the afternoon. Placed back on sedation. Topamax added. Dr. Gomez has ordered West Nile, paraneoplastic panel. Updated parents at bedside Subjective 08/10: Overnight fever noted. No new seizures. Attempted breathing trial with minimal cuff leak. We'll start on dexamethasone 4 mg for 4 dosages. Family updated at bedside. Last BM. Objective Vital Signs Date Time Temp Pulse Resp B/P (MAP) Pulse Ox O2 Delivery O2 Flow Rate FiO2 08/10/17 16:47 99 35 08/10/17 16:00 98.7 68 95/58 (70) 08/10/17 05:35 24 Intake and Output 08/10/17 08/10/17 08/11/17 08:00 16:00 00:00 Intake Total 348 ml 360 ml Output Total 1850.0 ml 0 ml Balance -1502.0 ml 360 ml Result Diagram: 08/09/17 1010 08/09/17 1010 Other Results Microbiology Date/Time Source Procedure Growth Status 08/10/17 04:13 Blood Peripheral Aerobic Blood Culture Pending Received 08/10/17 04:13 Blood Peripheral Anaerobic Blood Culture Pending Received 08/03/17 11:50 Cerebral Spinal Fluid Lumbar Puncture Fungal Smear - Final NO FUNGAL ELEMENTS SEEN. Resulted 08/03/17 11:50 Cerebral Spinal Fluid Lumbar Puncture Fungal Culture Pending Resulted 08/10/17 07:45 Sputum Endotracheal Gram Stain - Final Resulted 08/10/17 07:45 Sputum Endotracheal Sputum Culture Pending Resulted 08/10/17 06:13 Urine Catheterized Urine Urine Culture Pending Received Imaging Last Impressions Chest X-Ray 08/09/17 0000 Signed Impressions: Service Date/Time: July 09:11 - CONCLUSION: 1. Interval removal of nasogastric tube. 2. Consolidation remains in the left lung base. Orion Gaitan MD Chest CT 08/06/17 06 Signed Impressions: Service Date/Time: Sunday, August 06, 2017 09:35 - CONCLUSION: 1. Bilateral basilar consolidation more pronounced on the left. Infectious etiology most likely. 2. Tiny bilateral pleural effusions. 3. No perceivable lesion involving T1 on this standard protocol CT of the thorax. Misael Batres Jr., MD Abdomen/Pelvis CT 08/06/17 06 Signed Impressions: Service Date/Time: Sunday, August 06, 2017 09:31 - CONCLUSION: Bibasilar consolidative changes worse on the left. No other significant is appreciated. I do not see evidence of metastatic disease. Kev Santana MD FACR Thoracic Spine MRI 08/04/17 Signed Impressions: Service Date/Time: Friday, August 04, 2017 16:14 - CONCLUSION: 1. Focal signal abnormality in the right T1 vertebral body demonstrating uniform contrast-enhancement. Consider performing thin section CT to evaluate integrity or abnormalities within the trabecular pattern and cortex. 2. Multifocal areas of enhancement in the posterior right lung. Recommend further characterization with CT thorax. Misael Samuels MD Lumbar Spine MRI 08/04/17 Signed Impressions: Service Date/Time: Friday, August 04, 2017 16:14 - CONCLUSION: Normal MRI of the lumbar spine with and without contrast. Misael Samuels MD Cervical Spine MRI 08/04/17 Signed Impressions: Service Date/Time: Friday, August 04, 2017 16:14 - CONCLUSION: 1. Round enhancing lesion in the superior right T1 vertebral body. 2. Nondiagnostic evaluation from C1-C4 due to metallic field distortion artifact (braces). Misael Samuels MD Brain MRI 08/04/17 Signed Impressions: Service Date/Time: Friday, August 04, 2017 16:14 - CONCLUSION: 1. No abnormal areas of enhancement or cerebral edema seen. 2. Field distortion artifact from patient's braces limits evaluation of inferior frontal lobes and precludes obtaining diffusion weighted images. Misael Samuels MD Lumbar Puncture Fluoroscopy 08/03/17 0000 Signed Impressions: Service Date/Time: Thursday, August 03, 2017 12:44 - CONCLUSION: Uncomplicated fluoroscopically guided lumbar puncture. Misael Batres Jr., MD Neck CTA 08/01/17 0000 Signed Impressions: Service Date/Time: Tuesday, August 01, 2017 10:03 - CONCLUSION: 1. No evidence of carotid stenosis 2. 3. 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 No acute findings or aneurysm identified. 2. 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 HEAD: Normocephalic. Multiple EEG in place EYES: No scleral icterus. No injection or drainage. NECK: Supple, trachea midline. No JVD or lymphadenopathy. CARDIOVASCULAR: Regular rate and rhythm without murmurs, gallops, or rubs. RESPIRATORY: Breath sounds equal bilaterally, diminished at bases. No accessory muscle use. GASTROINTESTINAL: Abdomen soft, non-tender, nondistended. MUSCULOSKELETAL: No significant peripheral edema. Neuro: On exit that eating drip at 0.9 mcg/kg per minute. MARCIA. 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 On valproic acid 500 mg IV twice a day ,), fosphenytoin 150 mg IV q12, 2. Topiramate 75 mg twice a day, phenobarbital 30mg Q6 and Ativan 1 mg IV q2 PRN Continue with fexofenadine drip at 0.9 mics grams per kilogram per minute Monitor neuro status. Neuro Dr. Gomez. A neuro workup which includes MRI of the brain, CTA of the head and neck are unremarkable. 08/05 EEG: Diffuse encephalopathy, 08/09 No seizure EEG: : diffuse encephalopathy. Occasional sharp activity is identified over the left hemisphere suggesting an ictal focus in that area Repeat MRI brain 08/04 : No acute findings MRI spine: Round enhancing lesion T1 vertebral body. ? significance s/p LP 08/03: Clear CSF, elevated protein 56, WBC 57 ( Lymphocytic predominant ), glc 62 Most likely viral encephalitis. West Nile and paraneoplastic panel pending at this time Pulm: Acute respiratory failure Continue with vent support. and maintain sats above 92%. As needed albuterol every 2 hours. Dyspnea Continues breathing trial CT thorax: Bibasilar consolidation L>R CV: Monitor HR and BP and maintain MAP>65 mmHg. Echo small pericardial effusion ( Family hx ? VSD) : Monitor renal function I's and O's, and electrolyte replacement per protocol. GI: Famotidine for GI prophylaxis Tube feeds with Glucerna 1.5 @f [address] abd/pelvis: no acute findings Bowel regimen Docusate and senna ID: Febrile Illness MSSA Pneumonia Continue with abx per ID -cefazolin:. Fever downtrending Prev ABX DCd -(ceftriaxone, Acyclovir, Ampicillin vancomycin, piperacillin/ tazobactam and micafungin) Monitor for signs of infections( fever and WBC). HSV DNA PCR negative. 08/03 08/07 Sputum: Staph Aureus. Remainder cultures no growth Strep pneumonia, Legionella urinary Ag negative Endo: SSI with Accu-Chek q.6 h to maintain euglycemia. Heme: Monitor CBC. GI prophylaxis with famotidine 20 mg twice a day and DVT prophylaxis with SCD' s. Continue enoxaparin 40 mg sq daily Level 3 Drake Alexis MD Aug 10, 2017 17:39
[2017-08-10] MEDS ORDERED: DEXTROSE 50% IN WATER 50 ML VIAL(D50) IV PUSH PRN (17:45)
[2017-08-10] MEDS ORDERED: GLUCAGON 1 MG/ML VIAL OTHER PRN (17:45)
[2017-08-10 17:51] LABS: HU (NEURONAL NUCLEAR) WESTBLOT ND (NEGATIVE); NEURONAL NUCLEAR(Ri) AB SCREEN NEGATIVE (NEGATIVE); PURKINJE CELL (YO) AB NEGATIVE (NEGATIVE); PURKINJE CELL(YO)IGG AB TITER ND titer (<1:40); YO WESTBLOT ND (NEGATIVE)
[2017-08-10] MEDS: INSULIN NovoLIN REGULAR SUPPLEMENTAL SCALE SQ SCH (18:00)
[2017-08-10] MEDS: DEXAMETHASONE SOD PHOS 4 MG/ML VIAL IV PUSH SCH ×2 (18:26→23:55)
[2017-08-10] MEDS: ARTIFICIAL TEARS OPTH SOLN 15 ML BTL EACH EYE SCH (22:00)
[2017-08-10] MEDS: MIDAZOLAM HCL 2 MG/2 ML VIAL IV PUSH PRN (22:28)
[2017-08-11] VITALS (16 sets, daily range): BP systolic 104–141; BP diastolic 55–84; PULSE 70–131; RESP 27; TEMP 97.9–101; O2SAT 92–99
[2017-08-11] MEDS: ACETAMINOPHEN 325 MG TAB PO PRN (00:04)
[2017-08-11] MEDS: DEXMEDETOMIDINE INJ 200 MCG in SODIUM CHLORIDE 0.9% INJ 50 ML IV PRN ×4 (00:59→07:52)
[2017-08-11] MEDS: MIDAZOLAM HCL 2 MG/2 ML VIAL IV PUSH PRN ×2 (03:31→07:31)
[2017-08-11 04:19] LABS: C. DIFF EPI 027 PRESUMPTIVE NEGATIVE (NEGATIVE)
[2017-08-11 04:26] LABS: AUTOMATED NEUTROPHIL # 12.3 TH/MM3 (1.8-7.7); BASOPHIL # 0.1 TH/MM3 (0-0.2); BASOPHIL % 0.4 % (0.0-2.0); EOSINOPHIL # 0.1 TH/MM3 (0-0.4); EOSINOPHIL % 0.7 % (0.0-4.0); HEMATOCRIT 31.5 % (35.0-46.0); LYMPH % 8.5 % (9.0-44.0); LYMPHOCYTE # 1.3 TH/MM3 (1.0-4.8); MEAN CELL VOLUME 87.2 FL (80.0-100.0); MEAN CORPUSCULAR HEMOGLOBIN 29.6 PG (27.0-34.0); MONO % 10.3 % (0.0-8.0); NEUT % 80.1 % (16.0-70.0); PLATELET COUNT 319 TH/MM3 (150-450); RED BLOOD COUNT 3.61 MIL/MM3 (4.00-5.30); WHITE BLOOD COUNT 15.3 TH/MM3 (4.0-11.0)
[2017-08-11 04:31] LABS: HEMO FLAGS AUTO DIFF
[2017-08-11 04:51] LABS: ANION GAP 8 MEQ/L (5-15); AST (GOT) 35 U/L (16-38); BICARBONATE 26.2 MEQ/L (21.0-32.0); BLOOD UREA NITROGEN 13 MG/DL (7-18); CHLORIDE 102 MEQ/L (98-107); GLOMERULAR FILTRATION RATE 130 ML/MIN (>89); MAGNESIUM 2.2 MG/DL (1.5-2.5); POTASSIUM 4.2 MEQ/L (3.5-5.1); SODIUM (NA) 136 MEQ/L (136-145)
[2017-08-11 04:55] LABS: ALKALINE PHOSPHATASE 69 U/L (45-117); ALT (GPT) 51 U/L (9-42); BETA HCG QUANT LESS THAN 1 MIU/ML (0-5); PHENOBARBITAL 17.7 MCG/ML (15.0-40.0); TOTAL BILIRUBIN ADULT 0.2 MG/DL (0.2-1.0)
[2017-08-11] MEDS ORDERED: PHARMACY ORDERED LAB ONE (05:45)
[2017-08-11] MEDS: ceFAZolin 2 GM PREMIX 50 ML IV SCH ×3 (05:48→22:33)
[2017-08-11] MEDS: ARTIFICIAL TEARS OPTH SOLN 15 ML BTL EACH EYE SCH (05:48)
[2017-08-11] MEDS: DEXAMETHASONE SOD PHOS 4 MG/ML VIAL IV PUSH SCH ×2 (05:49→10:58)
[2017-08-11] MEDS: INSULIN NovoLIN REGULAR SUPPLEMENTAL SCALE SQ SCH ×4 (06:00→17:24)
--- NOTE | 2017-08-11 06:33 | RADRPT ---
EXAM DATE/TIME: 08/11/2017 03:47 [place] COMPARISON: CHEST SINGLE AP, August 09, 2017, 9:11. INDICATIONS : Shortness of breath, possible pulmonary disease. MEDICAL HISTORY : Seizures SURGICAL HISTORY : None. ENCOUNTER: Subsequent ACUITY: 4 - 6 days PAIN SCORE: Non-responsive. LOCATION: Bilateral chest FINDINGS: Portable AP view of the chest demonstrates a normal-sized cardiac silhouette. ETT remains present wit h distal tip at the aortic knob level. Multiple lines overlie the patient. No effusion, consolidation , or pneumothorax is identified. Bones and soft tissues demonstrate no acute finding. CONCLUSION: No acute cardiopulmonary abnormality is identified. Devin Boggs MD on August 11, 2017 at 6:30 Board Certified Radiologist. This report was verified electronically.
[2017-08-11 08:11] LABS: BANDS 30 % (0-6); METAMYELOCYTES 2 % (0-1); MYELOCYTES 2 % (0-0); NEUTROPHIL # MANUAL DIFF 13.5 TH/MM3 (1.8-7.7); PLASMA CELLS 1 % (0-0); PLATELET ESTIMATE SMEAR NORMAL (NORMAL); PLATELET MORPHOLOGY NORMAL (NORMAL); POLYS (SEG NEUTROPHILS) 54 % (16-70); SCAN/DIFF FINAL DIFF MANUAL; WBC DIFF SAMPLE 100
[2017-08-11] MEDS ORDERED: RESP: RACEPINEPHRINE 2.25% 0.5 ML NEB ONE (08:59)
[2017-08-11] MEDS: TOPIRAMATE 25 MG TAB OG-TUBE SCH ×2 (09:00→21:00)
[2017-08-11] MEDS: DOCUSATE SODIUM 50 MG/SENNA 8.6 MG TAB PO SCH ×2 (09:00→19:48)
--- NOTE | 2017-08-11 10:06 | HHI.CCPN ---
Subjective Remarks/Hospital Course The patient is a 22-year-old female [place] [facility] [place] and [place] [facility] ED with her parents noted to have altered mental status. According to the records, the patient was under a lot of stress and she had a recent breakup with her boyfriend one month ago. The patient was admitted under Dr. Ventura's service. She had an EEG done which showed seizure activity. The patient was subsequently placed on Depakote, Vimpat, and Ativan. In addition, she received a loading dose of Cerebyx yesterday. Despite being on multiple antiseizure meds, continuous EEG showed a seizure pattern. After discussion with Dr. Gomez from neurology, he recommended to intubate the patient and place her on Versed drip to control her seizures. After discussion with the patient's father, the patient was intubated and placed on full mechanical ventilation. She had an MRI of the brain the night of July 31 which showed no acute findings. A CTA of the head and neck were unremarkable as well. Urine drug screen was negative for opiates, amphetamines, benzodiazepines. There is no evidence of any fever or leukocytosis. 08/03 No events overnight. Sedated with Versed, Diprivan and intubated. Afebrile. 08/04 No events overnight. Sedated with Diprivan and Versed. s/p LP yesterday showed clear CSF, elevated protein 56, WBC: 57 (Lymphocytic predominant). For repeat MRI brain today. Spoked fever with T: 101.4 at 4am. 08/05 No events overnight. On Continuous EEG monitoring. Afebrile. Sedated with Versed and Diprivan. 08/06 No events overnight. Versed is down 3mg/hr, off Diprivan. For CT thorax/ abd today. T:101.5 08/07 No events overnight. On Versed drip 4mg/hr, T:101.8 at midnight. 08/08: At 8 pm yesterday had 101.7 fever , now afebrile. Eyes are open, weakly followed commands bilaterally, moved feet to command for RN and her father. CXR pending. Ortiz secretions from ETT. CT chest, Bibasilar infiltrates L>R 08/09: Patient had one episode of tonic-clonic seizure in the afternoon. Placed back on sedation. Topamax added. Dr. Gomez has ordered West Nile, paraneoplastic panel. Updated parents at bedside 08/10: Overnight fever noted. No new seizures. Attempted breathing trial with minimal cuff leak. We'll start on dexamethasone 4 mg for 4 dosages. Family updated at bedside. Last BM today Subjective 12: Overnight. Temp max 101. Currently afebrile. Extubated today without complication. Discontinued dexmedetomidine drip. Positive bowel movement 3 Objective Vital Signs Date Time Temp Pulse Resp B/P (MAP) Pulse Ox O2 Delivery O2 Flow Rate FiO2 08/11/17 08:14 95 35 08/11/17 08:00 98.4 88 104/55 (71) 08/11/17 04:00 27 Intake and Output 08/11/17 08/11/17 08/12/17 08:00 16:00 00:00 Intake Total 777 ml Output Total 1350 ml Balance -573 ml Result Diagram: 08/11/17 0415 08/11/17 0415 Other Results Microbiology Date/Time Source Procedure Growth Status 08/10/17 04:13 Blood Peripheral Aerobic Blood Culture Pending Received 08/10/17 04:13 Blood Peripheral Anaerobic Blood Culture Pending Received 08/03/17 11:50 Cerebral Spinal Fluid Lumbar Puncture Fungal Smear - Final NO FUNGAL ELEMENTS SEEN. Resulted 08/03/17 11:50 Cerebral Spinal Fluid Lumbar Puncture Fungal Culture Pending Resulted 08/10/17 07:45 Sputum Endotracheal Gram Stain - Final Resulted 08/10/17 07:45 Sputum Endotracheal Sputum Culture Pending Resulted 08/10/17 06:13 Urine Catheterized Urine Urine Culture Pending Received Imaging Last Impressions Chest X-Ray [id number]/[id number] Signed Impressions: Service Date/Time: Friday, August 11, 2017 03:47 - CONCLUSION: No acute cardiopulmonary abnormality is identified. Devin Boggs MD Chest CT [id number]/[id number] Signed Impressions: Service Date/Time: Sunday, August 06, 2017 09:35 - CONCLUSION: 1. Bilateral basilar consolidation more pronounced on the left. Infectious etiology most likely. 2. Tiny bilateral pleural effusions. 3. No perceivable lesion involving T1 on this standard protocol CT of the thorax. Misael Batres Jr., MD Abdomen/Pelvis CT [id number] Signed Impressions: Service Date/Time: Sunday, August 06, 2017 09:31 - CONCLUSION: Bibasilar consolidative changes worse on the left. No other significant is appreciated. I do not see evidence of metastatic disease. Kev Santana MD FACR Thoracic Spine MRI 08/04/17 Signed Impressions: Service Date/Time: Friday, August 04, 2017 16:14 - CONCLUSION: 1. Focal signal abnormality in the right T1 vertebral body demonstrating uniform contrast-enhancement. Consider performing thin section CT to evaluate integrity or abnormalities within the trabecular pattern and cortex. 2. Multifocal areas of enhancement in the posterior right lung. Recommend further characterization with CT thorax. Misael Samuels MD Lumbar Spine MRI 08/04/17 Signed Impressions: Service Date/Time: Friday, August 04, 2017 16:14 - CONCLUSION: Normal MRI of the lumbar spine with and without contrast. Misael Samuels MD Cervical Spine MRI 08/04/17 Signed Impressions: Service Date/Time: Friday, August 04, 2017 16:14 - CONCLUSION: 1. Round enhancing lesion in the superior right T1 vertebral body. 2. Nondiagnostic evaluation from C1-C4 due to metallic field distortion artifact (braces). Misael Samuels MD Brain MRI 08/04/17 Signed Impressions: Service Date/Time: Friday, August 04, 2017 16:14 - CONCLUSION: 1. No abnormal areas of enhancement or cerebral edema seen. 2. Field distortion artifact from patient's braces limits evaluation of inferior frontal lobes and precludes obtaining diffusion weighted images. Misael Samuels MD Lumbar Puncture Fluoroscopy 08/03/17 Signed Impressions: Service Date/Time: Thursday, August 03, 2017 12:44 - CONCLUSION: Uncomplicated fluoroscopically guided lumbar puncture. Misael Batres Jr., MD Neck CTA 08/01/17 0000 Signed Impressions: Service Date/Time: Tuesday, August 01, 2017 10:03 - CONCLUSION: 1. No evidence of carotid stenosis 2. 3. 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 No acute findings or aneurysm identified. 2. 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 HEAD: Normocephalic. Multiple EEG probes in place EYES: No scleral icterus. No injection or drainage. NECK: Supple, trachea midline. No JVD or lymphadenopathy. CARDIOVASCULAR: Regular rate and rhythm without murmurs, gallops, or rubs. RESPIRATORY: Breath sounds equal bilaterally, diminished at bases. No accessory muscle use. GASTROINTESTINAL: Abdomen soft, non-tender, nondistended. MUSCULOSKELETAL: No significant peripheral edema. Neuro: Cranial nerves II through XII grossly intact. Moving all 4 extremity spontaneously. Intermittently following commands. 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 On valproic acid 500 mg IV twice a day ,), fosphenytoin 150 mg IV q12, 2. Topiramate 75 mg twice a day, phenobarbital 30mg Q6 and Ativan 1 mg IV q2 PRN follow up on levels daily. The 20 currently 7.6. Will bolus fosphenytoin 500 mg 1 now. Monitor neuro status. Neuro Dr. Gomez. A neuro workup which includes MRI of the brain, CTA of the head and neck are unremarkable. 08/05 EEG: Diffuse encephalopathy, 08/09 No seizure EEG: : diffuse encephalopathy. Occasional sharp activity is identified over the left hemisphere suggesting an ictal focus in that area Repeat MRI brain 08/04 : No acute findings MRI spine: Round enhancing lesion T1 vertebral body. ? significance s/p LP 08/03: Clear CSF, elevated protein 56, WBC 57 ( Lymphocytic predominant ), glc 62 Most likely viral encephalitis. West Nile and paraneoplastic panel to follow Pulm: Acute respiratory failure Nasal cannula to maintain saturations greater than or equal to 92%. As needed albuterol every 2 hours. Dyspnea Incentive spirometry while awake CT thorax: Bibasilar consolidation L>R CV: Monitor HR and BP and maintain MAP>65 mmHg. Echo small pericardial effusion ( Family hx ? VSD) : Monitor renal function I's and O's, and electrolyte replacement per protocol. GI: Elevated ALT Famotidine for GI prophylaxis Speech to evaluate advanced diet CT abd/pelvis: no acute findings Bowel regimen Docusate and senna ID: Febrile Illness MSSA Pneumonia Continue with abx per ID -cefazolin:. Fever downtrending Prev ABX DCd -(ceftriaxone, Acyclovir, Ampicillin vancomycin, piperacillin/ tazobactam and micafungin) Monitor for signs of infections( fever and WBC). HSV DNA PCR negative. 08/03 08/07 Sputum: Staph Aureus. Remainder cultures no growth Strep pneumonia, Legionella urinary Ag negative Endo: SSI with Accu-Chek q.6 h to maintain euglycemia. Heme: Leukocytosis Normocytic anemia Monitor CBC. Follow trends GI prophylaxis with famotidine 20 mg twice a day and DVT prophylaxis with SCD' s. Continue enoxaparin 40 mg sq daily Level 2 Drake Alexis MD Aug 11, 2017 10:06
[2017-08-11] MEDS ORDERED: SODIUM CHLOR 0.9% 1000 ML INJ 1,000 ML IV SCH (10:15)
[2017-08-11] MEDS ORDERED: FOSPHENYTOIN SODIUM 500 MG PE/10 ML VIAL IV ONE (10:15)
[2017-08-11] MEDS ORDERED: RESP: RACEPINEPHRINE 2.25% 0.5 ML NEB NEB PRN (10:15)
[2017-08-11] MEDS: ENOXAPARIN SODIUM 40 MG/0.4 ML SYRINGE SQ SCH (10:57)
[2017-08-11] MEDS: FAMOTIDINE 20 MG/2 ML VIAL IV PUSH SCH ×2 (10:58→19:40)
[2017-08-11] MEDS: SODIUM CHLORIDE 0.9% FLUSH 10 ML FLUSH IV FLUSH SCH ×2 (10:59→19:40)
[2017-08-11] MEDS: VALPROATE INJ 500 MG in SODIUM CHLORIDE 0.9% INJ 100 ML IV SCH ×2 (11:00→19:39)
[2017-08-11] MEDS ORDERED: DEXMEDETOMIDINE INJ 200 MCG in SODIUM CHLORIDE 0.9% INJ 50 ML IV PRN (11:30)
[2017-08-11] MEDS: FOSPHENYTOIN SODIUM 100 MG PE/2 ML VIAL IV SCH (11:31)
--- NOTE | 2017-08-11 12:36 | HHI.PR ---
Review/Management Diagnosis/Plan: (1) Seizure disorder, complex partial ICD Codes: G40.209 - Localization-related (focal) (partial) symptomatic epilepsy and epileptic syndromes with complex partial seizures, not intractable , without status epilepticus Status: Acute Plan: intractable left temporal lobe seizures etiology; ? 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 Pleocytosis from SZ possible as well but would not expect it to be this pronounced and predominately lymphocytic cx ngtd; hsv pcr negative on 4 sz meds; levels in range recs alert but encephalopathic- likely 2/2 med effect increase iv cerebryx 200mg q12hrs add vimpat until tolerating po and then will restart topamax tube feeds per ccm eeg- no sz; continue monitoring check [place], paraneoplastic panel-pending d/w pt's mother/ccm Subjective Subjective Comments No acute events reported no reported sz Active Medications Current Medications Medications (Trade) Dose Ordered Sig/Nigel Route Start Time Stop Time Status Last Admin (NS Flush) 2 ml UNSCH PRN IV FLUSH 07/31/17 17:30 08/09/17 09:10 (NS Flush) 2 ml BID IV FLUSH 07/31/17 21:00 08/11/17 10:59 (Tylenol) 650 mg Q4H PRN PO 07/31/17 17:30 08/11/17 00:04 (Zofran Inj) 4 mg Q6H PRN IVP 07/31/17 17:30 08/06/17 16:04 (Narcan Inj) 0.4 mg UNSCH PRN IV PUSH 07/31/17 17:30 (Milk Of Magnesia Liq) 30 ml Q12H PRN PO 07/31/17 17:30 08/05/17 17:09 (Tylenol) 650 mg Q6H PRN PO 07/31/17 20:45 08/01/17 20:40 (Ativan Inj) 1 mg Q2H PRN IV PUSH 08/01/17 21:30 08/06/17 21:54 Potassium Chloride 100 ml @ 50 mls/hr Q2H PRN IV 08/02/17 09:00 Potassium Chloride 100 ml @ 50 mls/hr Q2H PRN IV 08/02/17 09:00 (K-Lyte Cl Eff) 50 meq UNSCH PRN PO 08/02/17 09:00 08/08/17 09:10 Potassium Chloride 100 ml @ 25 mls/hr UNSCH PRN IV 08/02/17 09:00 Potassium Chloride 100 ml @ 50 mls/hr Q2H PRN IV 08/02/17 09:00 Magnesium Sulfate 4 gm/Sodium Chloride 100 ml @ 50 mls/hr UNSCH PRN IV 08/02/17 09:00 (Mag-Ox) 800 mg UNSCH PRN PO 08/02/17 09:00 Magnesium Sulfate 2 gm/Sodium Chloride 100 ml @ 50 mls/hr UNSCH PRN IV 08/02/17 09:00 (K-Phos) 2,000 mg Q4H PRN PO 08/02/17 09:00 Sodium Phosphate 30 mmol/Sodium Chloride 250 ml @ 42 mls/hr UNSCH PRN IV 08/02/17 09:00 (K-Phos) 2,000 mg UNSCH PRN PO/TUBE 08/02/17 09:00 Potassium Phosphate 30 mmol/ Sodium Chloride 260 ml @ 42 mls/hr UNSCH PRN IV 08/02/17 09:00 (Luminal Inj) 30 mg Q6H IV 08/05/17 16:00 08/11/17 10:58 Valproate Sodium 500 mg/Sodium Chloride 105 ml @ 105 mls/hr BID IV 08/06/17 09:00 08/11/17 11:00 (Cerebyx Inj) 150 mgpe Q12HR IV 08/07/17 09:00 08/11/17 11:31 (Lazara-Colace) 1 tab BID PO 08/08/17 09:00 08/10/17 08:44 Midazolam HCl 100 ml @ 2 mls/hr TITRATE PRN IV 08/08/17 15:45 08/08/17 16:08 (Lovenox Inj) 40 mg Q24H SQ 08/09/17 11:00 08/11/17 10:57 Cefazolin Sodium/ Dextrose 50 ml @ 150 mls/hr Q8H IV 08/09/17 15:00 08/11/17 05:48 (Topamax) 75 mg BID OG-TUBE 08/10/17 09:00 08/10/17 19:43 (Pepcid Inj) 20 mg Q12HR IV PUSH 12/1/17 21:00 08/11/17 10:58 (D50w (Vial) Inj) 50 ml UNSCH PRN IV PUSH 08/10/17 17:45 (Glucagon Inj) 1 mg UNSCH PRN OTHER 08/10/17 17:45 (NovoLIN R SUPPLEMENTAL SCALE) 1 Q6HR SQ 08/10/17 18:00 (Racepinephrine 2.25% Neb) 0.5 ml Q3HR NEB PRN NEB 08/11/17 10:15 Sodium Chloride 1,000 ml @ 42 mls/hr [id number] IV 08/11/17 10:15 08/12/17 10:03 08/11/17 12:21 Dexmedetomidine HCl 200 mcg/ Sodium Chloride 52 ml @ 2.74 mls/hr TITRATE PRN IV 08/11/17 11:30 Allergies Allergies Coded Allergies oxycodone (Verified Adverse Reaction, Intermediate, Dizziness, 07/31/17) Review of Systems All other ROS: Unable to obtain Exam I&O / VS Vital Signs Date Time Temp Pulse Resp B/P (MAP) Pulse Ox O2 Delivery O2 Flow Rate FiO2 08/11/17 08:14 95 35 08/11/17 08:00 98.4 88 104/55 (71) 92 08/11/17 08:00 35 08/11/17 06:00 70 08/11/17 04:08 96 35 08/11/17 04:00 35 08/11/17 04:00 75 08/11/17 04:00 101.0 75 27 106/58 (74) 93 08/11/17 02:00 76 08/11/17 01:06 98 35 08/11/17 01:04 15 08/11/17 00:00 98.7 94 108/56 (73) 97 08/11/17 00:00 35 08/10/17 22:00 122 08/10/17 20:28 99 35 08/10/17 20:00 79 08/10/17 20:00 35 08/10/17 20:00 100.3 79 108/64 (79) 97 08/10/17 18:00 73 08/10/17 16:47 99 35 08/10/17 16:00 98.7 68 95/58 (70) 100 08/10/17 16:00 35 08/10/17 16:00 68 08/10/17 15:00 68 84/54 (64) 99 08/10/17 14:00 70 88/54 (65) 94 08/10/17 14:00 70 08/10/17 13:00 73 95/56 (69) 98 General: No acute distress Respiratory: Non-labored respirations Cardiology: Normal rate Exam Comments alert, extubated, not following + blink to threat, tracks well, ou 3-2mm, turns head side to side- no epileptic co-relation, localizing with all 4 ext, Objective Micro and Labs Laboratory Tests Test 08/10/17 23:50 08/11/17 04:15 Stool C. difficile Toxin (PCR) NEGATIVE Stl C. difficile Toxin Epiderm 027 PRESUMPTIVE NEGATIVE White Blood Count 15.3 Red Blood Count 3.61 Hemoglobin 10.7 Hematocrit 31.5 Mean Corpuscular Volume 87.2 Mean Corpuscular Hemoglobin 29.6 Mean Corpuscular Hemoglobin Concent 34.0 Red Cell Distribution Width 13.0 Platelet Count 319 Mean Platelet Volume 8.2 Neutrophils (%) (Auto) 80.1 Lymphocytes (%) (Auto) 8.5 Monocytes (%) (Auto) 10.3 Eosinophils (%) (Auto) 0.7 Basophils (%) (Auto) 0.4 Neutrophils # (Auto) 12.3 Lymphocytes # (Auto) 1.3 Monocytes # (Auto) 1.6 Eosinophils # (Auto) 0.1 Basophils # (Auto) 0.1 CBC Comment AUTO DIFF Differential Total Cells Counted 100 Neutrophils % (Manual) 54 Band Neutrophils % 30 Lymphocytes % 7 Monocytes % 4 Neutrophils # (Manual) 13.5 Metamyelocytes 2 Myelocytes 2 Differential Comment FINAL DIFF MANUAL Plasma Cells 1 Platelet Estimate NORMAL Platelet Morphology Comment NORMAL Blood Urea Nitrogen 13 Creatinine 0.59 Random Glucose 103 Total Protein 7.9 Albumin 2.6 Calcium Level 8.9 Phosphorus Level 3.4 Magnesium Level 2.2 Alkaline Phosphatase 69 Aspartate Amino Transf (AST/SGOT) 35 Alanine Aminotransferase (ALT/SGPT) 51 Total Bilirubin 0.2 Sodium Level 136 Potassium Level 4.2 Chloride Level 102 Carbon Dioxide Level 26.2 Anion Gap 8 Estimat Glomerular Filtration Rate 130 Human Chorionic Gonadotropin, Quant LESS THAN 1 Phenytoin (Dilantin) Level 7.6 Valproic Acid (Depakene) Level 58 Phenobarbital Level 17.7 Date/Time Source Procedure Growth Status 12/1/17 04:13 Blood Peripheral Aerobic Blood Culture - Preliminary NO GROWTH IN 1 DAY Resulted 08/10/17 04:13 Blood Peripheral Anaerobic Blood Culture - Preliminary NO GROWTH IN 1 DAY Resulted 08/03/17 11:50 Cerebral Spinal Fluid Lumbar Puncture Fungal Smear - Final NO FUNGAL ELEMENTS SEEN. Resulted 08/03/17 11:50 Cerebral Spinal Fluid Lumbar Puncture Fungal Culture Pending Resulted 08/10/17 07:45 Sputum Endotracheal Gram Stain - Final Resulted 08/10/17 07:45 Sputum Endotracheal Sputum Culture Pending Resulted 08/10/17 06:13 Urine Catheterized Urine Urine Culture - Preliminary NO GROWTH IN 24 HOURS. Resulted Problem Qualifiers (1) Seizure disorder, complex partial: Duong Gomez MD Aug 11, 2017 12:36
[2017-08-11] MEDS: LACOSAMIDE INJ 100 MG in SODIUM CHLORIDE 0.9% INJ 100 ML IV SCH (15:35)
[2017-08-11] MEDS: FOSPHENYTOIN INJ 200 MGPE in SODIUM CHLORIDE 0.9% INJ 50 ML IV SCH (15:36)
--- NOTE | 2017-08-11 19:03 | HHI.IDPN ---
Subjective Subjective Remarks pt is extubated today SHe is doing OK , but RN reports of neck twitching periodiacally Prior to extubation pt was following commands on all 4 extremeetis, but she got confused and agitated following extubation Fevers low grade CXR is clear Antibiotics cefazoline Allergies: Coded Allergies: oxycodone (Verified Adverse Reaction, Intermediate, Dizziness, 07/31/17) Objective . Vital Signs Date Time Temp Pulse Resp B/P (MAP) Pulse Ox O2 Delivery O2 Flow Rate FiO2 08/11/17 18:18 96 Nasal Cannula 2.00 08/11/17 18:00 113 08/11/17 16:00 100.4 127 121/78 (92) 96 08/11/17 16:00 127 08/11/17 14:00 131 08/11/17 12:00 97 08/11/17 12:00 97.9 97 115/74 (88) 99 08/11/17 10:00 97 08/11/17 08:14 95 35 08/11/17 08:00 88 08/11/17 08:00 98.4 88 104/55 (71) 92 08/11/17 08:00 35 08/11/17 06:00 70 08/11/17 04:08 96 35 08/11/17 04:00 35 08/11/17 04:00 75 08/11/17 04:00 101.0 75 27 106/58 (74) 93 08/11/17 02:00 76 08/11/17 01:06 98 35 08/11/17 01:04 15 08/11/17 00:00 98.7 94 108/56 (73) 97 08/11/17 00:00 35 08/10/17 22:00 122 08/10/17 20:28 99 35 08/10/17 20:00 79 08/10/17 20:00 35 08/10/17 20:00 100.3 79 108/64 (79) 97 08/11/17 08/11/17 08/12/17 15:00 23:00 07:00 Intake Total 60 ml Output Total 1600 ml Balance -1540 ml Other 60 ml Output Urine Total 1600 ml # Bowel Movements 0 . Laboratory Tests Test 08/11/17 04:15 White Blood Count 15.3 TH/MM3 Red Blood Count 3.61 MIL/MM3 Hemoglobin 10.7 GM/DL Hematocrit 31.5 % Mean Corpuscular Volume 87.2 FL Mean Corpuscular Hemoglobin 29.6 PG Mean Corpuscular Hemoglobin Concent 34.0 % Red Cell Distribution Width 13.0 % Platelet Count 319 TH/MM3 Mean Platelet Volume 8.2 FL Neutrophils (%) (Auto) 80.1 % Lymphocytes (%) (Auto) 8.5 % Monocytes (%) (Auto) 10.3 % Eosinophils (%) (Auto) 0.7 % Basophils (%) (Auto) 0.4 % Neutrophils # (Auto) 12.3 TH/MM3 Lymphocytes # (Auto) 1.3 TH/MM3 Monocytes # (Auto) 1.6 TH/MM3 Eosinophils # (Auto) 0.1 TH/MM3 Basophils # (Auto) 0.1 TH/MM3 CBC Comment AUTO DIFF Differential Total Cells Counted 100 Neutrophils % (Manual) 54 % Band Neutrophils % 30 % Lymphocytes % 7 % Monocytes % 4 % Neutrophils # (Manual) 13.5 TH/MM3 Metamyelocytes 2 % Myelocytes 2 % Differential Comment FINAL DIFF MANUAL Plasma Cells 1 % Platelet Estimate NORMAL Platelet Morphology Comment NORMAL Laboratory Tests Test 08/11/17 04:15 Blood Urea Nitrogen 13 MG/DL Creatinine 0.59 MG/DL Random Glucose 103 MG/DL Total Protein 7.9 GM/DL Albumin 2.6 GM/DL Calcium Level 8.9 MG/DL Phosphorus Level 3.4 MG/DL Magnesium Level 2.2 MG/DL Alkaline Phosphatase 69 U/L Aspartate Amino Transf (AST/SGOT) 35 U/L Alanine Aminotransferase (ALT/SGPT) 51 U/L Total Bilirubin 0.2 MG/DL Sodium Level 136 MEQ/L Potassium Level 4.2 MEQ/L Chloride Level 102 MEQ/L Carbon Dioxide Level 26.2 MEQ/L Anion Gap 8 MEQ/L Estimat Glomerular Filtration Rate 130 ML/MIN Human Chorionic Gonadotropin, Quant LESS THAN 1 MIU/ML Microbiology Date/Time Source Procedure Growth Status 08/10/17 04:13 Blood Peripheral Aerobic Blood Culture - Preliminary NO GROWTH IN 1 DAY Resulted 08/10/17 04:13 Blood Peripheral Anaerobic Blood Culture - Preliminary NO GROWTH IN 1 DAY Resulted 08/10/17 04:05 Blood Peripheral Aerobic Blood Culture - Preliminary NO GROWTH IN 1 DAY Resulted 08/10/17 04:05 Blood Peripheral Anaerobic Blood Culture - Preliminary NO GROWTH IN 1 DAY Resulted 08/10/17 07:45 Sputum Endotracheal Gram Stain - Final Resulted 08/10/17 07:45 Sputum Culture - Preliminary Gram Negative Quintin Staphylococcus Aureus Resulted 08/10/17 06:13 Urine Catheterized Urine Urine Culture - Preliminary NO GROWTH IN 24 HOURS. Resulted Imaging Last Impressions Chest X-Ray 08/11/17599 Signed Impressions: Service Date/Time: Friday, August 11, 2017 03:47 - CONCLUSION: No acute cardiopulmonary abnormality is identified. Devin Boggs MD Chest CT 08/06/17599 Signed Impressions: Service Date/Time: Sunday, August 06, 2017 09:35 - CONCLUSION: 1. Bilateral basilar consolidation more pronounced on the left. Infectious etiology most likely. 2. Tiny bilateral pleural effusions. 3. No perceivable lesion involving T1 on this standard protocol CT of the thorax. Misael Batres Jr., MD Abdomen/Pelvis CT 08/06/17599 Signed Impressions: Service Date/Time: Sunday, August 06, 2017 09:31 - CONCLUSION: Bibasilar consolidative changes worse on the left. No other significant is appreciated. I do not see evidence of metastatic disease. Kev Santana MD FACR Thoracic Spine MRI 08/04/17 Signed Impressions: Service Date/Time: Friday, August 04, 2017 16:14 - CONCLUSION: 1. Focal signal abnormality in the right T1 vertebral body demonstrating uniform contrast-enhancement. Consider performing thin section CT to evaluate integrity or abnormalities within the trabecular pattern and cortex. 2. Multifocal areas of enhancement in the posterior right lung. Recommend further characterization with CT thorax. Misael Samuels MD Lumbar Spine MRI 08/04/17 Signed Impressions: Service Date/Time: Friday, August 04, 2017 16:14 - CONCLUSION: Normal MRI of the lumbar spine with and without contrast. Misael Samuels MD Cervical Spine MRI 08/04/17 Signed Impressions: Service Date/Time: Friday, August 04, 2017 16:14 - CONCLUSION: 1. Round enhancing lesion in the superior right T1 vertebral body. 2. Nondiagnostic evaluation from C1-C4 due to metallic field distortion artifact (braces). Misael Samuels MD Brain MRI 08/04/17 Signed Impressions: Service Date/Time: Friday, August 04, 2017 16:14 - CONCLUSION: 1. No abnormal areas of enhancement or cerebral edema seen. 2. Field distortion artifact from patient's braces limits evaluation of inferior frontal lobes and precludes obtaining diffusion weighted images. Misael Samuels MD Lumbar Puncture Fluoroscopy 08/03/17 0000 Signed Impressions: Service Date/Time: Thursday, August 03, 2017 12:44 - CONCLUSION: Uncomplicated fluoroscopically guided lumbar puncture. Misael Batres Jr., MD Neck CTA 08/01/17 0000 Signed Impressions: Service Date/Time: Tuesday, August 01, 2017 10:03 - CONCLUSION: 1. No evidence of carotid stenosis 2. 3. 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 No acute findings or aneurysm identified. 2. 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 awake alert TUBES/LINES/DRAINS: SKIN: No jaundice, rashes, or lesions. Skin temperature appropriate. Not diaphoretic. EYES: Pupils are small equal and round and reactive. Extraocular motions intact. No scleral icterus. No injection or drainage. Fundi not examined. ENT: Hearing note tested Nose without bleeding or purulent drainage. Visualised mucosae without visible erythema, exudates, masses, or lesions. CARDIOVASCULAR: Regular rate and rhythm without murmurs, gallops, or rubs. No JVD. Peripheral pulses symmetric. RESPIRATORY/CHEST: Symmetric, unlabored respirations. Clear to auscultation. Breath sounds equal bilaterally. No wheezes, rales, or rhonchi. GASTROINTESTINAL: Abdomen soft, non-tender, nondistended. No hepato-splenomegaly , or palpable masses. No guarding. Bowel sounds present. GENITOURINARY: bladder with no palpable distension. fay in w clear yellow urine MUSCULOSKELETAL: Extremities without clubbing, cyanosis, or edema. 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 phenitoin Worsening leukocytosis ? source - prominent L shift fu P blood clx fu sputum cont ancef for now, might dc soon monitor fever, monitor temps monitor neuro status chk procalcitonine alejandra RN dw mom @ b/s Louisa Childs MD Aug 11, 2017 19:03
[2017-08-11] MEDS: LORazepam 2 MG/ML VIAL IV PUSH PRN (20:19)
[2017-08-11] MEDS ORDERED: ZIPRASIDONE MESYLATE 20 MG VIAL IM PRN ×2 (20:45→21:00)
[2017-08-11] MEDS ORDERED: FOSPHENYTOIN SODIUM 100 MG PE/2 ML VIAL IV SCH (21:00)
[2017-08-11] MEDS ORDERED: RESP: ALBUTEROL 2.5 MG/IPRATROPIUM 0.5 MG NEB (PRN) NEB (23:00)
[2017-08-11] MEDS ORDERED: RESP: ALBUTEROL 2.5 MG/IPRATROPIUM 0.5 MG NEB (SCH) NEB ONE (23:00)
[2017-08-12] VITALS (14 sets, daily range): BP systolic 105–131; BP diastolic 59–83; PULSE 93–142; TEMP 98.4–101.2; O2SAT 94–100
[2017-08-12] MEDS ORDERED: ZIPRASIDONE MESYLATE 20 MG VIAL IM PRN ×2 (00:30)
[2017-08-12] MEDS: LORazepam 2 MG/ML VIAL IV PUSH PRN (00:32)
[2017-08-12] MEDS: LACOSAMIDE INJ 100 MG in SODIUM CHLORIDE 0.9% INJ 100 ML IV SCH ×2 (03:45→15:26)
[2017-08-12] MEDS: FOSPHENYTOIN INJ 200 MGPE in SODIUM CHLORIDE 0.9% INJ 50 ML IV SCH ×2 (03:49→17:10)
[2017-08-12] MEDS: INSULIN NovoLIN REGULAR SUPPLEMENTAL SCALE SQ SCH ×4 (06:00→17:50)
--- NOTE | 2017-08-12 06:13 | MG ---
cc: SUKHI TRAN MD Sex: F DATE OF STUDY: 08/11/2017 [id number] DATE OF : 1995 HISTORY: 22-year-old, history recurrent seizures. DESCRIPTION: Generalized, 1-3 Hz delta activity with occasional theta 20 to 50 microvolts with frequent movement, myogenic artifact occurring throughout the recording off and on. Single lead EKG showing sinus rhythm with a lot of artifact. INTERPRETATION: Moderate encephalopathy, a lot of movement, myogenic artifact. Clinical correlation. Sukhi Tran MD MG/JORY /11:37 PM /5:59 AM MTDD
[2017-08-12 06:20] LABS: AUTOMATED NEUTROPHIL # 9.9 TH/MM3 (1.8-7.7); BASOPHIL # 0.1 TH/MM3 (0-0.2); BASOPHIL % 0.4 % (0.0-2.0); EOSINOPHIL # 0.1 TH/MM3 (0-0.4); EOSINOPHIL % 1.1 % (0.0-4.0); HEMATOCRIT 32.5 % (35.0-46.0); LYMPH % 13.3 % (9.0-44.0); LYMPHOCYTE # 1.8 TH/MM3 (1.0-4.8); MEAN CELL VOLUME 87.5 FL (80.0-100.0); MEAN CORPUSCULAR HGB CONC 33.1 % (32.0-36.0); MONO % 12.4 % (0.0-8.0); NEUT % 72.8 % (16.0-70.0); PLATELET COUNT 390 TH/MM3 (150-450); RED BLOOD COUNT 3.71 MIL/MM3 (4.00-5.30); RED CELL DISTRIBUTION WIDTH 13.3 % (11.6-17.2); WHITE BLOOD COUNT 13.7 TH/MM3 (4.0-11.0)
[2017-08-12 06:23] LABS: HEMO FLAGS AUTO DIFF; REVIEW FLAG AUTO DIFF
[2017-08-12] MEDS: ceFAZolin 2 GM PREMIX 50 ML IV SCH (06:29)
[2017-08-12 07:00] LABS: MAGNESIUM 2.3 MG/DL (1.5-2.5)
[2017-08-12 07:02] LABS: PHENOBARBITAL 19.2 MCG/ML (15.0-40.0)
[2017-08-12 07:20] LABS: BANDS 5 % (0-6); BASOPHILS 1 % (0-2); EOSINOPHILS 2 % (0-4); MYELOCYTES 4 % (0-0); NEUTROPHIL # MANUAL DIFF 11.4 TH/MM3 (1.8-7.7); POLYS (SEG NEUTROPHILS) 74 % (16-70); WBC DIFF SAMPLE 100
[2017-08-12 07:21] LABS: PLATELET ESTIMATE SMEAR NORMAL (NORMAL); PLATELET MORPHOLOGY NORMAL (NORMAL); SCAN/DIFF FINAL DIFF MANUAL
[2017-08-12] MEDS: FAMOTIDINE 20 MG/2 ML VIAL IV PUSH SCH ×2 (08:35→20:11)
[2017-08-12] MEDS: SODIUM CHLORIDE 0.9% FLUSH 10 ML FLUSH IV FLUSH SCH ×2 (08:35→20:49)
[2017-08-12] MEDS: DOCUSATE SODIUM 50 MG/SENNA 8.6 MG TAB PO SCH ×2 (08:36→20:11)
[2017-08-12] MEDS: VALPROATE INJ 500 MG in SODIUM CHLORIDE 0.9% INJ 100 ML IV SCH (08:36)
[2017-08-12] MEDS: TOPIRAMATE 25 MG TAB OG-TUBE SCH ×2 (08:36→20:10)
[2017-08-12] MEDS: ENOXAPARIN SODIUM 40 MG/0.4 ML SYRINGE SQ SCH (11:16)
[2017-08-12] MEDS ORDERED: RESP: ALBUTEROL 2.5 MG/IPRATROPIUM 0.5 MG NEB (PRN) NEB (12:30)
[2017-08-12] MEDS ORDERED: METOPROLOL TARTRATE 5 MG/5 ML VIAL IV PUSH PRN (12:30)
--- NOTE | 2017-08-12 12:39 | HHI.IDPN ---
Subjective Subjective Remarks having fever 101.2 F ax Apparently had approprietly answered all questions earlier in converasation with Dr Loyola, but now is sleepy Has episodes of restlestness and agitation during night time + producticve cough sputum with MSSA , PSAE R to imipenem Antibiotics cefazoline Allergies: Coded Allergies: oxycodone (Verified Adverse Reaction, Intermediate, Dizziness, 07/31/17) Objective . Vital Signs Date Time Temp Pulse Resp B/P (MAP) Pulse Ox O2 Delivery O2 Flow Rate FiO2 08/12/17 08:00 101.2 101 107/59 (75) 94 08/12/17 07:43 95 Nasal Cannula 2.00 08/12/17 06:00 107 08/12/17 04:00 93 08/12/17 04:00 99.1 93 105/64 (78) 100 08/12/17 02:00 108 08/12/17 00:00 142 08/12/17 00:00 98.8 142 131/68 (89) 94 08/11/17 22:00 114 08/11/17 20:00 99.6 119 141/84 (103) 98 08/11/17 20:00 119 08/11/17 20:00 94 Nasal Cannula 2.00 08/11/17 18:18 96 Nasal Cannula 2.00 08/11/17 18:00 113 08/11/17 16:00 100.4 127 121/78 (92) 96 08/11/17 16:00 127 08/11/17 14:00 131 . Laboratory Tests Test 08/11/17 04:15 08/12/17 04:46 White Blood Count 15.3 TH/MM3 13.7 TH/MM3 Red Blood Count 3.61 MIL/MM3 3.71 MIL/MM3 Hemoglobin 10.7 GM/DL 10.8 GM/DL Hematocrit 31.5 % 32.5 % Mean Corpuscular Volume 87.2 FL 87.5 FL Mean Corpuscular Hemoglobin 29.6 PG 29.0 PG Mean Corpuscular Hemoglobin Concent 34.0 % 33.1 % Red Cell Distribution Width 13.0 % 13.3 % Platelet Count 319 TH/MM3 390 TH/MM3 Mean Platelet Volume 8.2 FL 9.1 FL Neutrophils (%) (Auto) 80.1 % 72.8 % Lymphocytes (%) (Auto) 8.5 % 13.3 % Monocytes (%) (Auto) 10.3 % 12.4 % Eosinophils (%) (Auto) 0.7 % 1.1 % Basophils (%) (Auto) 0.4 % 0.4 % Neutrophils # (Auto) 12.3 TH/MM3 9.9 TH/MM3 Lymphocytes # (Auto) 1.3 TH/MM3 1.8 TH/MM3 Monocytes # (Auto) 1.6 TH/MM3 1.7 TH/MM3 Eosinophils # (Auto) 0.1 TH/MM3 0.1 TH/MM3 Basophils # (Auto) 0.1 TH/MM3 0.1 TH/MM3 CBC Comment AUTO DIFF AUTO DIFF Differential Total Cells Counted 100 100 Neutrophils % (Manual) 54 % 74 % Band Neutrophils % 30 % 5 % Lymphocytes % 7 % 10 % Monocytes % 4 % 4 % Neutrophils # (Manual) 13.5 TH/MM3 11.4 TH/MM3 Metamyelocytes 2 % Myelocytes 2 % 4 % Differential Comment FINAL DIFF MANUAL FINAL DIFF MANUAL Plasma Cells 1 % Platelet Estimate NORMAL NORMAL Platelet Morphology Comment NORMAL NORMAL Eosinophils % 2 % Basophils % 1 % Red Cell Morphology Comment NORMAL Laboratory Tests Test 08/11/17 04:15 08/11/17 19:13 08/12/17 04:46 Blood Urea Nitrogen 13 MG/DL Creatinine 0.59 MG/DL Random Glucose 103 MG/DL Total Protein 7.9 GM/DL Albumin 2.6 GM/DL Calcium Level 8.9 MG/DL Phosphorus Level 3.4 MG/DL 4.3 MG/DL Magnesium Level 2.2 MG/DL 2.3 MG/DL Alkaline Phosphatase 69 U/L Aspartate Amino Transf (AST/SGOT) 35 U/L Alanine Aminotransferase (ALT/SGPT) 51 U/L Total Bilirubin 0.2 MG/DL Sodium Level 136 MEQ/L Potassium Level 4.2 MEQ/L Chloride Level 102 MEQ/L Carbon Dioxide Level 26.2 MEQ/L Anion Gap 8 MEQ/L Estimat Glomerular Filtration Rate 130 ML/MIN Human Chorionic Gonadotropin, Quant LESS THAN 1 MIU/ML Procalcitonin 0.54 ng/mL Microbiology Date/Time Source Procedure Growth Status 08/10/17 04:13 Blood Peripheral Aerobic Blood Culture - Preliminary NO GROWTH IN 2 DAYS Resulted 08/10/17 04:13 Blood Peripheral Anaerobic Blood Culture - Preliminary NO GROWTH IN 2 DAYS Resulted 08/10/17 04:05 Blood Peripheral Aerobic Blood Culture - Preliminary NO GROWTH IN 2 DAYS Resulted 08/10/17 04:05 Blood Peripheral Anaerobic Blood Culture - Preliminary NO GROWTH IN 2 DAYS Resulted 08/10/17 07:45 Sputum Endotracheal Gram Stain - Final Resulted 08/10/17 07:45 Sputum Culture - Preliminary Gram Negative Quintin Staphylococcus Aureus Resulted 08/10/17 06:13 Urine Catheterized Urine Urine Culture - Final NO GROWTH IN 48 HOURS. Complete Imaging Last Impressions Chest X-Ray 08/11/17599 Signed Impressions: Service Date/Time: Friday, August 11, 2017 03:47 - CONCLUSION: No acute cardiopulmonary abnormality is identified. Devin Boggs MD Chest CT 08/06/17599 Signed Impressions: Service Date/Time: Sunday, August 06, 2017 09:35 - CONCLUSION: 1. Bilateral basilar consolidation more pronounced on the left. Infectious etiology most likely. 2. Tiny bilateral pleural effusions. 3. No perceivable lesion involving T1 on this standard protocol CT of the thorax. Misael Batres Jr., MD Abdomen/Pelvis CT 08/06/17599 Signed Impressions: Service Date/Time: Sunday, August 06, 2017 09:31 - CONCLUSION: Bibasilar consolidative changes worse on the left. No other significant is appreciated. I do not see evidence of metastatic disease. Kev Santana MD FACR Thoracic Spine MRI 08/04/17 Signed Impressions: Service Date/Time: Friday, August 04, 2017 16:14 - CONCLUSION: 1. Focal signal abnormality in the right T1 vertebral body demonstrating uniform contrast-enhancement. Consider performing thin section CT to evaluate integrity or abnormalities within the trabecular pattern and cortex. 2. Multifocal areas of enhancement in the posterior right lung. Recommend further characterization with CT thorax. Misael Samuels MD Lumbar Spine MRI 08/04/17 Signed Impressions: Service Date/Time: Friday, August 04, 2017 16:14 - CONCLUSION: Normal MRI of the lumbar spine with and without contrast. Misael Samuels MD Cervical Spine MRI 08/04/17 Signed Impressions: Service Date/Time: Friday, August 04, 2017 16:14 - CONCLUSION: 1. Round enhancing lesion in the superior right T1 vertebral body. 2. Nondiagnostic evaluation from C1-C4 due to metallic field distortion artifact (braces). Misael Samuels MD Brain MRI 08/04/17 0000 Signed Impressions: Service Date/Time: Friday, August 04, 2017 16:14 - CONCLUSION: 1. No abnormal areas of enhancement or cerebral edema seen. 2. Field distortion artifact from patient's braces limits evaluation of inferior frontal lobes and precludes obtaining diffusion weighted images. Misael Samuels MD Lumbar Puncture Fluoroscopy 08/03/17 0000 Signed Impressions: Service Date/Time: Thursday, August 03, 2017 12:44 - CONCLUSION: Uncomplicated fluoroscopically guided lumbar puncture. Misael Batres Jr., MD Neck CTA 08/01/17 0000 Signed Impressions: Service Date/Time: Tuesday, August 01, 2017 10:03 - CONCLUSION: 1. No evidence of carotid stenosis 2. 3. 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 No acute findings or aneurysm identified. 2. 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 awake alert TUBES/LINES/DRAINS: SKIN: No jaundice, rashes, or lesions. Skin temperature appropriate. Not diaphoretic. EYES: Pupils are small equal and round and reactive. Extraocular motions intact. No scleral icterus. No injection or drainage. Fundi not examined. ENT: Hearing note tested Nose without bleeding or purulent drainage. Visualised mucosae without visible erythema, exudates, masses, or lesions. CARDIOVASCULAR: Regular rate and rhythm without murmurs, gallops, or rubs. No JVD. Peripheral pulses symmetric. RESPIRATORY/CHEST: Symmetric, unlabored respirations. Clear to auscultation. Breath sounds equal bilaterally. No wheezes, rales, or rhonchi. GASTROINTESTINAL: Abdomen soft, non-tender, nondistended. No hepato-splenomegaly , or palpable masses. No guarding. Bowel sounds present. GENITOURINARY: bladder with no palpable distension. fay in w clear yellow urine MUSCULOSKELETAL: Extremities without clubbing, cyanosis, or edema. 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, no e/o HSV by PCR - probably viral, all sepcific studies are negaive Bacterial meningitis less likely Acute urinary retention - relieved with fay 2000 cc of urine - most likely med induced - not reported back pain or LE weakness MRI c T1 lesion - non specific, doubt clin significance Pt is critically ill , stable Fever PNA, b/l , MSSA - repeat sputum clx with PSAE , MSSA - now with clear lungs on CXR PSAE is likley contaminant/coloniser , but giving the situation w persistent feer will change abx to include coverage for PSAE Persistent grade fever - procalcitonine high, more cw infx -resolved ? phenitoin Leukocytosis - better - prominent L shift fu P blood clx fu sputum change ancef to high dose cefepime monitor fever, monitor temps monitor neuro status if new sz/ neuro status deteriaortion consider re-image and re-tap alejandra RN dw father @ b/s dw Satinder Andrew,Louisa Griffith MD Aug 12, 2017 12:39
--- NOTE | 2017-08-12 12:52 | HHI.CCPN ---
Subjective Remarks/Hospital Course The patient is a 22-year-old female who attends [employer] and presented to [facility] ED with her parents noted to have altered mental status. According to the records, the patient was under a lot of stress and she had a recent breakup with her boyfriend one month ago. The patient was admitted under Dr. Ventura's service. She had an EEG done which showed seizure activity. The patient was subsequently placed on Depakote, Vimpat, and Ativan. In addition, she received a loading dose of Cerebyx yesterday. Despite being on multiple antiseizure meds, continuous EEG showed a seizure pattern. After discussion with Dr. Gomez from neurology, he recommended to intubate the patient and place her on Versed drip to control her seizures. After discussion with the patient's father, the patient was intubated and placed on full mechanical ventilation. She had an MRI of the brain the night of July 31 which showed no acute findings. A CTA of the head and neck were unremarkable as well. Urine drug screen was negative for opiates, amphetamines, benzodiazepines. There is no evidence of any fever or leukocytosis. 08/03 No events overnight. Sedated with Versed, Diprivan and intubated. Afebrile. 08/04 No events overnight. Sedated with Diprivan and Versed. s/p LP yesterday showed clear CSF, elevated protein 56, WBC: 57 (Lymphocytic predominant). For repeat MRI brain today. Spoked fever with T: 101.4 at 4am. 08/05 No events overnight. On Continuous EEG monitoring. Afebrile. Sedated with Versed and Diprivan. 08/06 No events overnight. Versed is down 3mg/hr, off Diprivan. For CT thorax/ abd today. T:101.5 08/07 No events overnight. On Versed drip 4mg/hr, T:101.8 at midnight. 08/08: At 8 pm yesterday had 101.7 fever , now afebrile. Eyes are open, weakly followed commands bilaterally, moved feet to command for RN and her father. CXR pending. Ortiz secretions from ETT. CT chest, Bibasilar infiltrates L>R 08/09: Patient had one episode of tonic-clonic seizure in the afternoon. Placed back on sedation. Topamax added. Dr. Gomez has ordered West Nile, paraneoplastic panel. Updated parents at bedside 08/10: Overnight fever noted. No new seizures. Attempted breathing trial with minimal cuff leak. We'll start on dexamethasone 4 mg for 4 dosages. Family updated at bedside. Last BM today Subjective 08/11: Overnight. Temp max 101. Currently afebrile. Extubated today without complication. Discontinued dexmedetomidine drip. Positive bowel movement 3 08/12: TMax 101.0 Sputum positive for Gram negative rods. Pt became agitated last night and received geodon x 2 doses. Pt appears more alert this am. Continuous EEG monitoring in progress. Objective Vital Signs Date Time Temp Pulse Resp B/P (MAP) Pulse Ox O2 Delivery O2 Flow Rate FiO2 08/12/17 08:00 101.2 101 107/59 (75) 94 08/12/17 07:43 Nasal Cannula 2.00 08/11/17 08:14 35 08/11/17 04:00 27 Intake and Output 08/12/17 08/12/17 08/13/17 08:00 16:00 00:00 Intake Total 500 ml Output Total 500 ml Balance 0 ml Result Diagram: 08/12/17 0446 08/11/17 0415 Other Results Microbiology Date/Time Source Procedure Growth Status 08/10/17 06:13 Urine Catheterized Urine Urine Culture - Final NO GROWTH IN 48 HOURS. Complete Imaging Last Impressions Chest X-Ray 08/11/17599 Signed Impressions: Service Date/Time: Friday, August 11, 2017 03:47 - CONCLUSION: No acute cardiopulmonary abnormality is identified. Devin Boggs MD Chest CT 08/06/17599 Signed Impressions: Service Date/Time: Sunday, August 06, 2017 09:35 - CONCLUSION: 1. Bilateral basilar consolidation more pronounced on the left. Infectious etiology most likely. 2. Tiny bilateral pleural effusions. 3. No perceivable lesion involving T1 on this standard protocol CT of the thorax. Misael Batres Jr., MD Abdomen/Pelvis CT 08/06/17599 Signed Impressions: Service Date/Time: Sunday, August 06, 2017 09:31 - CONCLUSION: Bibasilar consolidative changes worse on the left. No other significant is appreciated. I do not see evidence of metastatic disease. Kev Santana MD FACR Thoracic Spine MRI 08/04/17 Signed Impressions: Service Date/Time: Friday, August 04, 2017 16:14 - CONCLUSION: 1. Focal signal abnormality in the right T1 vertebral body demonstrating uniform contrast-enhancement. Consider performing thin section CT to evaluate integrity or abnormalities within the trabecular pattern and cortex. 2. Multifocal areas of enhancement in the posterior right lung. Recommend further characterization with CT thorax. Misael Samuels MD Lumbar Spine MRI 08/04/17 Signed Impressions: Service Date/Time: Friday, August 04, 2017 16:14 - CONCLUSION: Normal MRI of the lumbar spine with and without contrast. Misael Samuels MD Cervical Spine MRI 08/04/17 Signed Impressions: Service Date/Time: Friday, August 04, 2017 16:14 - CONCLUSION: 1. Round enhancing lesion in the superior right T1 vertebral body. 2. Nondiagnostic evaluation from C1-C4 due to metallic field distortion artifact (braces). Misael Samuels MD Brain MRI 08/04/17 Signed Impressions: Service Date/Time: Friday, August 04, 2017 16:14 - CONCLUSION: 1. No abnormal areas of enhancement or cerebral edema seen. 2. Field distortion artifact from patient's braces limits evaluation of inferior frontal lobes and precludes obtaining diffusion weighted images. Misael Samuels MD Lumbar Puncture Fluoroscopy 08/03/17 Signed Impressions: Service Date/Time: Thursday, August 03, 2017 12:44 - CONCLUSION: Uncomplicated fluoroscopically guided lumbar puncture. Misael Batres Jr., MD Neck CTA 08/01/17 Signed Impressions: Service Date/Time: Tuesday, August 01, 2017 10:03 - CONCLUSION: 1. No evidence of carotid stenosis 2. 3. 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 No acute findings or aneurysm identified. 2. 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 HEAD: Normocephalic. Multiple EEG probes in place, continuous EEG in progress EYES: No scleral icterus. No injection or drainage. NECK: Supple, trachea midline. No JVD or lymphadenopathy. CARDIOVASCULAR: Sinus tachycardia and rhythm without murmurs, gallops, or rubs. RESPIRATORY: Breath sounds equal bilaterally, diminished at bases. No accessory muscle use. GASTROINTESTINAL: Abdomen soft, non-tender, nondistended. MUSCULOSKELETAL: No significant peripheral edema. Neuro: Cranial nerves II through XII grossly intact. Moving all 4 extremity spontaneously. Intermittently following commands. 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 On valproic acid 500 mg IV twice a day ,), fosphenytoin 150 mg IV q12, 2. Topiramate 75 mg twice a day, phenobarbital 30mg Q6 and Ativan 1 mg IV q2 PRN follow up on levels daily. The 20 currently 7.6. Will bolus fosphenytoin 500 mg 1 now. Monitor neuro status. Neuro Dr. Gomez. A neuro workup which includes MRI of the brain, CTA of the head and neck are unremarkable. 08/05 EEG: Diffuse encephalopathy, 08/09 No seizure EEG: : diffuse encephalopathy. Occasional sharp activity is identified over the left hemisphere suggesting an ictal focus in that area Repeat MRI brain 08/04 : No acute findings MRI spine: Round enhancing lesion T1 vertebral body. ? significance s/p LP 08/03: Clear CSF, elevated protein 56, WBC 57 ( Lymphocytic predominant ), glc 62 Most likely viral encephalitis. West Nile and paraneoplastic panel to follow 08/12 Phenytoin and Phenobarbital levels -therapuetic, Valproic Acid slightly subtherapuetic at 46 08/12 Will D/C Geodon, begin Haldol for agitation, Utilize Ativan for seizure activity only Pulm: Acute respiratory failure Nasal cannula to maintain saturations greater than or equal to 92%. Extubated 08/11 As needed albuterol every 2 hours. Dyspnea Incentive spirometry while awake CT thorax: Bibasilar consolidation L>R Bronchodilators q 4 hrs PRN CV: Monitor HR and BP and maintain MAP>65 mmHg. Echo small pericardial effusion ( Family hx ? VSD) : Monitor renal function I's and O's, and electrolyte replacement per protocol. GI: Elevated ALT Famotidine for GI prophylaxis Speech to evaluate advanced diet- 08/12 passed bedside swallow, but too lethargic fro formal swallow by Speech Therapy CT abd/pelvis: no acute findings Bowel regimen Docusate and senna 08/12 insert Dobhoff ID: Febrile Illness MSSA Pneumonia Continue with abx per ID -cefazolin:. Fever downtrending Prev ABX DCd -(ceftriaxone, Acyclovir, Ampicillin vancomycin, piperacillin/ tazobactam and micafungin) Monitor for signs of infections( fever and WBC). HSV DNA PCR negative. 08/03 08/07 Sputum: Staph Aureus. 08/10- gram neg rods Remainder cultures no growth Strep pneumonia, Legionella urinary Ag negative Endo: SSI with Accu-Chek q.6 h to maintain euglycemia. Heme: Leukocytosis Normocytic anemia Monitor CBC. Follow trends MSK: PT eval and treat, functional maintenance daily OT evaluate and treat Apply multipolus boots per protocol GI prophylaxis with famotidine 20 mg twice a day and DVT prophylaxis with SCD' s. Continue enoxaparin 40 mg sq daily Level [address] Childs, Dr. Gomez and family at bedside Physician Noemy Parada MD Aug 12, 2017 12:52
--- NOTE | 2017-08-12 13:14 | HHI.PR ---
Review/Management Diagnosis/Plan: (1) Seizure disorder, complex partial ICD Codes: G40.209 - Localization-related (focal) (partial) symptomatic epilepsy and epileptic syndromes with complex partial seizures, not intractable , without status epilepticus Status: Acute Plan: intractable left temporal lobe seizures etiology; ? 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 Pleocytosis from SZ possible as well but would not expect it to be this pronounced and predominately lymphocytic cx ngtd; hsv pcr negative paraneoplastic panel negative. [place] negative on 4 sz meds; levels in range will consider repeat lp/mri brain depending on clinical course recs looks better today haldol prn agitation precedex as needed continue current sz meds tube feeds per ccm eeg- no sz; continue monitoring d/w pt's father/id/rn/ccm Subjective Subjective Comments no sz but agitated overnight given ativan, geodon little relief restarted on precedex gtt Active Medications Current Medications Medications (Trade) Dose Ordered Sig/Nigel Route Start Time Stop Time Status Last Admin (NS Flush) 2 ml UNSCH PRN IV FLUSH 07/31/17 17:30 08/09/17 09:10 (NS Flush) 2 ml BID IV FLUSH 07/31/17 21:00 08/12/17 08:35 (Tylenol) 650 mg Q4H PRN PO 07/31/17 17:30 08/11/17 00:04 (Zofran Inj) 4 mg Q6H PRN IVP 07/31/17 17:30 08/06/17 16:04 (Narcan Inj) 0.4 mg UNSCH PRN IV PUSH 07/31/17 17:30 (Milk Of Magnesia Liq) 30 ml Q12H PRN PO 07/31/17 17:30 08/05/17 17:09 (Tylenol) 650 mg Q6H PRN PO 07/31/17 20:45 08/01/17 20:40 (Ativan Inj) 1 mg Q2H PRN IV PUSH 08/01/17 21:30 08/12/17 00:32 Potassium Chloride 100 ml @ 50 mls/hr Q2H PRN IV 08/02/17 09:00 Potassium Chloride 100 ml @ 50 mls/hr Q2H PRN IV 08/02/17 09:00 (K-Lyte Cl Eff) 50 meq UNSCH PRN PO 08/02/17 09:00 08/08/17 09:10 Potassium Chloride 100 ml @ 25 mls/hr UNSCH PRN IV 08/02/17 09:00 Potassium Chloride 100 ml @ 50 mls/hr Q2H PRN IV 08/02/17 09:00 Magnesium Sulfate 4 gm/Sodium Chloride 100 ml @ 50 mls/hr UNSCH PRN IV 08/02/17 09:00 (Mag-Ox) 800 mg UNSCH PRN PO 08/02/17 09:00 Magnesium Sulfate 2 gm/Sodium Chloride 100 ml @ 50 mls/hr UNSCH PRN IV 08/02/17 09:00 (K-Phos) 2,000 mg Q4H PRN PO 08/02/17 09:00 Sodium Phosphate 30 mmol/Sodium Chloride 250 ml @ 42 mls/hr UNSCH PRN IV 08/02/17 09:00 (K-Phos) 2,000 mg UNSCH PRN PO/TUBE 08/02/17 09:00 Potassium Phosphate 30 mmol/ Sodium Chloride 260 ml @ 42 mls/hr UNSCH PRN IV 08/02/17 09:00 (Luminal Inj) 30 mg Q6H IV 08/05/17 16:00 08/12/17 11:16 Valproate Sodium 500 mg/Sodium Chloride 105 ml @ 105 mls/hr BID IV 08/06/17 09:00 08/12/17 08:36 (Lazara-Colace) 1 tab BID PO 08/08/17 09:00 08/10/17 08:44 (Lovenox Inj) 40 mg Q24H SQ 08/09/17 11:00 08/12/17 11:16 (Topamax) 75 mg BID OG-TUBE 08/10/17 09:00 08/10/17 19:43 (Pepcid Inj) 20 mg Q12HR IV PUSH 08/10/17 21:00 08/12/17 08:35 (D50w (Vial) Inj) 50 ml UNSCH PRN IV PUSH 08/10/17 17:45 (Glucagon Inj) 1 mg UNSCH PRN OTHER 08/10/17 17:45 (NovoLIN R SUPPLEMENTAL SCALE) 1 Q6HR SQ 08/10/17 18:00 (Racepinephrine 2.25% Neb) 0.5 ml Q3HR NEB PRN NEB 08/11/17 10:15 Lacosamide 100 mg/ Sodium Chloride 110 ml @ 110 mls/hr Q12H IV 08/11/17 15:00 08/12/17 03:45 Fosphenytoin Sodium 200 mgpe/ Sodium Chloride 54 ml @ 216 mls/hr Q12H IV 08/11/17 16:00 08/12/17 03:49 Dexmedetomidine HCl 1000 mcg/ Sodium Chloride 250 ml @ 2.63 mls/hr TITRATE PRN IV 08/12/17 08:30 Cefepime HCl 2000 mg/Sodium Chloride 100 ml @ 200 mls/hr Q8H IV 08/12/17 14:00 Acetaminophen 100 ml @ 400 mls/hr Q6H PRN IV 08/12/17 12:15 08/14/17 12:15 (Lopressor Inj) 2.5 mg Q6H PRN IV PUSH 08/12/17 12:30 (Duoneb Neb) 1 ampule Q4HR NEB PRN NEB 08/12/17 12:30 (Haldol Inj) 2 mg Q8H PRN IM 08/12/17 12:45 Allergies Allergies Coded Allergies oxycodone (Verified Adverse Reaction, Intermediate, Dizziness, 07/31/17) Review of Systems All other ROS: Unable to obtain Exam I&O / VS Vital Signs Date Time Temp Pulse Resp B/P (MAP) Pulse Ox O2 Delivery O2 Flow Rate FiO2 08/12/17 08:00 101.2 101 107/59 (75) 94 08/12/17 07:43 95 Nasal Cannula 2.00 08/12/17 06:00 107 08/12/17 04:00 93 08/12/17 04:00 99.1 93 105/64 (78) 100 08/12/17 02:00 108 08/12/17 00:00 142 08/12/17 00:00 98.8 142 131/68 (89) 94 08/11/17 22:00 114 08/11/17 20:00 99.6 119 141/84 (103) 98 08/11/17 20:00 119 08/11/17 20:00 94 Nasal Cannula 2.00 08/11/17 18:18 96 Nasal Cannula 2.00 08/11/17 18:00 113 08/11/17 16:00 100.4 127 121/78 (92) 96 08/11/17 16:00 127 08/11/17 14:00 131 General: No acute distress Respiratory: Non-labored respirations Cardiology: Normal rate Exam Comments alert, extubated, following questionable, + blink to threat, tracks well, ou 3- 2mm, localizing with all 4 ext, Objective Micro and Labs Laboratory Tests Test 08/11/17 19:13 08/12/17 04:46 Procalcitonin 0.54 White Blood Count 13.7 Red Blood Count 3.71 Hemoglobin 10.8 Hematocrit 32.5 Mean Corpuscular Volume 87.5 Mean Corpuscular Hemoglobin 29.0 Mean Corpuscular Hemoglobin Concent 33.1 Red Cell Distribution Width 13.3 Platelet Count 390 Mean Platelet Volume 9.1 Neutrophils (%) (Auto) 72.8 Lymphocytes (%) (Auto) 13.3 Monocytes (%) (Auto) 12.4 Eosinophils (%) (Auto) 1.1 Basophils (%) (Auto) 0.4 Neutrophils # (Auto) 9.9 Lymphocytes # (Auto) 1.8 Monocytes # (Auto) 1.7 Eosinophils # (Auto) 0.1 Basophils # (Auto) 0.1 CBC Comment AUTO DIFF Differential Total Cells Counted 100 Neutrophils % (Manual) 74 Band Neutrophils % 5 Lymphocytes % 10 Monocytes % 4 Eosinophils % 2 Basophils % 1 Neutrophils # (Manual) 11.4 Myelocytes 4 Differential Comment FINAL DIFF MANUAL Platelet Estimate NORMAL Platelet Morphology Comment NORMAL Red Cell Morphology Comment NORMAL Phosphorus Level 4.3 Magnesium Level 2.3 Phenytoin (Dilantin) Level 12.9 Valproic Acid (Depakene) Level 46 Phenobarbital Level 19.2 Date/Time Source Procedure Growth Status 08/10/17 04:13 Blood Peripheral Aerobic Blood Culture - Preliminary NO GROWTH IN 2 DAYS Resulted 08/10/17 04:13 Blood Peripheral Anaerobic Blood Culture - Preliminary NO GROWTH IN 2 DAYS Resulted 08/03/17 11:50 Cerebral Spinal Fluid Lumbar Puncture Fungal Smear - Final NO FUNGAL ELEMENTS SEEN. Resulted 08/03/17 11:50 Cerebral Spinal Fluid Lumbar Puncture Fungal Culture - Preliminary NO GROWTH IN 1 WEEK Resulted 08/10/17 07:45 Sputum Endotracheal Gram Stain - Final Resulted 08/10/17 07:45 Sputum Culture - Preliminary Pseudomonas Aeruginosa Staphylococcus Aureus Resulted 08/10/17 06:13 Urine Catheterized Urine Urine Culture - Final NO GROWTH IN 48 HOURS. Complete Problem Qualifiers (1) Seizure disorder, complex partial: Duong Gomez MD Aug 12, 2017 13:14
[2017-08-12] MEDS ORDERED: ACETAMINOPHEN 1000 MG/100 ML 100 ML IV ONE (13:30)
--- NOTE | 2017-08-12 15:12 | RADRPT ---
EXAM DATE/TIME: 08/12/2017 14:01 [facility] COMPARISON: No previous studies available for comparison. INDICATIONS : NG Tube placement. MEDICAL HISTORY : Seizures SURGICAL HISTORY : None. ENCOUNTER: Initial ACUITY: 4 - 6 days PAIN SCORE: Non-responsive. LOCATION: Abdomen FINDINGS: Feeding type (Dobbhoff) catheter in the proximal stomach. No suction type nasogastric catheter is dem onstrated. Nonobstructive bowel gas pattern. No abnormal calcifications. Osseous structures are intac t. CONCLUSION: 1. Feeding type (Dobbhoff) catheter in the proximal stomach. 2. No suction type nasogastric catheter is demonstrated. If suction type catheter was placed, conside r imaging of the thorax to document position. Rafi Guevara MD on August 12, 2017 at 15:08 Board Certified Radiologist. This report was verified electronically.
[2017-08-12] MEDS: CEFEPIME INJ 2,000 MG in SODIUM CHLORIDE 0.9% INJ 100 ML IV SCH ×2 (15:26→22:57)
[2017-08-12] MEDS ORDERED: VALPROATE INJ 500 MG in SODIUM CHLORIDE 0.9% INJ 100 ML IV SCH (18:00)
[2017-08-12] MEDS: DEXMEDETOMIDINE INJ 1,000 MCG in SODIUM CHLOR 0.9% 250 ML INJ 240 ML IV PRN (20:50)
[2017-08-12] MEDS: HALOPERIDOL LACTATE 5 MG/ML AMP IM PRN (21:44)
[2017-08-12] MEDS: SODIUM CHLORIDE 0.9% FLUSH 10 ML FLUSH IV FLUSH PRN (22:57)
[2017-08-13] VITALS (13 sets, daily range): BP systolic 92–146; BP diastolic 52–78; PULSE 4–124; RESP 18; TEMP 98–103; O2SAT 94–100
[2017-08-13] MEDS: LACOSAMIDE INJ 100 MG in SODIUM CHLORIDE 0.9% INJ 100 ML IV SCH ×2 (03:22→15:42)
[2017-08-13] MEDS: FOSPHENYTOIN INJ 200 MGPE in SODIUM CHLORIDE 0.9% INJ 50 ML IV SCH ×2 (04:00→15:42)
[2017-08-13] MEDS: CEFEPIME INJ 2,000 MG in SODIUM CHLORIDE 0.9% INJ 100 ML IV SCH ×3 (05:49→21:29)
[2017-08-13 05:55] LABS: AUTOMATED NEUTROPHIL # 16.3 TH/MM3 (1.8-7.7); BASOPHIL # 0.1 TH/MM3 (0-0.2); BASOPHIL % 0.5 % (0.0-2.0); EOSINOPHIL # 0.2 TH/MM3 (0-0.4); EOSINOPHIL % 0.8 % (0.0-4.0); HEMO FLAGS DIFF FINAL; LYMPHOCYTE # 1.6 TH/MM3 (1.0-4.8); MEAN CELL VOLUME 88.3 FL (80.0-100.0); MEAN CORPUSCULAR HEMOGLOBIN 29.1 PG (27.0-34.0); MEAN CORPUSCULAR HGB CONC 32.9 % (32.0-36.0); MONO % 9.5 % (0.0-8.0); NEUT % 81.2 % (16.0-70.0); PLATELET COUNT 373 TH/MM3 (150-450); RED BLOOD COUNT 3.51 MIL/MM3 (4.00-5.30); RED CELL DISTRIBUTION WIDTH 13.2 % (11.6-17.2); WHITE BLOOD COUNT 20.1 TH/MM3 (4.0-11.0)
[2017-08-13] MEDS: INSULIN NovoLIN REGULAR SUPPLEMENTAL SCALE SQ SCH ×4 (06:00→18:00)
[2017-08-13 06:07] LABS: BICARBONATE 24.5 MEQ/L (21.0-32.0); POTASSIUM 4.6 MEQ/L (3.5-5.1)
[2017-08-13 06:10] LABS: PHENOBARBITAL 25.2 MCG/ML (15.0-40.0)
[2017-08-13] MEDS: SODIUM CHLORIDE 0.9% FLUSH 10 ML FLUSH IV FLUSH SCH ×2 (09:00→21:36)
--- NOTE | 2017-08-13 09:12 | HHI.PR ---
Review/Management Diagnosis/Plan: (1) Seizure disorder, complex partial ICD Codes: G40.209 - Localization-related (focal) (partial) symptomatic epilepsy and epileptic syndromes with complex partial seizures, not intractable , without status epilepticus Status: Acute Plan: intractable left temporal lobe seizures etiology; ? 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 Pleocytosis from SZ possible as well but would not expect it to be this pronounced and predominately lymphocytic cx ngtd; hsv pcr negative paraneoplastic panel negative. [place] negative on 4 sz meds; levels in range will consider repeat lp/mri brain depending on clinical course recs following a little better iv depakote increased to 750mg tid dil therapeutic 15.97 d/w pt's mother Subjective Subjective Comments No acute events reported agitation off/on Active Medications Current Medications Medications (Trade) Dose Ordered Sig/Nigel Route Start Time Stop Time Status Last Admin (NS Flush) 2 ml UNSCH PRN IV FLUSH 07/31/17 17:30 08/12/17 22:57 (NS Flush) 2 ml BID IV FLUSH 07/31/17 21:00 08/12/17 20:49 (Tylenol) 650 mg Q4H PRN PO 07/31/17 17:30 08/11/17 00:04 (Zofran Inj) 4 mg Q6H PRN IVP 07/31/17 17:30 08/06/17 16:04 (Narcan Inj) 0.4 mg UNSCH PRN IV PUSH 07/31/17 17:30 (Milk Of Magnesia Liq) 30 ml Q12H PRN PO 07/31/17 17:30 08/05/17 17:09 (Tylenol) 650 mg Q6H PRN PO 07/31/17 20:45 08/01/17 20:40 (Ativan Inj) 1 mg Q2H PRN IV PUSH 08/01/17 21:30 08/12/17 00:32 Potassium Chloride 100 ml @ 50 mls/hr Q2H PRN IV 08/02/17 09:00 Potassium Chloride 100 ml @ 50 mls/hr Q2H PRN IV 08/02/17 09:00 (K-Lyte Cl Eff) 50 meq UNSCH PRN PO 08/02/17 09:00 08/08/17 09:10 Potassium Chloride 100 ml @ 25 mls/hr UNSCH PRN IV 08/02/17 09:00 Potassium Chloride 100 ml @ 50 mls/hr Q2H PRN IV 08/02/17 09:00 Magnesium Sulfate 4 gm/Sodium Chloride 100 ml @ 50 mls/hr UNSCH PRN IV 08/02/17 09:00 (Mag-Ox) 800 mg UNSCH PRN PO 08/02/17 09:00 Magnesium Sulfate 2 gm/Sodium Chloride 100 ml @ 50 mls/hr UNSCH PRN IV 08/02/17 09:00 (K-Phos) 2,000 mg Q4H PRN PO 08/02/17 09:00 Sodium Phosphate 30 mmol/Sodium Chloride 250 ml @ 42 mls/hr UNSCH PRN IV 08/02/17 09:00 (K-Phos) 2,000 mg UNSCH PRN PO/TUBE 08/02/17 09:00 Potassium Phosphate 30 mmol/ Sodium Chloride 260 ml @ 42 mls/hr UNSCH PRN IV 08/02/17 09:00 (Luminal Inj) 30 mg Q6H IV 08/05/17 16:00 08/13/17 04:18 (Lazara-Colace) 1 tab BID PO 08/08/17 09:00 08/12/17 20:11 (Lovenox Inj) 40 mg Q24H SQ 08/09/17 11:00 08/12/17 11:16 (Topamax) 75 mg BID OG-TUBE 08/10/17 09:00 08/12/17 20:10 (Pepcid Inj) 20 mg Q12HR IV PUSH 08/10/17 21:00 08/12/17 20:11 (D50w (Vial) Inj) 50 ml UNSCH PRN IV PUSH 08/10/17 17:45 (Glucagon Inj) 1 mg UNSCH PRN OTHER 08/10/17 17:45 (NovoLIN R SUPPLEMENTAL SCALE) 1 Q6HR SQ 08/10/17 18:00 (Racepinephrine 2.25% Neb) 0.5 ml Q3HR NEB PRN NEB 08/11/17 10:15 Lacosamide 100 mg/ Sodium Chloride 110 ml @ 110 mls/hr Q12H IV 08/11/17 15:00 08/13/17 03:22 Fosphenytoin Sodium 200 mgpe/ Sodium Chloride 54 ml @ 216 mls/hr Q12H IV 08/11/17 16:00 08/13/17 04:00 Dexmedetomidine HCl 1000 mcg/ Sodium Chloride 250 ml @ 2.63 mls/hr TITRATE PRN IV 08/12/17 08:30 08/12/17 20:50 Cefepime HCl 2000 mg/Sodium Chloride 100 ml @ 200 mls/hr Q8H IV 08/12/17 14:00 08/13/17 05:49 Acetaminophen 100 ml @ 400 mls/hr Q6H PRN IV 08/12/17 12:15 08/14/17 12:15 (Lopressor Inj) 2.5 mg Q6H PRN IV PUSH 08/12/17 12:30 (Duoneb Neb) 1 ampule Q4HR NEB PRN NEB 08/12/17 12:30 08/12/17 13:27 (Haldol Inj) 2 mg Q8H PRN IM 08/12/17 12:45 08/12/17 21:44 Valproate Sodium 500 mg/Sodium Chloride 105 ml @ 105 mls/hr TID IV 08/12/17 18:00 08/12/17 17:10 Allergies Allergies Coded Allergies oxycodone (Verified Adverse Reaction, Intermediate, Dizziness, 07/31/17) Review of Systems All other ROS: Unable to obtain Exam I&O / VS Vital Signs Date Time Temp Pulse Resp B/P (MAP) Pulse Ox O2 Delivery O2 Flow Rate FiO2 08/13/17 06:00 100 08/13/17 04:00 83 08/13/17 04:00 100.4 83 105/56 (72) 100 08/13/17 02:00 92 08/13/17 00:00 109 08/13/17 00:00 101.2 109 112/69 (83) 98 08/12/17 22:00 115 08/12/17 21:20 95 Nasal Cannula 4.00 08/12/17 20:00 98.4 119 131/83 (99) 100 08/12/17 20:00 119 08/12/17 18:00 121 08/12/17 16:00 113 08/12/17 16:00 98.5 113 117/73 (88) 99 08/12/17 14:00 113 08/12/17 12:00 95 08/12/17 12:00 99.6 95 97 08/12/17 10:00 98 General: No acute distress Respiratory: Non-labored respirations Cardiology: Normal rate Exam Comments alert, has ng tube,following at times, head tremor, + blink to threat, tracks better, ou 3-2mm, localizing with all 4 ext, Objective Micro and Labs Laboratory Tests Test 08/13/17 04:23 08/13/17 04:25 Blood Urea Nitrogen 16 Creatinine 0.58 Random Glucose 89 Calcium Level 8.6 Sodium Level 138 Potassium Level 4.6 Chloride Level 104 Carbon Dioxide Level 24.5 Anion Gap 10 Estimat Glomerular Filtration Rate 133 Phenytoin (Dilantin) Level 9.9 Valproic Acid (Depakene) Level 32 Phenobarbital Level 25.2 White Blood Count 20.1 Red Blood Count 3.51 Hemoglobin 10.2 Hematocrit 31.0 Mean Corpuscular Volume 88.3 Mean Corpuscular Hemoglobin 29.1 Mean Corpuscular Hemoglobin Concent 32.9 Red Cell Distribution Width 13.2 Platelet Count 373 Mean Platelet Volume 8.8 Neutrophils (%) (Auto) 81.2 Lymphocytes (%) (Auto) 8.0 Monocytes (%) (Auto) 9.5 Eosinophils (%) (Auto) 0.8 Basophils (%) (Auto) 0.5 Neutrophils # (Auto) 16.3 Lymphocytes # (Auto) 1.6 Monocytes # (Auto) 1.9 Eosinophils # (Auto) 0.2 Basophils # (Auto) 0.1 CBC Comment DIFF FINAL Differential Comment Date/Time Source Procedure Growth Status 08/12/17 13:22 Blood Peripheral Aerobic Blood Culture Pending Received 08/12/17 13:22 Blood Peripheral Anaerobic Blood Culture Pending Received 08/03/17 11:50 Cerebral Spinal Fluid Lumbar Puncture Fungal Smear - Final NO FUNGAL ELEMENTS SEEN. Resulted 08/03/17 11:50 Cerebral Spinal Fluid Lumbar Puncture Fungal Culture - Preliminary NO GROWTH IN 1 WEEK Resulted 08/10/17 07:45 Sputum Endotracheal Gram Stain - Final Resulted 08/10/17 07:45 Sputum Culture - Preliminary Pseudomonas Aeruginosa Staphylococcus Aureus Resulted 08/10/17 06:13 Urine Catheterized Urine Urine Culture - Final NO GROWTH IN 48 HOURS. Complete Problem Qualifiers (1) Seizure disorder, complex partial: Duong Gomez MD Aug 13, 2017 09:12
--- NOTE | 2017-08-13 09:15 | MG ---
cc: SUKHI TRAN MD Lab No: Date: 08/12/2017 Age: Sex: F Race: ELECTROENCEPHALOGRAM RECORD NUMBER [id number] DATE OF 1995 HISTORY A 22-year-old with history of recurrent seizures, mental status changes. DESCRIPTION 1-3 Hz delta activity. A lot of fast frequency noted, movement muscle tension artifact. Beta intrusion. Posterior sharp transients. Myogenic artifact noted. The patient shaking her head around epoch 90. Out of phase reversals thusly not suggestive of epileptic activity. Single lead EKG showing sinus rhythm. INTERPRETATION Appearance of a lot of myogenic artifact mild to moderate encephalopathy. Clinical correlation. Sukhi Tran MD MG/KK /7:20 PM /9:05 AM MTDD
[2017-08-13] MEDS: HALOPERIDOL LACTATE 5 MG/ML AMP IM PRN (09:23)
[2017-08-13] MEDS: TOPIRAMATE 25 MG TAB OG-TUBE SCH ×2 (09:29→21:25)
[2017-08-13] MEDS: DOCUSATE SODIUM 50 MG/SENNA 8.6 MG TAB PO SCH ×2 (09:29→21:26)
[2017-08-13] MEDS: FAMOTIDINE 20 MG/2 ML VIAL IV PUSH SCH ×2 (09:29→21:25)
[2017-08-13] MEDS: SODIUM CHLORIDE 0.9% FLUSH 10 ML FLUSH IV FLUSH PRN (09:30)
--- NOTE | 2017-08-13 11:03 | HHI.IDPN ---
Subjective Subjective Remarks + fever, low grade agitated, very confused barely recognises her family Speech is incoherent, keeps repeating same words Antibiotics cefepime Allergies: Coded Allergies: oxycodone (Verified Adverse Reaction, Intermediate, Dizziness, 07/31/17) Objective . Vital Signs Date Time Temp Pulse Resp B/P (MAP) Pulse Ox O2 Delivery O2 Flow Rate FiO2 08/13/17 06:00 100 08/13/17 04:00 83 08/13/17 04:00 100.4 83 105/56 (72) 100 08/13/17 02:00 92 08/13/17 00:00 109 08/13/17 00:00 101.2 109 112/69 (83) 98 08/12/17 22:00 115 08/12/17 21:20 95 Nasal Cannula 4.00 08/12/17 20:00 98.4 119 131/83 (99) 100 08/12/17 20:00 119 08/12/17 18:00 121 08/12/17 16:00 113 08/12/17 16:00 98.5 113 117/73 (88) 99 08/12/17 14:00 113 08/12/17 12:00 95 08/12/17 12:00 99.6 95 97 . Laboratory Tests Test 08/12/17 04:46 08/13/17 04:25 White Blood Count 13.7 TH/MM3 20.1 TH/MM3 Red Blood Count 3.71 MIL/MM3 3.51 MIL/MM3 Hemoglobin 10.8 GM/DL 10.2 GM/DL Hematocrit 32.5 % 31.0 % Mean Corpuscular Volume 87.5 FL 88.3 FL Mean Corpuscular Hemoglobin 29.0 PG 29.1 PG Mean Corpuscular Hemoglobin Concent 33.1 % 32.9 % Red Cell Distribution Width 13.3 % 13.2 % Platelet Count 390 TH/MM3 373 TH/MM3 Mean Platelet Volume 9.1 FL 8.8 FL Neutrophils (%) (Auto) 72.8 % 81.2 % Lymphocytes (%) (Auto) 13.3 % 8.0 % Monocytes (%) (Auto) 12.4 % 9.5 % Eosinophils (%) (Auto) 1.1 % 0.8 % Basophils (%) (Auto) 0.4 % 0.5 % Neutrophils # (Auto) 9.9 TH/MM3 16.3 TH/MM3 Lymphocytes # (Auto) 1.8 TH/MM3 1.6 TH/MM3 Monocytes # (Auto) 1.7 TH/MM3 1.9 TH/MM3 Eosinophils # (Auto) 0.1 TH/MM3 0.2 TH/MM3 Basophils # (Auto) 0.1 TH/MM3 0.1 TH/MM3 CBC Comment AUTO DIFF DIFF FINAL Differential Total Cells Counted 100 Neutrophils % (Manual) 74 % Band Neutrophils % 5 % Lymphocytes % 10 % Monocytes % 4 % Eosinophils % 2 % Basophils % 1 % Neutrophils # (Manual) 11.4 TH/MM3 Myelocytes 4 % Differential Comment FINAL DIFF MANUAL Platelet Estimate NORMAL Platelet Morphology Comment NORMAL Red Cell Morphology Comment NORMAL Laboratory Tests Test 08/11/17 19:13 08/12/17 04:46 08/13/17 04:23 Procalcitonin 0.54 ng/mL Phosphorus Level 4.3 MG/DL Magnesium Level 2.3 MG/DL Blood Urea Nitrogen 16 MG/DL Creatinine 0.58 MG/DL Random Glucose 89 MG/DL Calcium Level 8.6 MG/DL Sodium Level 138 MEQ/L Potassium Level 4.6 MEQ/L Chloride Level 104 MEQ/L Carbon Dioxide Level 24.5 MEQ/L Anion Gap 10 MEQ/L Estimat Glomerular Filtration Rate 133 ML/MIN Microbiology Date/Time Source Procedure Growth Status 08/12/17 13:22 Blood Peripheral Aerobic Blood Culture Pending Received 08/12/17 13:22 Blood Peripheral Anaerobic Blood Culture Pending Received 08/12/17 13:17 Blood Peripheral Aerobic Blood Culture Pending Received 08/12/17 13:17 Blood Peripheral Anaerobic Blood Culture Pending Received Imaging Last Impressions Abdomen X-Ray 08/12/17 0000 Signed Impressions: Service Date/Time: Saturday, August 12, 2017 14:01 - CONCLUSION: 1. Feeding type (Dobbhoff) catheter in the proximal stomach. 2. No suction type nasogastric catheter is demonstrated. If suction type catheter was placed, consider imaging of the thorax to document position. Rafi Guevara MD Chest X-Ray 08/11/17 0600 Signed Impressions: Service Date/Time: Friday, August 11, 2017 03:47 - CONCLUSION: No acute cardiopulmonary abnormality is identified. Devin Boggs MD Chest CT 08/06/17 0600 Signed Impressions: Service Date/Time: Sunday, August 06, 2017 09:35 - CONCLUSION: 1. Bilateral basilar consolidation more pronounced on the left. Infectious etiology most likely. 2. Tiny bilateral pleural effusions. 3. No perceivable lesion involving T1 on this standard protocol CT of the thorax. Misael Batres Jr., MD Abdomen/Pelvis CT 08/06/17 0600 Signed Impressions: Service Date/Time: Sunday, August 06, 2017 09:31 - CONCLUSION: Bibasilar consolidative changes worse on the left. No other significant is appreciated. I do not see evidence of metastatic disease. Kev Santana MD FACR Thoracic Spine MRI 08/04/17 0000 Signed Impressions: Service Date/Time: Friday, August 04, 2017 16:14 - CONCLUSION: 1. Focal signal abnormality in the right T1 vertebral body demonstrating uniform contrast-enhancement. Consider performing thin section CT to evaluate integrity or abnormalities within the trabecular pattern and cortex. 2. Multifocal areas of enhancement in the posterior right lung. Recommend further characterization with CT thorax. Misael Samuels MD Lumbar Spine MRI 08/04/17 0000 Signed Impressions: Service Date/Time: Friday, August 04, 2017 16:14 - CONCLUSION: Normal MRI of the lumbar spine with and without contrast. Misael Samuels MD Cervical Spine MRI 08/04/17 0000 Signed Impressions: Service Date/Time: Friday, August 04, 2017 16:14 - CONCLUSION: 1. Round enhancing lesion in the superior right T1 vertebral body. 2. Nondiagnostic evaluation from C1-C4 due to metallic field distortion artifact (braces). Misael Samuels MD Brain MRI 08/04/17 0000 Signed Impressions: Service Date/Time: Friday, August 04, 2017 16:14 - CONCLUSION: 1. No abnormal areas of enhancement or cerebral edema seen. 2. Field distortion artifact from patient's braces limits evaluation of inferior frontal lobes and precludes obtaining diffusion weighted images. Misael Samuels MD Lumbar Puncture Fluoroscopy 08/03/17 0000 Signed Impressions: Service Date/Time: Thursday, August 03, 2017 12:44 - CONCLUSION: Uncomplicated fluoroscopically guided lumbar puncture. Misael Batres Jr., MD Neck CTA 08/01/17 0000 Signed Impressions: Service Date/Time: Tuesday, August 01, 2017 10:03 - CONCLUSION: 1. No evidence of carotid stenosis 2. 3. 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 No acute findings or aneurysm identified. 2. 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 awake alert TUBES/LINES/DRAINS: SKIN: No jaundice, rashes, or lesions. Skin temperature appropriate. Not diaphoretic. EYES: Pupils are small equal and round and reactive. Extraocular motions intact. No scleral icterus. No injection or drainage. Fundi not examined. ENT: Hearing note tested Nose without bleeding or purulent drainage. Visualised mucosae without visible erythema, exudates, masses, or lesions. CARDIOVASCULAR: Regular rate and rhythm without murmurs, gallops, or rubs. No JVD. Peripheral pulses symmetric. RESPIRATORY/CHEST: Symmetric, unlabored respirations. Clear to auscultation. Breath sounds equal bilaterally. No wheezes, rales, or rhonchi. GASTROINTESTINAL: Abdomen soft, non-tender, nondistended. No hepato-splenomegaly , or palpable masses. No guarding. Bowel sounds present. GENITOURINARY: bladder with no palpable distension. fay in w clear yellow urine MUSCULOSKELETAL: Extremities without clubbing, cyanosis, or edema. 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/o HSV by PCR - probably viral, all sepcific studies are negaive Bacterial meningitis less likely Acute urinary retention - relieved with fay 2000 cc of urine - most likely med induced - not reported back pain or LE weakness MRI c T1 lesion - non specific, doubt clin significance Pt is critically ill , stable Fever PNA, b/l , MSSA - repeat sputum clx with PSAE , MSSA - now with clear lungs on CXR PSAE is likley contaminant/coloniser , but giving the situation w persistent feer will change abx to include coverage for PSAE Persistent grade fever - procalcitonine high, more cw infx - still persistent Leukocytosis - worse - prominent L shift fu P blood clx fu sputum cont cefepime monitor fever, monitor temps monitor neuro status If no further neuro improvement /or worsening will re-image and re-tap dw RN dw mother @ b/s Louisa Childs MD Aug 13, 2017 11:03
[2017-08-13] MEDS: ENOXAPARIN SODIUM 40 MG/0.4 ML SYRINGE SQ SCH (12:23)
[2017-08-13] MEDS: VALPROATE INJ 750 MG in SODIUM CHLORIDE 0.9% INJ 100 ML IV SCH ×2 (12:24→18:26)
--- NOTE | 2017-08-13 13:28 | RADRPT ---
EXAM DATE/TIME: 08/13/2017 12:36 [facility] COMPARISON: ABDOMEN KUB ONLY, August 12, 2017, 14:01. INDICATIONS : Feeding tube placement. MEDICAL HISTORY : Seizures SURGICAL HISTORY : None. ENCOUNTER: Subsequent ACUITY: 3 weeks PAIN SCORE: Non-responsive. LOCATION: Bilateral Abdomen FINDINGS: Single supine view of the abdomen demonstrates a feeding tube distal tip in the first portion of the duodenum. No other significant abnormality or interval change is identified. CONCLUSION: Feeding tube distal tip overlying the first portion of the duodenum. Devin Boggs MD on August 13, 2017 at 13:25 Board Certified Radiologist. This report was verified electronically.
[2017-08-13] MEDS: LORazepam 2 MG/ML VIAL IV PUSH PRN ×2 (13:45→20:42)
[2017-08-13] MEDS: ONDANSETRON HCL 4 MG/2 ML VIAL IVP PRN (13:55)
[2017-08-13] MEDS: ACETAMINOPHEN 1000 MG/100 ML 100 ML IV PRN ×2 (15:41→22:15)
--- NOTE | 2017-08-13 16:22 | HHI.CCPN ---
Subjective Remarks/Hospital Course The patient is a 22-year-old female who attends [employer] [facility] [place] and presented to [facility] ED with her parents noted to have altered mental status. According to the records, the patient was under a lot of stress and she had a recent breakup with her boyfriend one month ago. The patient was admitted under Dr. Ventura's service. She had an EEG done which showed seizure activity. The patient was subsequently placed on Depakote, Vimpat, and Ativan. In addition, she received a loading dose of Cerebyx yesterday. Despite being on multiple antiseizure meds, continuous EEG showed a seizure pattern. After discussion with Dr. Gomez from neurology, he recommended to intubate the patient and place her on Versed drip to control her seizures. After discussion with the patient's father, the patient was intubated and placed on full mechanical ventilation. She had an MRI of the brain the night of July 31 which showed no acute findings. A CTA of the head and neck were unremarkable as well. Urine drug screen was negative for opiates, amphetamines, benzodiazepines. There is no evidence of any fever or leukocytosis. 08/03 No events overnight. Sedated with Versed, Diprivan and intubated. Afebrile. 08/04 No events overnight. Sedated with Diprivan and Versed. s/p LP yesterday showed clear CSF, elevated protein 56, WBC: 57 (Lymphocytic predominant). For repeat MRI brain today. Spoked fever with T: 101.4 at 4am. 08/05 No events overnight. On Continuous EEG monitoring. Afebrile. Sedated with Versed and Diprivan. 08/06 No events overnight. Versed is down 3mg/hr, off Diprivan. For CT thorax/ abd today. T:101.5 08/07 No events overnight. On Versed drip 4mg/hr, T:101.8 at midnight. 08/08: At 8 pm yesterday had 101.7 fever , now afebrile. Eyes are open, weakly followed commands bilaterally, moved feet to command for RN and her father. CXR pending. Ortiz secretions from ETT. CT chest, Bibasilar infiltrates L>R 08/09: Patient had one episode of tonic-clonic seizure in the afternoon. Placed back on sedation. Topamax added. Dr. Gomez has ordered West Nile, paraneoplastic panel. Updated parents at bedside 08/10: Overnight fever noted. No new seizures. Attempted breathing trial with minimal cuff leak. We'll start on dexamethasone 4 mg for 4 dosages. Family updated at bedside. Last BM today Subjective 12: Overnight. Temp max 101. Currently afebrile. Extubated today without complication. Discontinued dexmedetomidine drip. Positive bowel movement 3 08/12: TMax 101.0 Sputum positive for Gram negative rods. Pt became agitated last night and received geodon x 2 doses. Pt appears more alert this am. Continuous EEG monitoring in progress. 08/13: Tmax 101.0 sputum Pseudomonas, the patient was started on cefepime yesterday. Patient recultured now pending. Geodon was discontinued yesterday, Ativan only for seizure activity. Discussion with Dr. Ivan webb Haldonicky low dose when necessary for agitation. Patient received 2 doses in the last 24 hours. Patient was noted to have seizure-like activity this afternoon patient received 1 mg of Ativan. Continuous EEG monitoring underway at this time. Objective Vital Signs Date Time Temp Pulse Resp B/P (MAP) Pulse Ox O2 Delivery O2 Flow Rate FiO2 08/13/17 14:00 93 08/13/17 12:00 99.7 121/78 (92) 94 08/13/17 11:45 Nasal Cannula 2.00 08/11/17 08:14 35 08/11/17 04:00 27 Intake and Output 08/13/17 08/13/17 08/14/17 08:00 16:00 00:00 Intake Total 524 ml 107.5 ml Output Total 600 ml Balance -76 ml 107.5 ml Result Diagram: 08/13/17 0425 08/13/17 0423 Imaging Last Impressions Chest X-Ray 08/11/17599 Signed Impressions: Service Date/Time: Friday, August 11, 2017 03:47 - CONCLUSION: No acute cardiopulmonary abnormality is identified. Devin Boggs MD Chest CT 08/06/17 06 Signed Impressions: Service Date/Time: Sunday, August 06, 2017 09:35 - CONCLUSION: 1. Bilateral basilar consolidation more pronounced on the left. Infectious etiology most likely. 2. Tiny bilateral pleural effusions. 3. No perceivable lesion involving T1 on this standard protocol CT of the thorax. Misael Batres Jr., MD Abdomen/Pelvis CT 08/06/17 0600 Signed Impressions: Service Date/Time: Sunday, August 06, 2017 09:31 - CONCLUSION: Bibasilar consolidative changes worse on the left. No other significant is appreciated. I do not see evidence of metastatic disease. Kev Santana MD FACR Thoracic Spine MRI 08/04/17 0000 Signed Impressions: Service Date/Time: Friday, August 04, 2017 16:14 - CONCLUSION: 1. Focal signal abnormality in the right T1 vertebral body demonstrating uniform contrast-enhancement. Consider performing thin section CT to evaluate integrity or abnormalities within the trabecular pattern and cortex. 2. Multifocal areas of enhancement in the posterior right lung. Recommend further characterization with CT thorax. Misael Samuels MD Lumbar Spine MRI 08/04/17 0000 Signed Impressions: Service Date/Time: Friday, August 04, 2017 16:14 - CONCLUSION: Normal MRI of the lumbar spine with and without contrast. Misael Samuels MD Cervical Spine MRI 08/04/17 0000 Signed Impressions: Service Date/Time: Friday, August 04, 2017 16:14 - CONCLUSION: 1. Round enhancing lesion in the superior right T1 vertebral body. 2. Nondiagnostic evaluation from C1-C4 due to metallic field distortion artifact (braces). Misael Samuels MD Brain MRI 08/04/17 0000 Signed Impressions: Service Date/Time: Friday, August 04, 2017 16:14 - CONCLUSION: 1. No abnormal areas of enhancement or cerebral edema seen. 2. Field distortion artifact from patient's braces limits evaluation of inferior frontal lobes and precludes obtaining diffusion weighted images. Misael Samuels MD Lumbar Puncture Fluoroscopy 08/03/17 0000 Signed Impressions: Service Date/Time: Thursday, August 03, 2017 12:44 - CONCLUSION: Uncomplicated fluoroscopically guided lumbar puncture. Misael Batres Jr., MD Neck CTA 08/01/17 0000 Signed Impressions: Service Date/Time: Tuesday, August 01, 2017 10:03 - CONCLUSION: 1. No evidence of carotid stenosis 2. 3. 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 No acute findings or aneurysm identified. 2. 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 HEAD: Normocephalic. Multiple EEG probes in place, continuous EEG in progress EYES: No scleral icterus. No injection or drainage. NECK: Supple, trachea midline. No JVD or lymphadenopathy. CARDIOVASCULAR: Sinus tachycardia and rhythm without murmurs, gallops, or rubs. RESPIRATORY: Breath sounds equal bilaterally, diminished at bases. No accessory muscle use. GASTROINTESTINAL: Abdomen soft, non-tender, nondistended. MUSCULOSKELETAL: No significant peripheral edema. Neuro: Currently seizure-like activity. Cranial nerves II through XII grossly intact. Moving all 4 extremity spontaneously. Not following commands. 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 On valproic acid 500 mg IV twice a day ,), fosphenytoin 150 mg IV q12, 2. Topiramate 75 mg twice a day, phenobarbital 30mg Q6 and Ativan 1 mg IV q2 PRN follow up on levels daily. The 20 currently 7.6. Will bolus fosphenytoin 500 mg 1 now. Monitor neuro status. Neuro Dr. Gomez. A neuro workup which includes MRI of the brain, CTA of the head and neck are unremarkable. 08/05 EEG: Diffuse encephalopathy, 08/09 No seizure EEG: : diffuse encephalopathy. Occasional sharp activity is identified over the left hemisphere suggesting an ictal focus in that area Repeat MRI brain 08/04 : No acute findings MRI spine: Round enhancing lesion T1 vertebral body. ? significance s/p LP 08/03: Clear CSF, elevated protein 56, WBC 57 ( Lymphocytic predominant ), glc 62 Most likely viral encephalitis. West Nile and paraneoplastic panel to follow 08/12 Phenytoin and Phenobarbital levels -therapuetic, Valproic Acid slightly subtherapuetic at 46 08/12 Will D/C Geodon, begin Haldol for agitation, Utilize Ativan for seizure activity only 08/13 plan for possible repeat [id number] with neurology, possible repeat lumbar puncture Pulm: Acute respiratory failure Nasal cannula to maintain saturations greater than or equal to 92%. Extubated 08/11 As needed albuterol every 2 hours. Dyspnea Incentive spirometry while awake CT thorax: Bibasilar consolidation L>R Bronchodilators q 4 hrs PRN CV: Monitor HR and BP and maintain MAP>65 mmHg. Echo small pericardial effusion ( Family hx ? VSD) : Monitor renal function I's and O's, and electrolyte replacement per protocol. GI: Elevated ALT Famotidine for GI prophylaxis Speech to evaluate advanced diet- 08/12 passed bedside swallow, but too lethargic for formal swallow by Speech Therapy CT abd/pelvis: no acute findings Bowel regimen Docusate and senna 08/12 insert Dobhoff ID: Febrile Illness MSSA Pneumonia Continue with abx per ID -cefazolin:. Fever downtrending Prev ABX DCd -(ceftriaxone, Acyclovir, Ampicillin vancomycin, piperacillin/ tazobactam and micafungin) Monitor for signs of infections( fever and WBC). HSV DNA PCR negative. 08/03 08/07 Sputum: Staph Aureus. 08/10- Pseudomonas 08/12_ follow-up repeat blood and sputum cultures Remainder cultures no growth Strep pneumonia, Legionella urinary Ag negative Endo: SSI with Accu-Chek q.6 h to maintain euglycemia. Heme: Leukocytosis Normocytic anemia Monitor CBC. Follow trends MSK: PT eval and treat, functional maintenance daily OT evaluate and treat Apply multipolus boots per protocol GI prophylaxis with famotidine 20 mg twice a day and DVT prophylaxis with SCD' s. Continue enoxaparin 40 mg sq daily Level 2 Discussed with [employer] ARCHITECT at bedside family at bedside Physician Noemy Parada MD Aug 13, 2017 16:22
[2017-08-13] MEDS: DEXMEDETOMIDINE INJ 1,000 MCG in SODIUM CHLOR 0.9% 250 ML INJ 240 ML IV PRN (21:26)
[2017-08-14] VITALS (18 sets, daily range): BP systolic 101–126; BP diastolic 71–81; PULSE 56–179; RESP 18–20; TEMP 98–99.4; O2SAT 93–100
[2017-08-14] MEDS: LACOSAMIDE INJ 100 MG in SODIUM CHLORIDE 0.9% INJ 100 ML IV SCH (02:25)
[2017-08-14] MEDS: FOSPHENYTOIN INJ 200 MGPE in SODIUM CHLORIDE 0.9% INJ 50 ML IV SCH ×2 (03:57→16:00)
[2017-08-14 04:32] LABS: HEMATOCRIT 29.9 % (35.0-46.0); MEAN CELL VOLUME 87.9 FL (80.0-100.0); MEAN CORPUSCULAR HEMOGLOBIN 29.2 PG (27.0-34.0); MEAN CORPUSCULAR HGB CONC 33.3 % (32.0-36.0); PLATELET COUNT 452 TH/MM3 (150-450); RED CELL DISTRIBUTION WIDTH 13.2 % (11.6-17.2)
[2017-08-14 04:38] LABS: HEMO FLAGS AUTO DIFF
[2017-08-14] MEDS: CEFEPIME INJ 2,000 MG in SODIUM CHLORIDE 0.9% INJ 100 ML IV SCH ×3 (05:05→20:17)
[2017-08-14 05:29] LABS: ALKALINE PHOSPHATASE 65 U/L (45-117); ALT (GPT) 48 U/L (9-42); ANION GAP 8 MEQ/L (5-15); AST (GOT) 47 U/L (16-38); BICARBONATE 25.2 MEQ/L (21.0-32.0); BLOOD UREA NITROGEN 15 MG/DL (7-18); CHLORIDE 104 MEQ/L (98-107); GLOMERULAR FILTRATION RATE 138 ML/MIN (>89); PHENOBARBITAL 24.9 MCG/ML (15.0-40.0); POTASSIUM 3.7 MEQ/L (3.5-5.1); SODIUM (NA) 137 MEQ/L (136-145); TOTAL BILIRUBIN ADULT 0.2 MG/DL (0.2-1.0)
[2017-08-14] MEDS: INSULIN NovoLIN REGULAR SUPPLEMENTAL SCALE SQ SCH ×4 (05:54→18:00)
--- NOTE | 2017-08-14 07:29 | MG ---
cc: PAZ REAL Lab No: Date: 08/13/2017 Age: 22 Sex: F Race: DATE OF [address] Gomez MEDICAL HISTORY 1. Intermittent syncopal episodes for seconds to minutes at a time with confusion and headache, worsening. 2. History of febrile seizure as a child. 3. Alcohol and caffeine use. MEDICATIONS 1. Haldol. 2. Precedex. DESCRIPTION The technical quality of the EEG is poor. There is a lot of artifact during the recording. It was described by the senior games technician that the patient is kicking legs and awake. Hyperventilation was omitted. Photic station did not elicit a driving response. 15 minutes into the EEG 2 mg of Haldol was given to help calm the patient. On the readable portion of the EEG there is generalized background slowing. There were no electrographic seizures or epileptiform discharges noted. INTERPRETATION This is an awake, drowsy EEG. In the readable portion of the EEG there is generalized slowing that may be related to metabolic or medication adverse effects. There were no electrographic seizures or epileptiform discharges noted during the recording. Clinical correlation is recommended. Paz Real MD RGO/SSB /8:55 PM /7:17 AM MTDD
[2017-08-14 07:41] LABS: BANDS 10 % (0-6); BASOPHILS 1 % (0-2); METAMYELOCYTES 2 % (0-1); NEUTROPHIL # MANUAL DIFF 12.9 TH/MM3 (1.8-7.7); PLATELET ESTIMATE SMEAR HIGH (NORMAL); PLATELET MORPHOLOGY NORMAL (NORMAL); POLYS (SEG NEUTROPHILS) 74 % (16-70); SCAN/DIFF FINAL DIFF MANUAL; WBC DIFF SAMPLE 100
--- NOTE | 2017-08-14 08:39 | HHI.PR ---
Review/Management Diagnosis/Plan: (1) Seizure disorder, complex partial ICD Codes: G40.209 - Localization-related (focal) (partial) symptomatic epilepsy and epileptic syndromes with complex partial seizures, not intractable , without status epilepticus Status: Acute Plan: intractable left temporal lobe seizures etiology; ? 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 Pleocytosis from SZ possible as well but would not expect it to be this pronounced and predominately lymphocytic cx ngtd; hsv pcr negative paraneoplastic panel negative. west nile negative recs repeat mri brain nmda/lg1/vgkc abs pending d/w pt's mother/father/rn Subjective Subjective Comments No acute events reported Active Medications Current Medications Medications (Trade) Dose Ordered Sig/Nigel Route Start Time Stop Time Status Last Admin (NS Flush) 2 ml UNSCH PRN IV FLUSH 07/31/17 17:30 08/13/17 09:30 (NS Flush) 2 ml BID IV FLUSH 07/31/17 21:00 08/13/17 21:36 (Tylenol) 650 mg Q4H PRN PO 07/31/17 17:30 08/11/17 00:04 (Zofran Inj) 4 mg Q6H PRN IVP 07/31/17 17:30 08/13/17 13:55 (Narcan Inj) 0.4 mg UNSCH PRN IV PUSH 07/31/17 17:30 (Milk Of Magnesia Liq) 30 ml Q12H PRN PO 07/31/17 17:30 08/05/17 17:09 (Tylenol) 650 mg Q6H PRN PO 07/31/17 20:45 08/01/17 20:40 (Ativan Inj) 1 mg Q2H PRN IV PUSH 08/01/17 21:30 08/13/17 20:42 Potassium Chloride 100 ml @ 50 mls/hr Q2H PRN IV 08/02/17 09:00 Potassium Chloride 100 ml @ 50 mls/hr Q2H PRN IV 08/02/17 09:00 (K-Lyte Cl Eff) 50 meq UNSCH PRN PO 08/02/17 09:00 08/08/17 09:10 Potassium Chloride 100 ml @ 25 mls/hr UNSCH PRN IV 08/02/17 09:00 Potassium Chloride 100 ml @ 50 mls/hr Q2H PRN IV 08/02/17 09:00 Magnesium Sulfate 4 gm/Sodium Chloride 100 ml @ 50 mls/hr UNSCH PRN IV 08/02/17 09:00 (Mag-Ox) 800 mg UNSCH PRN PO 08/02/17 09:00 Magnesium Sulfate 2 gm/Sodium Chloride 100 ml @ 50 mls/hr UNSCH PRN IV 08/02/17 09:00 (K-Phos) 2,000 mg Q4H PRN PO 08/02/17 09:00 Sodium Phosphate 30 mmol/Sodium Chloride 250 ml @ 42 mls/hr UNSCH PRN IV 08/02/17 09:00 (K-Phos) 2,000 mg UNSCH PRN PO/TUBE 08/02/17 09:00 Potassium Phosphate 30 mmol/ Sodium Chloride 260 ml @ 42 mls/hr UNSCH PRN IV 08/02/17 09:00 (Luminal Inj) 30 mg Q6H IV 08/05/17 16:00 08/14/17 03:56 (Lazara-Colace) 1 tab BID PO 08/08/17 09:00 08/13/17 21:26 (Lovenox Inj) 40 mg Q24H SQ 08/09/17 11:00 08/13/17 12:23 (Topamax) 75 mg BID OG-TUBE 08/10/17 09:00 08/13/17 21:25 (Pepcid Inj) 20 mg Q12HR IV PUSH 08/10/17 21:00 08/13/17 21:25 (D50w (Vial) Inj) 50 ml UNSCH PRN IV PUSH 08/10/17 17:45 (Glucagon Inj) 1 mg UNSCH PRN OTHER 08/10/17 17:45 (NovoLIN R SUPPLEMENTAL SCALE) 1 Q6HR SQ 08/10/17 18:00 (Racepinephrine 2.25% Neb) 0.5 ml Q3HR NEB PRN NEB 08/11/17 10:15 Lacosamide 100 mg/ Sodium Chloride 110 ml @ 110 mls/hr Q12H IV 08/11/17 15:00 08/14/17 02:25 Fosphenytoin Sodium 200 mgpe/ Sodium Chloride 54 ml @ 216 mls/hr Q12H IV 08/11/17 16:00 12/5/17 03:57 Dexmedetomidine HCl 1000 mcg/ Sodium Chloride 250 ml @ 2.63 mls/hr TITRATE PRN IV 08/12/17 08:30 08/13/17 21:26 Cefepime HCl 2000 mg/Sodium Chloride 100 ml @ 200 mls/hr Q8H IV 08/12/17 14:00 08/14/17 05:05 Acetaminophen 100 ml @ 400 mls/hr Q6H PRN IV 08/12/17 12:15 08/14/17 12:15 08/13/17 22:15 (Lopressor Inj) 2.5 mg Q6H PRN IV PUSH 08/12/17 12:30 08/13/17 13:45 (Duoneb Neb) 1 ampule Q4HR NEB PRN NEB 08/12/17 12:30 08/12/17 13:27 (Haldol Inj) 2 mg Q8H PRN IM 08/12/17 12:45 08/13/17 09:23 Valproate Sodium 750 mg/Sodium Chloride 107.5 ml @ 105 mls/hr TID IV 08/13/17 13:00 08/13/17 18:26 Allergies Allergies Coded Allergies oxycodone (Verified Adverse Reaction, Intermediate, Dizziness, 07/31/17) Review of Systems All other ROS: Unable to obtain Exam I&O / VS Vital Signs Date Time Temp Pulse Resp B/P (MAP) Pulse Ox O2 Delivery O2 Flow Rate FiO2 08/14/17 06:00 79 08/14/17 04:00 69 08/14/17 04:00 99.4 69 18 126/77 (93) 100 08/14/17 02:00 72 08/14/17 00:00 98.9 74 20 118/71 (87) 100 08/14/17 00:00 74 08/13/17 22:00 89 08/13/17 20:00 71 08/13/17 20:00 101.1 71 18 92/52 (65) 100 08/13/17 20:00 99 Nasal Cannula 2.00 08/13/17 18:00 98.0 08/13/17 18:00 4 08/13/17 16:11 18 08/13/17 16:00 100 08/13/17 16:00 103.0 100 118/59 (78) 99 08/13/17 14:00 93 08/13/17 12:00 124 08/13/17 12:00 99.7 124 121/78 (92) 94 08/13/17 11:45 99 Nasal Cannula 2.00 08/13/17 10:00 109 General: No acute distress Respiratory: Non-labored respirations Cardiology: Normal rate Exam Comments drowsy, on precedex gtt, opens eyes, not following, no head tremors, no involuntary movements, ou 3-2mm, localizing with all 4 ext, Objective Micro and Labs Laboratory Tests Test 08/14/17 04:22 White Blood Count 15.0 Red Blood Count 3.40 Hemoglobin 10.0 Hematocrit 29.9 Mean Corpuscular Volume 87.9 Mean Corpuscular Hemoglobin 29.2 Mean Corpuscular Hemoglobin Concent 33.3 Red Cell Distribution Width 13.2 Platelet Count 452 Mean Platelet Volume 7.4 CBC Comment AUTO DIFF Differential Total Cells Counted 100 Neutrophils % (Manual) 74 Band Neutrophils % 10 Lymphocytes % 9 Monocytes % 4 Basophils % 1 Neutrophils # (Manual) 12.9 Metamyelocytes 2 Differential Comment FINAL DIFF MANUAL Platelet Estimate HIGH Platelet Morphology Comment NORMAL Red Cell Morphology Comment NORMAL Blood Urea Nitrogen 15 Creatinine 0.56 Random Glucose 108 Total Protein 7.3 Albumin 2.6 Calcium Level 8.4 Alkaline Phosphatase 65 Aspartate Amino Transf (AST/SGOT) 47 Alanine Aminotransferase (ALT/SGPT) 48 Total Bilirubin 0.2 Sodium Level 137 Potassium Level 3.7 Chloride Level 104 Carbon Dioxide Level 25.2 Anion Gap 8 Estimat Glomerular Filtration Rate 138 Ammonia 53 Phenytoin (Dilantin) Level 12.6 Phenobarbital Level 24.9 Date/Time Source Procedure Growth Status 08/12/17 13:22 Blood Peripheral Aerobic Blood Culture - Preliminary NO GROWTH IN 1 DAY Resulted 08/12/17 13:22 Blood Peripheral Anaerobic Blood Culture - Preliminary NO GROWTH IN 1 DAY Resulted 08/03/17 11:50 Cerebral Spinal Fluid Lumbar Puncture Fungal Smear - Final NO FUNGAL ELEMENTS SEEN. Resulted 08/03/17 11:50 Cerebral Spinal Fluid Lumbar Puncture Fungal Culture - Preliminary NO GROWTH IN 1 WEEK Resulted 08/10/17 07:45 Sputum Endotracheal Gram Stain - Final Complete 08/10/17 07:45 Sputum Culture - Final Pseudomonas Aeruginosa Staphylococcus Aureus Complete 08/10/17 06:13 Urine Catheterized Urine Urine Culture - Final NO GROWTH IN 48 HOURS. Complete Problem Qualifiers (1) Seizure disorder, complex partial: Duong Gomez MD Aug 14, 2017 08:39
[2017-08-14] MEDS: SODIUM CHLORIDE 0.9% FLUSH 10 ML FLUSH IV FLUSH SCH ×2 (09:00→20:17)
[2017-08-14] MEDS: FAMOTIDINE 20 MG/2 ML VIAL IV PUSH SCH ×2 (09:00→20:16)
[2017-08-14] MEDS: TOPIRAMATE 25 MG TAB OG-TUBE SCH ×2 (09:00→20:17)
[2017-08-14] MEDS: DOCUSATE SODIUM 50 MG/SENNA 8.6 MG TAB PO SCH ×2 (09:00→20:16)
[2017-08-14] MEDS: VALPROATE INJ 750 MG in SODIUM CHLORIDE 0.9% INJ 100 ML IV SCH ×3 (09:34→18:00)
[2017-08-14] MEDS: DEXMEDETOMIDINE INJ 1,000 MCG in SODIUM CHLOR 0.9% 250 ML INJ 240 ML IV PRN (09:35)
[2017-08-14] MEDS: ENOXAPARIN SODIUM 40 MG/0.4 ML SYRINGE SQ SCH (11:00)
[2017-08-14] MEDS ORDERED: GADODIAMIDE PF 287 MG/ML 10 ML VIAL (for RAD MRI) IV PUSH ONE (12:11)
--- NOTE | 2017-08-14 12:27 | RADRPT ---
EXAM DATE/TIME: 08/14/2017 11:41 [place] COMPARISON: MRI BRAIN W & W/O CONTRAST, August 04, 2017, 16:14. INDICATIONS : Seizures. CONTRAST: 9 cc Omniscan (gadodiamide) IV MEDICAL HISTORY : None. SURGICAL HISTORY : None. ENCOUNTER: Initial ACUITY: 3 weeks PAIN SCORE: Nonresponsive. LOCATION: head TECHNIQUE: Multiplanar, multisequence MRI of the brain was performed both prior to and following the administrat ion of paramagnetic contrast. FINDINGS: Metallic braces cause field distortion artifacts and rendering the diffusion, susceptibility weighted , and echo planar sequences nondiagnostic. The other sequences are diagnostic except for the frontal orbital region. The brain is well formed. Ventricles are normal in size. There is good aldana-white matter differentiation. Posterior fossa structures are grossly unremarkable. The pituitary is norm al in appearance. Low lying cerebellar tonsils. On the postcontrast images, no abnormal areas of en hancement or blood brain barrier breakdown seen. No extra-axial fluid or blood. The overall appeara nce of the brain is very similar to prior MRI on 07/31/17. CONCLUSION: 1. No acute findings in the brain. 2. Field distortion artifact from patient's braces limits evaluation of portions of the basal brain a nd renders diffusion echoplanar images nondiagnostic. Misael Samuels MD on August 14, 2017 at 12:23 Board Certified Radiologist. This report was verified electronically.
--- NOTE | 2017-08-14 12:39 | HHI.CCPN ---
Subjective Remarks/Hospital Course The patient is a 22-year-old female who attends [employer] [facility] [employer] and presented to [facility] ED with her parents noted to have altered mental status. According to the records, the patient was under a lot of stress and she had a recent breakup with her boyfriend one month ago. The patient was admitted under Dr. Ventura's service. She had an EEG done which showed seizure activity. The patient was subsequently placed on Depakote, Vimpat, and Ativan. In addition, she received a loading dose of Cerebyx yesterday. Despite being on multiple antiseizure meds, continuous EEG showed a seizure pattern. After discussion with Dr. Gomez from neurology, he recommended to intubate the patient and place her on Versed drip to control her seizures. After discussion with the patient's father, the patient was intubated and placed on full mechanical ventilation. She had an MRI of the brain the night of July 31 which showed no acute findings. A CTA of the head and neck were unremarkable as well. Urine drug screen was negative for opiates, amphetamines, benzodiazepines. There is no evidence of any fever or leukocytosis. 08/03 No events overnight. Sedated with Versed, Diprivan and intubated. Afebrile. 08/04 No events overnight. Sedated with Diprivan and Versed. s/p LP yesterday showed clear CSF, elevated protein 56, WBC: 57 (Lymphocytic predominant). For repeat MRI brain today. Spoked fever with T: 101.4 at 4am. 08/05 No events overnight. On Continuous EEG monitoring. Afebrile. Sedated with Versed and Diprivan. 08/06 No events overnight. Versed is down 3mg/hr, off Diprivan. For CT thorax/ abd today. T:101.5 08/07 No events overnight. On Versed drip 4mg/hr, T:101.8 at midnight. 08/08: At 8 pm yesterday had 101.7 fever , now afebrile. Eyes are open, weakly followed commands bilaterally, moved feet to command for RN and her father. CXR pending. Ortiz secretions from ETT. CT chest, Bibasilar infiltrates L>R 08/09: Patient had one episode of tonic-clonic seizure in the afternoon. Placed back on sedation. Topamax added. Dr. Gomez has ordered West Nile, paraneoplastic panel. Updated parents at bedside 08/10: Overnight fever noted. No new seizures. Attempted breathing trial with minimal cuff leak. We'll start on dexamethasone 4 mg for 4 dosages. Family updated at bedside. Last BM today Subjective 08/11: Overnight. Temp max 101. Currently afebrile. Extubated today without complication. Discontinued dexmedetomidine drip. Positive bowel movement 3 08/12: TMax 101.0 Sputum positive for Gram negative rods. Pt became agitated last night and received geodon x 2 doses. Pt appears more alert this am. Continuous EEG monitoring in progress. 08/13: Tmax 101.0 sputum Pseudomonas, the patient was started on cefepime yesterday. Patient recultured now pending. Geodon was discontinued yesterday, Ativan only for seizure activity. Discussion with Dr. Ivan webb Haldonicky low dose when necessary for agitation. Patient received 2 doses in the last 24 hours. Patient was noted to have seizure-like activity this afternoon patient received 1 mg of Ativan. Continuous EEG monitoring underway at this time. 08/14: Tmax 101.1. Patient was noted to have seizure-like activity yesterday afternoon EEG intermittently performed evaluation pending per neurology Dr. Gomez. MRI scheduled for this afternoon. Discussion with Dr. Gomez and the patient's parents regarding the need for continuous EEG monitoring, plan for possible transfer to [facility] or another facility with continuous EEG capability. She continues on Precedex infusion. Ammonia level was noted to be 53 ,lactulose instituted per day. Objective Vital Signs Date Time Temp Pulse Resp B/P (MAP) Pulse Ox O2 Delivery O2 Flow Rate FiO2 08/14/17 11:44 99 Nasal Cannula 2.00 08/14/17 10:00 79 08/14/17 08:00 98.0 18 118/79 (92) 08/11/17 08:14 35 Intake and Output 08/14/17 08/14/17 08/15/17 08:00 16:00 00:00 Intake Total 751 ml Output Total 400 ml Balance 351 ml Result Diagram: 08/14/1742108/14/17421 Imaging Last Impressions Chest X-Ray 08/11/17 0600 Signed Impressions: Service Date/Time: Friday, August 11, 2017 03:47 - CONCLUSION: No acute cardiopulmonary abnormality is identified. Devin Boggs MD Chest CT 08/06/17599 Signed Impressions: Service Date/Time: Sunday, August 06, 2017 09:35 - CONCLUSION: 1. Bilateral basilar consolidation more pronounced on the left. Infectious etiology most likely. 2. Tiny bilateral pleural effusions. 3. No perceivable lesion involving T1 on this standard protocol CT of the thorax. Misael Batres Jr., MD Abdomen/Pelvis CT 08/06/17599 Signed Impressions: Service Date/Time: Sunday, August 06, 2017 09:31 - CONCLUSION: Bibasilar consolidative changes worse on the left. No other significant is appreciated. I do not see evidence of metastatic disease. Kev Santana MD FACR Thoracic Spine MRI 08/04/17 0000 Signed Impressions: Service Date/Time: Friday, August 04, 2017 16:14 - CONCLUSION: 1. Focal signal abnormality in the right T1 vertebral body demonstrating uniform contrast-enhancement. Consider performing thin section CT to evaluate integrity or abnormalities within the trabecular pattern and cortex. 2. Multifocal areas of enhancement in the posterior right lung. Recommend further characterization with CT thorax. Misael Samuels MD Lumbar Spine MRI 08/04/17 0000 Signed Impressions: Service Date/Time: Friday, August 04, 2017 16:14 - CONCLUSION: Normal MRI of the lumbar spine with and without contrast. Misael Samuels MD Cervical Spine MRI 08/04/17 0000 Signed Impressions: Service Date/Time: Friday, August 04, 2017 16:14 - CONCLUSION: 1. Round enhancing lesion in the superior right T1 vertebral body. 2. Nondiagnostic evaluation from C1-C4 due to metallic field distortion artifact (braces). Misael Samuels MD Brain MRI 08/04/17 0000 Signed Impressions: Service Date/Time: Friday, August 04, 2017 16:14 - CONCLUSION: 1. No abnormal areas of enhancement or cerebral edema seen. 2. Field distortion artifact from patient's braces limits evaluation of inferior frontal lobes and precludes obtaining diffusion weighted images. Misael Samuels MD Lumbar Puncture Fluoroscopy 08/03/17 0000 Signed Impressions: Service Date/Time: Thursday, August 03, 2017 12:44 - CONCLUSION: Uncomplicated fluoroscopically guided lumbar puncture. Misael Batres Jr., MD Neck CTA 08/01/17 0000 Signed Impressions: Service Date/Time: Tuesday, August 01, 2017 10:03 - CONCLUSION: 1. No evidence of carotid stenosis 2. 3. 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 No acute findings or aneurysm identified. 2. 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 HEAD: Normocephalic. Multiple EEG probes in place, continuous EEG in progress EYES: No scleral icterus. No injection or drainage. NECK: Supple, trachea midline. No JVD or lymphadenopathy. CARDIOVASCULAR: Sinus tachycardia and rhythm without murmurs, gallops, or rubs. RESPIRATORY: Breath sounds equal bilaterally, diminished at bases. No accessory muscle use. GASTROINTESTINAL: Abdomen soft, non-tender, nondistended. MUSCULOSKELETAL: No significant peripheral edema. Neuro: Currently seizure-like activity. Cranial nerves II through XII grossly intact. Moving all 4 extremity spontaneously. Not following commands. 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 On valproic acid 500 mg IV twice a day ,), fosphenytoin 150 mg IV q12, 2. Topiramate 75 mg twice a day, phenobarbital 30mg Q6 and Ativan 1 mg IV q2 PRN follow up on levels daily. The 20 currently 7.6. Will bolus fosphenytoin 500 mg 1 now. Monitor neuro status. Neuro Dr. Gomez. A neuro workup which includes MRI of the brain, CTA of the head and neck are unremarkable. 08/05 EEG: Diffuse encephalopathy, 08/09 No seizure EEG: : diffuse encephalopathy. Occasional sharp activity is identified over the left hemisphere suggesting an ictal focus in that area Repeat MRI brain 08/04 : No acute findings MRI spine: Round enhancing lesion T1 vertebral body. ? significance s/p LP 08/03: Clear CSF, elevated protein 56, WBC 57 ( Lymphocytic predominant ), glc 62 Most likely viral encephalitis. West Nile and paraneoplastic panel to follow 08/12 Phenytoin and Phenobarbital levels -therapuetic, Valproic Acid slightly subtherapuetic at 46 08/12 Will D/C Geodon, begin Haldol for agitation, Utilize Ativan for seizure activity only 08/13 plan for possible repeat [id number] with neurology, possible repeat lumbar puncture 08/14 ammonia level 53, lactulose 30 ml/ d Pulm: Acute respiratory failure Nasal cannula to maintain saturations greater than or equal to 92%. Extubated 08/11 As needed albuterol every 2 hours. Dyspnea Incentive spirometry while awake CT thorax: Bibasilar consolidation L>R Bronchodilators q 4 hrs PRN CV: Monitor HR and BP and maintain MAP>65 mmHg. Echo small pericardial effusion ( Family hx ? VSD) : Monitor renal function I's and O's, and electrolyte replacement per protocol. GI: Elevated ALT Famotidine for GI prophylaxis Speech to evaluate advanced diet- 08/12 passed bedside swallow, but too lethargic for formal swallow by Speech Therapy CT abd/pelvis: no acute findings Bowel regimen Docusate and senna 08/12 insert Dobhoff Lactulose 30 ml/daily ID: Febrile Illness MSSA Pneumonia Possible/ suspected viral meningoencephalitis Continue with abx per ID -cefazolin:. Fever downtrending Prev ABX DCd -(ceftriaxone, Acyclovir, Ampicillin vancomycin, piperacillin/ tazobactam and micafungin) Monitor for signs of infections( fever and WBC). HSV DNA PCR negative. 08/03 08/07 Sputum: Staph Aureus. 08/10- Pseudomonas 08/12_ follow-up repeat blood and sputum cultures Remainder cultures no growth Strep pneumonia, Legionella urinary Ag negative Endo: SSI with Accu-Chek q.6 h to maintain euglycemia. Heme: Leukocytosis Normocytic anemia Monitor CBC. Follow trends Leukocytosis downtrending wbc 20-> 15 today MSK: PT eval and treat, functional maintenance daily OT evaluate and treat Apply multipolus boots per protocol GI prophylaxis with famotidine 20 mg twice a day and DVT prophylaxis with SCD' s. Continue enoxaparin 40 mg sq daily Dispo: 08/[address] Gomez and patient's parents. Plan for transfer to neuro critical care facility with continuous EEG monitoring, case management has been consulted Level [address] Gomez, [employer] at bedside family at bedside. Discussed transfer with Dr. Rangel neuro accounts payable associate / epileptologist at [facility], he has accepted the patient. Lab , progress notes and imaging studies to be transferred with patient today. Physician Noemy Parada MD Aug 14, 2017 12:39
[2017-08-14] MEDS: LACTULOSE SYRUP 20 GM/30 ML CUP PO SCH (12:45)
[2017-08-14] MEDS: BACITRACIN TOP OINT 15 GM TUBE TOPICAL SCH ×2 (14:00→20:16)
[2017-08-14 15:18] LABS: PHENOBARBITAL 25.7 MCG/ML (15.0-40.0)
--- NOTE | 2017-08-14 17:14 | HHI.IDPN ---
Subjective Subjective Remarks + fever last night up to 103, now remains afebrile agitated, very confused barely recognises her family Speech is incoherent, keeps repeating same words West Nile negative Antibiotics cefepime Allergies: Coded Allergies: oxycodone (Verified Adverse Reaction, Intermediate, Dizziness, 07/31/17) Objective . Vital Signs Date Time Temp Pulse Resp B/P (MAP) Pulse Ox O2 Delivery O2 Flow Rate FiO2 08/14/17 14:00 71 100 08/14/17 14:00 79 08/14/17 13:00 56 100 08/14/17 12:31 179 110/71 (84) 08/14/17 12:00 68 08/14/17 11:44 99 Nasal Cannula 2.00 08/14/17 10:00 79 08/14/17 08:00 68 08/14/17 08:00 98.0 68 18 118/79 (92) 100 08/14/17 06:00 79 08/14/17 04:00 69 08/14/17 04:00 99.4 69 18 126/77 (93) 100 08/14/17 02:00 72 08/14/17 00:00 98.9 74 20 118/71 (87) 100 08/14/17 00:00 74 08/13/17 22:00 89 08/13/17 20:00 71 08/13/17 20:00 101.1 71 18 92/52 (65) 100 08/13/17 20:00 99 Nasal Cannula 2.00 08/13/17 18:00 98.0 08/13/17 18:00 4 . Laboratory Tests Test 08/13/17 04:25 08/14/17 04:22 White Blood Count 20.1 TH/MM3 15.0 TH/MM3 Red Blood Count 3.51 MIL/MM3 3.40 MIL/MM3 Hemoglobin 10.2 GM/DL 10.0 GM/DL Hematocrit 31.0 % 29.9 % Mean Corpuscular Volume 88.3 FL 87.9 FL Mean Corpuscular Hemoglobin 29.1 PG 29.2 PG Mean Corpuscular Hemoglobin Concent 32.9 % 33.3 % Red Cell Distribution Width 13.2 % 13.2 % Platelet Count 373 TH/MM3 452 TH/MM3 Mean Platelet Volume 8.8 FL 7.4 FL Neutrophils (%) (Auto) 81.2 % Lymphocytes (%) (Auto) 8.0 % Monocytes (%) (Auto) 9.5 % Eosinophils (%) (Auto) 0.8 % Basophils (%) (Auto) 0.5 % Neutrophils # (Auto) 16.3 TH/MM3 Lymphocytes # (Auto) 1.6 TH/MM3 Monocytes # (Auto) 1.9 TH/MM3 Eosinophils # (Auto) 0.2 TH/MM3 Basophils # (Auto) 0.1 TH/MM3 CBC Comment DIFF FINAL AUTO DIFF Differential Comment FINAL DIFF MANUAL Differential Total Cells Counted 100 Neutrophils % (Manual) 74 % Band Neutrophils % 10 % Lymphocytes % 9 % Monocytes % 4 % Basophils % 1 % Neutrophils # (Manual) 12.9 TH/MM3 Metamyelocytes 2 % Platelet Estimate HIGH Platelet Morphology Comment NORMAL Red Cell Morphology Comment NORMAL Laboratory Tests Test 08/13/17 04:23 08/14/17 04:22 Blood Urea Nitrogen 16 MG/DL 15 MG/DL Creatinine 0.58 MG/DL 0.56 MG/DL Random Glucose 89 MG/DL 108 MG/DL Calcium Level 8.6 MG/DL 8.4 MG/DL Sodium Level 138 MEQ/L 137 MEQ/L Potassium Level 4.6 MEQ/L 3.7 MEQ/L Chloride Level 104 MEQ/L 104 MEQ/L Carbon Dioxide Level 24.5 MEQ/L 25.2 MEQ/L Anion Gap 10 MEQ/L 8 MEQ/L Estimat Glomerular Filtration Rate 133 ML/MIN 138 ML/MIN Total Protein 7.3 GM/DL Albumin 2.6 GM/DL Alkaline Phosphatase 65 U/L Aspartate Amino Transf (AST/SGOT) 47 U/L Alanine Aminotransferase (ALT/SGPT) 48 U/L Total Bilirubin 0.2 MG/DL Ammonia 53 MCMOL/L Microbiology Date/Time Source Procedure Growth Status 08/12/17 13:22 Blood Peripheral Aerobic Blood Culture - Preliminary NO GROWTH IN 2 DAYS Resulted 08/12/17 13:22 Blood Peripheral Anaerobic Blood Culture - Preliminary NO GROWTH IN 2 DAYS Resulted 08/12/17 13:17 Blood Peripheral Aerobic Blood Culture - Preliminary NO GROWTH IN 2 DAYS Resulted 08/12/17 13:17 Blood Peripheral Anaerobic Blood Culture - Preliminary NO GROWTH IN 2 DAYS Resulted Imaging Last Impressions Brain MRI 08/14/17 0000 Signed Impressions: Service Date/Time: Monday, August 14, 2017 11:41 - CONCLUSION: 1. No acute findings in the brain. 2. Field distortion artifact from patient's braces limits evaluation of portions of the basal brain and renders diffusion echoplanar images nondiagnostic. Misael Samuels MD Abdomen X-Ray 08/13/17 Signed Impressions: Service Date/Time: Sunday, August 13, 2017 12:36 - CONCLUSION: Feeding tube distal tip overlying the first portion of the duodenum. Devin Boggs MD Chest X-Ray 08/11/17599 Signed Impressions: Service Date/Time: Friday, August 11, 2017 03:47 - CONCLUSION: No acute cardiopulmonary abnormality is identified. Devin Boggs MD Chest CT 08/06/17599 Signed Impressions: Service Date/Time: Sunday, August 06, 2017 09:35 - CONCLUSION: 1. Bilateral basilar consolidation more pronounced on the left. Infectious etiology most likely. 2. Tiny bilateral pleural effusions. 3. No perceivable lesion involving T1 on this standard protocol CT of the thorax. Misael Batres Jr., MD Abdomen/Pelvis CT 08/06/17599 Signed Impressions: Service Date/Time: Sunday, August 06, 2017 09:31 - CONCLUSION: Bibasilar consolidative changes worse on the left. No other significant is appreciated. I do not see evidence of metastatic disease. Kev Santana MD FACR Thoracic Spine MRI 08/04/17 Signed Impressions: Service Date/Time: Friday, August 04, 2017 16:14 - CONCLUSION: 1. Focal signal abnormality in the right T1 vertebral body demonstrating uniform contrast-enhancement. Consider performing thin section CT to evaluate integrity or abnormalities within the trabecular pattern and cortex. 2. Multifocal areas of enhancement in the posterior right lung. Recommend further characterization with CT thorax. Misael Samuels MD Lumbar Spine MRI 08/04/17 Signed Impressions: Service Date/Time: Friday, August 04, 2017 16:14 - CONCLUSION: Normal MRI of the lumbar spine with and without contrast. Misael Samuels MD Cervical Spine MRI 08/04/17 Signed Impressions: Service Date/Time: Friday, August 04, 2017 16:14 - CONCLUSION: 1. Round enhancing lesion in the superior right T1 vertebral body. 2. Nondiagnostic evaluation from C1-C4 due to metallic field distortion artifact (braces). Misael Samuels MD Lumbar Puncture Fluoroscopy 08/03/17 0000 Signed Impressions: Service Date/Time: Thursday, August 03, 2017 12:44 - CONCLUSION: Uncomplicated fluoroscopically guided lumbar puncture. Misael Batres Jr., MD Neck CTA 08/01/17 0000 Signed Impressions: Service Date/Time: Tuesday, August 01, 2017 10:03 - CONCLUSION: 1. No evidence of carotid stenosis 2. 3. 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 No acute findings or aneurysm identified. 2. 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 awake alert TUBES/LINES/DRAINS: SKIN: No jaundice, rashes, or lesions. Skin temperature appropriate. Not diaphoretic. EYES: Pupils are small equal and round and reactive. Extraocular motions intact. No scleral icterus. No injection or drainage. Fundi not examined. ENT: Hearing note tested Nose without bleeding or purulent drainage. Visualised mucosae without visible erythema, exudates, masses, or lesions. CARDIOVASCULAR: Regular rate and rhythm without murmurs, gallops, or rubs. No JVD. Peripheral pulses symmetric. RESPIRATORY/CHEST: Symmetric, unlabored respirations. Clear to auscultation. Breath sounds equal bilaterally. No wheezes, rales, or rhonchi. GASTROINTESTINAL: Abdomen soft, non-tender, nondistended. No hepato-splenomegaly , or palpable masses. No guarding. Bowel sounds present. GENITOURINARY: bladder with no palpable distension. fay in w clear yellow urine MUSCULOSKELETAL: Extremities without clubbing, cyanosis, or edema. 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, no e/o HSV by PCR - probably viral, all sepcific studies are negaive Bacterial meningitis less likely Acute urinary retention - relieved with fay 2000 cc of urine - most likely med induced - not reported back pain or LE weakness MRI c T1 lesion - non specific, doubt clin significance Pt is critically ill , stable Fever PNA, b/l , MSSA - repeat sputum clx with PSAE , MSSA - now with clear lungs on CXR PSAE is likley contaminant/coloniser , but giving the situation w persistent feer will change abx to include coverage for PSAE Persistent grade fever - procalcitonine high, more cw infx - still persistent Leukocytosis - worse - prominent L shift fu P blood clx fu sputum cont cefepime monitor fever, monitor temps monitor neuro status If no further neuro improvement /or worsening will re-image and re-tap chk Q fever, Bartonella serologies dw RN dw mother @ b/s Louisa Childs MD Aug 14, 2017 17:14
[2017-08-15] VITALS (23 sets, daily range): BP systolic 105–143; BP diastolic 64–92; PULSE 58–128; RESP 18–22; TEMP 97.6–100.2; O2SAT 97–100
[2017-08-15] MEDS: ACETAMINOPHEN 325 MG TAB PO PRN (00:26)
[2017-08-15] MEDS: FOSPHENYTOIN INJ 200 MGPE in SODIUM CHLORIDE 0.9% INJ 50 ML IV SCH ×3 (03:23→21:06)
[2017-08-15 03:56] LABS: AUTOMATED NEUTROPHIL # 14.1 TH/MM3 (1.8-7.7); BASOPHIL # 0.1 TH/MM3 (0-0.2); BASOPHIL % 0.5 % (0.0-2.0); EOSINOPHIL # 0.3 TH/MM3 (0-0.4); EOSINOPHIL % 1.7 % (0.0-4.0); HEMATOCRIT 29.9 % (35.0-46.0); HEMO FLAGS DIFF FINAL; LYMPH % 8.3 % (9.0-44.0); LYMPHOCYTE # 1.5 TH/MM3 (1.0-4.8); MEAN CELL VOLUME 86.5 FL (80.0-100.0); MEAN CORPUSCULAR HEMOGLOBIN 29.4 PG (27.0-34.0); MONO % 8.7 % (0.0-8.0); NEUT % 80.8 % (16.0-70.0); PLATELET COUNT 487 TH/MM3 (150-450); RED BLOOD COUNT 3.46 MIL/MM3 (4.00-5.30); RED CELL DISTRIBUTION WIDTH 12.8 % (11.6-17.2); WHITE BLOOD COUNT 17.5 TH/MM3 (4.0-11.0)
[2017-08-15 04:33] LABS: PHENOBARBITAL 27.4 MCG/ML (15.0-40.0)
[2017-08-15] MEDS: INSULIN NovoLIN REGULAR SUPPLEMENTAL SCALE SQ SCH ×4 (06:00→18:00)
[2017-08-15] MEDS: CEFEPIME INJ 2,000 MG in SODIUM CHLORIDE 0.9% INJ 100 ML IV SCH ×3 (06:00→21:05)
[2017-08-15] MEDS: BACITRACIN TOP OINT 15 GM TUBE TOPICAL SCH ×3 (06:19→21:06)
[2017-08-15] MEDS: SODIUM CHLORIDE 0.9% FLUSH 10 ML FLUSH IV FLUSH SCH ×2 (08:22→21:00)
[2017-08-15] MEDS: VALPROATE INJ 750 MG in SODIUM CHLORIDE 0.9% INJ 100 ML IV SCH ×3 (08:22→19:17)
[2017-08-15] MEDS: TOPIRAMATE 25 MG TAB OG-TUBE SCH ×2 (08:23→21:05)
[2017-08-15] MEDS: DOCUSATE SODIUM 50 MG/SENNA 8.6 MG TAB PO SCH ×2 (08:23→21:00)
[2017-08-15] MEDS: LACTULOSE SYRUP 20 GM/30 ML CUP PO SCH (08:23)
[2017-08-15] MEDS: FAMOTIDINE 20 MG/2 ML VIAL IV PUSH SCH ×2 (09:00→21:05)
--- NOTE | 2017-08-15 09:07 | HHI.PR ---
Review/Management Diagnosis/Plan: (1) Seizure disorder, complex partial ICD Codes: G40.209 - Localization-related (focal) (partial) symptomatic epilepsy and epileptic syndromes with complex partial seizures, not intractable , without status epilepticus Status: Acute Plan: intractable left temporal lobe seizures etiology; ? 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 Pleocytosis from SZ possible as well but would not expect it to be this pronounced and predominately lymphocytic cx ngtd; hsv pcr negative paraneoplastic panel negative. [place] negative recs repeat mri brain-stable. limited dwi 2/2 braces. adjust dose of sz meds on lactulose for mild hyperammonemia nmda/lg1/vgkc autoantibodies pending plan for tx to hospital with continuous veeg d/w pt's father/rn Subjective Subjective Comments No acute events reported restless Active Medications Current Medications Medications (Trade) Dose Ordered Sig/Nigel Route Start Time Stop Time Status Last Admin (NS Flush) 2 ml UNSCH PRN IV FLUSH 07/31/17 17:30 08/13/17 09:30 (NS Flush) 2 ml BID IV FLUSH 07/31/17 21:00 08/15/17 08:22 (Tylenol) 650 mg Q4H PRN PO 07/31/17 17:30 08/15/17 00:26 (Zofran Inj) 4 mg Q6H PRN IVP 07/31/17 17:30 08/13/17 13:55 (Narcan Inj) 0.4 mg UNSCH PRN IV PUSH 07/31/17 17:30 (Milk Of Magnesia Liq) 30 ml Q12H PRN PO 07/31/17 17:30 08/05/17 17:09 (Tylenol) 650 mg Q6H PRN PO 07/31/17 20:45 08/01/17 20:40 (Ativan Inj) 1 mg Q2H PRN IV PUSH 08/01/17 21:30 08/13/17 20:42 Potassium Chloride 100 ml @ 50 mls/hr Q2H PRN IV 08/02/17 09:00 Potassium Chloride 100 ml @ 50 mls/hr Q2H PRN IV 08/02/17 09:00 (K-Lyte Cl Eff) 50 meq UNSCH PRN PO 08/02/17 09:00 08/08/17 09:10 Potassium Chloride 100 ml @ 25 mls/hr UNSCH PRN IV 08/02/17 09:00 Potassium Chloride 100 ml @ 50 mls/hr Q2H PRN IV 08/02/17 09:00 Magnesium Sulfate 4 gm/Sodium Chloride 100 ml @ 50 mls/hr UNSCH PRN IV 08/02/17 09:00 (Mag-Ox) 800 mg UNSCH PRN PO 08/02/17 09:00 Magnesium Sulfate 2 gm/Sodium Chloride 100 ml @ 50 mls/hr UNSCH PRN IV 08/02/17 09:00 (K-Phos) 2,000 mg Q4H PRN PO 08/02/17 09:00 Sodium Phosphate 30 mmol/Sodium Chloride 250 ml @ 42 mls/hr UNSCH PRN IV 08/02/17 09:00 (K-Phos) 2,000 mg UNSCH PRN PO/TUBE 08/02/17 09:00 Potassium Phosphate 30 mmol/ Sodium Chloride 260 ml @ 42 mls/hr UNSCH PRN IV 08/02/17 09:00 (Luminal Inj) 30 mg Q6H IV 08/05/17 16:00 08/15/17 03:23 (Lazara-Colace) 1 tab BID PO 08/08/17 09:00 08/15/17 08:23 (Lovenox Inj) 40 mg Q24H SQ 08/09/17 11:00 08/14/17 11:00 (Topamax) 75 mg BID OG-TUBE 08/10/17 09:00 08/15/17 08:23 (Pepcid Inj) 20 mg Q12HR IV PUSH 08/10/17 21:00 08/14/17 20:16 (D50w (Vial) Inj) 50 ml UNSCH PRN IV PUSH 08/10/17 17:45 (Glucagon Inj) 1 mg UNSCH PRN OTHER 08/10/17 17:45 (NovoLIN R SUPPLEMENTAL SCALE) 1 Q6HR SQ 08/10/17 18:00 (Racepinephrine 2.25% Neb) 0.5 ml Q3HR NEB PRN NEB 08/11/17 10:15 Fosphenytoin Sodium 200 mgpe/ Sodium Chloride 54 ml @ 216 mls/hr Q12H IV 08/11/17 16:00 08/15/17 03:23 Dexmedetomidine HCl 1000 mcg/ Sodium Chloride 250 ml @ 2.63 mls/hr TITRATE PRN IV 08/12/17 08:30 08/14/17 09:35 Cefepime HCl 2000 mg/Sodium Chloride 100 ml @ 200 mls/hr Q8H IV 08/12/17 14:00 08/15/17 06:00 (Lopressor Inj) 2.5 mg Q6H PRN IV PUSH 08/12/17 12:30 08/13/17 13:45 (Duoneb Neb) 1 ampule Q4HR NEB PRN NEB 08/12/17 12:30 08/12/17 13:27 (Haldol Inj) 2 mg Q8H PRN IM 08/12/17 12:45 08/13/17 09:23 Valproate Sodium 750 mg/Sodium Chloride 107.5 ml @ 105 mls/hr TID IV 08/13/17 13:00 08/15/17 08:22 (Lactulose Liq) 30 ml DAILY PO 08/14/17 12:45 08/15/17 08:23 (Baciguent Oint) 1 applic Q8HR TOPICAL 08/14/17 14:00 08/15/17 06:19 Allergies Allergies Coded Allergies oxycodone (Verified Adverse Reaction, Intermediate, Dizziness, 07/31/17) Review of Systems All other ROS: Unable to obtain Exam I&O / VS Vital Signs Date Time Temp Pulse Resp B/P (MAP) Pulse Ox O2 Delivery O2 Flow Rate FiO2 08/15/17 07:27 100 Nasal Cannula 2.00 08/15/17 06:00 103 08/15/17 04:00 82 08/15/17 04:00 98.4 82 22 118/75 (89) 100 08/15/17 02:00 83 08/15/17 00:00 100.2 79 18 116/77 (90) 100 08/15/17 00:00 79 08/14/17 22:00 121 08/14/17 20:00 109 08/14/17 20:00 98.6 109 20 101/80 (87) 93 08/14/17 19:50 96 Nasal Cannula 2.00 08/14/17 18:00 79 08/14/17 17:00 74 117/78 (91) 100 08/14/17 16:30 75 116/81 (93) 100 08/14/17 16:00 60 109/71 (84) 100 08/14/17 16:00 68 08/14/17 14:00 71 100 08/14/17 14:00 79 08/14/17 13:00 56 100 08/14/17 12:31 179 110/71 (84) 08/14/17 12:00 68 08/14/17 11:44 99 Nasal Cannula 2.00 08/14/17 10:00 79 General: No acute distress Respiratory: Non-labored respirations Cardiology: Normal rate Exam Comments alert, opens eyes, not following, repeating herself but tracks well with mild blink to threat turns head appropriately, no involuntary movements, ou 3-2mm, localizing with all 4 ext, Objective Micro and Labs Laboratory Tests Test 08/14/17 14:04 08/14/17 18:38 08/15/17 03:25 Valproic Acid (Depakene) Level 50 32 Phenobarbital Level 25.7 27.4 White Blood Count 17.5 Red Blood Count 3.46 Hemoglobin 10.2 Hematocrit 29.9 Mean Corpuscular Volume 86.5 Mean Corpuscular Hemoglobin 29.4 Mean Corpuscular Hemoglobin Concent 34.0 Red Cell Distribution Width 12.8 Platelet Count 487 Mean Platelet Volume 8.7 Neutrophils (%) (Auto) 80.8 Lymphocytes (%) (Auto) 8.3 Monocytes (%) (Auto) 8.7 Eosinophils (%) (Auto) 1.7 Basophils (%) (Auto) 0.5 Neutrophils # (Auto) 14.1 Lymphocytes # (Auto) 1.5 Monocytes # (Auto) 1.5 Eosinophils # (Auto) 0.3 Basophils # (Auto) 0.1 CBC Comment DIFF FINAL Differential Comment Ammonia 36 Phenytoin (Dilantin) Level 4.2 Date/Time Source Procedure Growth Status 08/12/17 13:22 Blood Peripheral Aerobic Blood Culture - Preliminary NO GROWTH IN 2 DAYS Resulted 08/12/17 13:22 Blood Peripheral Anaerobic Blood Culture - Preliminary NO GROWTH IN 2 DAYS Resulted 08/03/17 11:50 Cerebral Spinal Fluid Lumbar Puncture Fungal Smear - Final NO FUNGAL ELEMENTS SEEN. Resulted 08/03/17 11:50 Cerebral Spinal Fluid Lumbar Puncture Fungal Culture - Preliminary NO GROWTH IN 1 WEEK Resulted 08/10/17 07:45 Sputum Endotracheal Gram Stain - Final Complete 08/10/17 07:45 Sputum Culture - Final Pseudomonas Aeruginosa Staphylococcus Aureus Complete 08/10/17 06:13 Urine Catheterized Urine Urine Culture - Final NO GROWTH IN 48 HOURS. Complete Problem Qualifiers (1) Seizure disorder, complex partial: Duong Gomez MD Aug 15, 2017 09:07
[2017-08-15] MEDS: LORazepam 2 MG/ML VIAL IV PUSH PRN ×2 (10:21→19:39)
[2017-08-15] MEDS: ENOXAPARIN SODIUM 40 MG/0.4 ML SYRINGE SQ SCH (11:10)
[2017-08-15] MEDS ORDERED: LORazepam 2 MG/ML VIAL IV ONE (11:15)
--- NOTE | 2017-08-15 17:49 | RADRPT ---
EXAM DATE/TIME: 08/15/2017 17:26 [place] COMPARISON: No previous studies available for comparison. INDICATIONS : Dobhoff placement. MEDICAL HISTORY : None. SURGICAL HISTORY : None. ENCOUNTER: Initial ACUITY: 1 day PAIN SCORE: Non-responsive. LOCATION: Bilateral abdomen. FINDINGS: Examination of the abdomen demonstrates a normal bowel gas pattern. No free air is identified. No o rganomegaly is evident. Osseous structures are intact. CONCLUSION: No evidence of obstruction. Dobbhoff feeding tube in the region of the duodenal bulb Sky Peraza MD on August 15, 2017 at 17:47 Board Certified Radiologist. This report was verified electronically.
--- NOTE | 2017-08-15 19:14 | HHI.CCPN ---
Subjective Remarks/Hospital Course The patient is a 22-year-old female who attends [employer] and presented to [facility] ED with her parents noted to have altered mental status. According to the records, the patient was under a lot of stress and she had a recent breakup with her boyfriend one month ago. The patient was admitted under Dr. Ventura's service. She had an EEG done which showed seizure activity. The patient was subsequently placed on Depakote, Vimpat, and Ativan. In addition, she received a loading dose of Cerebyx yesterday. Despite being on multiple antiseizure meds, continuous EEG showed a seizure pattern. After discussion with Dr. Gomez from neurology, he recommended to intubate the patient and place her on Versed drip to control her seizures. After discussion with the patient's father, the patient was intubated and placed on full mechanical ventilation. She had an MRI of the brain the night of July 31 which showed no acute findings. A CTA of the head and neck were unremarkable as well. Urine drug screen was negative for opiates, amphetamines, benzodiazepines. There is no evidence of any fever or leukocytosis. 08/03 No events overnight. Sedated with Versed, Diprivan and intubated. Afebrile. 08/04 No events overnight. Sedated with Diprivan and Versed. s/p LP yesterday showed clear CSF, elevated protein 56, WBC: 57 (Lymphocytic predominant). For repeat MRI brain today. Spoked fever with T: 101.4 at 4am. 08/05 No events overnight. On Continuous EEG monitoring. Afebrile. Sedated with Versed and Diprivan. 08/06 No events overnight. Versed is down 3mg/hr, off Diprivan. For CT thorax/ abd today. T:101.5 08/07 No events overnight. On Versed drip 4mg/hr, T:101.8 at midnight. 08/08: At 8 pm yesterday had 101.7 fever , now afebrile. Eyes are open, weakly followed commands bilaterally, moved feet to command for RN and her father. CXR pending. Ortiz secretions from ETT. CT chest, Bibasilar infiltrates L>R 08/09: Patient had one episode of tonic-clonic seizure in the afternoon. Placed back on sedation. Topamax added. Dr. Gomez has ordered [place], paraneoplastic panel. Updated parents at bedside 08/10: Overnight fever noted. No new seizures. Attempted breathing trial with minimal cuff leak. We'll start on dexamethasone 4 mg for 4 dosages. Family updated at bedside. Last BM today Subjective 08/11: Overnight. Temp max 101. Currently afebrile. Extubated today without complication. Discontinued dexmedetomidine drip. Positive bowel movement 3 08/12: TMax 101.0 Sputum positive for Gram negative rods. Pt became agitated last night and received geodon x 2 doses. Pt appears more alert this am. Continuous EEG monitoring in progress. 08/13: Tmax 101.0 sputum Pseudomonas, the patient was started on cefepime yesterday. Patient recultured now pending. Geodon was discontinued yesterday, Ativan only for seizure activity. Discussion with Dr. Ivan webb Haldonicky low dose when necessary for agitation. Patient received 2 doses in the last 24 hours. Patient was noted to have seizure-like activity this afternoon patient received 1 mg of Ativan. Continuous EEG monitoring underway at this time. 08/14: Tmax 101.1. Patient was noted to have seizure-like activity yesterday afternoon EEG intermittently performed evaluation pending per neurology Dr. Gomez. MRI scheduled for this afternoon. Discussion with Dr. Gomez and the patient's parents regarding the need for continuous EEG monitoring, plan for possible transfer to [facility] or another facility with continuous EEG capability. She continues on Precedex infusion. Ammonia level was noted to be 53 ,lactulose instituted per day. 08/15: Late entry. Afebrile. Patient actively seizing this a.m. required Ativan x 2 doses. Objective Vital Signs Date Time Temp Pulse Resp B/P (MAP) Pulse Ox O2 Delivery O2 Flow Rate FiO2 08/15/17 18:30 66 08/15/17 16:00 98.1 105/68 (80) 100 08/15/17 07:27 Nasal Cannula 2.00 08/15/17 04:00 22 08/11/17 08:14 35 Intake and Output 08/15/17 08/15/17 08/16/17 08:00 16:00 00:00 Intake Total 739 ml 100 ml Output Total 1000 ml Balance -261 ml 100 ml Result Diagram: 08/15/17 0325 08/14/17 0422 Imaging Last Impressions Chest X-Ray 08/11/17599 Signed Impressions: Service Date/Time: Friday, August 11, 2017 03:47 - CONCLUSION: No acute cardiopulmonary abnormality is identified. Devin Boggs MD Chest CT 08/06/17599 Signed Impressions: Service Date/Time: Sunday, August 06, 2017 09:35 - CONCLUSION: 1. Bilateral basilar consolidation more pronounced on the left. Infectious etiology most likely. 2. Tiny bilateral pleural effusions. 3. No perceivable lesion involving T1 on this standard protocol CT of the thorax. Misael Batres Jr., MD Abdomen/Pelvis CT 08/06/17599 Signed Impressions: Service Date/Time: Sunday, August 06, 2017 09:31 - CONCLUSION: Bibasilar consolidative changes worse on the left. No other significant is appreciated. I do not see evidence of metastatic disease. Kev Santana MD FACR Thoracic Spine MRI 08/04/17 0000 Signed Impressions: Service Date/Time: Friday, August 04, 2017 16:14 - CONCLUSION: 1. Focal signal abnormality in the right T1 vertebral body demonstrating uniform contrast-enhancement. Consider performing thin section CT to evaluate integrity or abnormalities within the trabecular pattern and cortex. 2. Multifocal areas of enhancement in the posterior right lung. Recommend further characterization with CT thorax. Misael Samuels MD Lumbar Spine MRI 08/04/17 0000 Signed Impressions: Service Date/Time: Friday, August 04, 2017 16:14 - CONCLUSION: Normal MRI of the lumbar spine with and without contrast. Misael Samuels MD Cervical Spine MRI 08/04/17 0000 Signed Impressions: Service Date/Time: Friday, August 04, 2017 16:14 - CONCLUSION: 1. Round enhancing lesion in the superior right T1 vertebral body. 2. Nondiagnostic evaluation from C1-C4 due to metallic field distortion artifact (braces). Misael Samuels MD Brain MRI 08/04/17 0000 Signed Impressions: Service Date/Time: Friday, August 04, 2017 16:14 - CONCLUSION: 1. No abnormal areas of enhancement or cerebral edema seen. 2. Field distortion artifact from patient's braces limits evaluation of inferior frontal lobes and precludes obtaining diffusion weighted images. Misael Samuels MD Lumbar Puncture Fluoroscopy 08/03/17 0000 Signed Impressions: Service Date/Time: Thursday, August 03, 2017 12:44 - CONCLUSION: Uncomplicated fluoroscopically guided lumbar puncture. Misael Batres Jr., MD Neck CTA 08/01/17 0000 Signed Impressions: Service Date/Time: Tuesday, August 01, 2017 10:03 - CONCLUSION: 1. No evidence of carotid stenosis 2. 3. 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 No acute findings or aneurysm identified. 2. 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 HEAD: Normocephalic. Multiple EEG probes in place, continuous EEG in progress EYES: No scleral icterus. No injection or drainage. NECK: Supple, trachea midline. No JVD or lymphadenopathy. CARDIOVASCULAR: Sinus tachycardia and rhythm without murmurs, gallops, or rubs. RESPIRATORY: Breath sounds equal bilaterally, diminished at bases. No accessory muscle use. GASTROINTESTINAL: Abdomen soft, non-tender, nondistended. MUSCULOSKELETAL: No significant peripheral edema. Neuro: Currently seizure-like activity. Cranial nerves II through XII grossly intact. Moving all 4 extremity spontaneously. Not following commands. 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 On valproic acid 500 mg IV twice a day ,), fosphenytoin 150 mg IV q12, 2. Topiramate 75 mg twice a day, phenobarbital 30mg Q6 and Ativan 1 mg IV q2 PRN follow up on levels daily. The 20 currently 7.6. Will bolus fosphenytoin 500 mg 1 now. Monitor neuro status. Neuro Dr. Gomez. A neuro workup which includes MRI of the brain, CTA of the head and neck are unremarkable. 08/05 EEG: Diffuse encephalopathy, 08/09 No seizure EEG: : diffuse encephalopathy. Occasional sharp activity is identified over the left hemisphere suggesting an ictal focus in that area Repeat MRI brain 08/04 : No acute findings MRI spine: Round enhancing lesion T1 vertebral body. ? significance s/p LP 08/03: Clear CSF, elevated protein 56, WBC 57 ( Lymphocytic predominant ), glc 62 Most likely viral encephalitis. West Nile and paraneoplastic panel to follow 08/12 Phenytoin and Phenobarbital levels -therapuetic, Valproic Acid slightly subtherapuetic at 46 08/12 Will D/C Geodon, begin Haldol for agitation, Utilize Ativan for seizure activity only 08/13 plan for possible repeat [id number] with neurology, possible repeat lumbar puncture 08/15 ammonia level 53-> continue lactulose 30 ml/ d Pulm: Acute respiratory failure Nasal cannula to maintain saturations greater than or equal to 92%. Extubated 08/11 As needed albuterol every 2 hours. Dyspnea Incentive spirometry while awake CT thorax: Bibasilar consolidation L>R Bronchodilators q 4 hrs PRN CV: Monitor HR and BP and maintain MAP>65 mmHg. Echo small pericardial effusion ( Family hx ? VSD) : Monitor renal function I's and O's, and electrolyte replacement per protocol. GI: Elevated ALT Famotidine for GI prophylaxis Speech to evaluate advanced diet- 08/12 passed bedside swallow, but too lethargic for formal swallow by Speech Therapy CT abd/pelvis: no acute findings Bowel regimen Docusate and senna 08/12 insert Dobhoff Lactulose 30 ml/daily ID: Febrile Illness MSSA Pneumonia Possible/ suspected viral meningoencephalitis Continue with abx per ID -cefazolin:. Fever downtrending Prev ABX DCd -(ceftriaxone, Acyclovir, Ampicillin vancomycin, piperacillin/ tazobactam and micafungin) Monitor for signs of infections( fever and WBC). HSV DNA PCR negative. 08/03 08/07 Sputum: Staph Aureus. 08/10- Pseudomonas 08/12_ follow-up repeat blood and sputum cultures Remainder cultures no growth Strep pneumonia, Legionella urinary Ag negative Endo: SSI with Accu-Chek q.6 h to maintain euglycemia. Heme: Leukocytosis Normocytic anemia Monitor CBC. Follow trends Leukocytosis downtrending wbc 20-> 15 today MSK: PT eval and treat, functional maintenance daily OT evaluate and treat Apply multipolus boots per protocol GI prophylaxis with famotidine 20 mg twice a day and DVT prophylaxis with SCD' s. Continue enoxaparin 40 mg sq daily Dispo: 08/[address] Gomez and patient's parents. Plan for transfer to neuro critical care facility with continuous EEG monitoring, case management has been consulted Level 3 08/[address] Gomez, SCREEN MAKING SUPERVISOR at bedside family at bedside. Discussed transfer with Dr. Rangel neuro human resource internship / epileptologist at [facility], he has accepted the patient. Lab , progress notes and imaging studies to be transferred with patient today. 08/15 No bed at transfer facility available last evening patient will be transferred tonight. Physician Noemy Parada MD Aug 15, 2017 19:14
[2017-08-16] VITALS: BP 108/74; PULSE 54; RESP 20; TEMP 98.1; O2SAT 100
[2017-08-16] MEDS: INSULIN NovoLIN REGULAR SUPPLEMENTAL SCALE SQ SCH
[2017-08-16 23:25] LABS: BARTONELLA HENSELAE IGG <1:128 titer (<1:128); BARTONELLA HENSELAE IGM <1:20 titer (<1:20); BARTONELLA QUINTANA IGM <1:20 titer (<1:20)
[2017-08-17 03:51] LABS: Q FEVER PHASE I AB IGM NEGATIVE (NEGATIVE)
[2017-08-17 07:36] LABS: Q FEVER PHASE I AB IGM TITER ND TITER (<1:16); Q FEVER PHASE II IGG TITER ND TITER (<1:16); Q FEVER PHASE II IGM TITER ND TITER (<1:16)
== END 2017-08-16 01:30 | disposition short-term general hospital (02) | DRG 97 ==
LOC: NEPE 13:35 → NEDA 17:30 → N05B 19:13 → HIMW 08-01 12:30 → OBSVTOIN 08-01 13:03
PROVIDERS: ADMIT Internal Medicine Critical Care Medicine; ATTEND Internal Medicine Critical Care Medicine
PROC: 5A1955Z Respiratory Ventilation, Greater than 96 Consecutive Hours (ICD-10-PCS; 2017-08-02)
PROC: 0BH17EZ Insertion of Endotracheal Airway into Trachea, Via Natural or Artificial Opening (ICD-10-PCS; 2017-08-02)
PROC: 009U3ZX Drainage of Spinal Canal, Percutaneous Approach, Diagnostic (ICD-10-PCS; principal; 2017-08-03)
PROC: 0T9B70Z Drainage of Bladder with Drainage Device, Via Natural or Artificial Opening (ICD-10-PCS; 2017-08-03)
DX: A86 Unspecified viral encephalitis (principal); J96.00 Acute respiratory failure, unspecified whether with hypoxia or hypercapnia; G93.40 Encephalopathy, unspecified; J15.211 Pneumonia due to Methicillin susceptible Staphylococcus aureus; Z99.11 Dependence on respirator [ventilator] status; E72.20 Disorder of urea cycle metabolism, unspecified; E86.0 Dehydration; G40.209 Localization-related (focal) (partial) symptomatic epilepsy and epileptic syndromes with complex partial seizures, not intractable, without status epilepticus; R29.90 Unspecified symptoms and signs involving the nervous system; R33.9 Retention of urine, unspecified; Z86.61 Personal history of infections of the central nervous system; Z82.79 Family history of other congenital malformations, deformations and chromosomal abnormalities; D64.9 Anemia, unspecified; R51 Headache; R55 Syncope and collapse; R11.2 Nausea with vomiting, unspecified; Z88.5 Allergy status to narcotic agent
CPT/HCPCS: 31500; 36600; 62270; 70496; 70498; 70553; 71010; 71260; 72156; 72157; 72158; 74000; 74177; 76937; 77003; 80048; 80053; 80164; 80184; 80185; 80202; 80307; 81001; 81002; 82140; 82550; 82552; 82607; 82746; 82805; 82945; 82948; 83036; 83690; 83735; 83873; 84100; 84145; 84146; 84157; 84439; 84443; 84702; 84703; 85007; 85025; 85027; 85610; 85652; 86038; 86140; 86255; 86403; 86592; 86611; 86638; 86651; 86652; 86653; 86654; 86788; 87015; 87040; 87070; 87077; 87086; 87102; 87116; 87147; 87186; 87205; 87206; 87449; 87493; 87498; 87529; 87801; 87804; 88108; 89051; 93005; 93306; 94002; 94003; 94640; 94664; 95819; 96360; A9579; C9254; G0378; J0131; J0133; J0290; J0690; J0692; J0696; J1100; J1630; J1650; J1800; J2060; J2248; J2250; J2405; J2543; J2560; J3010; J3370; J3480; J3486; J7030; J7042; J7050; Q2009; Q9967